=== PATIENT | male | born 1960 | race Caucasian/White ===

== ENCOUNTER → 2022-04-24 | Outpatient (CLI) | payer BC ==
--- NOTE | 2022-04-24 15:20 | US ---
LOWER EXTREMITY VENOUS INSUFFICIENCY CLINICAL HISTORY: I87.2 VENOUS INSUFFICIENCY. Nonhealing wound right perera SIDE PERFORMED: Bilateral 1) Color flow is present and patency is documented in the following vessels. No DVT or SVT is noted . Common Femoral Vein Deep Femoral Vein Femoral Vein Popliteal Vein Proximal Calf Veins Greater Saph Vein Upper Small Saph Vein 2) There is venous reflux noted at the following venous levels: NONE 3) Incompetent perforators are noted at these levels: NONE Bilateral femoral veins appear small in size IMPRESSION: No ultrasound evidence for acute deep or superficial venous thrombosis in either lower ex tremity. No significant venous reflux bilaterally.
== END | disposition home or self-care (01) ==
LOC: RADUSWWP 13:30
PROVIDERS: ATTEND Family Medicine
DX: I87.2 Venous insufficiency (chronic) (peripheral) (principal); S81.801A Unspecified open wound, right lower leg, initial encounter
CPT/HCPCS: 93970

== ENCOUNTER 2022-09-02 13:14 | Inpatient (IN) | payer BC ==
[2022-09-02] MEDS ORDERED: methylPREDNISolone SOD SUCCI 125 MG/2 ML VIAL IV STA (13:36)
[2022-09-02] MEDS ORDERED: SODIUM CHLORIDE 0.9% 1,000 ML IV STA ×2 (13:36→15:54)
[2022-09-02] MEDS ORDERED: IPRATROPIUM-ALBUTEROL 3 ML NEB INHALATION STA (13:36)
--- NOTE | 2022-09-02 13:41 | ED ---
SOB HPI - General Chief Complaint: Shortness of Breath Stated Complaint: sob Time Seen by Provider: 09/02/22 13:29 Source: patient, RN notes reviewed Mode of arrival: ambulatory Limitations: no limitations - History of Present Illness Initial Comments: 61-year-old male with a history of asthma who is a smoker also history of pneumonia who presents with complaints of sudden onset shortness of breath this morning also states he's had chills no overt fever. He states he has some right-sided chest discomfort that sharp in nature when he coughs. No pal pitations no other current complaints or modifying factors MD Complaint: shortness of breath, cough, chest pain - Related Data Home Medications Medication Instructions Recorded Confirmed Albuterol Inhaler [Ventolin Hfa 2 puff INHALATION RT-Q6H PRN 09/02/22 09/02/22 Inhaler] Fluticasone Propion/Salmeterol 1 puff INHALATION RT-BID 09/02/22 09/02/22 [Advair 250-50 Diskus] Allergies Allergy/AdvReac Type Severity Reaction Status Date / Time No Known Allergies Allergy Verified 09/02/22 13:44 Review of Systems ROS Statement: Those systems with pertinent positive or pertinent negative responses have been documented in the HPI. ROS Other: All systems not noted in ROS Statement are negative. Past Medical History Past Medical History: Asthma History of Any Multi-Drug Resistant Organisms: None Reported Past Surgical History: No Surgical Hx Reported Past Psychological History: No Psychological Hx Reported Smoking Status: Current every day smoker Past Alcohol Use History: None Reported Past Drug Use History: None Reported General Exam - General Exam Comments Initial Comments: This is a well-developed well-nourished awake alert oriented 4 male Limitations: no limitations General appearance: alert, anxious, in distress Head exam: Present: atraumatic, normocephalic, normal inspection Eye exam: Present: normal appearance, PERRL, EOMI. Absent: scleral icterus, conjunctival injection, periorbital swelling ENT exam: Present: normal exam, mucous membranes moist Neck exam: Present: normal inspection, full ROM, other (No stridor JVD or bruits). Absent: tenderness, meningismus, lymphadenopathy Respiratory exam: Present: decreased breath sounds, other (Bilateral crepitus). Absent: respiratory distress, wheezes, rales, rhonchi, stridor Cardiovascular Exam: Present: normal rhythm, tachycardia, normal heart sounds. Absent: systolic murmur, diastolic murmur, rubs, gallop, clicks GI/Abdominal exam: Present: soft, normal bowel sounds. Absent: distended, tenderness, guarding, rebound, rigid Extremities exam: Present: normal inspection, full ROM, normal capillary refill. Absent: tenderness, pedal edema, joint swelling, calf tenderness Back exam: Present: normal inspection Neurological exam: Present: alert, oriented X3, CN II-XII intact Psychiatric exam: Present: normal affect, normal mood Skin exam: Present: warm, dry, intact, normal color. Absent: rash Course Vital Signs 09/02/22 09/02/22 09/02/22 13:16 13:48 15:11 Temperature 99.5 F Pulse Rate 134 H 88 Respiratory 32 H 24 22 Rate Blood Pressure 117/73 O2 Sat by Pulse 90 L Oximetry Fraction of Inspired Oxygen (FIO2) 09/02/22 09/02/22 09/02/22 15:25 16:40 16:59 Temperature Pulse Rate 90 133 H 139 H Respiratory 20 30 H 30 H Rate Blood Pressure 102/78 O2 Sat by Pulse 88 L 94 L Oximetry Fraction of 40 Inspired Oxygen (FIO2) 09/02/22 09/02/22 09/02/22 17:31 17:47 19:33 Temperature Pulse Rate 130 H Respiratory 40 H Rate Blood Pressure 129/86 O2 Sat by Pulse 92 L Oximetry Fraction of 40 100 Inspired Oxygen (FIO2) 09/02/22 19:46 Temperature Pulse Rate Respiratory Rate Blood Pressure O2 Sat by Pulse Oximetry Fraction of 100 Inspired Oxygen (FIO2) - Reevaluation(s) Reevaluation #1: 09/02/22 19:37 (Initially was found have evidence of pneumonia right lower lobe and right middle lobe. CT was performed to rule out PE and was seen at this time. Reevaluation #2: 09/02/22 19:37 Patient was seen by Dr. Linda in the emergency department patient was already on BiPAP. he'll be admitted to intensive care unit Reevaluation #3: 09/02/22 20:03 Repeat EKG done at 17:04 sinus tachycardia rate 135. Interval 1:30 QRS caodaism 81 daily since QTC 290/369 indeterminate axis some artifact present otherwise no change from the previous Procedures - Intubation Sedative: Versed Mg Given: 2 Paralytic: Succinylcholine Mg Given: 100 Laryngoscope: fiber optic video scope Size: 4 ET Tube Size: 8 ET Tube Uncuffed: No (Cuffed) Tube Secured Depth (cm): 23 Tube Secured Location: lips Tube Placement Confirmation: visualized tube passing through cords, equal breath sounds bilaterally, confirmation by capnometry Patient Tolerated Procedure: well Intubation Complications: none (There was some blood in the oropharynx secondary to the period time the patient was on BiPAP.) - Sepsis Sepsis Focused Exam #1 Time Sepsis Criteria Met: 19:00 Sepsis Focused Exam Date: 09/02/22 Sepsis Focused Exam Time: 19:30 Sepsis Focused Exam Complete: Yes Vital Signs & RN Notes Reviewed: Yes Capillary Refill: < 2 Seconds: Fingers, Toes Peripheral Pulses: Normal: Radial (R), Radial (L) Skin Color: Normal for Patient Respiratory Exam: respiratory distress, rhonchi Cardiovascular Exam: tachycardia - Smoking Cessation Time Spent Discussing Smoking Cessation w/Patient (Minutes): 3 Patient Acknowledges Need for Cessation: Yes Medical Decision Making - Medical Decision Making Patient did demonstrate evidence of respiratory distress with pneumonia. He is a smoker there is a COPD component to this. Patient did not respond well to the initial treatment or BiPAP and did require oral tracheal intubation as he was fatiguing demonstrating a respiratory rate of 40+. I did discuss this with the patient family prior.. Rapid sequence intubation was performed successfully. Patient's endotracheal tube was repositioned after the initial x-ray postprocedure. He will be admitted to the intensive care unit. Evidence of sepsis patient initially started on IV antibiotics with further orders by Dr. Linda. The patient did initially respond to IV fluids. Was pt. sent in by a medical professional or institution (, PA, STUBBER, urgent care, hospital, or fci...) When possible be specific @ -No Did you speak to anyone other than the patient for history (EMS, parent, family, police, friend...)? What history was obtained from this source @ -Family Did you review nursing and triage notes (agree or disagree)? Why? @ -I reviewed and agree with nursing and triage notes Were old charts reviewed (outside hosp., previous admission, EMS record, old E KG, old radiological studies, urgent care reports/EKG's, fci records)? Report findings @ - old charts were reviewed Differential Diagnosis (chest pain, altered mental status, abdominal pain women, abdominal pain men, vaginal bleeding, weakness, fever, dyspnea, syncope, headache, dizziness, GI bleed, back pain, seizure, CVA, palpatations, mental health, musculoskeletal)? @ -Pneumonia, COPD exacerbation EKG interpreted by me (3pts min.). @ -As above X-rays interpreted by me (1pt min.). @ -As above CT interpreted by me (1pt min.). @ -As above U/S interpreted by me (1pt. min.). @ -None done What testing was considered but not performed or refused? (CT, X-rays, U/S, labs)? Why? @ -None What meds were considered but not given or refused? Why? @ -None Did you discuss the management of the patient with other professionals (professionals i.e. , PA, STUBBER, lab, RT, psych nurse, social sciences lecturer, machinery engineer, teacher, humane officer, family independence case manager)? Give summary @ -Dr. Benitez, Dr. Linda Was smoking cessation discussed for >3mins.? @ -Just patient does agree that he needs to stop Was critical care preformed (if so, how long)? @ -49 minutes Were there social determinants of health that impacted care today? How? (Homelessness, low income, unemployed, alcoholism, drug addiction, transportation, low edu. Level, literacy, decrease access to med. care, intermediate, rehab)? @ -No Was there de-escalation of care discussed even if they declined (Discuss DNR or withdrawal of care, Hospice)? DNR status @ -No What co-morbidities impacted this encounter? (DM, HTN, Smoking, COPD, CAD, Cancer, CVA, ARF, Chemo, Hep., AIDS, mental health diagnosis, sleep apnea, morbid obesity)? @ -COPD Was patient admitted / discharged? Hospital course, mention meds given and route, prescriptions, significant lab abnormalities, going to OR and other pertinent info. @ -hospital course H was admitted to the intensive care unit Undiagnosed new problem with uncertain prognosis? @ -Ammonia Drug Therapy requiring intensive monitoring for toxicity (Heparin, Nitro, Insulin, Cardizem)? @ -No Were any procedures done? @ -Oral tracheal intubation Diagnosis/symptom? @ -Acute respiratory failure, pneumonia, hypoxemia, sepsis Acute, or Chronic, or Acute on Chronic? @ -Acute Uncomplicated (without systemic symptoms) or Complicated (systemic symptoms)? @ -Replicated with systemic symptoms episodic hypotension as well as tachycardia into respiratory failure Side effects of treatment? @ -No Exacerbation, Progression, or Severe Exacerbation? @ -No Poses a threat to life or bodily function? How? (Chest pain, [place], [place], pneumonia, PE, COPD, DKA, ARF, appy, cholecystitis, CVA, Diverticulitis, Homicidal, Suicidal, threat to staff... and all critical care pts) @ -Acute respiratory failure, COPD, pneumonia - Lab Data Result diagrams: 09/02/22 13:49 09/02/22 13:49 Lab Results 09/02/22 09/02/22 09/02/22 Range/Units 13:49 13:49 13:49 WBC 36.8 H (3.8-10.6) k/uL RBC 4.77 (4.30-5.90) m/uL Hgb 14.4 (13.0-17.5) gm/dL Hct 43.5 (39.0-53.0) % MCV 91.2 (80.0-100.0) fL MCH 30.3 (25.0-35.0) pg MCHC 33.2 (31.0-37.0) g/dL RDW 12.6 (11.5-15.5) % Plt Count 324 (150-450) k/uL MPV 8.5 Neutrophils % (Manual) 89 % Band Neuts % (Manual) 5 % Lymphocytes % (Manual) 2 % Monocytes % (Manual) 4 % Neutrophils # (Manual) 34.50 H (1.3-7.7) k/uL Lymphocytes # (Manual) 0.74 L (1.0-4.8) k/uL Monocytes # (Manual) 1.47 H (0-1.0) k/uL Nucleated RBCs 0 (0-0) /100 WBC Manual Slide Review Performed PT 10.4 (9.0-12.0) sec INR 1.0 (<1.2) APTT 22.3 (22.0-30.0) sec D-Dimer 8.19 H (<0.60) mg/L FEU Sample Site ABG pH (7.35-7.45) ABG pCO2 (35-45) mmHg ABG pO2 (83-108) mmHg ABG HCO3 (21-25) mmol/L ABG Total CO2 (19-24) mmol/L ABG O2 Saturation (94-97) % ABG Base Excess mmol/L Chad Test FiO2 % Sodium 133 L (137-145) mmol/L Potassium 4.4 (3.5-5.1) mmol/L Chloride 99 (98-107) mmol/L Carbon Dioxide 25 (22-30) mmol/L Anion Gap 9 mmol/L BUN 18 (9-20) mg/dL Creatinine 1.54 H (0.66-1.25) mg/dL Est GFR (CKD-EPI)AfAm 56 (>60 ml/min/1.73 sqM) Est GFR (CKD-EPI)NonAf 49 (>60 ml/min/1.73 sqM) Glucose 160 H (74-99) mg/dL Plasma Lactic Acid Hal (0.7-2.0) mmol/L Calcium 9.2 (8.4-10.2) mg/dL Magnesium 1.6 (1.6-2.3) mg/dL Total Bilirubin 0.8 (0.2-1.3) mg/dL AST 22 (17-59) U/L ALT 27 (4-49) U/L Alkaline Phosphatase 66 (38-126) U/L Troponin I (0.000-0.034) ng/mL Total Protein 6.7 (6.3-8.2) g/dL Albumin 3.5 (3.5-5.0) g/dL Influenza Type A (PCR) (Not Detectd) Influenza Type B (PCR) (Not Detectd) RSV (PCR) (Not Detectd) SARS-CoV-2 (PCR) (Not Detectd) 09/02/22 09/02/22 09/02/22 Range/Units 13:49 13:49 13:49 WBC (3.8-10.6) k/uL RBC (4.30-5.90) m/uL Hgb (13.0-17.5) gm/dL Hct (39.0-53.0) % MCV (80.0-100.0) fL MCH (25.0-35.0) pg MCHC (31.0-37.0) g/dL RDW (11.5-15.5) % Plt Count (150-450) k/uL MPV Neutrophils % (Manual) % Band Neuts % (Manual) % Lymphocytes % (Manual) % Monocytes % (Manual) % Neutrophils # (Manual) (1.3-7.7) k/uL Lymphocytes # (Manual) (1.0-4.8) k/uL Monocytes # (Manual) (0-1.0) k/uL Nucleated RBCs (0-0) /100 WBC Manual Slide Review PT (9.0-12.0) sec INR (<1.2) APTT (22.0-30.0) sec D-Dimer (<0.60) mg/L FEU Sample Site ABG pH (7.35-7.45) ABG pCO2 (35-45) mmHg ABG pO2 (83-108) mmHg ABG HCO3 (21-25) mmol/L ABG Total CO2 (19-24) mmol/L ABG O2 Saturation (94-97) % ABG Base Excess mmol/L Chad Test FiO2 % Sodium (137-145) mmol/L Potassium (3.5-5.1) mmol/L Chloride (98-107) mmol/L Carbon Dioxide (22-30) mmol/L Anion Gap mmol/L BUN (9-20) mg/dL Creatinine (0.66-1.25) mg/dL Est GFR (CKD-EPI)AfAm (>60 ml/min/1.73 sqM) Est GFR (CKD-EPI)NonAf (>60 ml/min/1.73 sqM) Glucose (74-99) mg/dL Plasma Lactic Acid Hal 1.8 (0.7-2.0) mmol/L Calcium (8.4-10.2) mg/dL Magnesium (1.6-2.3) mg/dL Total Bilirubin (0.2-1.3) mg/dL AST (17-59) U/L ALT (4-49) U/L Alkaline Phosphatase (38-126) U/L Troponin I <0.012 (0.000-0.034) ng/mL Total Protein (6.3-8.2) g/dL Albumin (3.5-5.0) g/dL Influenza Type A (PCR) Not Detected (Not Detectd) Influenza Type B (PCR) Not Detected (Not Detectd) RSV (PCR) Not Detected (Not Detectd) SARS-CoV-2 (PCR) Not Detected (Not Detectd) 09/02/22 Range/Units 17:58 WBC (3.8-10.6) k/uL RBC (4.30-5.90) m/uL Hgb (13.0-17.5) gm/dL Hct (39.0-53.0) % MCV (80.0-100.0) fL MCH (25.0-35.0) pg MCHC (31.0-37.0) g/dL RDW (11.5-15.5) % Plt Count (150-450) k/uL MPV Neutrophils % (Manual) % Band Neuts % (Manual) % Lymphocytes % (Manual) % Monocytes % (Manual) % Neutrophils # (Manual) (1.3-7.7) k/uL Lymphocytes # (Manual) (1.0-4.8) k/uL Monocytes # (Manual) (0-1.0) k/uL Nucleated RBCs (0-0) /100 WBC Manual Slide Review PT (9.0-12.0) sec INR (<1.2) APTT (22.0-30.0) sec D-Dimer (<0.60) mg/L FEU Sample Site R. Radial ABG pH 7.22 L (7.35-7.45) ABG pCO2 64 H (35-45) mmHg ABG pO2 76 L (83-108) mmHg ABG HCO3 26 H (21-25) mmol/L ABG Total CO2 28 H (19-24) mmol/L ABG O2 Saturation 93.2 L (94-97) % ABG Base Excess -1.6 mmol/L Chad Test Yes FiO2 40 % Sodium (137-145) mmol/L Potassium (3.5-5.1) mmol/L Chloride (98-107) mmol/L Carbon Dioxide (22-30) mmol/L Anion Gap mmol/L BUN (9-20) mg/dL Creatinine (0.66-1.25) mg/dL Est GFR (CKD-EPI)AfAm (>60 ml/min/1.73 sqM) Est GFR (CKD-EPI)NonAf (>60 ml/min/1.73 sqM) Glucose (74-99) mg/dL Plasma Lactic Acid Hal (0.7-2.0) mmol/L Calcium (8.4-10.2) mg/dL Magnesium (1.6-2.3) mg/dL Total Bilirubin (0.2-1.3) mg/dL AST (17-59) U/L ALT (4-49) U/L Alkaline Phosphatase (38-126) U/L Troponin I (0.000-0.034) ng/mL Total Protein (6.3-8.2) g/dL Albumin (3.5-5.0) g/dL Influenza Type A (PCR) (Not Detectd) Influenza Type B (PCR) (Not Detectd) RSV (PCR) (Not Detectd) SARS-CoV-2 (PCR) (Not Detectd) - EKG Data -: EKG Interpreted by Me EKG Comments: EKG interpreted by me sinus tachycardia rate 127 [place] interval 124 QRS duration 90 QT since QTC 298/373 indeterminate axis evidence of RVH this was 40 EKG timed at 13:38 - Radiology Data Interpreted by me: Initial x-ray interpreted by me showed evidence of right lower lobe and right middle lobe infiltrate. CT angios showed no definitive evidence of pulmonary embolus or infiltrates were read demonstrated. Post intubation x-ray showed the endotracheal tube to be well above the deo with repositioning 3 cm down. OG tube also need to be repositioned approximately 8 cm downward Critical Care Time Critical Care Time: Yes Total Critical Care Time: 49 Critical Care Time: This is not included the patient time. Disposition Clinical Impression: Acute respiratory failure, Pneumonia, COPD (chronic obstructive pulmonary di sease), Smoking, Febrile illness, acute, Sepsis Disposition: ADMITTED IP TO THIS HOSP Condition: Critical Referrals: Abiel Kennedy DO [Primary Care Provider] - 1-2 days Decision Date: 09/02/22 Decision Time: 19:10
--- NOTE | 2022-09-02 14:48 | XR ---
EXAMINATION TYPE: XR chest 2V DATE OF EXAM: 09/02/2022 2:40 PM COMPARISON: None TECHNIQUE: XR chest 2V Frontal and lateral views of the chest. CLINICAL INDICATION:Male, 61 years old with history of difficulty breathing; FINDINGS: Lungs/Pleura: Patchy airspace opacities demonstrated through the left lower lung and right mid and lo wer lung. No pleural effusion or pneumothorax. Pulmonary vascularity: Unremarkable. Heart/mediastinum: Cardiomediastinal silhouette is unremarkable. Musculoskeletal: Multiple level degenerative disc disease changes seen throughout the spine. No acute osseous abnormality. IMPRESSION: Patchy airspace opacities demonstrated throughout the right mid and lower lung and left lower lung co ncerning for pneumonia.
[2022-09-02 14:50] LABS: HCT 43.5 % (39.0-53.0); HGB 14.4 gm/dL (13.0-17.5); MCH 30.3 pg (25.0-35.0); MCHC 33.2 g/dL (31.0-37.0); MCV 91.2 fL (80.0-100.0); Mean Platelet Volume 8.5; Platelet Count 324 k/uL (150-450); RBC 4.77 m/uL (4.30-5.90); RDW 12.6 % (11.5-15.5); WBC 36.8 k/uL (3.8-10.6)
[2022-09-02 15:07] LABS: Albumin 3.5 g/dL (3.5-5.0); Calcium 9.2 mg/dL (8.4-10.2); Magnesium 1.6 mg/dL (1.6-2.3); Potassium 4.4 mmol/L (3.5-5.1); Total Bilirubin 0.8 mg/dL (0.2-1.3); Total Protein 6.7 g/dL (6.3-8.2)
[2022-09-02] MEDS ORDERED: cefTRIAXone IN SWFI 1,000 MG/10 ML SYRINGE IVP STA (15:29)
[2022-09-02 15:32] LABS: Partial Thromboplastin Time 22.3 sec (22.0-30.0); Prothrombin Time 10.4 sec (9.0-12.0)
[2022-09-02 16:03] LABS: Band Neutrophils % 5 %; Lymphocytes # (M) 0.74 k/uL (1.0-4.8); Monocytes # (M) 1.47 k/uL (0-1.0); Neutrophils % (M) 89 %; Nucleated Red Blood Cells 0 /100 WBC (0-0); Total Cells Counted 100
[2022-09-02] MEDS ORDERED: HYDROmorphone 1 MG/ML 1 ML SYRINGE IVP STA (16:52)
--- NOTE | 2022-09-02 16:57 | CT ---
EXAMINATION TYPE: CT angio chest CT DLP: 410.4 mGycm, Automated exposure control for dose reduction was used. DATE OF EXAM: 09/02/2022 4:43 PM COMPARISON: 09/02/2022 CLINICAL INDICATION:Male, 61 years old with history of PE suspected; elevated d-dimer TECHNIQUE/CONTRAST: CTA scan of the thorax is performed with IV Contrast, patient injected with 65cc mL of Isovue 370, pu lmonary embolism protocol. MIP images are created and reviewed these are created on a separate works tation.. FINDINGS: Pulmonary Artery: There is no evidence for a filling defect within the pulmonary vasculature to sugge st acute pulmonary embolism. The pulmonary artery is of normal size. Lungs/Pleura: Airspace opacities within the right middle lobe and right upper lobe and left lingula. Some of these airspace opacities have peripheral morphology. Including the right upper lobe on series 401 image 47 the right lower lobe on image 75 the left upper lobe and image 86 and the right lower l obe on image 98r. Other opacities are not peripheral including right upper lobe 16 x 12 mm pulmonary nodule on image 34. Mild centrilobular emphysema changes. No pneumothorax or pleural effusion. Airway: Large airways are patent. Heart: Heart is within normal limits for size. Vasculature: No evidence of aortic aneurysm. Mediastinum: No gross evidence of adenopathy. Musculoskeletal: No acute osseous abnormalities Soft Tissues: Unremarkable. Lower neck: No significant findings. Upper Abdomen: No significant findings. IMPRESSION: 1. No central pulmonary embolism visualized. There are wedge-shaped peripheral opacities present and could represent small subsegmental pulmonary emboli with pulmonary infarct. There is another masslike opacity in the right upper lung which is not peripheral. Continued attention CT chest follow-up to t o ensure resolution. 2. Airspace opacities most pronounced in the right middle and right upper lung favored represent infe ctious/inflammatory process.
[2022-09-02] MEDS ORDERED: LORazepam 2 MG/ML INJ IV STA (17:17)
[2022-09-02] MEDS: MAGNESIUM SULFATE-D5W PMX 1 GM in DEXTROSE/WATER 1 100ML.BAG IVPB SCH ×2 (17:40→22:57)
[2022-09-02] MEDS ORDERED: SODIUM CHLORIDE 0.9% 2,000 ML IV ONE (17:59)
[2022-09-02 18:03] LABS: ABG Base Excess -1.6 mmol/L; ABG HCO3 26 mmol/L (21-25); ABG Oxygen Saturation 93.2 % (94-97); ABG PCO2 64 mmHg (35-45); ABG PH 7.22 (7.35-7.45); ABG PO2 76 mmHg (83-108); ABG TCO2 28 mmol/L (19-24); Allen Test Performed? Yes
[2022-09-02] MEDS ORDERED: VANCOMYCIN IV PER PHARMACY 1 EACH MISC MISCELLANE PRN (18:06)
[2022-09-02] MEDS ORDERED: VANCOMYCIN 1,500 MG in SODIUM CHLORIDE 0.9% 500 ML 500 ML IVPB STA (18:13)
[2022-09-02] MEDS ORDERED: methylPREDNISolone SOD SUCCI 125 MG/2 ML VIAL IV SCH ×2 (18:30→21:00)
[2022-09-02] MEDS ORDERED: SUCCINYLCHOLINE CHLORIDE 200 MG/10 ML VIAL IV ONE (19:29)
--- NOTE | 2022-09-02 19:53 | XR ---
EXAMINATION TYPE: XR chest 1V confirm line plcmt DATE OF EXAM: 09/02/2022 7:47 PM COMPARISON: Chest radiographs from 09/02/2022 earlier. TECHNIQUE: XR chest 1V confirm line plcmt Frontal view of the chest. CLINICAL INDICATION:Male, 61 years old with history of ET tube placement; FINDINGS: Lungs/Pleura: Right airspace opacities. No evidence of pneumothorax or pleural effusion. Pulmonary vascularity: Unremarkable. Heart/mediastinum: Cardiomediastinal silhouette is unremarkable. Musculoskeletal: No acute osseous pathology. Lines/Tubes: Endotracheal tube with distal tip 7.1 cm above the deo. Nasogastric tube with side-port projecting over the distal esophagus. IMPRESSION: 1. Right midlung airspace opacities compatible with pneumonia. 2. ET tube in satisfactory position. Consider advancement of 3 cm for optimal placement. 3. Nasogastric tube side-port at the gastroesophageal junction consider advancement of 8 cm for opti mal placement.
[2022-09-02] MEDS ORDERED: MIDAZOLAM 1 MG/ML 5 ML VIAL IV STA (20:15)
[2022-09-02] MEDS ORDERED: NALOXONE 0.4 MG/ML 1 ML VIAL IV PRN (20:15)
[2022-09-02 20:21] LABS: ABG Base Excess -4.4 mmol/L; ABG HCO3 25 mmol/L (21-25); ABG Oxygen Saturation 98.2 % (94-97); ABG PO2 144 mmHg (83-108); ABG TCO2 27 mmol/L (19-24); Allen Test Performed? Yes
--- NOTE | 2022-09-02 20:50 | XR ---
EXAMINATION TYPE: XR chest 1V portable DATE OF EXAM: 09/02/2022 8:42 PM COMPARISON: Chest radiographs from same day TECHNIQUE: XR chest 1V portable Frontal view of the chest. CLINICAL INDICATION:Male, 61 years old with history of Intubation; FINDINGS: Improved location of the endotracheal tube now 4.4 cm above the deo. Nasogastric tube in appropria te position with distal tip and side-port in the gastric lumen. Right airspace opacities unchanged. IMPRESSION: Interval advancement with appropriate placement of endotracheal and nasogastric tubes.
[2022-09-02 21:11] LABS: Glucose,Whole Blood 197 mg/dL (70-110)
--- NOTE | 2022-09-02 21:19 | P.CNPUL ---
History of Present Illness Consult date: 09/02/22 Reason for consult: dyspnea, COPD History of present illness: A 61-year-old mentation, known history of COPD, chronic smoker who continues to smoke approximately a pack of cigarettes a day, presenting with progressively worsening shortness of breath over the past 1 week. The patient was seen in the emergency department. The patient was already on a BiPAP at a pressure of 12/6 with an FiO2 of 60%. He was still having significant labored breathing, and he was tachypneic and his rate was ranging between 30-40 and he had marked diminished breath sounds bilaterally. His mentation was quite diminished and the patient seemed to be altered yet arousable. The was at the bedside. This patient does not seem to have had an evaluation with pulmonary in the past. Based on the reported history by the , he has been maintained on Advair and albuterol rescue inhaler on an outpatient basis. No home O2. He was experiencing pleuritic right-sided chest pain along with cough and congestion. He ended up in the emergency department this afternoon. Based on his labored breathing, immediately was placed on a BiPAP. I discussed the case with the emergency room physician. The patient is a higher risk of going into respiratory failure requiring intubation mechanical ventilation and I made the aware of. Meanwhile, if it was worth was given patient a trial of noninvasive positive pressure ventilation. White cell count was 36.8 with a hemoglobin of 14.4. Acute kidney injury with a BUN of 18 and a creatinine of 1.5 and sodium level of 133. His LFTs were essentially normal. The vital screening including influenza a and influenza B and RSV and Covid 19 testing was negative. Lactic acid level was at 1.8. Troponins were negative. Blood gas was ordered. Reviewed the CAT scan of the chest and there is no evidence of p ulmonary embolism. The patient had extensive airspace disease more pronounced in the right middle lobe and the right upper lobe and the patient had other peripheral wedge-shaped pulmonary infiltrates. Predominant consolidation within the right upper lobe. There was also background mild centrilobular emphysema. No history of diabetes mellitus. Nosocomial artery disease. No history of any stroke. Review of Systems Constitutional: Reports fatigue, Reports lethargy, Reports poor appetite, Reports weakness Eyes: denies as per HPI, denies blurred vision, denies bulging eye, denies decreased vision, denies diplopia, denies discharge, denies dry eye, denies irritation, denies itching, denies pain, denies photophobia, denies loss of peripheral vision, denies loss of vision, denies tunnel vision/blind spots Ears: deny: decreased hearing, ear discharge, earache, tinnitus Ears, nose, mouth and throat: Reports as per HPI Breasts: absent: as per HPI, gynecomastia Cardiovascular: Reports decreased exercise tolerance, Reports dyspnea on exertion Respiratory: Reports cough, Reports dyspnea, Reports pleurisy Gastrointestinal: Reports as per HPI Genitourinary: Reports as per HPI Musculoskeletal: absent: ankle pain, ankle stiffness, ankle swelling, as per HPI, elbow pain, elbow stiffness, elbow swelling, foot pain, foot stiffness, foot swelling, hand pain, hand stiffness, hand swelling, hip pain, hip stiffness, hip swelling, knee pain, knee stiffness, knee swelling, shoulder pain, shoulder stiffness, shoulder swelling, wrist pain, wrist stiffness, wrist swelling Integumentary: Reports as per HPI Neurological: Reports change in mentation Psychiatric: Reports as per HPI Endocrine: Reports fatigue Hematologic/Lymphatic: Reports as per HPI Allergic/Immunologic: Reports as per HPI Past Medical History Past Medical History: COPD History of Any Multi-Drug Resistant Organisms: None Reported Past Surgical History: No Surgical Hx Reported Past Psychological History: No Psychological Hx Reported Smoking Status: Current every day smoker Past Alcohol Use History: None Reported Past Drug Use History: None Reported Medications and Allergies Home Medications Medication Instructions Recorded Confirmed Type Albuterol Inhaler [Ventolin Hfa 2 puff INHALATION RT-Q6H PRN 09/02/22 09/02/22 History Inhaler] Fluticasone Propion/Salmeterol 1 puff INHALATION RT-BID 09/02/22 09/02/22 History [Advair 250-50 Diskus] Allergies Allergy/AdvReac Type Severity Reaction Status Date / Time No Known Allergies Allergy Verified 09/02/22 13:44 Physical Exam Vitals: Vital Signs Temp Pulse Resp BP Pulse Ox FiO2 09/02/22 20:30 112 H 27 H 111/62 98 09/02/22 20:00 111 H 21 118/67 96 09/02/22 19:46 100 09/02/22 19:33 100 09/02/22 19:30 122 H 22 154/96 93 L 09/02/22 19:00 120 H 37 H 132/71 90 L 09/02/22 17:47 40 09/02/22 17:31 130 H 40 H 129/86 92 L 09/02/22 17:30 133 H 37 H 119/67 93 L 09/02/22 17:00 102/78 94 L 09/02/22 16:59 139 H 30 H 94 L 40 09/02/22 16:40 133 H 30 H 102/78 88 L 09/02/22 16:30 129 H 32 H 94/75 89 L 09/02/22 16:00 134 H 41 H 94/75 90 L 09/02/22 15:30 137 H 48 H 94/75 89 L 09/02/22 15:25 90 20 09/02/22 15:11 88 22 09/02/22 15:00 131 H 29 H 94/75 90 L 09/02/22 14:30 94/75 09/02/22 14:00 130 H 31 H 94/75 94 L 09/02/22 13:48 24 09/02/22 13:44 126 H 31 H 95 09/02/22 13:16 99.5 F 134 H 32 H 117/73 90 L Intake and Output 09/02/22 09/02/22 09/02/22 06:59 14:59 22:59 Other: Weight 81.647 kg 61-year-old male patient, labored breathing on a BiPAP at a pressure of 12/6 with an FiO2 of 60%, tachypneic with a higher minute ventilation. He is obese. Head exam was generally normal. There was no scleral icterus or corneal arcus. Mucous membranes were moist. Neck was supple and without jugular venous distension, thyromegaly, or carotid bruits. Carotids were easily palpable bilaterally. There was no adenopathy. Lungs sounds are diminished bilaterally and the patient has expiratory rhonchi and wheezes and diminished breath sounds bilaterally. Heart sounds are tachycardic, positive S1-S2, sinus rhythm and no significant murmurs appreciated Abdominal exam revealed normal bowel sounds. The abdomen was soft, non-tender, and without masses, organomegaly, or appreciable enlargement of the abdominal aorta. Extremities revealed trace edema and there is no cyanosis or clubbing Examination of the skin revealed no evidence of significant rashes, suspicious appearing nevi or other concerning lesions. Neurologically the patient is arousable, and the patient has diminished level of consciousness. Neurologic exam is nonfocal. Is communicating and moving all 4 extremities. Results - Laboratory Findings CBC and BMP: 09/02/22 13:49 09/02/22 13:49 ABG ABG pH 7.22 (7.35-7.45) L 09/02/22 17:58 ABG pCO2 64 mmHg (35-45) H 09/02/22 17:58 ABG pO2 76 mmHg (83-108) L 09/02/22 17:58 ABG O2 Saturation 93.2 % (94-97) L 09/02/22 17:58 PT/INR, D-dimer PT 10.4 sec (9.0-12.0) 09/02/22 13:49 INR 1.0 (<1.2) 09/02/22 13:49 D-Dimer 8.19 mg/L FEU (<0.60) H 09/02/22 13:49 Abnormal lab findings: Abnormal Labs 09/02/22 09/02/22 09/02/22 13:49 13:49 13:49 WBC 36.8 H Neutrophils # (Manual) 34.50 H Lymphocytes # (Manual) 0.74 L Monocytes # (Manual) 1.47 H D-Dimer 8.19 H ABG pH ABG pCO2 ABG pO2 ABG HCO3 ABG Total CO2 ABG O2 Saturation Sodium 133 L Creatinine 1.54 H Glucose 160 H 09/02/22 17:58 WBC Neutrophils # (Manual) Lymphocytes # (Manual) Monocytes # (Manual) D-Dimer ABG pH 7.22 L ABG pCO2 64 H ABG pO2 76 L ABG HCO3 26 H ABG Total CO2 28 H ABG O2 Saturation 93.2 L Sodium Creatinine Glucose - Diagnostic Findings Chest x-ray: image reviewed CT scan - chest: image reviewed Assessment and Plan Plan: acute multilobar pneumonia right more than left with extensive right upper lobe/right middle lobe consolidation lung with patchy pneumonic infiltrates bilaterally. Acute hypoxic/hypercapnic respiratory failure secondary to above, currently on BiPAP acute sepsis secondary to above Acute sinus tachycardia secondary to above Acute leukocytosis secondary to above Acute COPD exacerbation secondary to above Altered mentation secondary to above acute kidney injury secondary to above Chronic smoker Plan Continue BiPAP for now at the same setting Obtain a blood gas to evaluate the patient's acid base status Close monitoring with possible need for intubation and mechanical ventilation Blood culture Pro calcitonin levels I'm going to cover the patient with a combination of IV cefepime, Levaquin and vancomycin DuoNeb nebulized treatments [id number] IV Solu-Medrol IV fluids with normal saline at the rate of 125 cc/hour Lovenox 40 mg subcu portably prophylaxis IV Protonix condition is critical and the patient will need close ICU monitoring, As mentioned, possible need for intubation mechanical ventilation. is aware Time with Patient: Greater than 30
[2022-09-02 21:31] LABS: Appearance,Urine Clear (Clear); Bilirubin,Urine Negative (Negative); Blood,Urine Trace (Negative); Color,Urine Yellow; Glucose,Urine (UA) Negative (Negative); Ketones,Urine Negative (Negative); Leukocyte Esterase,Urine Negative (Negative); Mucus,Urine Rare /hpf; Nitrite,Urine Negative (Negative); PH, Urine 5.5 (5.0-8.0); Protein,Urine Trace (Negative); RBC,Urine 1 /hpf (0-5); Specific Gravity,Urine 1.041 (1.001-1.035); Urobilinogen,Urine <2.0 mg/dL (<2.0); WBC,Urine <1 /hpf (0-5)
[2022-09-02] MEDS: IPRATROPIUM-ALBUTEROL 3 ML NEB INHALATION SCH (21:34)
[2022-09-02] MEDS ORDERED: SODIUM CHLORIDE 0.9% 1,000 ML IV ONE (21:46)
[2022-09-02] MEDS: LEVOFLOXACIN 750MG-D5W PMX 750 MG in DEXTROSE/WATER 1 150ML.BAG IVPB SCH (21:49)
[2022-09-02] MEDS: NOREPINEPHRINE 4 MG in SODIUM CHLORIDE 0.9% 250 ML IV SCH (22:35)
[2022-09-02] MEDS: PANTOPRAZOLE 40 MG TABLET PO SCH (22:44)
[2022-09-02] MEDS: ENOXAPARIN 40 MG/0.4 ML SYRINGE SQ SCH (22:44)
[2022-09-02] MEDS: CHLORHEXIDINE GLUCONATE 15 ML CUP MUCOUS MEM SCH (22:44)
[2022-09-02] MEDS: methylPREDNISolone SOD SUCCI 125 MG/2 ML VIAL IV SCH (22:44)
[2022-09-02] MEDS: CEFEPIME 2 GM in SODIUM CHLORIDE 0.9% 100 ML IVPB SCH (22:45)
[2022-09-03 00:02] LABS: ABG PCO2 75 mmHg (35-45); ABG PH 7.13 (7.35-7.45)
[2022-09-03] MEDS: NOREPINEPHRINE 4 MG in SODIUM CHLORIDE 0.9% 250 ML IV SCH ×2 (00:32→11:38)
--- NOTE | 2022-09-03 02:16 | HP ---
HISTORY AND PHYSICAL HISTORY OF PRESENT ILLNESS: This is a 61-year-old white male with history of COPD, chronic smoker, pack of cigarettes a day. He has some worsening shortness of breath for the past week. He is already on the BiPAP and FiO2 60%, significant labored breathing. He has been placed on a vent in the ER per pulmonology due to worsening respiratory distress. He is altered, but arousable. is at the bedside. He has been maintained on Advair and albuterol rescue inhaler. No home O2. He was experiencing some pleuritic right-sided chest pain. cough, congestion, positive D-dimer. CT of the chest shows bilateral pneumonia, is placed on the ventilator, placed on broad-spectrum antibiotics, vancomycin, Zosyn, and Levaquin. Extensive airspace disease right middle lobe, right upper lobe, and wedge shaped pulmonary infiltrates on the outer edges of the lungs in the right upper lobe. There is also prominent consolidation and emphysema. REVIEW OF SYSTEMS: A 14-point review of systems unobtainable. He is on the vent. CURRENT MEDICATIONS: See HPI. PAST MEDICAL HISTORY: COPD. SOCIAL HISTORY: Current everyday smoker. No alcohol, no drugs. HOME MEDS: Reviewed include, 1. Advair 250/50 one puff b.i.d. 2. Albuterol inhaler 2 puffs b.i.d. ALLERGIES: Negative. PHYSICAL EXAMINATION: GENERAL: He is currently on the ventilator. VITAL SIGNS: Pulse is low 100s, respiratory rate is 27 before he goes on the vent , blood pressure 111 over 60s, O2 98, FiO2 100%. LUNGS: Show scattered rhonchi and wheeze x4, diminished breath sounds x4. HEART: S1, S2. ABDOMEN: Soft, nontender. EXTREMITIES: No cyanosis, clubbing, or edema. SKIN: No rashes. NEUROLOGIC: Diminished level of consciousness. LABORATORY DATA: White count is 36.8, hemoglobin is 14.4, sodium 133, potassium 4.4, BUN is 18, creatinine 1.54. ABG, pH is 7.22, pCO2 64, PO2 is 76, O2 saturation is 93. D-dimer is 8.19 as mentioned above. Sodium is 132, creatinine is 1.54. Sugars 160. ASSESSMENT: Bilateral pneumonia, likely aspiration, nicotine addiction, COPD, acute hypoxemic respiratory failure secondary to multilobular pneumonia, extensive right upper lobe, right middle lobe, and left lobe pulmonary infiltrates bilaterally in the outer [place], could be blood clot, elevated D-dimer hypoxemic hypercapnic respiratory failure, continue on ventilator. Broad-spectrum antibiotics are given. Infectious Disease consult. Sepsis secondary to above tachycardia secondary to hypoxemia, leukocytosis, significant nature over 30,000 secondary to pneumonia, profound sepsis, COPD exacerbation, altered mental status, acute kidney injury, nicotine addiction, blood cultures, anticoagulants, BiPAP. Pulmonary and Cardiology consult. Continue cefepime, Levaquin, Vancomycin to get IV Solu-Medrol, fluids, Lovenox, Protonix. Prognosis guarded. Pulmonary consult, prognosis guarded. MMSUEL / AMIRAN: [id number] /
[2022-09-03] MEDS: methylPREDNISolone SOD SUCCI 125 MG/2 ML VIAL IV SCH ×4 (04:00→23:55)
[2022-09-03 04:56] LABS: ABG Base Excess -6.8 mmol/L; ABG HCO3 21 mmol/L (21-25); ABG Oxygen Saturation 95.2 % (94-97); ABG PCO2 48 mmHg (35-45); ABG PH 7.24 (7.35-7.45); ABG PO2 79 mmHg (83-108); ABG TCO2 22 mmol/L (19-24); Allen Test Performed? Yes
[2022-09-03] MEDS: VANCOMYCIN 1,500 MG in SODIUM CHLORIDE 0.9% 500 ML 500 ML IVPB SCH ×2 (05:47→18:31)
[2022-09-03 06:06] LABS: Glucose,Whole Blood 202 mg/dL (70-110)
--- NOTE | 2022-09-03 06:27 | P.PN ---
Subjective Progress Note Date: 09/03/22 A 61-year-old mentation, known history of COPD, chronic smoker who continues to smoke approximately a pack of cigarettes a day, presenting with progressively worsening shortness of breath over the past 1 week. The patient was seen in the emergency department. The patient was already on a BiPAP at a pressure of 12/6 with an FiO2 of 60%. He was still having significant labored breathing, and he was tachypneic and his rate was ranging between 30-40 and he had marked diminished breath sounds bilaterally. His mentation was quite diminished and the patient seemed to be altered yet arousable. The was at the bedside. This patient does not seem to have had an evaluation with pulmonary in the past. Based on the reported history by the , he has been maintained on Advair and albuterol rescue inhaler on an outpatient basis. No home O2. He was experiencing pleuritic right-sided chest pain along with cough and congestion. He ended up in the emergency department this afternoon. Based on his labored breathing, immediately was placed on a BiPAP. I discussed the case with the emergency room physician. The patient is a higher risk of going into respiratory failure requiring intubation mechanical ventilation and I made the aware of. Meanwhile, if it was worth was given patient a trial of noninvasive positive pressure ventilation. White cell count was 36.8 with a hemoglobin of 14.4. Acute kidney injury with a BUN of 18 and a creatinine of 1.5 and sodium level of 133. His LFTs were essentially normal. The vital screening including influenza a and influenza B and RSV and Covid 19 testing was negative. Lactic acid level was at 1.8. Troponins were negative. Blood gas was ordered. Reviewed the CAT scan of the chest and there is no evidence of pulmonary embolism. The patient had extensive airspace disease more pronounced in the right middle lobe and the right upper lobe and the patient had other peripheral wedge-shaped pulmonary infiltrates. Predominant consolidation within the right upper lobe. There was also background mild centrilobular emphysema. No history of diabetes mellitus. Nosocomial artery disease. No history of any stroke. On today's evaluation of 09/03/2022, the patient is in the intensive care unit, intubated on a mechanical ventilator. The patient has further decompensation yesterday and he was intubated in the emergency department and following that he was transferred to the ICU. As mentioned, he has an extensive right lung pneu monia and the patient has dense consolidation involving the right middle lobe, right upper lobe and right lower lobe in addition so some patchy pulmonary infiltrates and the right upper lobe and the left lower lobe area. He is currently intubated on a mechanical ventilator. Is sedated on propofol running at 50 mcg/kg/m. He is on assist-control mode of mechanical ventilation at the rate of 20, tidal volume of 500, FiO2 of 70% with a PEEP of 5. Peak airway pressure is 26. No significant orotracheal secretions. Cultures were sent yesterday. The patient is currently on IV fluids with normal saline at rate of 1 25 mL an hour. He became hypotensive overnight and the patient was started on low-dose norepinephrine running at 0.05 mcg/kg/m. His morning blood gases showed a pH of 7.24 with a pCO2 of 48 and pO2 of 79. Cultures are still pending. Pro-calcitonin level is elevated at 32.4 consistent with an acute bacterial infection with secondary sepsis., The patient with broad-spectrum antibiotics. He is on a combination of cefepime, Levaquin and vancomycin. Is also on bronchodilators. He is on systemic steroids. Urine output is in order of 30-60 mL an hour. He is afebrile for now. His calm and comfortable. His current pulse ox is 95%. Cardiac rhythm is sinus. Objective - Vital Signs Vital signs: Vital Signs Temp 99.1 F 09/03/22 04:00 Pulse 89 09/03/22 06:00 Resp 20 09/03/22 06:00 BP 97/66 09/03/22 06:00 Pulse Ox 94 L 09/03/22 06:00 FiO2 70 09/03/22 06:00 Intake & Output 09/02/22 09/02/22 09/03/22 06:59 18:59 06:59 Intake Total 2599.977 Output Total 465 Balance 2134.977 Weight 81.647 kg 93.8 kg Intake: IV 2417 Sodium Chloride 0.9% 1, 1250 000 ml @ 125 mls/hr IV . Q8H STA Rx#:[id number] Sodium Chloride 0.9% 1, 1000 000 ml @ 999 mls/hr IV . Q1H1M STA Rx#:[id number] Vancomycin 1,500 mg In 167 Sodium Chloride 0.9% 500 ml 500 ml @ 167 mls/hr IVPB Q12H JET Rx#: [id number] Intake, IV Titration 182.977 Amount Norepinephrine 4 mg In 39.972 Sodium Chloride 0.9% 250 ml @ 0.03 MCG/KG/MIN 9. 332 mls/hr IV .Q24H JET Rx#:[id number] propofoL 1,000 mg In 143.005 Empty Bag 1 bag @ 15 MCG/ KG/MIN 7.348 mls/hr IV . [id number] JET Rx#:[id number] Output: Urine 465 Other: Voiding Method Indwelling Catheter - Exam 61-year-old male patient, the patient is currently intubated on a mechanical ventilator, and the patient is sedated and symptoms the mechanical ventilation. Orotracheal and orogastric tube are both in place. Head exam was generally normal. There was no scleral icterus or corneal arcus. Mucous membranes were moist. Neck was supple and without jugular venous distension, thyromegaly, or carotid bruits. Carotids were easily palpable bilaterally. There was no adenopathy. Lungs sounds are diminished bilaterally and the patient has expiratory rhonchi and wheezes and diminished breath sounds bilaterally. Heart sounds are tachycardic, positive S1-S2, sinus rhythm and no significant murmurs appreciated Abdominal exam revealed normal bowel sounds. The abdomen was soft, non-tender, and without masses, organomegaly, or appreciable enlargement of the abdominal aorta. Extremities revealed trace edema and there is no cyanosis or clubbing Examination of the skin revealed no evidence of significant rashes, suspicious appearing nevi or other concerning lesions. Neurologically the patient is adequately sedated for now, he is on propofol. Neurologic exam is nonfocal. Is communicating and moving all 4 extremities. - Labs CBC & Chem 7: 09/02/22 13:49 09/02/22 13:49 Labs: Abnormal Lab Results - Last 24 Hours (Table) 09/02/22 09/02/22 09/02/22 Range/Units 13:49 13:49 13:49 WBC 36.8 H (3.8-10.6) k/uL Neutrophils # (Manual) 34.50 H (1.3-7.7) k/uL Lymphocytes # (Manual) 0.74 L (1.0-4.8) k/uL Monocytes # (Manual) 1.47 H (0-1.0) k/uL D-Dimer 8.19 H (<0.60) mg/L FEU ABG pH (7.35-7.45) ABG pCO2 (35-45) mmHg ABG pO2 (83-108) mmHg ABG HCO3 (21-25) mmol/L ABG Total CO2 (19-24) mmol/L ABG O2 Saturation (94-97) % Sodium 133 L (137-145) mmol/L Creatinine 1.54 H (0.66-1.25) mg/dL Glucose 160 H (74-99) mg/dL POC Glucose (mg/dL) (70-110) mg/dL Procalcitonin (0.02-0.09) ng/mL Ur Specific [place] (1.001-1.035) Urine Protein (Negative) Urine Blood (Negative) Urine Mucus (None) /hpf 09/02/22 09/02/22 09/02/22 Range/Units 17:58 20:20 20:31 WBC (3.8-10.6) k/uL Neutrophils # (Manual) (1.3-7.7) k/uL Lymphocytes # (Manual) (1.0-4.8) k/uL Monocytes # (Manual) (0-1.0) k/uL D-Dimer (<0.60) mg/L FEU ABG pH 7.22 L 7.13 L* (7.35-7.45) ABG pCO2 64 H 75 H* (35-45) mmHg ABG pO2 76 L 144 H (83-108) mmHg ABG HCO3 26 H (21-25) mmol/L ABG Total CO2 28 H 27 H (19-24) mmol/L ABG O2 Saturation 93.2 L 98.2 H (94-97) % Sodium (137-145) mmol/L Creatinine (0.66-1.25) mg/dL Glucose (74-99) mg/dL POC Glucose (mg/dL) (70-110) mg/dL Procalcitonin (0.02-0.09) ng/mL Ur Specific [place] 1.041 H (1.001-1.035) Urine Protein Trace H (Negative) Urine Blood Trace H (Negative) Urine Mucus Rare H (None) /hpf 09/02/22 09/02/22 09/03/22 Range/Units 21:10 21:32 04:54 WBC (3.8-10.6) k/uL Neutrophils # (Manual) (1.3-7.7) k/uL Lymphocytes # (Manual) (1.0-4.8) k/uL Monocytes # (Manual) (0-1.0) k/uL D-Dimer (<0.60) mg/L FEU ABG pH 7.24 L (7.35-7.45) ABG pCO2 48 H (35-45) mmHg ABG pO2 79 L (83-108) mmHg ABG HCO3 (21-25) mmol/L ABG Total CO2 (19-24) mmol/L ABG O2 Saturation (94-97) % Sodium (137-145) mmol/L Creatinine (0.66-1.25) mg/dL Glucose (74-99) mg/dL POC Glucose (mg/dL) 197 H (70-110) mg/dL Procalcitonin 32.40 H (0.02-0.09) ng/mL Ur Specific [place] (1.001-1.035) Urine Protein (Negative) Urine Blood (Negative) Urine Mucus (None) /hpf 09/03/22 Range/Units 06:05 WBC (3.8-10.6) k/uL Neutrophils # (Manual) (1.3-7.7) k/uL Lymphocytes # (Manual) (1.0-4.8) k/uL Monocytes # (Manual) (0-1.0) k/uL D-Dimer (<0.60) mg/L FEU ABG pH (7.35-7.45) ABG pCO2 (35-45) mmHg ABG pO2 (83-108) mmHg ABG HCO3 (21-25) mmol/L ABG Total CO2 (19-24) mmol/L ABG O2 Saturation (94-97) % Sodium (137-145) mmol/L Creatinine (0.66-1.25) mg/dL Glucose (74-99) mg/dL POC Glucose (mg/dL) 202 H (70-110) mg/dL Procalcitonin (0.02-0.09) ng/mL Ur Specific [place] (1.001-1.035) Urine Protein (Negative) Urine Blood (Negative) Urine Mucus (None) /hpf Microbiology - Last 24 Hours (Table) 09/02/22 21:25 Sputum Culture - Preliminary Sputum Assessment and Plan Plan: acute multilobar pneumonia right more than left with extensive right upper lobe/ right middle lobe consolidation lung with patchy pneumonic infiltrates bilaterally. Likely a bacterial pneumonia and the pro calcitonin level is elevated Acute hypoxic/hypercapnic respiratory failure secondary to above, failed BiPAP therapy and the patient is currently intubated on a mechanical ventilator. Blood gases show a component of respiratory acidosis. Chest x-ray still showing dense consolidation of the right lung in addition to patchy pulmonary infiltrates bilaterally. This is most likely a bacterial pneumonia. acute sepsis secondary to above Hypotension secondary to sepsis and the patient is on low-dose pressors and the patient is also on IV fluids Acute sinus tachycardia secondary to above, improved Acute leukocytosis secondary to above Acute COPD exacerbation secondary to above Altered mentation secondary to above acute kidney injury secondary to above Chronic smoker Plan Continue ventilator support, no ventilator changes of the done today The patient will need a triple-lumen catheter and arterial line Continue same antibiotic coverage Initiate enteral feeding for nutritional support Blood culture results are pending for now Pro calcitonin levels are elevated Continue combination of IV cefepime, Levaquin and vancomycin DuoNeb nebulized treatments [id number] IV Solu-Medrol IV fluids with normal saline at the rate of 125 cc/hour Lovenox 40 mg subcu portably prophylaxis IV Protonix condition is critical and this evaluation was on a more than 30 minutes. Time with Patient: Greater than 30
[2022-09-03 06:30] LABS: Albumin 2.5 g/dL (3.5-5.0); Magnesium 2.2 mg/dL (1.6-2.3); Potassium 5.4 mmol/L (3.5-5.1); Total Bilirubin 0.5 mg/dL (0.2-1.3); Total Protein 5.1 g/dL (6.3-8.2)
[2022-09-03 06:52] LABS: HCT 45.3 % (39.0-53.0); HGB 14.5 gm/dL (13.0-17.5); MCH 30.4 pg (25.0-35.0); MCHC 32.1 g/dL (31.0-37.0); MCV 94.7 fL (80.0-100.0); Platelet Count 224 k/uL (150-450); RBC 4.78 m/uL (4.30-5.90)
[2022-09-03] MEDS ORDERED: DEXTROSE 50% SYRINGE 50 ML IVP PRN ×2 (07:44)
--- NOTE | 2022-09-03 07:48 | P.PCN ---
Date of Procedure: 09/03/22 Preoperative Diagnosis: Hypotension and shock Postoperative Diagnosis: Hypotension and shock Procedure(s) Performed: Insertion of a right radial arterial line Condition: critical Disposition: ICU Indications for Procedure: Hypotension and shock requiring frequent blood pressure monitoring and blood draws Description of Procedure: The patient was placed in supine position. The right radial region was prepared in a sterile fashion, and a sterile drape was applied. The right radial artery was palpated, easily cannulated, and a guidewire was placed. A Cook catheter was inserted over the guidewire, and the guidewire was removed. There was good arterial blood flow, good arterial waveform, and no complications. The line was secured with using a 3-0 silk suture. Procedure was supervised by Dr. Linda
[2022-09-03] MEDS: IPRATROPIUM-ALBUTEROL 3 ML NEB INHALATION SCH ×4 (07:57→19:36)
[2022-09-03] MEDS ORDERED: INSULIN ASPART (NovoLOG) 100 UNIT/ML VIAL SQ SCH (08:00)
[2022-09-03 08:30] LABS: Band Neutrophils % 12 %; Metamyelocytes % 6 %; Myelocytes % 1 %; Neutrophils % (M) 76 %; Nucleated Red Blood Cells 0 /100 WBC (0-0); Total Cells Counted 200
[2022-09-03 08:32] LABS: Toxic Vacuolation Present
[2022-09-03 09:43] LABS: Glucose,Whole Blood 201 mg/dL (70-110)
[2022-09-03] MEDS: CEFEPIME 2 GM in SODIUM CHLORIDE 0.9% 100 ML IVPB SCH ×3 (09:48→23:55)
[2022-09-03] MEDS: CHLORHEXIDINE GLUCONATE 15 ML CUP MUCOUS MEM SCH ×2 (09:48→23:55)
[2022-09-03] MEDS: ENOXAPARIN 40 MG/0.4 ML SYRINGE SQ SCH (09:49)
[2022-09-03] MEDS: PANTOPRAZOLE 40 MG TABLET PO SCH (09:58)
--- NOTE | 2022-09-03 10:30 | XR ---
EXAMINATION TYPE: XR chest 1V portable DATE OF EXAM: 09/03/2022 4:53 AM COMPARISON: Chest radiographs from 09/02/2022 TECHNIQUE: XR chest 1V portable Portable AP radiograph of the chest. CLINICAL INDICATION:Male, 61 years old with history of Tube placement; FINDINGS: Lungs/Pleura: Small bilateral pleural effusions with bibasilar patchy airspace opacities greater in t he right. No pneumothorax. Pulmonary vascularity: Unremarkable. Heart/mediastinum: Cardiomediastinal silhouette is partially obscured due to overlying and adjacent o pacities. Atherosclerotic calcifications are seen in the aorta. Musculoskeletal: No acute osseous pathology. Dorsal osteophytosis of the thoracic spine. Other findings: None Lines/Tubes: Endotracheal tube is in stable position above the deo Nasogastric tube with its distal tip and side-port projecting under the diaphragm. IMPRESSION: 1. Stable support tubes. 2. Small bilateral pleural effusions with similar bibasilar patchy airspace opacities concerning for pneumonia.
[2022-09-03] MEDS: SODIUM CHLORIDE 0.9% 80 ML with fentaNYL (PF) 1,000 MCG IV SCH ×2 (17:26)
[2022-09-03 18:29] LABS: Glucose,Whole Blood 184 mg/dL (70-110)
[2022-09-03] MEDS: INSULIN ASPART (NovoLOG) 100 UNIT/ML VIAL SQ SCH (18:31)
[2022-09-03] MEDS: LEVOFLOXACIN 750MG-D5W PMX 750 MG in DEXTROSE/WATER 1 150ML.BAG IVPB SCH (18:31)
--- NOTE | 2022-09-03 22:35 | P.CONS ---
History of Present Illness - Reason for Consult Consult date: 09/03/22 Sepsis Requesting physician: Anurag Benitez - Chief Complaint Shortness of breath x one week - History of Present Illness Patient is a 61-year-old male with a past medical history of asthma patient is a smoker has been brought into the ER for evaluation of increasing shortness of breath and chills apparently patient has been sick for about a week and symptom has been mostly cough without any sputum production patient refused to get any medical attention per the family member at the bedside no clear history of any high-grade fever or any chills patient did have a low-grade fever of 99.8 degree for night here in the hospital patient was tachycardic and hypox ic requiring intubation and currently on the ventilator on 50% FiO2 patient did have a white count of 36.8 with a left shift kidney function has been normal liver enzymes are normal procalcitonin is elevated urine has been negative influenza RSV COVID and Legionella test was negative blood cultures coming were positive with E. coli patient did have a chest x-ray patchy airspace opacity demonstrated throughout the right mid and lower lung and left lower lung concerning for pneumonia patient also have a CT angiogram of the chest no PE airspace opacities right middle and right upper lung concerning for pneumonia patient is currently on cefepime vancomycin and Levaquin infectious he was consulted for further management of antibiotic therapy most information has been obtained from review the chart talking to family member as the patient is currently intubated on the vent and unable to provide any history Review of Systems Positive points has been mentioned in HPI complete review could not be obtained because patient is intubated on the vent Past Medical History Past Medical History: COPD History of Any Multi-Drug Resistant Organisms: None Reported Past Surgical History: No Surgical Hx Reported Past Anesthesia/Blood Transfusion Reactions: No Reported Reaction Past Psychological History: No Psychological Hx Reported Smoking Status: Current every day smoker Past Alcohol Use History: None Reported Past Drug Use History: None Reported - Past Family History Brother(s) Family Medical History: CVA/TIA Medications and Allergies Home Medications Medication Instructions Recorded Confirmed Type Albuterol Inhaler [Ventolin Hfa 2 puff INHALATION RT-Q6H PRN 09/02/22 09/02/22 History Inhaler] Fluticasone Propion/Salmeterol 1 puff INHALATION RT-BID 09/02/22 09/02/22 History [Advair 250-50 Diskus] ALPRAZolam [Xanax] 0.5 mg PO HS tab 09/16/22 Rx Amoxic-Pot Clav 875-125Mg 1 each PO Q12HR tab 09/16/22 Rx [Augmentin 875-125] Docusate Oral Soln [Colace Oral 100 mg PO DAILY ml 09/16/22 Rx Soln] Furosemide [Lasix] 40 mg PO DAILY tab 09/16/22 Rx INSULIN ASPART (NovoLOG) [NovoLOG 0 unit SQ ACHS each 09/16/22 Rx (formulary)] Insulin Detemir (Levemir) [Levemir] 20 unit SQ DAILY@0700 each 09/16/22 Rx Ipratropium-Albuterol Nebulize 3 ml INHALATION RT-QID each 09/16/22 Rx [Duoneb 0.5 mg-3 mg/3 ml Soln] Melatonin 5 mg PO HS tab 09/16/22 Rx Nystatin 100,000 Unit/ml Susp 500,000 unit PO QID ml 09/16/22 Rx [Mycostatin Oral Susp] Pantoprazole [Protonix] 40 mg PO AC-BRKFST tab 09/16/22 Rx Pregabalin [Lyrica] 75 mg PO BID cap 09/16/22 Rx Psyllium Husk 100% [Metamucil 6 gm PO DAILY packet 09/16/22 Rx Packet] Sennosides-Docusate Sodium 1 each PO DAILY tab 09/16/22 Rx [Senokot-S] Tamsulosin [Flomax] 0.4 mg PO PC-BRKFST cap 09/16/22 Rx amLODIPine [Norvasc] 5 mg PO BID tab 09/16/22 Rx predniSONE 30 mg PO DAILY tab 09/16/22 Rx Allergies Allergy/AdvReac Type Severity Reaction Status Date / Time No Known Allergies Allergy Verified 09/02/22 13:44 Physical Exam Vitals: Vital Signs Temp Pulse Resp BP Pulse Ox FiO2 09/03/22 10:59 88 09/03/22 10:49 89 09/03/22 10:43 70 09/03/22 10:30 92 20 92/60 94 L 09/03/22 10:15 92 20 94/70 94 L 09/03/22 10:00 90 20 95/66 95 09/03/22 09:45 91 20 96/66 94 L 09/03/22 09:30 90 20 98/65 94 L 09/03/22 09:15 90 20 96/66 94 L 09/03/22 09:00 98.4 F 89 20 96/63 95 09/03/22 08:45 89 20 97/65 94 L 09/03/22 08:30 89 20 95 09/03/22 08:15 89 20 97/70 94 L 09/03/22 08:00 89 20 93/69 95 70 09/03/22 07:58 90 09/03/22 07:45 90 20 95 09/03/22 07:30 20 94/66 94 L 09/03/22 07:28 70 09/03/22 07:15 26 L 20 97/66 94 L 09/03/22 07:00 20 101/63 94 L 09/03/22 06:45 91 20 98/68 93 L 09/03/22 06:30 97 20 100/65 96 09/03/22 06:15 89 20 96/66 95 09/03/22 06:00 89 20 97/66 94 L 70 09/03/22 05:45 90 20 101/67 94 L 09/03/22 05:30 90 20 94 L 09/03/22 05:15 89 20 94 L 09/03/22 05:00 90 20 100/62 93 L 70 09/03/22 04:45 20 92/66 93 L 09/03/22 04:30 92 20 94/63 92 L 09/03/22 04:15 20 95/65 94 L 09/03/22 04:00 99.1 F 89 20 92/62 94 L 70 09/03/22 03:45 90 20 93/65 93 L 09/03/22 03:30 89 20 100/65 93 L 09/03/22 03:15 90 20 103/70 94 L 70 09/03/22 03:00 87 22 93/67 95 70 09/03/22 02:45 90 20 96/64 95 75 09/03/22 02:30 93 20 94 L 09/03/22 02:15 93 20 94 L 09/03/22 02:00 93 20 92/65 94 L 75 09/03/22 01:50 93 21 92/65 94 L 09/03/22 01:30 95 20 92/60 94 L 09/03/22 01:15 94 20 90/59 93 L 09/03/22 01:00 95 20 87/55 93 L 75 09/03/22 00:45 93 20 76/58 92 L 75 09/03/22 00:30 94 20 81/57 90 L 09/03/22 00:15 94 20 85/57 89 L 09/03/22 00:00 92 20 84/59 88 L 75 09/02/22 23:45 93 20 87/62 88 L 09/02/22 23:30 93 20 92/64 87 L 09/02/22 23:15 93 20 92/64 87 L 09/02/22 23:00 93 20 93/66 87 L 75 09/02/22 22:45 92 20 88/63 88 L 09/02/22 22:30 94 20 93/74 90 L 09/02/22 22:15 93 20 83/57 87 L 09/02/22 22:00 99 20 84/55 89 L 75 09/02/22 21:48 101 H 09/02/22 21:45 98 20 82/62 92 L 09/02/22 21:37 102 H 09/02/22 21:30 99.8 F H 106 H 20 110/65 93 L 75 09/02/22 21:10 102/65 09/02/22 21:00 106 H 22 107/66 93 L 75 09/02/22 20:50 110 H 15 101/63 95 09/02/22 20:40 112 H 22 110/65 97 09/02/22 20:30 112 H 27 H 111/62 98 09/02/22 20:00 111 H 21 118/67 96 09/02/22 19:46 100 09/02/22 19:33 100 09/02/22 19:30 122 H 22 154/96 93 L 09/02/22 19:00 120 H 37 H 132/71 90 L 09/02/22 17:47 40 09/02/22 17:31 130 H 40 H 129/86 92 L 09/02/22 17:30 133 H 37 H 119/67 93 L 09/02/22 17:00 102/78 94 L 09/02/22 16:59 139 H 30 H 94 L 40 09/02/22 16:40 133 H 30 H 102/78 88 L 09/02/22 16:30 129 H 32 H 94/75 89 L 09/02/22 16:00 134 H 41 H 94/75 90 L 09/02/22 15:30 137 H 48 H 94/75 89 L 09/02/22 15:25 90 20 09/02/22 15:11 88 22 09/02/22 15:00 131 H 29 H 94/75 90 L 09/02/22 14:30 94/75 09/02/22 14:00 130 H 31 H 94/75 94 L 09/02/22 13:48 24 09/02/22 13:44 126 H 31 H 95 09/02/22 13:16 99.5 F 134 H 32 H 117/73 90 L Intake and Output 09/02/22 09/03/22 09/03/22 22:59 06:59 14:59 Intake Total 8066.417 7646.842 221.117 Output Total 115 350 270 Balance 8669.554 6506.842 -48.883 Intake: IV 1250 1167 Sodium Chloride 0.9% 1, 250 1000 000 ml @ 125 mls/hr IV . Q8H STA Rx#:[id number] Sodium Chloride 0.9% 1, 1000 000 ml @ 999 mls/hr IV . Q1H1M STA Rx#:[id number] Vancomycin 1,500 mg In 167 Sodium Chloride 0.9% 500 ml 500 ml @ 167 mls/hr IVPB Q12H JET Rx#: [id number] Intake, IV Titration 45.437 231.842 221.117 Amount Norepinephrine 4 mg In 39.972 130.081 Sodium Chloride 0.9% 250 ml @ 0.03 MCG/KG/MIN 9. 332 mls/hr IV .Q24H JET Rx#:[id number] propofoL 1,000 mg In 45.437 191.870 91.036 Empty Bag 1 bag @ 15 MCG/ KG/MIN 7.348 mls/hr IV . [id number] JET Rx#:[id number] Output: Urine 115 350 270 Other: Voiding Method Indwelling Catheter Indwelling Catheter Indwelling Catheter Weight 81.647 kg 93.8 kg 93.8 kg ABP, PAP, CO, CI - Last 8 Hours Arterial Blood Pressure 90/46 Arterial Blood Pressure 99/51 Arterial Blood Pressure 98/51 Arterial Blood Pressure 101/53 Arterial Blood Pressure 95/48 Arterial Blood Pressure 97/50 Arterial Blood Pressure 93/49 Arterial Blood Pressure 90/48 Arterial Blood Pressure 99/52 Arterial Blood Pressure 92/54 Arterial Blood Pressure 100/59 GENERAL DESCRIPTION: Middle-aged male intubated on the vent. HEENT: Shows Pallor , no scleral icterus. Oral mucous membrane is dry. NECK: Trachea central, no thyromegaly. LUNGS: Unlabored breathing. Decreased breath sounds at the base HEART: S1, S2, regular rate and rhythm. No loud murmur ABDOMEN: Soft, mild tenderness but no tenderness EXTREMITIES: No edema of feet. SKIN: No rash, no masses palpable. NEUROLOGICAL: The patient is sedated on the vent Results CBC & Chem 7: 09/17/22 07:12 09/17/22 07:12 Labs: Abnormal Lab Results - Last 24 Hours (Table) 09/02/22 09/02/22 09/02/22 Range/Units 13:49 13:49 13:49 WBC 36.8 H (3.8-10.6) k/uL Neutrophils # (Manual) 34.50 H (1.3-7.7) k/uL Lymphocytes # (Manual) 0.74 L (1.0-4.8) k/uL Monocytes # (Manual) 1.47 H (0-1.0) k/uL Metamyelocytes # (Man) (0) k/uL Myelocytes # (Manual) (0) k/uL D-Dimer 8.19 H (<0.60) mg/L FEU ABG pH (7.35-7.45) ABG pCO2 (35-45) mmHg ABG pO2 (83-108) mmHg ABG HCO3 (21-25) mmol/L ABG Total CO2 (19-24) mmol/L ABG O2 Saturation (94-97) % Sodium 133 L (137-145) mmol/L Potassium (3.5-5.1) mmol/L Carbon Dioxide (22-30) mmol/L Creatinine 1.54 H (0.66-1.25) mg/dL Glucose 160 H (74-99) mg/dL POC Glucose (mg/dL) (70-110) mg/dL Calcium (8.4-10.2) mg/dL Total Protein (6.3-8.2) g/dL Albumin (3.5-5.0) g/dL Procalcitonin (0.02-0.09) ng/mL Ur Specific [place] (1.001-1.035) Urine Protein (Negative) Urine Blood (Negative) Urine Mucus (None) /hpf 09/02/22 09/02/22 09/02/22 Range/Units 17:58 20:20 20:31 WBC (3.8-10.6) k/uL Neutrophils # (Manual) (1.3-7.7) k/uL Lymphocytes # (Manual) (1.0-4.8) k/uL Monocytes # (Manual) (0-1.0) k/uL Metamyelocytes # (Man) (0) k/uL Myelocytes # (Manual) (0) k/uL D-Dimer (<0.60) mg/L FEU ABG pH 7.22 L 7.13 L* (7.35-7.45) ABG pCO2 64 H 75 H* (35-45) mmHg ABG pO2 76 L 144 H (83-108) mmHg ABG HCO3 26 H (21-25) mmol/L ABG Total CO2 28 H 27 H (19-24) mmol/L ABG O2 Saturation 93.2 L 98.2 H (94-97) % Sodium (137-145) mmol/L Potassium (3.5-5.1) mmol/L Carbon Dioxide (22-30) mmol/L Creatinine (0.66-1.25) mg/dL Glucose (74-99) mg/dL POC Glucose (mg/dL) (70-110) mg/dL Calcium (8.4-10.2) mg/dL Total Protein (6.3-8.2) g/dL Albumin (3.5-5.0) g/dL Procalcitonin (0.02-0.09) ng/mL Ur Specific [place] 1.041 H (1.001-1.035) Urine Protein Trace H (Negative) Urine Blood Trace H (Negative) Urine Mucus Rare H (None) /hpf 09/02/22 09/02/22 09/03/22 Range/Units 21:10 21:32 04:54 WBC (3.8-10.6) k/uL Neutrophils # (Manual) (1.3-7.7) k/uL Lymphocytes # (Manual) (1.0-4.8) k/uL Monocytes # (Manual) (0-1.0) k/uL Metamyelocytes # (Man) (0) k/uL Myelocytes # (Manual) (0) k/uL D-Dimer (<0.60) mg/L FEU ABG pH 7.24 L (7.35-7.45) ABG pCO2 48 H (35-45) mmHg ABG pO2 79 L (83-108) mmHg ABG HCO3 (21-25) mmol/L ABG Total CO2 (19-24) mmol/L ABG O2 Saturation (94-97) % Sodium (137-145) mmol/L Potassium (3.5-5.1) mmol/L Carbon Dioxide (22-30) mmol/L Creatinine (0.66-1.25) mg/dL Glucose (74-99) mg/dL POC Glucose (mg/dL) 197 H (70-110) mg/dL Calcium (8.4-10.2) mg/dL Total Protein (6.3-8.2) g/dL Albumin (3.5-5.0) g/dL Procalcitonin 32.40 H (0.02-0.09) ng/mL Ur Specific [place] (1.001-1.035) Urine Protein (Negative) Urine Blood (Negative) Urine Mucus (None) /hpf 09/03/22 09/03/22 09/03/22 Range/Units 06:03 06:03 06:05 WBC 20.0 H (3.8-10.6) k/uL Neutrophils # (Manual) 17.60 H (1.3-7.7) k/uL Lymphocytes # (Manual) 0.80 L (1.0-4.8) k/uL Monocytes # (Manual) (0-1.0) k/uL Metamyelocytes # (Man) 1.20 H (0) k/uL Myelocytes # (Manual) 0.20 H (0) k/uL D-Dimer (<0.60) mg/L FEU ABG pH (7.35-7.45) ABG pCO2 (35-45) mmHg ABG pO2 (83-108) mmHg ABG HCO3 (21-25) mmol/L ABG Total CO2 (19-24) mmol/L ABG O2 Saturation (94-97) % Sodium 132 L (137-145) mmol/L Potassium 5.4 H (3.5-5.1) mmol/L Carbon Dioxide 18 L (22-30) mmol/L Creatinine (0.66-1.25) mg/dL Glucose 218 H (74-99) mg/dL POC Glucose (mg/dL) 202 H (70-110) mg/dL Calcium 7.0 L (8.4-10.2) mg/dL Total Protein 5.1 L (6.3-8.2) g/dL Albumin 2.5 L (3.5-5.0) g/dL Procalcitonin (0.02-0.09) ng/mL Ur Specific [place] (1.001-1.035) Urine Protein (Negative) Urine Blood (Negative) Urine Mucus (None) /hpf 09/03/22 Range/Units 09:41 WBC (3.8-10.6) k/uL Neutrophils # (Manual) (1.3-7.7) k/uL Lymphocytes # (Manual) (1.0-4.8) k/uL Monocytes # (Manual) (0-1.0) k/uL Metamyelocytes # (Man) (0) k/uL Myelocytes # (Manual) (0) k/uL D-Dimer (<0.60) mg/L FEU ABG pH (7.35-7.45) ABG pCO2 (35-45) mmHg ABG pO2 (83-108) mmHg ABG HCO3 (21-25) mmol/L ABG Total CO2 (19-24) mmol/L ABG O2 Saturation (94-97) % Sodium (137-145) mmol/L Potassium (3.5-5.1) mmol/L Carbon Dioxide (22-30) mmol/L Creatinine (0.66-1.25) mg/dL Glucose (74-99) mg/dL POC Glucose (mg/dL) 201 H (70-110) mg/dL Calcium (8.4-10.2) mg/dL Total Protein (6.3-8.2) g/dL Albumin (3.5-5.0) g/dL Procalcitonin (0.02-0.09) ng/mL Ur Specific [place] (1.001-1.035) Urine Protein (Negative) Urine Blood (Negative) Urine Mucus (None) /hpf Microbiology - Last 24 Hours (Table) 09/02/22 14:25 Blood Culture Gram Stain - Preliminary Blood 09/02/22 14:10 Blood Culture Gram Stain - Preliminary Blood Blood Culture - Preliminary Escherichia coli 09/02/22 21:25 Sputum Culture - Preliminary Sputum Assessment and Plan (1) Bacteremia Status: Acute Code(s): R78.81 - BACTEREMIA SNOMED Code(s): 4440686 (2) Pneumonia Status: Acute Code(s): J18.9 - PNEUMONIA, UNSPECIFIED ORGANISM SNOMED Code(s): 855518151 (3) Sepsis Status: Acute Code(s): A41.9 - SEPSIS, UNSPECIFIED ORGANISM SNOMED Code(s): 16406707 Plan: 1patient was in the hospital with sepsis in this patient with a fever tachycardia hypoxemia source is likely right-sided pneumonia with blood cultures coming positive for E. coli not a very common pathogen to cause pneumonia we will wait for the final ID and sensitivities patient urine is negative abdominal soft on clinical exam and no clear history of any vomiting abdominal pain or diarrhea by the family member at the bedside 2-patient to continue cefepime while waiting for sensitivity however as no gram- positive has been grown discontinue vancomycin We will follow on clinical condition and cultures to further adjust medication if needed Thank you for this consultation we will follow the patient along with you Time with Patient: Greater than 30
[2022-09-03] MEDS: PANTOPRAZOLE 40 MG/10 ML VIAL IVP SCH (23:55)
[2022-09-04] MEDS: SODIUM CHLORIDE 0.9% 80 ML with fentaNYL (PF) 1,000 MCG IV SCH ×6 (02:01→21:58)
[2022-09-04 02:11] LABS: Glucose,Whole Blood 238 mg/dL (70-110)
[2022-09-04] MEDS: INSULIN ASPART (NovoLOG) 100 UNIT/ML VIAL SQ SCH ×5 (02:16→23:55)
[2022-09-04] MEDS: NOREPINEPHRINE 4 MG in SODIUM CHLORIDE 0.9% 250 ML IV SCH ×2 (03:32→13:30)
[2022-09-04 04:51] LABS: Basophils % (A) 0 %; Eosinophils # (A) 0.2 k/uL (0-0.7); Eosinophils % (A) 1 %; HCT 37.7 % (39.0-53.0); HGB 12.2 gm/dL (13.0-17.5); Lymphocytes # (A) 0.3 k/uL (1.0-4.8); Lymphocytes % (A) 1 %; MCH 30.8 pg (25.0-35.0); MCHC 32.4 g/dL (31.0-37.0); Mean Platelet Volume 7.8; Monocytes # (A) 0.7 k/uL (0-1.0); Monocytes % (A) 3 %; Neutrophils % (A) 94 %; Platelet Count 205 k/uL (150-450); RBC 3.97 m/uL (4.30-5.90); RDW 12.9 % (11.5-15.5); WBC 20.3 k/uL (3.8-10.6)
[2022-09-04] MEDS: methylPREDNISolone SOD SUCCI 125 MG/2 ML VIAL IV SCH ×4 (04:52→21:04)
[2022-09-04 05:32] LABS: African American GFR (CKD) >90 (>60 ml/min/1.73 sqM); Anion Gap 5 mmol/L; Blood Urea Nitrogen 19 mg/dL (9-20); Carbon Dioxide 22 mmol/L (22-30); Chloride 109 mmol/L (98-107); Glucose 236 mg/dL (74-99); Non-African American GFR(CKD) 88 (>60 ml/min/1.73 sqM); Potassium 4.6 mmol/L (3.5-5.1); Sodium 136 mmol/L (137-145)
[2022-09-04 06:13] LABS: Glucose,Whole Blood 227 mg/dL (70-110)
[2022-09-04 06:29] LABS: ABG HCO3 22 mmol/L (21-25); ABG Oxygen Saturation 96.9 % (94-97); ABG PCO2 46 mmHg (35-45); ABG PO2 82 mmHg (83-108); ABG TCO2 24 mmol/L (19-24); Allen Test Performed? Yes
--- NOTE | 2022-09-04 07:52 | XR ---
EXAMINATION TYPE: XR chest 1V portable DATE OF EXAM: 09/04/2022 6:33 AM COMPARISON: Chest radiograph from one day prior. TECHNIQUE: XR chest 1V portable Frontal view of the chest. CLINICAL INDICATION:Male, 61 years old with history of Tube placement; FINDINGS: Lungs/Pleura: Similar multifocal airspace opacities. No evidence of pneumothorax or pleural effusion. Pulmonary vascularity: Unremarkable. Heart/mediastinum: Cardiomediastinal silhouette is unremarkable. Musculoskeletal: No acute osseous pathology. Other findings: None Lines/Tubes: Endotracheal tube with distal tip 4.7 cm above the deo. Nasogastric tube with its distal tip and side-port projecting under the diaphragm. IMPRESSION: Right lower lung airspace opacities.
--- NOTE | 2022-09-04 08:37 | PN ---
PROGRESS NOTE HISTORY OF PRESENT ILLNESS: ICU [id number] hypoxemic respiratory failure, COPD, pleuritic right-sided chest pain, came with bilateral pneumonia and was intubated in the ER. He makes a day in the ICU for the decompensation. He has bilateral pneumonia control, PEEP of 5, FiO2 70. He was hypotensive overnight, low-dose norepinephrine. ABGs reviewed. His sepsis is secondary to pneumonia. He is on cefepime, Levaquin, and vancomycin. Infectious Disease consult is pending. PHYSICAL EXAMINATION: VITAL SIGNS: Blood pressure 197/66, temp 99.1, pulse 89, respiratory rate 16 to 18, FiO2 70. GENERAL: He is sedated, on the vent. Vital signs are reviewed. NECK: Supple. ABDOMEN: Soft. NEUROLOGIC: Nonfocal. LABORATORY DATA: White count 36.8, hemoglobin is 14.4. Sodium 133, potassium 4.4. Labs are reviewed. ABGs reviewed. Continue broad-spectrum antibiotics for sepsis secondary to bilateral pneumonia, sinus tachycardia, leukocytosis, chronic obstructive pulmonary disease, altered mentation, [id number] hypoxemic respiratory failure, acute kidney injury, tube feedings, IV antibiotics, IV Solu-Medrol, Lovenox subcu, IV Protonix. He is severely ill. Prognosis is guarded. He is on hypercapnic respiratory failure secondary to failing BiPAP. Extensive right upper and right middle lobe consolidation, acute pneumonia. Prognosis guarded. MMODL / IJN: [id number] /
[2022-09-04] MEDS: IPRATROPIUM-ALBUTEROL 3 ML NEB INHALATION SCH ×4 (08:46→19:23)
[2022-09-04] MEDS: ENOXAPARIN 40 MG/0.4 ML SYRINGE SQ SCH (08:54)
[2022-09-04] MEDS: CHLORHEXIDINE GLUCONATE 15 ML CUP MUCOUS MEM SCH ×2 (08:54→21:04)
[2022-09-04] MEDS: CEFEPIME 2 GM in SODIUM CHLORIDE 0.9% 100 ML IVPB SCH ×3 (08:54→23:54)
[2022-09-04] MEDS: PANTOPRAZOLE 40 MG/10 ML VIAL IVP SCH ×2 (08:54→21:04)
--- NOTE | 2022-09-04 09:25 | P.PN ---
Subjective Progress Note Date: 09/04/22 A 61-year-old mentation, known history of COPD, chronic smoker who continues to smoke approximately a pack of cigarettes a day, presenting with progressively worsening shortness of breath over the past 1 week. The patient was seen in the emergency department. The patient was already on a BiPAP at a pressure of 12/6 with an FiO2 of 60%. He was still having significant labored breathing, and he was tachypneic and his rate was ranging between 30-40 and he had marked diminished breath sounds bilaterally. His mentation was quite diminished and the patient seemed to be altered yet arousable. The was at the bedside. This patient does not seem to have had an evaluation with pulmonary in the past. Based on the reported history by the , he has been maintained on Advair and albuterol rescue inhaler on an outpatient basis. No home O2. He was experiencing pleuritic right-sided chest pain along with cough and congestion. He ended up in the emergency department this afternoon. Based on his labored breathing, immediately was placed on a BiPAP. I discussed the case with the emergency room physician. The patient is a higher risk of going into respiratory failure requiring intubation mechanical ventilation and I made the aware of. Meanwhile, if it was worth was given patient a trial of noninvasive positive pressure ventilation. White cell count was 36.8 with a hemoglobin of 14.4. Acute kidney injury with a BUN of 18 and a creatinine of 1.5 and sodium level of 133. His LFTs were essentially normal. The vital screening including influenza a and influenza B and RSV and Covid 19 testing was negative. Lactic acid level was at 1.8. Troponins were negative. Blood gas was ordered. Reviewed the CAT scan of the chest and there is no evidence of pulmonary embolism. The patient had extensive airspace disease more pronounced in the right middle lobe and the right upper lobe and the patient had other peripheral wedge-shaped pulmonary infiltrates. Predominant consolidation within the right upper lobe. There was also background mild centrilobular emphysema. No history of diabetes mellitus. Nosocomial artery disease. No history of any stroke. On today's evaluation of 09/03/2022, the patient is in the intensive care unit, intubated on a mechanical ventilator. The patient has further decompensation yesterday and he was intubated in the emergency department and following that he was transferred to the ICU. As mentioned, he has an extensive right lung pneu monia and the patient has dense consolidation involving the right middle lobe, right upper lobe and right lower lobe in addition so some patchy pulmonary infiltrates and the right upper lobe and the left lower lobe area. He is currently intubated on a mechanical ventilator. Is sedated on propofol running at 50 mcg/kg/m. He is on assist-control mode of mechanical ventilation at the rate of 20, tidal volume of 500, FiO2 of 70% with a PEEP of 5. Peak airway pressure is 26. No significant orotracheal secretions. Cultures were sent yesterday. The patient is currently on IV fluids with normal saline at rate of 1 25 mL an hour. He became hypotensive overnight and the patient was started on low-dose norepinephrine running at 0.05 mcg/kg/m. His morning blood gases showed a pH of 7.24 with a pCO2 of 48 and pO2 of 79. Cultures are still pending. Pro-calcitonin level is elevated at 32.4 consistent with an acute bacterial infection with secondary sepsis., The patient with broad-spectrum antibiotics. He is on a combination of cefepime, Levaquin and vancomycin. Is also on bronchodilators. He is on systemic steroids. Urine output is in order of 30-60 mL an hour. He is afebrile for now. His calm and comfortable. His current pulse ox is 95%. Cardiac rhythm is sinus. On today's evaluation of 09/04/2022, patient remains intubated on a mechanical ventilator and extensive right lung pneumonia. He was septic, pneumonia and the blood cultures turned out to be positive for E. coli. He has 2 possible cultures and sputum cultures still pending for now. Meanwhile, his follow-up chest x-ray from today is showing a right lower lobe airspace disease which is quite extensive and is also involving the right middle lobe. The patient remains on a mechanical ventilator. Currently is on assist-control mode rate of 20, tidal volume of 500, FiO2 of 50% with a PEEP of 5. Morning blood gases showed a pH of 7.3 with episodes of 46 and pO2 of 82. The patient remains on a combination of cefepime and Levaquin. In terms of his blood work, his leukocytosis is improving and the white cell count is down to 20 with a hemoglobin of 12.2 and a platelet count of 205. His electrolytes are all within normal limits. His pro calcitonin level was 32. Hemodynamically, the patient is on IV fluids. He is currently receiving normal saline. His overall fluid balance has been in the order of +2.2 L over the past 24 hours. In terms of pressors, he was requiring Nucofed yesterday and this morning he is on norepinephrine at 0.08 mcg/kg/m. His urine output is in order of 50 mL an hour. The patient is a started on enteral feeding for nutritional support. Is currently on Jevity at the rate of 10 mL an hour with a goal of 40 mL. He remains on bronchodilators. He remains on IV Solu-Medrol 60 mg every 6 hours. He is on Lovenox for DVT prophylaxis. Is afebrile for now. Cardiac rhythm is sinus. Objective - Vital Signs Vital signs: Vital Signs Temp 98.9 F 09/04/22 04:00 Pulse 84 09/04/22 09:11 Resp 46 H 09/04/22 07:00 BP 88/63 09/04/22 07:00 Pulse Ox 94 L 09/04/22 07:00 FiO2 50 09/04/22 08:44 Intake & Output 09/03/22 09/04/22 09/04/22 18:59 06:59 18:59 Intake Total 401.492 849.023 110.888 Output Total 820 685 40 Balance -418.508 164.023 70.888 Weight 93.8 kg Intake: IV 250 Sodium Chloride 0.9% 1, 250 000 ml @ 125 mls/hr IV . Q8H [facility] Rx#:[id number] Intake, IV Titration 401.492 599.023 110.888 Amount Cefepime 2 gm In Sodium 100 Chloride 0.9% 100 ml @ 25 mls/hr IVPB Q8HR [facility] Rx# :[id number] Norepinephrine 4 mg In 207.642 224.139 10.888 Sodium Chloride 0.9% 250 ml @ 0.03 MCG/KG/MIN 9. 332 mls/hr IV .Q24H [facility] Rx#:[id number] Sodium Chloride 0.9% 80 2.814 74.884 ml @ 1 MCG/KG/HR 9.38 mls /hr IV .[id number] [facility] with fentaNYL (PF) 1,000 mcg Rx#:[id number] propofoL 1,000 mg In 191.036 200 100 Empty Bag 1 bag @ 15 MCG/ KG/MIN 7.348 mls/hr IV . [id number] [facility] Rx#:[id number] Output: Urine 820 685 40 Other: Voiding Method Indwelling Catheter Indwelling Catheter ABP, PAP, CO, CI - Last Documented Arterial Blood Pressure 88/47 Pulmonary Artery Pressure 114/55 - Exam 61-year-old male patient, the patient is currently intubated on a mechanical ventilator, and the patient is sedated and symptoms the mechanical ventilation. Orotracheal and orogastric tube are both in place. Head exam was generally normal. There was no scleral icterus or corneal arcus. Mucous membranes were moist. Neck was supple and without jugular venous distension, thyromegaly, or carotid bruits. Carotids were easily palpable bilaterally. There was no adenopathy. Lungs sounds are diminished bilaterally and the patient has expiratory rhonchi and wheezes and diminished breath sounds bilaterally. Heart sounds are tachycardic, positive S1-S2, sinus rhythm and no significant murmurs appreciated Abdominal exam revealed normal bowel sounds. The abdomen was soft, non-tender, and without masses, organomegaly, or appreciable enlargement of the abdominal aorta. Extremities revealed trace edema and there is no cyanosis or clubbing Examination of the skin revealed no evidence of significant rashes, suspicious appearing nevi or other concerning lesions. Neurologically the patient is adequately sedated for now, he is on propofol. Neurologic exam is nonfocal. Is communicating and moving all 4 extremities. - Labs CBC & Chem 7: 09/04/22 04:35 09/04/22 04:35 Labs: Abnormal Lab Results - Last 24 Hours (Table) 09/03/22 09/03/22 09/04/22 Range/Units 09:41 18:28 02:08 WBC (3.8-10.6) k/uL RBC (4.30-5.90) m/uL Hgb (13.0-17.5) gm/dL Hct (39.0-53.0) % Neutrophils # (1.3-7.7) k/uL Lymphocytes # (1.0-4.8) k/uL ABG pH (7.35-7.45) ABG pCO2 (35-45) mmHg ABG pO2 (83-108) mmHg Sodium (137-145) mmol/L Chloride (98-107) mmol/L Glucose (74-99) mg/dL POC Glucose (mg/dL) 201 H 184 H 238 H (70-110) mg/dL Calcium (8.4-10.2) mg/dL 09/04/22 09/04/22 09/04/22 Range/Units 04:35 04:35 06:12 WBC 20.3 H (3.8-10.6) k/uL RBC 3.97 L (4.30-5.90) m/uL Hgb 12.2 L (13.0-17.5) gm/dL Hct 37.7 L (39.0-53.0) % Neutrophils # 19.0 H (1.3-7.7) k/uL Lymphocytes # 0.3 L (1.0-4.8) k/uL ABG pH (7.35-7.45) ABG pCO2 (35-45) mmHg ABG pO2 (83-108) mmHg Sodium 136 L (137-145) mmol/L Chloride 109 H (98-107) mmol/L Glucose 236 H (74-99) mg/dL POC Glucose (mg/dL) 227 H (70-110) mg/dL Calcium 7.0 L (8.4-10.2) mg/dL 09/04/22 Range/Units 06:23 WBC (3.8-10.6) k/uL RBC (4.30-5.90) m/uL Hgb (13.0-17.5) gm/dL Hct (39.0-53.0) % Neutrophils # (1.3-7.7) k/uL Lymphocytes # (1.0-4.8) k/uL ABG pH 7.30 L (7.35-7.45) ABG pCO2 46 H (35-45) mmHg ABG pO2 82 L (83-108) mmHg Sodium (137-145) mmol/L Chloride (98-107) mmol/L Glucose (74-99) mg/dL POC Glucose (mg/dL) (70-110) mg/dL Calcium (8.4-10.2) mg/dL Microbiology - Last 24 Hours (Table) 09/02/22 21:25 Gram Stain - Preliminary Sputum Sputum Culture - Preliminary 09/02/22 14:25 Blood Culture Gram Stain - Preliminary Blood Blood Culture - Preliminary Gram Neg Bacilli 09/02/22 14:10 Blood Culture Gram Stain - Preliminary Blood Blood Culture - Preliminary Escherichia coli Assessment and Plan Plan: acute multilobar pneumonia right more than left with extensive right upper lobe/right middle lobe consolidation lung with patchy pneumonic infiltrates bilaterally. Likely a bacterial pneumonia and the pro calcitonin level is elevated. Blood cultures positive for E. coli Septic shock secondary to E. coli, consider gram-negative, E. coli pneumonia. Awaiting sputum sample. I'm going to do a bronchoscopy and a bronchial lavage of the right middle lobe today. Hypotension secondary to above and the patient is currently on low-dose pressors. Acute hypoxic/hypercapnic respiratory failure secondary to above, failed BiPAP therapy and the patient is currently intubated on a mechanical ventilator. Blood gases show a component of respiratory acidosis. Chest x-ray still showing dense consolidation of the right lung in addition to patchy pulmonary infiltrat es bilaterally. This is most likely a bacterial pneumonia. acute sepsis secondary to above Hypotension secondary to sepsis and the patient is on low-dose pressors Acute sinus tachycardia secondary to above, improved Acute leukocytosis secondary to above Acute COPD exacerbation secondary to above Altered mentation secondary to above acute kidney injury secondary to above Chronic smoker Plan Continue ventilator support Continue combination of cefepime and Levaquin Continue same antibiotic coverage Initiate enteral feeding for nutritional support, currently on Jevity at that eighth of 10 Blood culture are positive for gram-negative E. coli Pro calcitonin levels are elevated, follow-up pro-calcitonin level Vancomycin is discontinued DuoNeb nebulized treatments [id number] IV Solu-Medrol IV fluids will be changed to 40 mL an hour Lovenox 40 mg subcu portably prophylaxis IV Protonix Not ready for weaning extubation yet. condition is critical and this evaluation was on a more than 30 minutes.
[2022-09-04] MEDS ORDERED: CISATRACURIUM 2 MG/ML 5 ML VIAL IV ONE (09:31)
--- NOTE | 2022-09-04 11:18 | P.PCN ---
Date of Procedure: 09/04/22 Preoperative Diagnosis: Right lung pneumonia, septic shock Postoperative Diagnosis: Right lung pneumonia, septic shock Procedure(s) Performed: Bronchoscopy, bronchoalveolar lavage of the right lower lobe Insertion of a central line Anesthesia: MAC Surgeon: Jaqui Linda Pathology: other Condition: critical Disposition: ICU Operative Findings: Bronchoscopy and the bronchial alveolar lavage Bronchoscopy was done at the bedside. The patient was already sedated with propofol. The patient was given a dose of Robaxin milligrams IV push for complete paralysis. Following that, the fourth of the bronchoscope was inserted through the orotracheal tube. The bronchoscope was gradually advanced into the lower trachea. This is trachea was within normal limits. There was copious amount of thick purulent respiratory secretions within the distal trachea and bilateral mainstem bronchi. This occasional more abundant on the right side. Therapeutic airway suctioning was done. A total of 10 mL of breast or secretions was aspirated without any major difficulties. Following that, airway inspection was done. Examination included the bilateral mainstem bronchi, examination of the right-sided included the right upper lobe bronchus, bronchus intermedius, right middle lobe bronchus and right lower lobe bronchus along with the various 10 segments on the right. Examination of the left included left upper lobe bronchus, left lower lobe bronchus and the various 8 segments on the left. Airways are patent. No endobronchial tumors or lesions. The bronchoscope was then removed to the right middle lobe and a bronchial lavage was done. A total of 40 mL of fluid was infused and 20 mL was aspirated without any major difficulties. The procedure was completed without any major complications. Bronchoscope was removed and the samples were sent for microbial cultures and analysis. Central line insertion Indication: Hemodynamic monitoring/Intravenous access. A time-out was completed verifying correct patient, procedure, site, positioning, and implant(s) or special equipment if applicable. The patient was placed in a dependent position appropriate for central line placement based on the vein to be cannulated. The patients left neck was prepped and draped in sterile fashion. 1% Lidocaine was used to anesthetize the surrounding skin area. A triple lumen 9F Cordis catheter was introduced into the left internal jugular vein using Seldinger technique. The catheter was threaded smoothly over the guide wire and appropriate blood return was obtained. Each lumen of the catheter was evacuated of air and flushed with sterile saline. The catheter was then sutured in place to the skin and a sterile dressing applied. Perfusion to the extremity distal to the point of catheter insertion was checked and found to be adequate. The patient tolerated the procedure well and there were no complications. Indication: Hemodynamic monitoring.
[2022-09-04 11:22] LABS: Glucose,Whole Blood 235 mg/dL (70-110)
--- NOTE | 2022-09-04 11:49 | XR ---
EXAMINATION TYPE: XR chest 1V portable DATE OF EXAM: 09/04/2022 COMPARISON: 09/04/2022 earlier exam INDICATION: Post line insertion TECHNIQUE: Single frontal view of the chest is obtained. FINDINGS: The heart size is normal. The pulmonary vasculature is normal. Right lower lobe infiltrate appears to be worsening. Left lower lobe infiltrate is present. Endotracheal tube tip is above the deo. Nasogastric tube transverses the thorax with the tip in le ft upper quadrant of the abdomen There is insertion of a right central venous catheter with the tip in the region of the proximal righ t atrium. No pneumothorax is evident. IMPRESSION: 1. No pneumothorax post line placement. Tip is in the right atrium region. 2. Additional lines and catheters discussed above. 3. Worsening bibasilar infiltrates
--- NOTE | 2022-09-04 12:56 | P.PN ---
Subjective Progress Note Date: 09/04/22 Principal diagnosis: Pneumonia and bacteremia Patient is a 61-year-old male with a past medical history of asthma patient is a smoker has been brought into the ER for evaluation of increasing shortness of breath and chills, the patient did have evidence of right-sided p neumonia and worsening respiratory distress requiring intubation blood cultures subsequently came back positive with E. coli. The patient is status post bronchoscopy and was completed on 09/04/2022 On today's evaluation that is 09/04/2022, the patient is afebrile, the patient is hemodynamically stable and off the pressor support per the nursing staff, patient affect is down to 50%, no significant purulent secretion through the ET, diarrhea or any other changes reported by the nursing staff Objective - Vital Signs Vital signs: Vital Signs Temp 98.9 F 09/04/22 04:00 Pulse 84 09/04/22 09:11 Resp 46 H 09/04/22 07:00 BP 88/63 09/04/22 07:00 Pulse Ox 94 L 09/04/22 07:00 FiO2 50 09/04/22 08:44 Intake & Output 09/03/22 09/04/22 09/04/22 18:59 06:59 18:59 Intake Total 401.492 849.023 110.888 Output Total 820 685 40 Balance -418.508 164.023 70.888 Weight 93.8 kg Intake: IV 250 Sodium Chloride 0.9% 1, 250 000 ml @ 125 mls/hr IV . Q8H [facility] Rx#:[id number] Intake, IV Titration 401.492 599.023 110.888 Amount Cefepime 2 gm In Sodium 100 Chloride 0.9% 100 ml @ 25 mls/hr IVPB Q8HR [facility] Rx# :[id number] Norepinephrine 4 mg In 207.642 224.139 10.888 Sodium Chloride 0.9% 250 ml @ 0.03 MCG/KG/MIN 9. 332 mls/hr IV .Q24H [facility] Rx#:[id number] Sodium Chloride 0.9% 80 2.814 74.884 ml @ 1 MCG/KG/HR 9.38 mls /hr IV .[id number] [facility] with fentaNYL (PF) 1,000 mcg Rx#:[id number] propofoL 1,000 mg In 191.036 200 100 Empty Bag 1 bag @ 15 MCG/ KG/MIN 7.348 mls/hr IV . [id number] [facility] Rx#:[id number] Output: Urine 820 685 40 Other: Voiding Method Indwelling Catheter Indwelling Catheter ABP, PAP, CO, CI - Last Documented Arterial Blood Pressure 88/47 Pulmonary Artery Pressure 114/55 - Exam GENERAL DESCRIPTION: Middle-age male intubated on the vent RESPIRATORY SYSTEM: Unlabored breathing , decreased breath sounds at bases HEART: S1 S2 regular rate and rhythm , ABDOMEN: Soft , mild distention but no tenderness EXTREMITIES: No edema feet - Labs CBC & Chem 7: 09/04/22 04:35 09/04/22 04:35 Labs: Abnormal Lab Results - Last 24 Hours (Table) 09/03/22 09/04/22 09/04/22 Range/Units 18:28 02:08 04:35 WBC (3.8-10.6) k/uL RBC (4.30-5.90) m/uL Hgb (13.0-17.5) gm/dL Hct (39.0-53.0) % Neutrophils # (1.3-7.7) k/uL Lymphocytes # (1.0-4.8) k/uL ABG pH (7.35-7.45) ABG pCO2 (35-45) mmHg ABG pO2 (83-108) mmHg Sodium (137-145) mmol/L Chloride (98-107) mmol/L Glucose (74-99) mg/dL POC Glucose (mg/dL) 184 H 238 H (70-110) mg/dL Hemoglobin A1c 6.9 H (0.0-6.0) % Calcium (8.4-10.2) mg/dL 09/04/22 09/04/22 09/04/22 Range/Units 04:35 04:35 06:12 WBC 20.3 H (3.8-10.6) k/uL RBC 3.97 L (4.30-5.90) m/uL Hgb 12.2 L (13.0-17.5) gm/dL Hct 37.7 L (39.0-53.0) % Neutrophils # 19.0 H (1.3-7.7) k/uL Lymphocytes # 0.3 L (1.0-4.8) k/uL ABG pH (7.35-7.45) ABG pCO2 (35-45) mmHg ABG pO2 (83-108) mmHg Sodium 136 L (137-145) mmol/L Chloride 109 H (98-107) mmol/L Glucose 236 H (74-99) mg/dL POC Glucose (mg/dL) 227 H (70-110) mg/dL Hemoglobin A1c (0.0-6.0) % Calcium 7.0 L (8.4-10.2) mg/dL 09/04/22 Range/Units 06:23 WBC (3.8-10.6) k/uL RBC (4.30-5.90) m/uL Hgb (13.0-17.5) gm/dL Hct (39.0-53.0) % Neutrophils # (1.3-7.7) k/uL Lymphocytes # (1.0-4.8) k/uL ABG pH 7.30 L (7.35-7.45) ABG pCO2 46 H (35-45) mmHg ABG pO2 82 L (83-108) mmHg Sodium (137-145) mmol/L Chloride (98-107) mmol/L Glucose (74-99) mg/dL POC Glucose (mg/dL) (70-110) mg/dL Hemoglobin A1c (0.0-6.0) % Calcium (8.4-10.2) mg/dL Microbiology - Last 24 Hours (Table) 09/02/22 21:25 Gram Stain - Preliminary Sputum Sputum Culture - Preliminary 09/02/22 14:25 Blood Culture Gram Stain - Preliminary Blood Blood Culture - Preliminary Gram Neg Bacilli 09/02/22 14:10 Blood Culture Gram Stain - Preliminary Blood Blood Culture - Preliminary Escherichia coli Assessment and Plan (1) Bacteremia Current Visit: Yes Status: Acute Code(s): R78.81 - BACTEREMIA SNOMED Code(s): 8206869 (2) Pneumonia Current Visit: Yes Status: Acute Code(s): J18.9 - PNEUMONIA, UNSPECIFIED ORGANISM SNOMED Code(s): 941247930 Plan: 1patient was in the hospital with sepsis in this patient with a fever tachy cardia hypoxemia source is likely right-sided pneumonia with blood cultures coming positive for E. coli not a very common pathogen to cause pneumonia we will wait for the final ID and sensitivities patient urine is negative abdominal soft on clinical exam and no clear history of any vomiting abdominal pain however there is a history of constipation did provided by the family member at the bedside 2-we will order a CT of abdominal pelvis to rule out intra-abdominal source for this bacteremia 2-patient to continue cefepime we will add Flagyl for anaerobic gram-negative coverage while awaiting further workup to be completed Family the bedside questions and concerns were answered Time with Patient: Less than 30
[2022-09-04] MEDS: IOPAMIDOL CONTRAST (ORAL USE) VIAL PO PRN ×2 (15:27→16:37)
[2022-09-04] MEDS: metroNIDAZOLE-NS PMX 500 MG in SALINE 1 100ML.BAG IVPB SCH ×2 (16:37→23:54)
[2022-09-04] MEDS ORDERED: VANCOMYCIN TROUGH DUE 1 EACH MISC MISCELLANE ONE (17:00)
--- NOTE | 2022-09-04 17:39 | CT ---
EXAMINATION TYPE: CT abdomen pelvis w con DATE OF EXAM: 09/04/2022 COMPARISON: CTA chest 09/02/2022 HISTORY: sepsis CT DLP: 1765.2 mGycm CONTRAST: CT scan of the abdomen and pelvis is performed with Oral Contrast and with IV Contrast, patient injec lynne with 100ml mL of Isovue 300. FINDINGS: LUNG BASES-: Partially imaged Dense airspace consolidation right middle lobe with air bronchograms s een felt to reflect infectious pneumonia. Correlate clinically. Basilar atelectasis as well as a new right-sided pleural effusion with maximal AP measurement of 3.9 cm. There is a smaller left-sided ple ural effusion noted with maximal AP measurement of 1.8 cm. LIVER/GB: No calcified gallstones. No space occupying hepatic lesion. Biliary tree is of normal ca liber. There is mild hepatomegaly seen. PANCREAS: No inflammation. No distinct mass. SPLEEN: No splenic enlargement. No lesion seen. ADRENALS: No nodule. No thickening. KIDNEYS/BLADDER: No hydronephrosis. No nephrolithiasis. No distinct solid renal mass. 1 cm cortic al renal cysts seen bilaterally. Urinary bladder demonstrates Stapleton balloon catheter and therefore ev aluation is limited. BOWEL: There is a small amount of fluid and mild inflammatory changes within the right lower quadrant axial image 60 sequence 201 and coronal image 65 sequence 202. The appendix is not clearly visualize d. Mild acute appendicitis is not entirely excluded given lack of visualization of the appendix and m ild inflammatory change and fluid. Correlate with surgical history. Otherwise an additional possibili ty is that of ileitis. There is no free air or abscess. GENITAL ORGANS: No gross abnormality. LYMPH NODES: No greater than 1cm abdominal or pelvic lymph nodes are appreciated. AORTA: No significant abnormality. OSSEOUS STRUCTURES: No significant abnormality is seen. OTHER: No significant additional abnormality is seen. IMPRESSION: 1. Findings felt to reflect pneumonia with bilateral pleural effusions and compressive atelectasis. E kristi cavitary changes difficult to exclude. 2.Mild acute appendicitis is not entirely excluded given lack of visualization of the appendix and mi ld inflammatory change and fluid. Correlate with surgical history. Otherwise an additional possibilit y is that of ileitis.
[2022-09-04 18:13] LABS: Glucose,Whole Blood 240 mg/dL (70-110)
--- NOTE | 2022-09-04 19:53 | P.GSCN ---
History of Present Illness Consult date: 09/04/22 Reason for Consult: Blood cultures positive for E. coli, question of appendicitis on CT, ventilator dependent respiratory failure and sepsis History of present illness: Patient is a 61-year-old gentleman presented to [facility] emergency department initially on 09/02/2022 with complaints of somewhere around a week of progressive shortness of breath and right-sided chest pain. His is available at bedside, she tells me at some point over the past couple weeks he may have had some complaints of diffuse abdominal pains that were relatively minor. Over the years he may have had a few bouts of of bleeding with bowel m ovements and he has some episodic issues with diarrhea but no known personal history of inflammatory bowel disease. He's never undergone colonoscopy. He has a concerning first-degree family history of colon cancer diagnosed in his father. Shortly after arrival in the emergency department he required intubation for ventilatory dependent respiratory failure. Blood cultures at time of admission have been positive for E. coli, sputum culture showed gram- negative bacilli. He is required persistent ventilator support as well as pressor support. He is presently maintained on cefepime and Flagyl as well as a norepinephrine drip. Laboratory studies today showed a persistently elevated white blood cell count of 20.3 thousand, hemoglobin 12.2, platelet count 205. MCV and MCH indices as well as RDW were within acceptable limits. His presenting acidosis on ABG showing some slow improvement, remains relatively hypoxic with high CO2 showing a degree of poor ventilation and oxygenation. Metabolic panel shows sodium 136, potassium 4.6, CO2 22, creatinine of 0.95. A computed tomography scan of the abdomen and pelvis was obtained, images and official report were reviewed. There is a moderate right-sided pleural effusion with dependent atelectasis and significant opacification of the right lung consistent with an aspiration pneumonia. Images were interpreted as inconclusive for mild appendicitis due to nonvisualization of the appendix. There was question of the right lower quadrant inflammatory process which seems to be localized more over this so as an course of the ureter than the typical location of the appendix. They raised the question of possible ileitis. I do not see any evidence of free air or organized abscess, there is scant free fluid in the setting of critical illness. I don't see conclusive findings for bowel obstruction. No pneumatosis or portal venous gas visualized. In my view the images are unimpressive for an acute appendicitis and most impressive for significant right-sided pneumonia. Review of Systems ROS unobtainable: due to endotracheal tube Past Medical History Past Medical History: COPD History of Any Multi-Drug Resistant Organisms: None Reported Past Surgical History: No Surgical Hx Reported Past Anesthesia/Blood Transfusion Reactions: No Reported Reaction Past Psychological History: No Psychological Hx Reported Smoking Status: Current every day smoker Past Alcohol Use History: None Reported Past Drug Use History: None Reported - Past Family History Brother(s) Family Medical History: CVA/TIA Medications and Allergies Home Medications Medication Instructions Recorded Confirmed Type Albuterol Inhaler [Ventolin Hfa 2 puff INHALATION RT-Q6H PRN 09/02/22 09/02/22 History Inhaler] Fluticasone Propion/Salmeterol 1 puff INHALATION RT-BID 09/02/22 09/02/22 History [Advair 250-50 Diskus] Allergies Allergy/AdvReac Type Severity Reaction Status Date / Time No Known Allergies Allergy Verified 09/02/22 13:44 Surgical - Exam Osteopathic Statement: *. No significant issues noted on an osteopathic structural exam other than those noted in the History and Physical/Consult. Vital Signs Temp Pulse Resp BP Pulse Ox 99.5 F 134 H 32 H 117/73 90 L 09/02/22 13:16 09/02/22 13:16 09/02/22 13:16 09/02/22 13:16 09/02/22 13:16 - General Intubated and sedated no distress - ENT normal pinna - Neck trachea midline - Respiratory Coarse a mechanical bilaterally, decreased on the right - Cardiovascular Heart sounds distant Rhythm: regular - Abdomen Abdomen soft, nontender to palpation, no guarding or rebound, there is moderate distention without tympany. No conclusive findings for peritonitis, abdominal exam is benign. - Neurologic GCS 3T - Musculoskeletal There is moderate and symmetrical edema of the upper and lower extremities bilaterally. - Psychiatric Patient sedated on the ventilator, GCS 3T Results - Labs 09/04/22 04:35 09/04/22 04:35 Abnormal Lab Results - Last 24 Hours (Table) 09/04/22 09/04/22 09/04/22 Range/Units 02:08 04:35 04:35 WBC 20.3 H (3.8-10.6) k/uL RBC 3.97 L (4.30-5.90) m/uL Hgb 12.2 L (13.0-17.5) gm/dL Hct 37.7 L (39.0-53.0) % Neutrophils # 19.0 H (1.3-7.7) k/uL Lymphocytes # 0.3 L (1.0-4.8) k/uL ABG pH (7.35-7.45) ABG pCO2 (35-45) mmHg ABG pO2 (83-108) mmHg Sodium (137-145) mmol/L Chloride (98-107) mmol/L Glucose (74-99) mg/dL POC Glucose (mg/dL) 238 H (70-110) mg/dL Hemoglobin A1c 6.9 H (0.0-6.0) % Calcium (8.4-10.2) mg/dL 09/04/22 09/04/22 09/04/22 Range/Units 04:35 06:12 06:23 WBC (3.8-10.6) k/uL RBC (4.30-5.90) m/uL Hgb (13.0-17.5) gm/dL Hct (39.0-53.0) % Neutrophils # (1.3-7.7) k/uL Lymphocytes # (1.0-4.8) k/uL ABG pH 7.30 L (7.35-7.45) ABG pCO2 46 H (35-45) mmHg ABG pO2 82 L (83-108) mmHg Sodium 136 L (137-145) mmol/L Chloride 109 H (98-107) mmol/L Glucose 236 H (74-99) mg/dL POC Glucose (mg/dL) 227 H (70-110) mg/dL Hemoglobin A1c (0.0-6.0) % Calcium 7.0 L (8.4-10.2) mg/dL 09/04/22 09/04/22 Range/Units 11:19 18:03 WBC (3.8-10.6) k/uL RBC (4.30-5.90) m/uL Hgb (13.0-17.5) gm/dL Hct (39.0-53.0) % Neutrophils # (1.3-7.7) k/uL Lymphocytes # (1.0-4.8) k/uL ABG pH (7.35-7.45) ABG pCO2 (35-45) mmHg ABG pO2 (83-108) mmHg Sodium (137-145) mmol/L Chloride (98-107) mmol/L Glucose (74-99) mg/dL POC Glucose (mg/dL) 235 H 240 H (70-110) mg/dL Hemoglobin A1c (0.0-6.0) % Calcium (8.4-10.2) mg/dL Microbiology - Last 24 Hours (Table) 09/02/22 21:25 Gram Stain - Preliminary Sputum Sputum Culture - Preliminary Gram Neg Bacilli 09/02/22 14:25 Blood Culture Gram Stain - Preliminary Blood Blood Culture - Preliminary Gram Neg Bacilli Diabetes panel 09/04/22 09/04/22 Range/Units 04:35 04:35 Sodium 136 L (137-145) mmol/L Potassium 4.6 (3.5-5.1) mmol/L Chloride 109 H (98-107) mmol/L Carbon Dioxide 22 (22-30) mmol/L BUN 19 (9-20) mg/dL Creatinine 0.95 (0.66-1.25) mg/dL Glucose 236 H (74-99) mg/dL Hemoglobin A1c 6.9 H (0.0-6.0) % Calcium 7.0 L (8.4-10.2) mg/dL Calcium panel 09/04/22 Range/Units 04:35 Calcium 7.0 L (8.4-10.2) mg/dL Pituitary panel 09/04/22 Range/Units 04:35 Sodium 136 L (137-145) mmol/L Potassium 4.6 (3.5-5.1) mmol/L Chloride 109 H (98-107) mmol/L Carbon Dioxide 22 (22-30) mmol/L BUN 19 (9-20) mg/dL Creatinine 0.95 (0.66-1.25) mg/dL Glucose 236 H (74-99) mg/dL Calcium 7.0 L (8.4-10.2) mg/dL Adrenal panel 09/04/22 Range/Units 04:35 Sodium 136 L (137-145) mmol/L Potassium 4.6 (3.5-5.1) mmol/L Chloride 109 H (98-107) mmol/L Carbon Dioxide 22 (22-30) mmol/L BUN 19 (9-20) mg/dL Creatinine 0.95 (0.66-1.25) mg/dL Glucose 236 H (74-99) mg/dL Calcium 7.0 L (8.4-10.2) mg/dL - Imaging Chest x-ray: report reviewed, image reviewed CT scan - abdomen: report reviewed, image reviewed CT scan - pelvis: report reviewed, image reviewed Assessment and Plan Assessment: 53-year-old gentleman with clinical presentation, exam findings, imaging and labs all consistent with a aspiration pneumonia and sepsis. Sputum shows gram- negative bacilli on Gram stain which is consistent with a E. coli found on blood culture. CT imaging of the chest [place] as visualized shows dependent atelectasis and considerable consolidation of the right lung. His abdominal CT findings are not overly impressive for appendicitis. If he were to have positive blood cultures in the setting of an abdominal catastrophe I would expect more flagrant findings. We will continue to follow, continue with antibiotics and supportive care per primary and medical consultants. No plans for surgical interventions at present. Plan was discussed with the patient's fa uriel at bedside and they are in agreement. Will need outpatient colonoscopy for both diagnostic and screening indications. Assuming we can get him through this pneumonia he may follow-up with my office 4-6 weeks post discharge if he wishes. Time with Patient: Greater than 30
[2022-09-04 23:35] LABS: Glucose,Whole Blood 218 mg/dL (70-110)
[2022-09-05] MEDS: SODIUM CHLORIDE 0.9% 80 ML with fentaNYL (PF) 1,000 MCG IV SCH ×6 (01:18→21:09)
[2022-09-05] MEDS: NOREPINEPHRINE 4 MG in SODIUM CHLORIDE 0.9% 250 ML IV SCH (02:46)
[2022-09-05] MEDS: methylPREDNISolone SOD SUCCI 125 MG/2 ML VIAL IV SCH ×4 (03:51→21:08)
[2022-09-05 05:42] LABS: ABG Base Excess -1.5 mmol/L; ABG HCO3 24 mmol/L (21-25); ABG Oxygen Saturation 97.4 % (94-97); ABG PCO2 45 mmHg (35-45); ABG PH 7.34 (7.35-7.45); ABG PO2 86 mmHg (83-108); ABG TCO2 26 mmol/L (19-24); Allen Test Performed? Yes
[2022-09-05 06:07] LABS: Glucose,Whole Blood 240 mg/dL (70-110)
[2022-09-05] MEDS: INSULIN ASPART (NovoLOG) 100 UNIT/ML VIAL SQ SCH ×4 (06:09→23:22)
--- NOTE | 2022-09-05 06:22 | XR ---
EXAMINATION TYPE: XR chest 1V portable DATE OF EXAM: 09/05/2022 COMPARISON: NONE HISTORY: SOB, Follow Up FINDINGS: Indwelling tubes and catheters are unchanged. Stable basilar infiltrates with increasing pulmonary venous congestion and interstitial edema. Correl ate clinically. Stable appearance of the cardio-mediastinal structures at this time. Small Pleural effusion unchanged. IMPRESSION: 1. Stable basilar infiltrates with increasing pulmonary venous congestion and interstitial edema. Co rrelate clinically.
[2022-09-05 06:32] LABS: HGB 11.5 gm/dL (13.0-17.5); MCH 30.7 pg (25.0-35.0); MCHC 31.9 g/dL (31.0-37.0); MCV 96.3 fL (80.0-100.0); Mean Platelet Volume 8.5; Platelet Count 216 k/uL (150-450); RBC 3.74 m/uL (4.30-5.90); RDW 13.1 % (11.5-15.5); WBC 23.1 k/uL (3.8-10.6)
[2022-09-05 06:45] LABS: African American GFR (CKD) >90 (>60 ml/min/1.73 sqM); Anion Gap 4 mmol/L; Blood Urea Nitrogen 21 mg/dL (9-20); Calcium 7.5 mg/dL (8.4-10.2); Carbon Dioxide 24 mmol/L (22-30); Chloride 110 mmol/L (98-107); Glucose 231 mg/dL (74-99); Non-African American GFR(CKD) >90 (>60 ml/min/1.73 sqM); Potassium 4.7 mmol/L (3.5-5.1); Sodium 138 mmol/L (137-145)
[2022-09-05] MEDS: IPRATROPIUM-ALBUTEROL 3 ML NEB INHALATION SCH ×4 (07:39→19:29)
[2022-09-05] MEDS: CHLORHEXIDINE GLUCONATE 15 ML CUP MUCOUS MEM SCH ×2 (08:05→21:08)
[2022-09-05] MEDS: PANTOPRAZOLE 40 MG/10 ML VIAL IVP SCH ×2 (08:05→21:09)
[2022-09-05] MEDS: ENOXAPARIN 40 MG/0.4 ML SYRINGE SQ SCH (08:05)
[2022-09-05] MEDS: metroNIDAZOLE-NS PMX 500 MG in SALINE 1 100ML.BAG IVPB SCH ×2 (08:06→16:08)
[2022-09-05] MEDS: CEFEPIME 2 GM in SODIUM CHLORIDE 0.9% 100 ML IVPB SCH ×2 (08:06→16:08)
--- NOTE | 2022-09-05 08:16 | PN ---
PROGRESS NOTE A 61-year-old white male, still remains in the hospital. He is on cefepime - broad- spectrum antibiotics, IV Solu-Medrol and IV Flagyl for antibiotics, norepinephrine for blood pressure support. Remains on the vent for sepsis secondary to bilateral pneumonia. Dr. Haynes did a surgical consultations today. His blood cultures are positive for E. coli. Question of appendicitis on CT. Ventilator dependent respiratory failure and sepsis. CAT scan showed no conclusive findings for bowel obstruction. Acute appendicitis is unimpressive and most impressive for pneumonia according to the surgeon. Medications reviewed. Labs reviewed. He is resting comfortably on the vent. Abdomen is soft. White count is 20.3, hemoglobin is 12.2. Cardiovascular: S1, S2. Lungs: Decreased breath sounds. Psych: Fair mood and affect. Neurologic: Alert and oriented x3. Blood culture so far negative. ASSESSMENT: Consistent with aspiration pneumonia; sepsis; gram-negative bacilli on Gram stain; chronic obstructive pulmonary disease; Escherichia coli on blood cultures. There is considerable consolidation of the right lung. CAT scans are not impressive for appendicitis. Prognosis is guarded. Continue broad-spectrum antibiotics. Wean vent as tolerated. MMODL / IJN: [id number] /
--- NOTE | 2022-09-05 09:16 | P.PN ---
Subjective Progress Note Date: 09/05/22 A 61-year-old mentation, known history of COPD, chronic smoker who continues to smoke approximately a pack of cigarettes a day, presenting with progressively worsening shortness of breath over the past 1 week. The patient was seen in the emergency department. The patient was already on a BiPAP at a pressure of 12/6 with an FiO2 of 60%. He was still having significant labored breathing, and he was tachypneic and his rate was ranging between 30-40 and he had marked diminished breath sounds bilaterally. His mentation was quite diminished and the patient seemed to be altered yet arousable. The was at the bedside. This patient does not seem to have had an evaluation with pulmonary in the past. Based on the reported history by the , he has been maintained on Advair and albuterol rescue inhaler on an outpatient basis. No home O2. He was experiencing pleuritic right-sided chest pain along with cough and congestion. He ended up in the emergency department this afternoon. Based on his labored breathing, immediately was placed on a BiPAP. I discussed the case with the emergency room physician. The patient is a higher risk of going into respiratory failure requiring intubation mechanical ventilation and I made the aware of. Meanwhile, if it was worth was given patient a trial of noninvasive positive pressure ventilation. White cell count was 36.8 with a hemoglobin of 14.4. Acute kidney injury with a BUN of 18 and a creatinine of 1.5 and sodium level of 133. His LFTs were essentially normal. The vital screening including influenza a and influenza B and RSV and Covid 19 testing was negative. Lactic acid level was at 1.8. Troponins were negative. Blood gas was ordered. Reviewed the CAT scan of the chest and there is no evidence of pulmonary embolism. The patient had extensive airspace disease more pronounced in the right middle lobe and the right upper lobe and the patient had other peripheral wedge-shaped pulmonary infiltrates. Predominant consolidation within the right upper lobe. There was also background mild centrilobular emphysema. No history of diabetes mellitus. Nosocomial artery disease. No history of any stroke. On today's evaluation of 09/03/2022, the patient is in the intensive care unit, intubated on a mechanical ventilator. The patient has further decompensation yesterday and he was intubated in the emergency department and following that he was transferred to the ICU. As mentioned, he has an extensive right lung pneu monia and the patient has dense consolidation involving the right middle lobe, right upper lobe and right lower lobe in addition so some patchy pulmonary infiltrates and the right upper lobe and the left lower lobe area. He is currently intubated on a mechanical ventilator. Is sedated on propofol running at 50 mcg/kg/m. He is on assist-control mode of mechanical ventilation at the rate of 20, tidal volume of 500, FiO2 of 70% with a PEEP of 5. Peak airway pressure is 26. No significant orotracheal secretions. Cultures were sent yesterday. The patient is currently on IV fluids with normal saline at rate of 1 25 mL an hour. He became hypotensive overnight and the patient was started on low-dose norepinephrine running at 0.05 mcg/kg/m. His morning blood gases showed a pH of 7.24 with a pCO2 of 48 and pO2 of 79. Cultures are still pending. Pro-calcitonin level is elevated at 32.4 consistent with an acute bacterial infection with secondary sepsis., The patient with broad-spectrum antibiotics. He is on a combination of cefepime, Levaquin and vancomycin. Is also on bronchodilators. He is on systemic steroids. Urine output is in order of 30-60 mL an hour. He is afebrile for now. His calm and comfortable. His current pulse ox is 95%. Cardiac rhythm is sinus. On today's evaluation of 09/04/2022, patient remains intubated on a mechanical ventilator and extensive right lung pneumonia. He was septic, pneumonia and the blood cultures turned out to be positive for E. coli. He has 2 possible cultures and sputum cultures still pending for now. Meanwhile, his follow-up chest x-ray from today is showing a right lower lobe airspace disease which is quite extensive and is also involving the right middle lobe. The patient remains on a mechanical ventilator. Currently is on assist-control mode rate of 20, tidal volume of 500, FiO2 of 50% with a PEEP of 5. Morning blood gases showed a pH of 7.3 with episodes of 46 and pO2 of 82. The patient remains on a combination of cefepime and Levaquin. In terms of his blood work, his leukocytosis is improving and the white cell count is down to 20 with a hemoglobin of 12.2 and a platelet count of 205. His electrolytes are all within normal limits. His pro calcitonin level was 32. Hemodynamically, the patient is on IV fluids. He is currently receiving normal saline. His overall fluid balance has been in the order of +2.2 L over the past 24 hours. In terms of pressors, he was requiring Nucofed yesterday and this morning he is on norepinephrine at 0.08 mcg/kg/m. His urine output is in order of 50 mL an hour. The patient is a started on enteral feeding for nutritional support. Is currently on Jevity at the rate of 10 mL an hour with a goal of 40 mL. He remains on bronchodilators. He remains on IV Solu-Medrol 60 mg every 6 hours. He is on Lovenox for DVT prophylaxis. Is afebrile for now. Cardiac rhythm is sinus. 09/05/2022, remains intubated on the mechanical ventilator. This is a case of gram-negative pneumonia with sepsis secondary to E. coli. The patient was given a CAT scan of the abdomen and pelvis and the findings were essentially nonspecific. He was also seen by general surgery. I think the source of sepsis is obviously pneumonia and the patient was hospitalized with respiratory failure and septic shock. He continues to have dense consolidation of the right lung. Bronchoscopy was done yesterday without a break airway suctioning. The sputum samples are also showing gram-negative bacteria final culture still pending for now. Meanwhile he remains on antibiotics and is currently on cefepime. The white cell count is down to 23 with a hemoglobin 11.5. Blood gas from today shows a pH of 7.34 with episodes of 45 and a pO2 of 86. Electrodes are normal. Function is normal. The patient is currently sedated on propofol running at 40 mcg/kg/m. He is currently off fentanyl. Norepinephrine was also discontinued as the patient has adequate blood pressure response and is currently off pressors. He is on IV fluids at normal saline at the rate of 40 mL an hour. His an assist-control mode rate of 20, tidal volume of 500, FiO2 of 50% with a PEEP of 5. He is receiving enteral feeding for nutritional support. Is currently on vital high-protein at the rate of 20 mL an hour. The goal is at 40. All movements are none at this point in time. His abdomen is soft and there is no evidence of any direct tenderness or rebound tenderness or guarding. He remains on bronchodilators. He remains on IV Solu-Medrol. Cardiac rhythm is sinus and the patient is afebrile. Objective - Vital Signs Vital signs: Vital Signs Temp 98.7 F 09/05/22 04:00 Pulse 73 09/05/22 07:51 Resp 20 09/05/22 06:30 BP 97/64 09/04/22 16:15 Pulse Ox 94 L 09/05/22 06:30 FiO2 50 09/05/22 07:43 Intake & Output 09/04/22 09/05/22 09/05/22 18:59 06:59 18:59 Intake Total 0323.735 8248.878 156.781 Output Total 735 950 85 Balance 578.397 581.878 71.781 Weight 93.8 kg 97.6 kg Intake: IV 473 759 43 Cefepime 2 gm In Sodium 100 Chloride 0.9% 100 ml @ 25 mls/hr IVPB Q8HR [facility] Rx# :[id number] arterial line 33 39 3 metroNIDAZOLE-NS PMX 500 100 mg In Saline 1 100ml.bag @ 100 mls/hr IVPB Q8HR [facility] Rx#:[id number] normal saline 440 520 40 Intake, IV Titration 840.397 602.878 103.781 Amount Cefepime 2 gm In Sodium 200 Chloride 0.9% 100 ml @ 25 mls/hr IVPB Q8HR [facility] Rx# :[id number] Norepinephrine 4 mg In 181.720 244.248 5.760 Sodium Chloride 0.9% 250 ml @ 0.03 MCG/KG/MIN 9. 332 mls/hr IV .Q24H [facility] Rx#:[id number] Sodium Chloride 0.9% 80 87.547 99.584 98.021 ml @ 1 MCG/KG/HR 9.38 mls /hr IV .[id number] [facility] with fentaNYL (PF) 1,000 mcg Rx#:[id number] metroNIDAZOLE-NS PMX 500 100 mg In Saline 1 100ml.bag @ 100 mls/hr IVPB Q8HR [facility] Rx#:[id number] propofoL 1,000 mg In 271.13 259.046 Empty Bag 1 bag @ 15 MCG/ KG/MIN 7.348 mls/hr IV . [id number] [facility] Rx#:[id number] Tube Feeding 110 10 Other 60 Output: Urine 735 950 85 Other: Voiding Method Indwelling Catheter Indwelling Catheter ABP, PAP, CO, CI - Last Documented Arterial Blood Pressure 105/57 Pulmonary Artery Pressure 114/55 - Exam 61-year-old male patient, the patient is currently intubated on a mechanical ventilator, and the patient is sedated and symptoms the mechanical ventilation. Orotracheal and orogastric tube are both in place. Head exam was generally normal. There was no scleral icterus or corneal arcus. Mucous membranes were moist. Neck was supple and without jugular venous distension, thyromegaly, or carotid bruits. Carotids were easily palpable bilaterally. There was no adenopathy. Lungs sounds are diminished bilaterally and the patient has expiratory rhonchi and wheezes and diminished breath sounds bilaterally. Heart sounds are tachycardic, positive S1-S2, sinus rhythm and no significant murmurs appreciated Abdominal exam revealed normal bowel sounds. The abdomen was soft, non-tender, and without masses, organomegaly, or appreciable enlargement of the abdominal aorta. Extremities revealed trace edema and there is no cyanosis or clubbing Examination of the skin revealed no evidence of significant rashes, suspicious appearing nevi or other concerning lesions. Neurologically the patient is adequately sedated for now, he is on propofol. Neurologic exam is nonfocal. Is communicating and moving all 4 extremities. - Labs CBC & Chem 7: 09/05/22 06:00 09/05/22 06:00 Labs: Abnormal Lab Results - Last 24 Hours (Table) 09/04/22 09/04/22 09/04/22 Range/Units 04:35 11:19 18:03 WBC (3.8-10.6) k/uL RBC (4.30-5.90) m/uL Hgb (13.0-17.5) gm/dL Hct (39.0-53.0) % ABG pH (7.35-7.45) ABG Total CO2 (19-24) mmol/L ABG O2 Saturation (94-97) % Chloride (98-107) mmol/L BUN (9-20) mg/dL Glucose (74-99) mg/dL POC Glucose (mg/dL) 235 H 240 H (70-110) mg/dL Hemoglobin A1c 6.9 H (0.0-6.0) % Calcium (8.4-10.2) mg/dL 09/04/22 09/05/22 09/05/22 Range/Units 23:34 06:00 06:00 WBC 23.1 H (3.8-10.6) k/uL RBC 3.74 L (4.30-5.90) m/uL Hgb 11.5 L (13.0-17.5) gm/dL Hct 36.0 L (39.0-53.0) % ABG pH 7.34 L (7.35-7.45) ABG Total CO2 26 H (19-24) mmol/L ABG O2 Saturation 97.4 H (94-97) % Chloride (98-107) mmol/L BUN (9-20) mg/dL Glucose (74-99) mg/dL POC Glucose (mg/dL) 218 H (70-110) mg/dL Hemoglobin A1c (0.0-6.0) % Calcium (8.4-10.2) mg/dL 09/05/22 09/05/22 Range/Units 06:00 06:05 WBC (3.8-10.6) k/uL RBC (4.30-5.90) m/uL Hgb (13.0-17.5) gm/dL Hct (39.0-53.0) % ABG pH (7.35-7.45) ABG Total CO2 (19-24) mmol/L ABG O2 Saturation (94-97) % Chloride 110 H (98-107) mmol/L BUN 21 H (9-20) mg/dL Glucose 231 H (74-99) mg/dL POC Glucose (mg/dL) 240 H (70-110) mg/dL Hemoglobin A1c (0.0-6.0) % Calcium 7.5 L (8.4-10.2) mg/dL Microbiology - Last 24 Hours (Table) 09/04/22 11:25 Bronchial Washings Culture - Preliminary Bronchial Washings - Right 09/02/22 21:25 Gram Stain - Preliminary Sputum Sputum Culture - Preliminary Gram Neg Bacilli 09/02/22 14:25 Blood Culture Gram Stain - Preliminary Blood Blood Culture - Preliminary Gram Neg Bacilli Assessment and Plan Plan: acute multilobar pneumonia right more than left with extensive right upper lobe/right middle lobe consolidation lung with patchy pneumonic infiltrates bilaterally. Likely a bacterial pneumonia and the pro calcitonin level is elevated. Blood cultures positive for E. coli. The sputum is also showing gram-negative bacillus. He is post bronchoscopy and bronchoalveolar lavage of the right lower lobe. Chest x-ray showing dense right lower lobe consolidation. Septic shock secondary to E. coli, consider gram-negative, E. coli pneumonia. Awaiting sputum sample. I'm going to do a bronchoscopy and a bronchial lavage of the right middle lobe today. I doubt any intra-abdominal source of sepsis. CAT scan of the abdomen and pelvis was done. Gen. surgical consultation was also obtained. Hypotension secondary to above and the patient is currently off pressors for now Acute hypoxic/hypercapnic respiratory failure secondary to above, failed BiPAP therapy and the patient is currently intubated on a mechanical ventilator. Blood gases show a component of respiratory acidosis. Chest x-ray still showing dense consolidation of the right lung in addition to patchy pulmonary infiltrates bilaterally. This is most likely a bacterial pneumonia. acute sepsis secondary to above Acute sinus tachycardia secondary to above, improved Acute leukocytosis secondary to above Acute COPD exacerbation secondary to above Altered mentation secondary to above acute kidney injury secondary to above, improved and the creatinine is normalized. Chronic smoker Plan Continue ventilator support and wean down FiO2 to 40% Continue IV cefepime Continue same antibiotic coverage Initiate enteral feeding for nutritional support, currently on vital high- protein at the rate of 20 Blood culture are positive for gram-negative E. coli bronchoscopy was done and repeat cultures are obtained from the right lung. The liberty airway suctioning was also done. Pro calcitonin levels are elevated, follow-up pro-calcitonin level Vancomycin is discontinued DuoNeb nebulized treatments [id number] IV Solu-Medrol IV fluids will be changed to 40 mL an hour Lovenox 40 mg subcu portably prophylaxis IV Protonix Not ready for weaning extubation yet. condition is critical and this evaluation was on a more than 30 minutes. Time with Patient: Greater than 30
[2022-09-05] MEDS: SODIUM CHLORIDE 0.9% 1,000 ML IV SCH (10:55)
--- NOTE | 2022-09-05 11:12 | P.PN ---
Subjective Progress Note Date: 09/05/22 Principal diagnosis: Gram-negative sepsis, question of appendicitis on CT, aspiration pneumonia Patient seen and examined at bedside, remains sedated on the ventilator, pressor requirement is coming down. Mean arterial pressures above 65 without need for pressor support. Laboratory studies show persistent leukocytosis at 23.1 thousand, hemoglobin 11.5, platelet count 216. Conference of metabolic panel shows no new abnormalities, creatinine 0.84. ABG shows a very slight im provement in the patient's acidosis, ventilation and perfusion. Chest x-ray from today shows stable findings compared to yesterday reflecting a right-sided pneumonia and pleural effusion. Has been started on tube feeds. Continues on assist control with rate of 20, FiO2 40%, PEEP of 5, not breathing above the ventilator. Objective - Vital Signs Vital signs: Vital Signs Temp 98.7 F 09/05/22 08:00 Pulse 96 09/05/22 11:00 Resp 20 09/05/22 11:00 BP 122/57 09/05/22 09:45 Pulse Ox 90 L 09/05/22 11:00 FiO2 40 09/05/22 11:00 Intake & Output 09/04/22 09/05/22 09/05/22 18:59 06:59 18:59 Intake Total 2946.450 5591.878 738.364 Output Total 735 950 400 Balance 578.397 581.878 338.364 Weight 93.8 kg 97.6 kg Intake: IV 473 759 415 0.9 Normal Saline 440 520 200 Cefepime 2 gm In Sodium 100 100 Chloride 0.9% 100 ml @ 25 mls/hr IVPB Q8HR [facility] Rx# :[id number] arterial line 33 39 15 metroNIDAZOLE-NS PMX 500 100 100 mg In Saline 1 100ml.bag @ 100 mls/hr IVPB Q8HR [facility] Rx#:[id number] Intake, IV Titration 840.397 602.878 203.364 Amount Cefepime 2 gm In Sodium 200 Chloride 0.9% 100 ml @ 25 mls/hr IVPB Q8HR [facility] Rx# :[id number] Norepinephrine 4 mg In 181.720 244.248 10.634 Sodium Chloride 0.9% 250 ml @ 0.03 MCG/KG/MIN 9. 332 mls/hr IV .Q24H [facility] Rx#:[id number] Sodium Chloride 0.9% 80 87.547 99.584 98.021 ml @ 1 MCG/KG/HR 9.38 mls /hr IV .[id number] [facility] with fentaNYL (PF) 1,000 mcg Rx#:[id number] metroNIDAZOLE-NS PMX 500 100 mg In Saline 1 100ml.bag @ 100 mls/hr IVPB Q8HR [facility] Rx#:[id number] propofoL 1,000 mg In 271.13 259.046 94.709 Empty Bag 1 bag @ 15 MCG/ KG/MIN 7.348 mls/hr IV . [id number] [facility] Rx#:[id number] Tube Feeding 110 90 Other 60 30 Output: Urine 735 950 400 Other: Voiding Method Indwelling Catheter Indwelling Catheter ABP, PAP, CO, CI - Last Documented Arterial Blood Pressure 110/56 Pulmonary Artery Pressure 114/55 - Constitutional Constitutional Comment(s): Sedated on the ventilator - EENT EENT Comment(s): Endotracheal tube in place - Respiratory Details: Coarse and mechanical bilaterally, decreased on the right - Cardiovascular Details: Heart sounds distant - Gastrointestinal Gastrointestinal Comment(s): Abdomen is moderately distended without tympany, no guarding or rebound. Abdominal exam is benign. No evidence of peritonitis. - Neurologic Neurologic Comment(s): GCS 3T - Musculoskeletal Musculoskeletal Comment(s): There is diffuse soft tissue edema seen throughout. - Labs CBC & Chem 7: 09/05/22 06:00 09/05/22 06:00 Labs: Abnormal Lab Results - Last 24 Hours (Table) 09/04/22 09/04/22 09/04/22 Range/Units 11:19 18:03 23:34 WBC (3.8-10.6) k/uL RBC (4.30-5.90) m/uL Hgb (13.0-17.5) gm/dL Hct (39.0-53.0) % ABG pH (7.35-7.45) ABG Total CO2 (19-24) mmol/L ABG O2 Saturation (94-97) % Chloride (98-107) mmol/L BUN (9-20) mg/dL Glucose (74-99) mg/dL POC Glucose (mg/dL) 235 H 240 H 218 H (70-110) mg/dL Calcium (8.4-10.2) mg/dL 09/05/22 09/05/22 09/05/22 Range/Units 06:00 06:00 06:00 WBC 23.1 H (3.8-10.6) k/uL RBC 3.74 L (4.30-5.90) m/uL Hgb 11.5 L (13.0-17.5) gm/dL Hct 36.0 L (39.0-53.0) % ABG pH 7.34 L (7.35-7.45) ABG Total CO2 26 H (19-24) mmol/L ABG O2 Saturation 97.4 H (94-97) % Chloride 110 H (98-107) mmol/L BUN 21 H (9-20) mg/dL Glucose 231 H (74-99) mg/dL POC Glucose (mg/dL) (70-110) mg/dL Calcium 7.5 L (8.4-10.2) mg/dL 09/05/22 Range/Units 06:05 WBC (3.8-10.6) k/uL RBC (4.30-5.90) m/uL Hgb (13.0-17.5) gm/dL Hct (39.0-53.0) % ABG pH (7.35-7.45) ABG Total CO2 (19-24) mmol/L ABG O2 Saturation (94-97) % Chloride (98-107) mmol/L BUN (9-20) mg/dL Glucose (74-99) mg/dL POC Glucose (mg/dL) 240 H (70-110) mg/dL Calcium (8.4-10.2) mg/dL Microbiology - Last 24 Hours (Table) 09/04/22 11:25 Gram Stain - Preliminary Bronchial Washings - Right Bronchial Washings Culture - Preliminary 09/02/22 21:25 Gram Stain - Preliminary Sputum Sputum Culture - Preliminary Gram Neg Bacilli 09/02/22 14:25 Blood Culture Gram Stain - Preliminary Blood Blood Culture - Preliminary Gram Neg Bacilli - Imaging and Cardiology Chest x-ray: report reviewed, image reviewed Assessment and Plan Assessment: 53-year-old gentleman with clinical presentation, exam findings, imaging and labs all consistent with a aspiration pneumonia and sepsis. Sputum shows gram- negative bacilli on Gram stain which is consistent with a E. coli found on blood culture. CT imaging of the chest [place] as visualized shows dependent atelectasis and considerable consolidation of the right lung. His abdominal CT findings are not overly impressive for appendicitis. If he were to have positive blood cultures in the setting of an abdominal catastrophe I would expect more flagrant findings. Plan: We will continue to follow, continue with antibiotics and supportive care per primary and medical consultants. No plans for surgical interventions at present. Will need outpatient colonoscopy for both diagnostic and screening indications. Assuming we can get him through this pneumonia, he may follow-up with me in the office 4-6 weeks post discharge to discuss scheduling if he wishes. Time with Patient: Greater than 30
[2022-09-05 11:41] LABS: Glucose,Whole Blood 217 mg/dL (70-110)
[2022-09-05 17:59] LABS: Glucose,Whole Blood 250 mg/dL (70-110)
--- NOTE | 2022-09-05 21:26 | P.PN ---
Subjective This is a pleasant 61 years old male with past medical history of COPD, was on inhaler at home. Presents with extensive dyspnea on and in less than 24 hours he got intubated. He had extensive leukocytosis on admission of 36.8 and he was in septic shock. CTA on admission has no PE. Imaging showing extensive right lower lobe pneumonia and bilateral pleural effusion. Patient was placed for spectrum antibiotic and he has positive sputum culture and blood culture for E. coli, currently covered with cefepime and Flagyl. Also I placed on supplemental 60 mg and normal saline at 40 mL per hour. Condition is critical. Procedurecalcitonin is elevated to 34 and leukocytosis still elevated 23,000. Hemoglobin 11.5. Objective - Vital Signs Vital signs: Vital Signs Temp 98.7 F 09/05/22 08:00 Pulse 87 09/05/22 15:00 Resp 20 09/05/22 15:00 BP 122/57 09/05/22 09:45 Pulse Ox 92 L 09/05/22 15:00 FiO2 40 09/05/22 15:00 Intake & Output 09/04/22 09/05/22 09/05/22 18:59 06:59 18:59 Intake Total 1724.964 0563.878 1020.364 Output Total 735 950 670 Balance 578.397 581.878 350.364 Weight 93.8 kg 97.6 kg Intake: IV 473 759 587 0.9 Normal Saline 440 520 200 Cefepime 2 gm In Sodium 100 100 Chloride 0.9% 100 ml @ 25 mls/hr IVPB Q8HR [facility] Rx# :[id number] Sodium Chloride 0.9% 1, 160 000 ml @ 40 mls/hr IV . Q24H [facility] Rx#:[id number] arterial line 33 39 27 metroNIDAZOLE-NS PMX 500 100 100 mg In Saline 1 100ml.bag @ 100 mls/hr IVPB Q8HR [facility] Rx#:[id number] Intake, IV Titration 840.397 602.878 203.364 Amount Cefepime 2 gm In Sodium 200 Chloride 0.9% 100 ml @ 25 mls/hr IVPB Q8HR [facility] Rx# :[id number] Norepinephrine 4 mg In 181.720 244.248 10.634 Sodium Chloride 0.9% 250 ml @ 0.03 MCG/KG/MIN 9. 332 mls/hr IV .Q24H [facility] Rx#:[id number] Sodium Chloride 0.9% 80 87.547 99.584 98.021 ml @ 1 MCG/KG/HR 9.38 mls /hr IV .[id number] [facility] with fentaNYL (PF) 1,000 mcg Rx#:[id number] metroNIDAZOLE-NS PMX 500 100 mg In Saline 1 100ml.bag @ 100 mls/hr IVPB Q8HR [facility] Rx#:[id number] propofoL 1,000 mg In 271.13 259.046 94.709 Empty Bag 1 bag @ 15 MCG/ KG/MIN 7.348 mls/hr IV . [id number] [facility] Rx#:[id number] Tube Feeding 110 170 Other 60 60 Output: Urine 735 950 670 Other: Voiding Method Indwelling Catheter Indwelling Catheter Indwelling Catheter ABP, PAP, CO, CI - Last Documented Arterial Blood Pressure 112/55 Pulmonary Artery Pressure 114/55 - Exam -GENERAL: The patient is intubated and sedated HEENT: Pupils are round and equally reacting to light. EOMI. No scleral icterus. No conjunctival pallor. Normocephalic, atraumatic. No pharyngeal erythema. No thyromegaly. CARDIOVASCULAR: S1 and S2 present. No murmurs, rubs, or gallops. PULMONARY: Chest is clear to auscultation, no wheezing or crackles. ABDOMEN: Soft, nontender, nondistended, normoactive bowel sounds. No palpable organomegaly. MUSCULOSKELETAL: No joint swelling or deformity. EXTREMITIES: No cyanosis, clubbing, or pedal edema. NEUROLOGICAL: Gross neurological examination did not reveal any focal deficits. SKIN: No rashes. no petechiae. - Labs CBC & Chem 7: 09/05/22 06:00 09/05/22 06:00 Labs: Abnormal Lab Results - Last 24 Hours (Table) 09/04/22 09/04/22 09/05/22 Range/Units 18:03 23:34 06:00 WBC (3.8-10.6) k/uL RBC (4.30-5.90) m/uL Hgb (13.0-17.5) gm/dL Hct (39.0-53.0) % ABG pH 7.34 L (7.35-7.45) ABG Total CO2 26 H (19-24) mmol/L ABG O2 Saturation 97.4 H (94-97) % Chloride (98-107) mmol/L BUN (9-20) mg/dL Glucose (74-99) mg/dL POC Glucose (mg/dL) 240 H 218 H (70-110) mg/dL Calcium (8.4-10.2) mg/dL Procalcitonin (0.02-0.09) ng/mL 09/05/22 09/05/22 09/05/22 Range/Units 06:00 06:00 06:00 WBC 23.1 H (3.8-10.6) k/uL RBC 3.74 L (4.30-5.90) m/uL Hgb 11.5 L (13.0-17.5) gm/dL Hct 36.0 L (39.0-53.0) % ABG pH (7.35-7.45) ABG Total CO2 (19-24) mmol/L ABG O2 Saturation (94-97) % Chloride 110 H (98-107) mmol/L BUN 21 H (9-20) mg/dL Glucose 231 H (74-99) mg/dL POC Glucose (mg/dL) (70-110) mg/dL Calcium 7.5 L (8.4-10.2) mg/dL Procalcitonin 34.70 H (0.02-0.09) ng/mL 09/05/22 09/05/22 Range/Units 06:05 11:39 WBC (3.8-10.6) k/uL RBC (4.30-5.90) m/uL Hgb (13.0-17.5) gm/dL Hct (39.0-53.0) % ABG pH (7.35-7.45) ABG Total CO2 (19-24) mmol/L ABG O2 Saturation (94-97) % Chloride (98-107) mmol/L BUN (9-20) mg/dL Glucose (74-99) mg/dL POC Glucose (mg/dL) 240 H 217 H (70-110) mg/dL Calcium (8.4-10.2) mg/dL Procalcitonin (0.02-0.09) ng/mL Microbiology - Last 24 Hours (Table) 09/04/22 11:25 Gram Stain - Preliminary Bronchial Washings - Right Bronchial Washings Culture - Preliminary 09/02/22 21:25 Gram Stain - Final Sputum Sputum Culture - Final Escherichia coli 09/02/22 14:25 Blood Culture Gram Stain - Final Blood Blood Culture - Final Escherichia coli 09/02/22 14:10 Blood Culture Gram Stain - Final Blood Blood Culture - Final Escherichia coli Assessment and Plan Assessment: Right middle lobe pneumonia secondary to electrolyte E. coli bacteremia Severe sepsis and transient septic shock, currently improving Metabolic/toxic encephalopathy secondary to above Acute hypoxic respiratory failure requiring intubation and mechanical ventilation History of COPD with exacerbation Plan: Continue with cefepime and Flagyl Continue with IV Solu-Medrol Continue gentle hydration Pulmonary/critical team consult ID team consult Labs and medication were reviewed.. Continue same treatment. Continue with symptomatic treatment. Resume home medication. Monitor labs and vitals. DVT and GI prophylaxis. Further recommendations as per clinical course of the patient DVT prophylaxis: Subcutaneous Lovenox GI Prophylaxis: Ppi Prognosis is guarded
--- NOTE | 2022-09-05 22:11 | P.PN ---
Subjective Progress Note Date: 09/05/22 Principal diagnosis: Pneumonia and bacteremia Patient is a 61-year-old male with a past medical history of asthma patient is a smoker has been brought into the ER for evaluation of increasing shortness of breath and chills, the patient did have evidence of right-sided p neumonia and worsening respiratory distress requiring intubation blood cultures subsequently came back positive with E. coli. The patient is status post bronchoscopy and was completed on 09/04/2022 On today's evaluation that is 09/05/2022, the patient remains to be afebrile, the patient is hemodynamically stable and not requiring any pressor support per the nursing staff, patient affect is down to 40%, no significant purulent secretion through the ET, diarrhea or any other changes reported by the nursing staff Objective - Vital Signs Vital signs: Vital Signs Temp 98.7 F 09/05/22 04:00 Pulse 73 09/05/22 07:51 Resp 20 09/05/22 06:30 BP 97/64 09/04/22 16:15 Pulse Ox 94 L 09/05/22 06:30 FiO2 50 09/05/22 07:43 Intake & Output 09/04/22 09/05/22 09/05/22 18:59 06:59 18:59 Intake Total 0845.985 4732.878 156.781 Output Total 735 950 85 Balance 578.397 581.878 71.781 Weight 93.8 kg 97.6 kg Intake: IV 473 759 43 Cefepime 2 gm In Sodium 100 Chloride 0.9% 100 ml @ 25 mls/hr IVPB Q8HR [facility] Rx# :[id number] arterial line 33 39 3 metroNIDAZOLE-NS PMX 500 100 mg In Saline 1 100ml.bag @ 100 mls/hr IVPB Q8HR [facility] Rx#:[id number] normal saline 440 520 40 Intake, IV Titration 840.397 602.878 103.781 Amount Cefepime 2 gm In Sodium 200 Chloride 0.9% 100 ml @ 25 mls/hr IVPB Q8HR [facility] Rx# :[id number] Norepinephrine 4 mg In 181.720 244.248 5.760 Sodium Chloride 0.9% 250 ml @ 0.03 MCG/KG/MIN 9. 332 mls/hr IV .Q24H [facility] Rx#:[id number] Sodium Chloride 0.9% 80 87.547 99.584 98.021 ml @ 1 MCG/KG/HR 9.38 mls /hr IV .[id number] [facility] with fentaNYL (PF) 1,000 mcg Rx#:[id number] metroNIDAZOLE-NS PMX 500 100 mg In Saline 1 100ml.bag @ 100 mls/hr IVPB Q8HR [facility] Rx#:[id number] propofoL 1,000 mg In 271.13 259.046 Empty Bag 1 bag @ 15 MCG/ KG/MIN 7.348 mls/hr IV . [id number] [facility] Rx#:[id number] Tube Feeding 110 10 Other 60 Output: Urine 735 950 85 Other: Voiding Method Indwelling Catheter Indwelling Catheter ABP, PAP, CO, CI - Last Documented Arterial Blood Pressure 105/57 Pulmonary Artery Pressure 114/55 - Exam GENERAL DESCRIPTION: Middle-age male intubated on the vent RESPIRATORY SYSTEM: Unlabored breathing , diminished breath sounds HEART: S1 S2 regular rate and rhythm , ABDOMEN: Soft , mild distention but no tenderness EXTREMITIES: No edema feet Exam completed by NOHEMI Valencia - Labs CBC & Chem 7: 09/05/22 06:00 09/05/22 06:00 Labs: Abnormal Lab Results - Last 24 Hours (Table) 09/04/22 09/04/22 09/04/22 Range/Units 04:35 11:19 18:03 WBC (3.8-10.6) k/uL RBC (4.30-5.90) m/uL Hgb (13.0-17.5) gm/dL Hct (39.0-53.0) % ABG pH (7.35-7.45) ABG Total CO2 (19-24) mmol/L ABG O2 Saturation (94-97) % Chloride (98-107) mmol/L BUN (9-20) mg/dL Glucose (74-99) mg/dL POC Glucose (mg/dL) 235 H 240 H (70-110) mg/dL Hemoglobin A1c 6.9 H (0.0-6.0) % Calcium (8.4-10.2) mg/dL 09/04/22 09/05/22 09/05/22 Range/Units 23:34 06:00 06:00 WBC 23.1 H (3.8-10.6) k/uL RBC 3.74 L (4.30-5.90) m/uL Hgb 11.5 L (13.0-17.5) gm/dL Hct 36.0 L (39.0-53.0) % ABG pH 7.34 L (7.35-7.45) ABG Total CO2 26 H (19-24) mmol/L ABG O2 Saturation 97.4 H (94-97) % Chloride (98-107) mmol/L BUN (9-20) mg/dL Glucose (74-99) mg/dL POC Glucose (mg/dL) 218 H (70-110) mg/dL Hemoglobin A1c (0.0-6.0) % Calcium (8.4-10.2) mg/dL 09/05/22 09/05/22 Range/Units 06:00 06:05 WBC (3.8-10.6) k/uL RBC (4.30-5.90) m/uL Hgb (13.0-17.5) gm/dL Hct (39.0-53.0) % ABG pH (7.35-7.45) ABG Total CO2 (19-24) mmol/L ABG O2 Saturation (94-97) % Chloride 110 H (98-107) mmol/L BUN 21 H (9-20) mg/dL Glucose 231 H (74-99) mg/dL POC Glucose (mg/dL) 240 H (70-110) mg/dL Hemoglobin A1c (0.0-6.0) % Calcium 7.5 L (8.4-10.2) mg/dL Microbiology - Last 24 Hours (Table) 09/04/22 11:25 Bronchial Washings Culture - Preliminary Bronchial Washings - Right 09/02/22 21:25 Gram Stain - Preliminary Sputum Sputum Culture - Preliminary Gram Neg Bacilli 09/02/22 14:25 Blood Culture Gram Stain - Preliminary Blood Blood Culture - Preliminary Gram Neg Bacilli Assessment and Plan (1) Bacteremia Current Visit: Yes Status: Acute Code(s): R78.81 - BACTEREMIA SNOMED Code(s): 2199090 (2) Pneumonia Current Visit: Yes Status: Acute Code(s): J18.9 - PNEUMONIA, UNSPECIFIED ORGANISM SNOMED Code(s): 482366982 Plan: 1patient was in the hospital with sepsis in this patient with a fever tachycardia hypoxemia source is likely right-sided pneumonia with blood cultures coming positive for E. coli not a very common pathogen to cause pneumonia we will wait for the final ID and sensitivities patient urine is negative abdominal soft on clinical exam and no clear history of any vomiting abdominal pain however there is a history of constipation did provided by the family member at the bedside 2- CT of abdominal pelvis question of appendicitis for the patient has been evaluated by general surgery and has been ruled out clinically with no need for any intervention 3-patient E. coli sensitive pathogen with concern for possible aspiration pneumonia cefepime and Flagyl will be discontinued and the patient will be started on Unasyn This is a telehealth visit which was completed with the help of NOHEMI Valencia Time with Patient: Less than 30
[2022-09-05 23:17] LABS: Glucose,Whole Blood 244 mg/dL (70-110)
[2022-09-05] MEDS: AMPICILLIN-SULBACTAM 3 GM in SODIUM CHLORIDE 0.9% 100 ML IVPB SCH (23:21)
[2022-09-06] MEDS: methylPREDNISolone SOD SUCCI 125 MG/2 ML VIAL IV SCH ×4 (03:58→21:09)
[2022-09-06] MEDS: AMPICILLIN-SULBACTAM 3 GM in SODIUM CHLORIDE 0.9% 100 ML IVPB SCH ×4 (04:47→22:52)
[2022-09-06 04:52] LABS: Glucose,Whole Blood 284 mg/dL (70-110)
[2022-09-06] MEDS: INSULIN ASPART (NovoLOG) 100 UNIT/ML VIAL SQ SCH ×4 (05:25→22:52)
[2022-09-06 05:35] LABS: ABG Base Excess 1.3 mmol/L; ABG HCO3 26 mmol/L (21-25); ABG Oxygen Saturation 94.4 % (94-97); ABG PCO2 44 mmHg (35-45); ABG PH 7.38 (7.35-7.45); ABG PO2 66 mmHg (83-108); ABG TCO2 28 mmol/L (19-24); Allen Test Performed? Yes
[2022-09-06 05:36] LABS: HCT 35.3 % (39.0-53.0); HGB 11.2 gm/dL (13.0-17.5); MCH 30.3 pg (25.0-35.0); MCHC 31.7 g/dL (31.0-37.0); MCV 95.5 fL (80.0-100.0); Mean Platelet Volume 8.5; Platelet Count 192 k/uL (150-450); RDW 13.3 % (11.5-15.5); WBC 20.5 k/uL (3.8-10.6)
[2022-09-06 05:46] LABS: African American GFR (CKD) >90 (>60 ml/min/1.73 sqM); Anion Gap 3 mmol/L; Blood Urea Nitrogen 31 mg/dL (9-20); Calcium 7.7 mg/dL (8.4-10.2); Carbon Dioxide 25 mmol/L (22-30); Chloride 111 mmol/L (98-107); Glucose 266 mg/dL (74-99); Non-African American GFR(CKD) >90 (>60 ml/min/1.73 sqM); Potassium 4.7 mmol/L (3.5-5.1); Sodium 139 mmol/L (137-145)
--- NOTE | 2022-09-06 06:56 | XR ---
EXAMINATION TYPE: XR chest 1V portable DATE OF EXAM: 09/06/2022 COMPARISON: 09/05/2022 HISTORY: SOB, Follow Up FINDINGS: Indwelling tubes and catheters are unchanged. Persistent basilar infiltrates with effusions. Pulmonary venous congestion with interstitial edema. Stable appearance of the cardio-mediastinal structures at this time. IMPRESSION: 1. Stable portable chest. Clinical correlation and follow up until resolution is recommended.
[2022-09-06] MEDS: IPRATROPIUM-ALBUTEROL 3 ML NEB INHALATION SCH ×4 (07:41→19:38)
[2022-09-06] MEDS: ENOXAPARIN 40 MG/0.4 ML SYRINGE SQ SCH (07:59)
[2022-09-06] MEDS: CHLORHEXIDINE GLUCONATE 15 ML CUP MUCOUS MEM SCH ×2 (07:59→20:54)
[2022-09-06] MEDS: SODIUM CHLORIDE 0.9% 80 ML with fentaNYL (PF) 1,000 MCG IV SCH ×2 (07:59)
[2022-09-06] MEDS: PANTOPRAZOLE 40 MG/10 ML VIAL IVP SCH ×2 (07:59→20:55)
--- NOTE | 2022-09-06 09:02 | P.PN ---
Subjective Progress Note Date: 09/06/22 Principal diagnosis: Gram-negative sepsis, question of appendicitis on CT, aspiration pneumonia Patient seen and examined at bedside. Remains sedated on the ventilator. Not requiring any manner of pressor support. Antibiotics wrist transitioned to IV Unasyn for aspiration pneumonia with E. coli on sputum and blood culture. ABG from this morning shows a less than stellar oxygenation. White blood cell count remains elevated at 20.5, hemoglobin stable 11.2. Basic metabolic panel shows no new abnormalities of significance. Objective - Vital Signs Vital signs: Vital Signs Temp 99.1 F 09/06/22 08:00 Pulse 83 09/06/22 08:00 Resp 22 09/06/22 08:00 BP 122/57 09/05/22 09:45 Pulse Ox 91 L 09/06/22 08:00 FiO2 40 09/06/22 08:00 Intake & Output 09/05/22 09/06/22 09/06/22 18:59 06:59 18:59 Intake Total 1302.406 2690 196 Output Total 845 1015 215 Balance 514.364 211 -19 Weight 98.8 kg Intake: IV 716 516 86 0.9 Normal Saline 200 Cefepime 2 gm In Sodium 100 Chloride 0.9% 100 ml @ 25 mls/hr IVPB Q8HR [facility] Rx# :[id number] Sodium Chloride 0.9% 1, 280 480 80 000 ml @ 40 mls/hr IV . Q24H [facility] Rx#:[id number] arterial line 36 36 6 metroNIDAZOLE-NS PMX 500 100 mg In Saline 1 100ml.bag @ 100 mls/hr IVPB Q8HR [facility] Rx#:[id number] Intake, IV Titration 303.364 200 Amount Norepinephrine 4 mg In 10.634 Sodium Chloride 0.9% 250 ml @ 0.03 MCG/KG/MIN 9. 332 mls/hr IV .Q24H [facility] Rx#:[id number] Sodium Chloride 0.9% 80 98.021 ml @ 1 MCG/KG/HR 9.38 mls /hr IV .[id number] [facility] with fentaNYL (PF) 1,000 mcg Rx#:[id number] propofoL 1,000 mg In 194.709 200 Empty Bag 1 bag @ 15 MCG/ KG/MIN 7.348 mls/hr IV . [id number] [facility] Rx#:[id number] Tube Feeding 250 420 80 Other 90 90 30 Output: Urine 845 1015 215 Other: Voiding Method Indwelling Catheter Indwelling Catheter ABP, PAP, CO, CI - Last Documented Arterial Blood Pressure 118/53 Pulmonary Artery Pressure 114/55 - Constitutional Constitutional Comment(s): Patient remains sedated on the ventilator. - EENT ENT: Present: NA/AT - Respiratory Details: Coarse and mechanical bilaterally, decreased on the right - Cardiovascular Rhythm: regular - Gastrointestinal Gastrointestinal Comment(s): Abdomen is soft, nontender to palpation, no guarding or rebound. Moderate distention is present without tympany. Abdominal exam is benign. - Neurologic Neurologic Comment(s): GCS 3T - Musculoskeletal Musculoskeletal Comment(s): Moderate global soft tissue edema is present - Labs CBC & Chem 7: 09/06/22 04:55 09/06/22 04:55 Labs: Abnormal Lab Results - Last 24 Hours (Table) 09/05/22 09/05/22 09/05/22 Range/Units 06:00 11:39 17:58 WBC (3.8-10.6) k/uL RBC (4.30-5.90) m/uL Hgb (13.0-17.5) gm/dL Hct (39.0-53.0) % ABG pO2 (83-108) mmHg ABG HCO3 (21-25) mmol/L ABG Total CO2 (19-24) mmol/L Chloride (98-107) mmol/L BUN (9-20) mg/dL Glucose (74-99) mg/dL POC Glucose (mg/dL) 217 H 250 H (70-110) mg/dL Calcium (8.4-10.2) mg/dL Procalcitonin 34.70 H (0.02-0.09) ng/mL 09/05/22 09/06/22 09/06/22 Range/Units 23:15 04:51 04:55 WBC 20.5 H (3.8-10.6) k/uL RBC 3.70 L (4.30-5.90) m/uL Hgb 11.2 L (13.0-17.5) gm/dL Hct 35.3 L (39.0-53.0) % ABG pO2 (83-108) mmHg ABG HCO3 (21-25) mmol/L ABG Total CO2 (19-24) mmol/L Chloride (98-107) mmol/L BUN (9-20) mg/dL Glucose (74-99) mg/dL POC Glucose (mg/dL) 244 H 284 H (70-110) mg/dL Calcium (8.4-10.2) mg/dL Procalcitonin (0.02-0.09) ng/mL 09/06/22 09/06/22 Range/Units 04:55 05:44 WBC (3.8-10.6) k/uL RBC (4.30-5.90) m/uL Hgb (13.0-17.5) gm/dL Hct (39.0-53.0) % ABG pO2 66 L (83-108) mmHg ABG HCO3 26 H (21-25) mmol/L ABG Total CO2 28 H (19-24) mmol/L Chloride 111 H (98-107) mmol/L BUN 31 H (9-20) mg/dL Glucose 266 H (74-99) mg/dL POC Glucose (mg/dL) (70-110) mg/dL Calcium 7.7 L (8.4-10.2) mg/dL Procalcitonin (0.02-0.09) ng/mL Microbiology - Last 24 Hours (Table) 09/04/22 11:25 Gram Stain - Preliminary Bronchial Washings - Right Bronchial Washings Culture - Preliminary 09/02/22 21:25 Gram Stain - Final Sputum Sputum Culture - Final Escherichia coli 09/02/22 14:25 Blood Culture Gram Stain - Final Blood Blood Culture - Final Escherichia coli 09/02/22 14:10 Blood Culture Gram Stain - Final Blood Blood Culture - Final Escherichia coli - Imaging and Cardiology Chest x-ray: report reviewed, image reviewed Assessment and Plan Assessment: 53-year-old gentleman with clinical presentation, exam findings, imaging and labs all consistent with a aspiration pneumonia and sepsis. Sputum shows gram- negative bacilli on Gram stain which is consistent with a E. coli found on blood culture. CT imaging of the chest [place] as visualized shows dependent atelectasis and considerable consolidation of the right lung. His abdominal CT findings are not overly impressive for appendicitis. If he were to have positive blood cultures in the setting of an abdominal catastrophe I would expect more flagrant findings. Plan: We'll reassess at your request, continue with antibiotics and supportive care per primary and medical consultants. No plans for surgical interventions at present. Will need outpatient colonoscopy for both diagnostic and screening indications. Assuming we can get him through this pneumonia, he may follow-up with me in the office 4-6 weeks post discharge to discuss scheduling if he wishes. Time with Patient: Greater than 30
--- NOTE | 2022-09-06 09:29 | P.PN ---
Subjective Progress Note Date: 09/06/22 A 61-year-old mentation, known history of COPD, chronic smoker who continues to smoke approximately a pack of cigarettes a day, presenting with progressively worsening shortness of breath over the past 1 week. The patient was seen in the emergency department. The patient was already on a BiPAP at a pressure of 12/6 with an FiO2 of 60%. He was still having significant labored breathing, and he was tachypneic and his rate was ranging between 30-40 and he had marked diminished breath sounds bilaterally. His mentation was quite diminished and the patient seemed to be altered yet arousable. The was at the bedside. This patient does not seem to have had an evaluation with pulmonary in the past. Based on the reported history by the , he has been maintained on Advair and albuterol rescue inhaler on an outpatient basis. No home O2. He was experiencing pleuritic right-sided chest pain along with cough and congestion. He ended up in the emergency department this afternoon. Based on his labored breathing, immediately was placed on a BiPAP. I discussed the case with the emergency room physician. The patient is a higher risk of going into respiratory failure requiring intubation mechanical ventilation and I made the aware of. Meanwhile, if it was worth was given patient a trial of noninvasive positive pressure ventilation. White cell count was 36.8 with a hemoglobin of 14.4. Acute kidney injury with a BUN of 18 and a creatinine of 1.5 and sodium level of 133. His LFTs were essentially normal. The vital screening including influenza a and influenza B and RSV and Covid 19 testing was negative. Lactic acid level was at 1.8. Troponins were negative. Blood gas was ordered. Reviewed the CAT scan of the chest and there is no evidence of pulmonary embolism. The patient had extensive airspace disease more pronounced in the right middle lobe and the right upper lobe and the patient had other peripheral wedge-shaped pulmonary infiltrates. Predominant consolidation within the right upper lobe. There was also background mild centrilobular emphysema. No history of diabetes mellitus. Nosocomial artery disease. No history of any stroke. On today's evaluation of 09/03/2022, the patient is in the intensive care unit, intubated on a mechanical ventilator. The patient has further decompensation yesterday and he was intubated in the emergency department and following that he was transferred to the ICU. As mentioned, he has an extensive right lung pneu monia and the patient has dense consolidation involving the right middle lobe, right upper lobe and right lower lobe in addition so some patchy pulmonary infiltrates and the right upper lobe and the left lower lobe area. He is currently intubated on a mechanical ventilator. Is sedated on propofol running at 50 mcg/kg/m. He is on assist-control mode of mechanical ventilation at the rate of 20, tidal volume of 500, FiO2 of 70% with a PEEP of 5. Peak airway pressure is 26. No significant orotracheal secretions. Cultures were sent yesterday. The patient is currently on IV fluids with normal saline at rate of 1 25 mL an hour. He became hypotensive overnight and the patient was started on low-dose norepinephrine running at 0.05 mcg/kg/m. His morning blood gases showed a pH of 7.24 with a pCO2 of 48 and pO2 of 79. Cultures are still pending. Pro-calcitonin level is elevated at 32.4 consistent with an acute bacterial infection with secondary sepsis., The patient with broad-spectrum antibiotics. He is on a combination of cefepime, Levaquin and vancomycin. Is also on bronchodilators. He is on systemic steroids. Urine output is in order of 30-60 mL an hour. He is afebrile for now. His calm and comfortable. His current pulse ox is 95%. Cardiac rhythm is sinus. On today's evaluation of 09/04/2022, patient remains intubated on a mechanical ventilator and extensive right lung pneumonia. He was septic, pneumonia and the blood cultures turned out to be positive for E. coli. He has 2 possible cultures and sputum cultures still pending for now. Meanwhile, his follow-up chest x-ray from today is showing a right lower lobe airspace disease which is quite extensive and is also involving the right middle lobe. The patient remains on a mechanical ventilator. Currently is on assist-control mode rate of 20, tidal volume of 500, FiO2 of 50% with a PEEP of 5. Morning blood gases showed a pH of 7.3 with episodes of 46 and pO2 of 82. The patient remains on a combination of cefepime and Levaquin. In terms of his blood work, his leukocytosis is improving and the white cell count is down to 20 with a hemoglobin of 12.2 and a platelet count of 205. His electrolytes are all within normal limits. His pro calcitonin level was 32. Hemodynamically, the patient is on IV fluids. He is currently receiving normal saline. His overall fluid balance has been in the order of +2.2 L over the past 24 hours. In terms of pressors, he was requiring Nucofed yesterday and this morning he is on norepinephrine at 0.08 mcg/kg/m. His urine output is in order of 50 mL an hour. The patient is a started on enteral feeding for nutritional support. Is currently on Jevity at the rate of 10 mL an hour with a goal of 40 mL. He remains on bronchodilators. He remains on IV Solu-Medrol 60 mg every 6 hours. He is on Lovenox for DVT prophylaxis. Is afebrile for now. Cardiac rhythm is sinus. 09/05/2022, remains intubated on the mechanical ventilator. This is a case of gram-negative pneumonia with sepsis secondary to E. coli. The patient was given a CAT scan of the abdomen and pelvis and the findings were essentially nonspecific. He was also seen by general surgery. I think the source of sepsis is obviously pneumonia and the patient was hospitalized with respiratory failure and septic shock. He continues to have dense consolidation of the right lung. Bronchoscopy was done yesterday without a break airway suctioning. The sputum samples are also showing gram-negative bacteria final culture still pending for now. Meanwhile he remains on antibiotics and is currently on cefepime. The white cell count is down to 23 with a hemoglobin 11.5. Blood gas from today shows a pH of 7.34 with episodes of 45 and a pO2 of 86. Electrodes are normal. Function is normal. The patient is currently sedated on propofol running at 40 mcg/kg/m. He is currently off fentanyl. Norepinephrine was also discontinued as the patient has adequate blood pressure response and is currently off pressors. He is on IV fluids at normal saline at the rate of 40 mL an hour. His an assist-control mode rate of 20, tidal volume of 500, FiO2 of 50% with a PEEP of 5. He is receiving enteral feeding for nutritional support. Is currently on vital high-protein at the rate of 20 mL an hour. The goal is at 40. All movements are none at this point in time. His abdomen is soft and there is no evidence of any direct tenderness or rebound tenderness or guarding. He remains on bronchodilators. He remains on IV Solu-Medrol. Cardiac rhythm is sinus and the patient is afebrile. 09/06/2022, the patient remains intubated on a mechanical ventilator. The patient extensive pneumonia involving the right lung with some limited infiltration of the left secondary to E. coli. Sputum is positive for E. coli, blood cultures also positive for E. coli. The patient is currently on IV Unasyn. Chest x-ray from today still showing persistent infiltration/consolidation of the right lung especially the right middle lobe and right base and there is also infiltration of the left lung base. Bronchoscopy in the lavage was done and the results are still pending for now. Meanwhile, he is hemodynamically stable and is on no pressors. He was given a sedation holiday yesterday and he was able to arouse without any major difficulties. He was not ready for weaning and a weaning trial was not done and a sedation holiday was aborted. Currently, he's on propofol running at 50 mcg/kg/m. He is on assist-control mode of mechanical ventilation at the rate of 20, tidal volume of 500, FiO2 40% with a PEEP of 5. The peak airway pressure is currently at 26. The white cell count of 20.5. Hemoglobin is 11.2.. The patient also has an elevated pro-calcitonin level which remains elevated at 34.7. Meanwhile, his electrolytes are stable. Sodium is at 139 with a potassium level of 4.7, BUN is 31 with a creatinine of 0.8. He is receiving enteral feeding for nutritional support and is currently on vital high-protein at the rate of 40 mL an hour. The fluid balance over the past 24 hours has been in the order of +725 mL. No significant peripheral edema at this point in time. Objective - Vital Signs Vital signs: Vital Signs Temp 99.1 F 09/06/22 08:00 Pulse 75 09/06/22 09:00 Resp 21 09/06/22 09:00 BP 122/57 09/05/22 09:45 Pulse Ox 91 L 09/06/22 09:00 FiO2 40 09/06/22 09:00 Intake & Output 09/05/22 09/06/22 09/06/22 18:59 06:59 18:59 Intake Total 1913.449 2015 196 Output Total 845 1015 215 Balance 514.364 211 -19 Weight 98.8 kg Intake: IV 716 516 86 0.9 Normal Saline 200 Cefepime 2 gm In Sodium 100 Chloride 0.9% 100 ml @ 25 mls/hr IVPB Q8HR [facility] Rx# :[id number] Sodium Chloride 0.9% 1, 280 480 80 000 ml @ 40 mls/hr IV . Q24H [facility] Rx#:[id number] arterial line 36 36 6 metroNIDAZOLE-NS PMX 500 100 mg In Saline 1 100ml.bag @ 100 mls/hr IVPB Q8HR [facility] Rx#:[id number] Intake, IV Titration 303.364 200 Amount Norepinephrine 4 mg In 10.634 Sodium Chloride 0.9% 250 ml @ 0.03 MCG/KG/MIN 9. 332 mls/hr IV .Q24H [facility] Rx#:[id number] Sodium Chloride 0.9% 80 98.021 ml @ 1 MCG/KG/HR 9.38 mls /hr IV .[id number] [facility] with fentaNYL (PF) 1,000 mcg Rx#:[id number] propofoL 1,000 mg In 194.709 200 Empty Bag 1 bag @ 15 MCG/ KG/MIN 7.348 mls/hr IV . [id number] [facility] Rx#:[id number] Tube Feeding 250 420 80 Other 90 90 30 Output: Urine 845 1015 215 Other: Voiding Method Indwelling Catheter Indwelling Catheter ABP, PAP, CO, CI - Last Documented Arterial Blood Pressure 121/51 Pulmonary Artery Pressure 114/55 - Exam 61-year-old male patient, the patient is currently intubated on a mechanical ventilator, and the patient is sedated and symptoms the mechanical ventilation. Orotracheal and orogastric tube are both in place. Head exam was generally normal. There was no scleral icterus or corneal arcus. Mucous membranes were moist. Neck was supple and without jugular venous distension, thyromegaly, or carotid bruits. Carotids were easily palpable bilaterally. There was no adenopathy. Lungs sounds are diminished bilaterally and the patient has expiratory rhonchi and wheezes and diminished breath sounds bilaterally. Heart sounds are tachycardic, positive S1-S2, sinus rhythm and no significant murmurs appreciated Abdominal exam revealed normal bowel sounds. The abdomen was soft, non-tender, and without masses, organomegaly, or appreciable enlargement of the abdominal aorta. Extremities revealed trace edema and there is no cyanosis or clubbing Examination of the skin revealed no evidence of significant rashes, suspicious appearing nevi or other concerning lesions. Neurologically the patient is adequately sedated for now, he is on propofol. Neurologic exam is nonfocal. Is communicating and moving all 4 extremities. - Labs CBC & Chem 7: 09/06/22 04:55 09/06/22 04:55 Labs: Abnormal Lab Results - Last 24 Hours (Table) 09/05/22 09/05/22 09/05/22 Range/Units 06:00 11:39 17:58 WBC (3.8-10.6) k/uL RBC (4.30-5.90) m/uL Hgb (13.0-17.5) gm/dL Hct (39.0-53.0) % ABG pO2 (83-108) mmHg ABG HCO3 (21-25) mmol/L ABG Total CO2 (19-24) mmol/L Chloride (98-107) mmol/L BUN (9-20) mg/dL Glucose (74-99) mg/dL POC Glucose (mg/dL) 217 H 250 H (70-110) mg/dL Calcium (8.4-10.2) mg/dL Procalcitonin 34.70 H (0.02-0.09) ng/mL 09/05/22 09/06/22 09/06/22 Range/Units 23:15 04:51 04:55 WBC 20.5 H (3.8-10.6) k/uL RBC 3.70 L (4.30-5.90) m/uL Hgb 11.2 L (13.0-17.5) gm/dL Hct 35.3 L (39.0-53.0) % ABG pO2 (83-108) mmHg ABG HCO3 (21-25) mmol/L ABG Total CO2 (19-24) mmol/L Chloride (98-107) mmol/L BUN (9-20) mg/dL Glucose (74-99) mg/dL POC Glucose (mg/dL) 244 H 284 H (70-110) mg/dL Calcium (8.4-10.2) mg/dL Procalcitonin (0.02-0.09) ng/mL 04/23/23 04/23/23 Range/Units 04:55 05:44 WBC (3.8-10.6) k/uL RBC (4.30-5.90) m/uL Hgb (13.0-17.5) gm/dL Hct (39.0-53.0) % ABG pO2 66 L (83-108) mmHg ABG HCO3 26 H (21-25) mmol/L ABG Total CO2 28 H (19-24) mmol/L Chloride 111 H (98-107) mmol/L BUN 31 H (9-20) mg/dL Glucose 266 H (74-99) mg/dL POC Glucose (mg/dL) (70-110) mg/dL Calcium 7.7 L (8.4-10.2) mg/dL Procalcitonin (0.02-0.09) ng/mL Microbiology - Last 24 Hours (Table) 09/04/22 11:25 Gram Stain - Preliminary Bronchial Washings - Right Bronchial Washings Culture - Preliminary 09/02/22 21:25 Gram Stain - Final Sputum Sputum Culture - Final Escherichia coli 09/02/22 14:25 Blood Culture Gram Stain - Final Blood Blood Culture - Final Escherichia coli 09/02/22 14:10 Blood Culture Gram Stain - Final Blood Blood Culture - Final Escherichia coli Assessment and Plan Plan: acute multilobar pneumonia right more than left with extensive right upper lobe/right middle lobe consolidation lung with patchy pneumonic infiltrates b ilaterally. Likely a bacterial pneumonia and the pro calcitonin level is elevated. Blood cultures positive for E. coli. He is post bronchoscopy and bronchoalveolar lavage of the right lower lobe. Chest x-ray showing dense right lower lobe consolidation. Chest x-ray is unchanged and the findings of essentially stable for now. Pro-calcitonin level is elevated. Nevertheless, hemodynamically stable. The patient has E. coli in his blood and sputum Septic shock secondary to E. coli, /E. coli pneumonia. Bronchoscopy was also done and that is also stable pending for now. The patient remains on IV Unasyn Hypotension secondary to above and the patient is currently off pressors for now Acute hypoxic/hypercapnic respiratory failure secondary to above, failed BiPAP therapy and the patient is currently intubated on a mechanical ventilator. Blood gases show a component of respiratory acidosis. Chest x-ray still showing dense consolidation of the right lung in addition to patchy pulmonary infiltrates bilaterally. This is most likely a bacterial pneumonia. acute sepsis secondary to above Acute sinus tachycardia secondary to above, improved Acute leukocytosis secondary to above, white cell count improved slightly at still elevated Acute COPD exacerbation secondary to above Altered mentation secondary to above acute kidney injury secondary to above, improved and the creatinine is normalized. Chronic smoker Plan Give the patient has sedation holiday and assess his underlying mental status and evidence to wean. Check weaning parameters Continue vent support, no vent changes for today Continue IV Unasyn enteral feeding for nutritional support, currently on vital high-protein at the rate of 20 Blood culture are positive for gram-negative E. coli bronchoscopy was done and repeat cultures are obtained from the right lung. Pro calcitonin levels are elevated, follow-up pro-calcitonin level DuoNeb nebulized treatments [id number] IV Solu-Medrol IV fluids will be changed to 40 mL an hour Lovenox 40 mg subcu portably prophylaxis IV Protonix condition is critical and this evaluation was on a more than 30 minutes. Time with Patient: Greater than 30
[2022-09-06] MEDS: SODIUM CHLORIDE 0.9% 1,000 ML IV SCH (11:13)
[2022-09-06 11:20] LABS: Glucose,Whole Blood 267 mg/dL (70-110)
[2022-09-06] MEDS ORDERED: DOCUSATE ORAL SOLN 100 MG/10 ML CUP PO PRN (15:57)
[2022-09-06] MEDS: DOCUSATE ORAL SOLN 100 MG/10 ML CUP PO SCH (16:15)
[2022-09-06 18:06] LABS: Glucose,Whole Blood 296 mg/dL (70-110)
--- NOTE | 2022-09-06 19:52 | P.PN ---
Subjective Progress Note Date: 09/06/22 Principal diagnosis: Pneumonia and bacteremia Patient is a 61-year-old male with a past medical history of asthma patient is a smoker has been brought into the ER for evaluation of increasing shortness of breath and chills, the patient did have evidence of right-sided p neumonia and worsening respiratory distress requiring intubation blood cultures subsequently came back positive with E. coli. The patient is status post bronchoscopy and was completed on 09/04/2022 On today's evaluation that is 09/06/2022, the patient continues to be afebrile, the patient is hemodynamically stable , the patient FiO2 Is currently stable at 40%, no significant purulent secretion through the ET, diarrhea or any other changes reported Objective - Vital Signs Vital signs: Vital Signs Temp 98.7 F 09/06/22 04:00 Pulse 81 09/06/22 07:00 Resp 21 09/06/22 07:00 BP 122/57 09/05/22 09:45 Pulse Ox 93 L 09/06/22 07:00 FiO2 40 09/06/22 04:00 Intake & Output 09/05/22 09/06/22 09/06/22 18:59 06:59 18:59 Intake Total 9622.198 3307 83 Output Total 845 1015 150 Balance 514.364 211 -67 Weight 98.8 kg Intake: IV 716 516 43 0.9 Normal Saline 200 Cefepime 2 gm In Sodium 100 Chloride 0.9% 100 ml @ 25 mls/hr IVPB Q8HR [facility] Rx# :[id number] Sodium Chloride 0.9% 1, 280 480 40 000 ml @ 40 mls/hr IV . Q24H [facility] Rx#:[id number] arterial line 36 36 3 metroNIDAZOLE-NS PMX 500 100 mg In Saline 1 100ml.bag @ 100 mls/hr IVPB Q8HR [facility] Rx#:[id number] Intake, IV Titration 303.364 200 Amount Norepinephrine 4 mg In 10.634 Sodium Chloride 0.9% 250 ml @ 0.03 MCG/KG/MIN 9. 332 mls/hr IV .Q24H [facility] Rx#:[id number] Sodium Chloride 0.9% 80 98.021 ml @ 1 MCG/KG/HR 9.38 mls /hr IV .[id number] [facility] with fentaNYL (PF) 1,000 mcg Rx#:[id number] propofoL 1,000 mg In 194.709 200 Empty Bag 1 bag @ 15 MCG/ KG/MIN 7.348 mls/hr IV . [id number] [facility] Rx#:[id number] Tube Feeding 250 420 40 Other 90 90 Output: Urine 845 1015 150 Other: Voiding Method Indwelling Catheter Indwelling Catheter ABP, PAP, CO, CI - Last Documented Arterial Blood Pressure 119/52 Pulmonary Artery Pressure 114/55 - Exam GENERAL DESCRIPTION: Middle-age male intubated on the vent RESPIRATORY SYSTEM: Unlabored breathing , diminished breath sounds HEART: S1 S2 regular rate and rhythm , ABDOMEN: Soft , mild distention but no tenderness EXTREMITIES: No edema feet Exam completed by NOHEMI Valencia - Labs CBC & Chem 7: 09/06/22 04:55 09/06/22 04:55 Labs: Abnormal Lab Results - Last 24 Hours (Table) 09/05/22 09/05/22 09/05/22 Range/Units 06:00 11:39 17:58 WBC (3.8-10.6) k/uL RBC (4.30-5.90) m/uL Hgb (13.0-17.5) gm/dL Hct (39.0-53.0) % ABG pO2 (83-108) mmHg ABG HCO3 (21-25) mmol/L ABG Total CO2 (19-24) mmol/L Chloride (98-107) mmol/L BUN (9-20) mg/dL Glucose (74-99) mg/dL POC Glucose (mg/dL) 217 H 250 H (70-110) mg/dL Calcium (8.4-10.2) mg/dL Procalcitonin 34.70 H (0.02-0.09) ng/mL 09/05/22 09/06/22 09/06/22 Range/Units 23:15 04:51 04:55 WBC 20.5 H (3.8-10.6) k/uL RBC 3.70 L (4.30-5.90) m/uL Hgb 11.2 L (13.0-17.5) gm/dL Hct 35.3 L (39.0-53.0) % ABG pO2 (83-108) mmHg ABG HCO3 (21-25) mmol/L ABG Total CO2 (19-24) mmol/L Chloride (98-107) mmol/L BUN (9-20) mg/dL Glucose (74-99) mg/dL POC Glucose (mg/dL) 244 H 284 H (70-110) mg/dL Calcium (8.4-10.2) mg/dL Procalcitonin (0.02-0.09) ng/mL 09/06/22 09/06/22 Range/Units 04:55 05:44 WBC (3.8-10.6) k/uL RBC (4.30-5.90) m/uL Hgb (13.0-17.5) gm/dL Hct (39.0-53.0) % ABG pO2 66 L (83-108) mmHg ABG HCO3 26 H (21-25) mmol/L ABG Total CO2 28 H (19-24) mmol/L Chloride 111 H (98-107) mmol/L BUN 31 H (9-20) mg/dL Glucose 266 H (74-99) mg/dL POC Glucose (mg/dL) (70-110) mg/dL Calcium 7.7 L (8.4-10.2) mg/dL Procalcitonin (0.02-0.09) ng/mL Microbiology - Last 24 Hours (Table) 09/04/22 11:25 Gram Stain - Preliminary Bronchial Washings - Right Bronchial Washings Culture - Preliminary 09/02/22 21:25 Gram Stain - Final Sputum Sputum Culture - Final Escherichia coli 09/02/22 14:25 Blood Culture Gram Stain - Final Blood Blood Culture - Final Escherichia coli 09/02/22 14:10 Blood Culture Gram Stain - Final Blood Blood Culture - Final Escherichia coli Assessment and Plan (1) Bacteremia Current Visit: Yes Status: Acute Code(s): R78.81 - BACTEREMIA SNOMED Code(s): 9901048 (2) Pneumonia Current Visit: Yes Status: Acute Code(s): J18.9 - PNEUMONIA, UNSPECIFIED ORGANISM SNOMED Code(s): 285754150 Plan: 1patient was in the hospital with sepsis in this patient with a fever tachycardia hypoxemia source is likely right-sided pneumonia with blood cultures coming positive for E. coli not a very common pathogen to cause pneumonia we will wait for the final ID and sensitivities patient urine is negative abdominal soft on clinical exam and no clear history of any vomiting abdominal pain however there is a history of constipation did provided by the family member at the bedside 2- CT of abdominal pelvis question of appendicitis for the patient has been evaluated by general surgery and has been ruled out clinically with no need for any intervention 3-patient E. coli sensitive pathogen with concern for possible aspiration pneumonia, patient to continue with the Unasyn and will monitor his clinical course closely, white count elevated more likely related to steroids This is a telehealth visit which was completed with the help of [employer] Time with Patient: Less than 30
[2022-09-06 22:51] LABS: Glucose,Whole Blood 346 mg/dL (70-110)
[2022-09-06] MEDS: INSULIN DETEMIR (LEVEMIR) 100 UNIT/ML SYR SQ SCH (23:36)
[2022-09-07] MEDS: methylPREDNISolone SOD SUCCI 125 MG/2 ML VIAL IV SCH ×4 (05:08→20:52)
[2022-09-07] MEDS: AMPICILLIN-SULBACTAM 3 GM in SODIUM CHLORIDE 0.9% 100 ML IVPB SCH ×4 (05:09→22:23)
[2022-09-07 05:49] LABS: HCT 36.9 % (39.0-53.0); HGB 11.7 gm/dL (13.0-17.5); Hypochromasia Slight; MCH 30.9 pg (25.0-35.0); MCHC 31.7 g/dL (31.0-37.0); MCV 97.3 fL (80.0-100.0); Mean Platelet Volume 9.1; Platelet Count 163 k/uL (150-450); RBC 3.79 m/uL (4.30-5.90); RDW 13.2 % (11.5-15.5)
[2022-09-07 05:50] LABS: ABG Base Excess 6.2 mmol/L; ABG HCO3 31 mmol/L (21-25); ABG Oxygen Saturation 94.8 % (94-97); ABG PCO2 46 mmHg (35-45); ABG PH 7.43 (7.35-7.45); ABG PO2 72 mmHg (83-108); ABG TCO2 32 mmol/L (19-24); Allen Test Performed? Yes
[2022-09-07 05:59] LABS: African American GFR (CKD) >90 (>60 ml/min/1.73 sqM); Anion Gap 3 mmol/L; Blood Urea Nitrogen 34 mg/dL (9-20); Calcium 7.5 mg/dL (8.4-10.2); Carbon Dioxide 28 mmol/L (22-30); Chloride 113 mmol/L (98-107); Glucose 256 mg/dL (74-99); Non-African American GFR(CKD) >90 (>60 ml/min/1.73 sqM); Potassium 4.6 mmol/L (3.5-5.1); Sodium 144 mmol/L (137-145)
[2022-09-07 06:48] LABS: Glucose,Whole Blood 273 mg/dL (70-110)
[2022-09-07] MEDS: INSULIN ASPART (NovoLOG) 100 UNIT/ML VIAL SQ SCH ×3 (06:50→18:01)
--- NOTE | 2022-09-07 07:29 | XR ---
EXAMINATION TYPE: XR chest 1V portable DATE OF EXAM: 09/07/2022 COMPARISON: 09/06/2022 HISTORY: Postoperative change TECHNIQUE: Single frontal view of the chest is obtained. FINDINGS: ET, NG tubes stable. Right-sided central line stable. Diffuse interstitial pattern with bi lateral infiltrate and pleural effusion. No sizable pneumothorax. Hypertrophic change of the spine. IMPRESSION: IMPRESSION: 1. Bilateral infiltrate and pleural effusion correlate for CHF. Otherwise consider pneumonia.
[2022-09-07] MEDS: IPRATROPIUM-ALBUTEROL 3 ML NEB INHALATION SCH ×4 (07:35→19:43)
[2022-09-07] MEDS: PANTOPRAZOLE 40 MG/10 ML VIAL IVP SCH ×2 (08:01→20:52)
[2022-09-07] MEDS: ENOXAPARIN 40 MG/0.4 ML SYRINGE SQ SCH (08:01)
[2022-09-07] MEDS: DOCUSATE ORAL SOLN 100 MG/10 ML CUP PO SCH (08:01)
[2022-09-07] MEDS: CHLORHEXIDINE GLUCONATE 15 ML CUP MUCOUS MEM SCH ×2 (08:01→20:52)
--- NOTE | 2022-09-07 08:52 | P.PN ---
Subjective This is a pleasant 61 years old male with past medical history of COPD, was on inhaler at home. Presents with extensive dyspnea on and in less than 24 hours he got intubated. He had extensive leukocytosis on admission of 36.8 and he was in septic shock. CTA on admission has no PE. Imaging showing extensive right lower lobe pneumonia and bilateral pleural effusion. Patient was placed for spectrum antibiotic and he has positive sputum culture and blood culture for E. coli, currently covered with cefepime and Flagyl. Also I placed on supplemental 60 mg and normal saline at 40 mL per hour. Condition is critical. Procedurecalcitonin is elevated to 34 and leukocytosis still elevated 23,000. Hemoglobin 11.5. 09/06/2022 Patient remains tachypneic and hypoxic, her metastases intubated and on mechanical ventilation with pulmonary/critical care team on the case Leukocytosis improving down to 19,000, chest x-ray showing persistent extensive left lung Infiltrates suspicious for pneumonia and effusion, when I removed the chest x-ray shows slight improvement. Antibiotic is been adjusted to penicillin, ID team on the case Patient remains on IV Solu-Medrol 60 mg Levemir 10 units at its Objective - Vital Signs Vital signs: Vital Signs Temp 99.0 F 09/06/22 11:00 Pulse 81 09/06/22 12:52 Resp 25 H 09/06/22 11:00 BP 130/76 09/06/22 11:00 Pulse Ox 89 L 09/06/22 11:00 FiO2 40 09/06/22 12:39 Intake & Output 09/05/22 09/06/22 09/06/22 18:59 06:59 18:59 Intake Total 3091.676 3974 650.633 Output Total 845 1015 680 Balance 514.364 211 -29.367 Weight 98.8 kg Intake: IV 716 516 315 0.9 Normal Saline 200 Ampicillin-Sulbactam 3 gm 100 In Sodium Chloride 0.9% 100 ml @ 200 mls/hr IVPB Q6H [facility] Rx#:[id number] Cefepime 2 gm In Sodium 100 Chloride 0.9% 100 ml @ 25 mls/hr IVPB Q8HR [facility] Rx# :[id number] Sodium Chloride 0.9% 1, 280 480 200 000 ml @ 40 mls/hr IV . Q24H [facility] Rx#:[id number] arterial line 36 36 15 metroNIDAZOLE-NS PMX 500 100 mg In Saline 1 100ml.bag @ 100 mls/hr IVPB Q8HR [facility] Rx#:[id number] Intake, IV Titration 303.364 200 105.633 Amount Norepinephrine 4 mg In 10.634 Sodium Chloride 0.9% 250 ml @ 0.03 MCG/KG/MIN 9. 332 mls/hr IV .Q24H [facility] Rx#:[id number] Sodium Chloride 0.9% 80 98.021 ml @ 1 MCG/KG/HR 9.38 mls /hr IV .[id number] [facility] with fentaNYL (PF) 1,000 mcg Rx#:[id number] propofoL 1,000 mg In 194.709 200 105.633 Empty Bag 1 bag @ 15 MCG/ KG/MIN 7.348 mls/hr IV . [id number] [facility] Rx#:[id number] Tube Feeding 250 420 200 Other 90 90 30 Output: Urine 845 1015 680 Other: Voiding Method Indwelling Catheter Indwelling Catheter Indwelling Catheter ABP, PAP, CO, CI - Last Documented Arterial Blood Pressure 132/64 Pulmonary Artery Pressure 114/55 - Exam -GENERAL: The patient is intubated and sedated HEENT: Pupils are round and equally reacting to light. EOMI. No scleral icterus. No conjunctival pallor. Normocephalic, atraumatic. No pharyngeal erythema. No thyromegaly. CARDIOVASCULAR: S1 and S2 present. No murmurs, rubs, or gallops. PULMONARY: Chest is clear to auscultation, no wheezing or crackles. ABDOMEN: Soft, nontender, nondistended, normoactive bowel sounds. No palpable organomegaly. MUSCULOSKELETAL: No joint swelling or deformity. EXTREMITIES: No cyanosis, clubbing, or pedal edema. NEUROLOGICAL: Gross neurological examination did not reveal any focal deficits. SKIN: No rashes. no petechiae. - Labs CBC & Chem 7: 09/07/22 05:33 09/07/22 05:33 Labs: Abnormal Lab Results - Last 24 Hours (Table) 09/05/22 09/05/22 09/05/22 Range/Units 06:00 17:58 23:15 WBC (3.8-10.6) k/uL RBC (4.30-5.90) m/uL Hgb (13.0-17.5) gm/dL Hct (39.0-53.0) % ABG pO2 (83-108) mmHg ABG HCO3 (21-25) mmol/L ABG Total CO2 (19-24) mmol/L Chloride (98-107) mmol/L BUN (9-20) mg/dL Glucose (74-99) mg/dL POC Glucose (mg/dL) 250 H 244 H (70-110) mg/dL Calcium (8.4-10.2) mg/dL Procalcitonin 34.70 H (0.02-0.09) ng/mL 09/06/22 09/06/22 09/06/22 Range/Units 04:51 04:55 04:55 WBC 20.5 H (3.8-10.6) k/uL RBC 3.70 L (4.30-5.90) m/uL Hgb 11.2 L (13.0-17.5) gm/dL Hct 35.3 L (39.0-53.0) % ABG pO2 (83-108) mmHg ABG HCO3 (21-25) mmol/L ABG Total CO2 (19-24) mmol/L Chloride 111 H (98-107) mmol/L BUN 31 H (9-20) mg/dL Glucose 266 H (74-99) mg/dL POC Glucose (mg/dL) 284 H (70-110) mg/dL Calcium 7.7 L (8.4-10.2) mg/dL Procalcitonin (0.02-0.09) ng/mL 09/06/22 09/06/22 09/06/22 Range/Units 04:55 05:44 11:18 WBC (3.8-10.6) k/uL RBC (4.30-5.90) m/uL Hgb (13.0-17.5) gm/dL Hct (39.0-53.0) % ABG pO2 66 L (83-108) mmHg ABG HCO3 26 H (21-25) mmol/L ABG Total CO2 28 H (19-24) mmol/L Chloride (98-107) mmol/L BUN (9-20) mg/dL Glucose (74-99) mg/dL POC Glucose (mg/dL) 267 H (70-110) mg/dL Calcium (8.4-10.2) mg/dL Procalcitonin 19.40 H (0.02-0.09) ng/mL Microbiology - Last 24 Hours (Table) 09/04/22 11:25 Gram Stain - Final Bronchial Washings - Right Bronchial Washings Culture - Final 09/02/22 21:25 Gram Stain - Final Sputum Sputum Culture - Final Escherichia coli 09/02/22 14:25 Blood Culture Gram Stain - Final Blood Blood Culture - Final Escherichia coli 09/02/22 14:10 Blood Culture Gram Stain - Final Blood Blood Culture - Final Escherichia coli Assessment and Plan Assessment: Left middle lobe pneumonia secondary to electrolyte E. coli bacteremia Severe sepsis and transient septic shock, currently improving Metabolic/toxic encephalopathy secondary to above Acute hypoxic respiratory failure requiring intubation and mechanical ventilation History of COPD with exacerbation Plan: Continue with Unasyn Continue with IV Solu-Medrol Continue gentle hydration normal saline at 40 mL/h Continue with insulin Levemir 10 units and insulin sliding scale Pulmonary/critical team consult ID team consult Labs and medication were reviewed.. Continue same treatment. Continue with symptomatic treatment. Resume home medication. Monitor labs and vitals. DVT and GI prophylaxis. Further recommendations as per clinical course of the patient DVT prophylaxis: Subcutaneous Lovenox GI Prophylaxis: Ppi Prognosis is guarded
--- NOTE | 2022-09-07 10:58 | P.PN ---
Subjective Progress Note Date: 09/07/22 Principal diagnosis: Pneumonia and bacteremia Patient is a 61-year-old male with a past medical history of asthma patient is a smoker has been brought into the ER for evaluation of increasing shortness of breath and chills, the patient did have evidence of right-sided p neumonia and worsening respiratory distress requiring intubation blood cultures subsequently came back positive with E. coli. The patient is status post bronchoscopy and was completed on 09/04/2022 On today's evaluation that is 09/07/2022, the patient remains to be afebrile, the patient is hemodynamically stable not requiring any pressor support with the nursing staff , the patient FiO2 Is currently stable at 40%, did have some brown secretion through the ET, diarrhea or any other changes reported Objective - Vital Signs Vital signs: Vital Signs Temp 99.1 F 09/07/22 08:00 Pulse 75 09/07/22 10:00 Resp 22 09/07/22 10:00 BP 150/87 09/07/22 10:00 Pulse Ox 89 L 09/07/22 10:00 FiO2 40 09/07/22 10:00 Intake & Output 09/06/22 09/07/22 09/07/22 18:59 06:59 18:59 Intake Total 3640.712 2965 422 Output Total 1630 1070 680 Balance -161.000 33 -258 Weight 95.5 kg Intake: IV 659 473 172 Ampicillin-Sulbactam 3 gm 100 In Sodium Chloride 0.9% 100 ml @ 200 mls/hr IVPB Q6H [facility] Rx#:[id number] Sodium Chloride 0.9% 1, 520 440 160 000 ml @ 40 mls/hr IV . Q24H [facility] Rx#:[id number] arterial line 39 33 12 Intake, IV Titration 200.000 100 Amount propofoL 1,000 mg In 200.000 100 Empty Bag 1 bag @ 15 MCG/ KG/MIN 7.348 mls/hr IV . [id number] [facility] Rx#:[id number] Tube Feeding 520 440 160 Other 90 90 90 Output: Urine 1630 1070 680 Other: Voiding Method Indwelling Catheter Indwelling Catheter Indwelling Catheter ABP, PAP, CO, CI - Last Documented Arterial Blood Pressure 121/75 Pulmonary Artery Pressure 114/55 - Exam GENERAL DESCRIPTION: Middle-age male intubated on the vent RESPIRATORY SYSTEM: Unlabored breathing , diminished breath sounds, no wheeze HEART: S1 S2 regular rate and rhythm , ABDOMEN: Soft , mild distention but no tenderness EXTREMITIES: Diffuse swelling of lower extremity no redness - Labs CBC & Chem 7: 09/07/22 05:33 09/07/22 05:33 Labs: Abnormal Lab Results - Last 24 Hours (Table) 09/06/22 09/06/22 09/06/22 Range/Units 04:55 11:18 18:04 WBC (3.8-10.6) k/uL RBC (4.30-5.90) m/uL Hgb (13.0-17.5) gm/dL Hct (39.0-53.0) % ABG pCO2 (35-45) mmHg ABG pO2 (83-108) mmHg ABG HCO3 (21-25) mmol/L ABG Total CO2 (19-24) mmol/L Chloride (98-107) mmol/L BUN (9-20) mg/dL Creatinine (0.66-1.25) mg/dL Glucose (74-99) mg/dL POC Glucose (mg/dL) 267 H 296 H (70-110) mg/dL Calcium (8.4-10.2) mg/dL Procalcitonin 19.40 H (0.02-0.09) ng/mL 09/06/22 09/07/22 09/07/22 Range/Units 22:49 05:33 05:33 WBC 19.0 H (3.8-10.6) k/uL RBC 3.79 L (4.30-5.90) m/uL Hgb 11.7 L (13.0-17.5) gm/dL Hct 36.9 L (39.0-53.0) % ABG pCO2 (35-45) mmHg ABG pO2 (83-108) mmHg ABG HCO3 (21-25) mmol/L ABG Total CO2 (19-24) mmol/L Chloride 113 H (98-107) mmol/L BUN 34 H (9-20) mg/dL Creatinine 0.63 L (0.66-1.25) mg/dL Glucose 256 H (74-99) mg/dL POC Glucose (mg/dL) 346 H (70-110) mg/dL Calcium 7.5 L (8.4-10.2) mg/dL Procalcitonin (0.02-0.09) ng/mL 09/07/22 09/07/22 09/07/22 Range/Units 05:33 05:46 06:47 WBC (3.8-10.6) k/uL RBC (4.30-5.90) m/uL Hgb (13.0-17.5) gm/dL Hct (39.0-53.0) % ABG pCO2 46 H (35-45) mmHg ABG pO2 72 L (83-108) mmHg ABG HCO3 31 H (21-25) mmol/L ABG Total CO2 32 H (19-24) mmol/L Chloride (98-107) mmol/L BUN (9-20) mg/dL Creatinine (0.66-1.25) mg/dL Glucose (74-99) mg/dL POC Glucose (mg/dL) 273 H (70-110) mg/dL Calcium (8.4-10.2) mg/dL Procalcitonin 10.10 H (0.02-0.09) ng/mL Microbiology - Last 24 Hours (Table) 09/04/22 11:25 Gram Stain - Final Bronchial Washings - Right Bronchial Washings Culture - Final Assessment and Plan (1) Bacteremia Current Visit: Yes Status: Acute Code(s): R78.81 - BACTEREMIA SNOMED Code(s): 3268603 (2) Pneumonia Current Visit: Yes Status: Acute Code(s): J18.9 - PNEUMONIA, UNSPECIFIED ORGANISM SNOMED Code(s): 585793570 Plan: 1patient was in the hospital with sepsis in this patient with a fever tachycardia hypoxemia source is likely right-sided pneumonia with blood cultures coming positive for E. coli not a very common pathogen to cause pneumonia we will wait for the final ID and sensitivities patient urine is negative abdominal soft on clinical exam and no clear history of any vomiting abdominal pain however there is a history of constipation did provided by the family member at the bedside 2- CT of abdominal pelvis question of appendicitis for the patient has been evaluated by general surgery and has been ruled out clinically with no need for any intervention 3-patient E. coli sensitive pathogen with concern for possible aspiration pneumonia, patient currently being treated with the Unasyn , blood culture r epeat Were ordered for yesterday somehow got canceled with the order today discussed with the RN
[2022-09-07] MEDS: SODIUM CHLORIDE 0.9% 1,000 ML IV SCH (11:30)
--- NOTE | 2022-09-07 11:48 | P.PN ---
Subjective Progress Note Date: 09/07/22 Principal diagnosis: Acute hypoxic respiratory failure secondary to acute multilobar pneumonia/E. coli pneumonia, and sepsis and septic shock A 61-year-old mentation, known history of COPD, chronic smoker who continues to smoke approximately a pack of cigarettes a day, presenting with progressively worsening shortness of breath over the past 1 week. The patient was seen in the emergency department. The patient was already on a BiPAP at a pressure of 12/6 with an FiO2 of 60%. He was still having significant labored breathing, and he was tachypneic and his rate was ranging between 30-40 and he had marked diminished breath sounds bilaterally. His mentation was quite diminished and the patient seemed to be altered yet arousable. The was at the bedside. This patient does not seem to have had an evaluation with pulmonary in the past. Based on the reported history by the , he has been maintained on Advair and albuterol rescue inhaler on an outpatient basis. No home O2. He was experiencing pleuritic right-sided chest pain along with cough and congestion. He ended up in the emergency department this afternoon. Based on his labored breathing, immediately was placed on a BiPAP. I discussed the case with the emergency room physician. The patient is a higher risk of going into respiratory failure requiring intubation mechanical ventilation and I made the aware of. Meanwhile, if it was worth was given patient a trial of noninvasive positive pressure ventilation. White cell count was 36.8 with a hemoglobin of 14.4. Acute kidney injury with a BUN of 18 and a creatinine of 1.5 and sodium level of 133. His LFTs were essentially normal. The vital screening including influenza a and influenza B and RSV and Covid 19 testing was negative. Lactic acid level was at 1.8. Troponins were negative. Blood gas was ordered. Reviewed the CAT scan of the chest and there is no evidence of pulmonary embolism. The patient had extensive airspace disease more pronounced in the right middle lobe and the right upper lobe and the patient had other peripheral wedge-shaped pulmonary infiltrates. Predominant consolidation within the right upper lobe. There was also background mild centrilobular emphysema. No history of diabetes mellitus. Nosocomial artery disease. No history of any stroke. 09/06/2022, the patient remains intubated on a mechanical ventilator. The patient extensive pneumonia involving the right lung with some limited inf iltration of the left secondary to E. coli. Sputum is positive for E. coli, blood cultures also positive for E. coli. The patient is currently on IV Unasyn. Chest x-ray from today still showing persistent infiltration/consolidation of the right lung especially the right middle lobe and right base and there is also infiltration of the left lung base. Bronchoscopy in the lavage was done and the results are still pending for now. Meanwhile, he is hemodynamically stable and is on no pressors. He was given a sedation holiday yesterday and he was able to arouse without any major difficulties. He was not ready for weaning and a weaning trial was not done and a sedation holiday was aborted. Currently, he's on propofol running at 50 mcg/kg/m. He is on assist-control mode of mechanical ventilation at the rate of 20, tidal volume of 500, FiO2 40% with a PEEP of 5. The peak airway pressure is currently at 26. The white cell count of 20.5. Hemoglobin is 11.2.. The patient also has an elevated pro-calcitonin level which remains elevated at 34.7. Meanwhile, his electrolytes are stable. Sodium is at 139 with a potassium level of 4.7, BUN is 31 with a creatinine of 0.8. He is receiving enteral feeding for nutritional support and is currently on vital high-protein at the rate of 40 mL an hour. The fluid balance over the past 24 hours has been in the order of +725 mL. No significant peripheral edema at this point in time. Patient was reevaluated today on 09/07/2022, patient remains in the ICU, intubated and mechanically ventilated. Patient is now on assist control rate of 2012 volume 500 FiO2 40% and PEEP of 5. ABG showed a pO2 of 72 pCO2 46 pH of 7.43, no changes were made in the ventilator settings. Patient was initially intubated on 09/02/2022, and he remains intubated. Chest x-ray showed bilateral infiltrates and pleural effusions consistent with pneumonia. WBC count is elevated at 19.0, however seems to be steadily improving considering it was 36.8 on 09/02 initially. Basic metabolic profile is normal renal profile is normal pro-calcitonin level is trending down and it is 10.1. Sputum has been positive for E. coli. Patient continues to have chronic changes in his bilateral lower extremities. Patient remains on Unasyn. He is also on GI and DVT prophylaxis including Lovenox, and he is on pantoprazole 40 mg IV push twice a day. I saw him this morning he was off propofol, he was earlier on 15 mcg/kg/m, however the patient is a bit restless, agitated, tachypneic, and I recommended. He goes back on propofol, he is not quite ready for weaning. Patient remains on bronchodilators in the form of DuoNeb updrafts 4 times a day and when necessary, he is also on methylprednisolone 60 mg IV push every 6 hours. IV fluid is 0.9 normal saline at 40 mL per hour. Patient is having good urine output. Patient remains on enteral feeding Objective - Vital Signs Vital signs: Vital Signs Temp 99.1 F 09/07/22 08:00 Pulse 74 09/07/22 11:29 Resp 22 09/07/22 11:00 BP 142/85 09/07/22 11:00 Pulse Ox 91 L 09/07/22 11:00 FiO2 40 09/07/22 11:09 Intake & Output 09/06/22 09/07/22 09/07/22 18:59 06:59 18:59 Intake Total 4484.634 4450 422 Output Total 1630 1070 680 Balance -161.000 33 -258 Weight 95.5 kg 95.5 kg Intake: IV 659 473 172 Ampicillin-Sulbactam 3 gm 100 In Sodium Chloride 0.9% 100 ml @ 200 mls/hr IVPB Q6H [facility] Rx#:[id number] Sodium Chloride 0.9% 1, 520 440 160 000 ml @ 40 mls/hr IV . Q24H [facility] Rx#:[id number] arterial line 39 33 12 Intake, IV Titration 200.000 100 Amount propofoL 1,000 mg In 200.000 100 Empty Bag 1 bag @ 15 MCG/ KG/MIN 7.348 mls/hr IV . [id number] [facility] Rx#:[id number] Tube Feeding 520 440 160 Other 90 90 90 Output: Urine 1630 1070 680 Other: Voiding Method Indwelling Catheter Indwelling Catheter Indwelling Catheter ABP, PAP, CO, CI - Last Documented Arterial Blood Pressure 121/75 Pulmonary Artery Pressure 114/55 - Exam Physical Exam: Revealed 61-year-old white male intubated, mechanically ventilated, noted to be short of breath, awake, follows simple instructions, he is on mechanical ventilation. Off sedation, seems to be tachypneic, and a bit restless. Intermittently coughing. Head: Atraumatic, normocephalic. HEENT:[Neck is supple.] [No neck masses.] [No thyromegaly.] [No JVD.] Chest: [Symmetrical chest expansion, crackles or rhonchi and wheezes noted bilaterally. Cardiac Exam: [Normal S1 and S2, no S3 gallop, no murmur.] Abdomen: [Soft, nontender, no megaly, no rebound, no guarding, normal bowel sounds.] Extremities: [No clubbing, 1+ bipedal edema, and chronic venous stasis changes noted bilaterally in lower extremities. Neurological Exam: Off sedation, patient is arousable, follows simple instructions, nonfocal examination. Psychiatric: Could not fully assess. Skin: Chronic venous stasis changes noted in lower extremities otherwise unremarkable. Musculoskeletal: No deformities and no limitation in range of motion. - Labs CBC & Chem 7: 09/07/22 05:33 09/07/22 05:33 Labs: Abnormal Lab Results - Last 24 Hours (Table) 09/06/22 09/06/22 09/07/22 Range/Units 18:04 22:49 05:33 WBC 19.0 H (3.8-10.6) k/uL RBC 3.79 L (4.30-5.90) m/uL Hgb 11.7 L (13.0-17.5) gm/dL Hct 36.9 L (39.0-53.0) % ABG pCO2 (35-45) mmHg ABG pO2 (83-108) mmHg ABG HCO3 (21-25) mmol/L ABG Total CO2 (19-24) mmol/L Chloride (98-107) mmol/L BUN (9-20) mg/dL Creatinine (0.66-1.25) mg/dL Glucose (74-99) mg/dL POC Glucose (mg/dL) 296 H 346 H (70-110) mg/dL Calcium (8.4-10.2) mg/dL Procalcitonin (0.02-0.09) ng/mL 09/07/22 09/07/22 09/07/22 Range/Units 05:33 05:33 05:46 WBC (3.8-10.6) k/uL RBC (4.30-5.90) m/uL Hgb (13.0-17.5) gm/dL Hct (39.0-53.0) % ABG pCO2 46 H (35-45) mmHg ABG pO2 72 L (83-108) mmHg ABG HCO3 31 H (21-25) mmol/L ABG Total CO2 32 H (19-24) mmol/L Chloride 113 H (98-107) mmol/L BUN 34 H (9-20) mg/dL Creatinine 0.63 L (0.66-1.25) mg/dL Glucose 256 H (74-99) mg/dL POC Glucose (mg/dL) (70-110) mg/dL Calcium 7.5 L (8.4-10.2) mg/dL Procalcitonin 10.10 H (0.02-0.09) ng/mL 09/07/22 Range/Units 06:47 WBC (3.8-10.6) k/uL RBC (4.30-5.90) m/uL Hgb (13.0-17.5) gm/dL Hct (39.0-53.0) % ABG pCO2 (35-45) mmHg ABG pO2 (83-108) mmHg ABG HCO3 (21-25) mmol/L ABG Total CO2 (19-24) mmol/L Chloride (98-107) mmol/L BUN (9-20) mg/dL Creatinine (0.66-1.25) mg/dL Glucose (74-99) mg/dL POC Glucose (mg/dL) 273 H (70-110) mg/dL Calcium (8.4-10.2) mg/dL Procalcitonin (0.02-0.09) ng/mL Microbiology - Last 24 Hours (Table) 09/04/22 11:25 Gram Stain - Final Bronchial Washings - Right Bronchial Washings Culture - Final Assessment and Plan Assessment: Impression: Acute hypoxic respiratory failure secondary to multilobar pneumonia secondary to E. coli. Sepsis and septic shock secondary to E. coli pneumonia and bacteremia. Hypotension secondary to above. Required pressors but presently off pressors. Acute hypercapnic respiratory failure Acute leukocytosis secondary to pneumonia and sepsis. Acute exacerbation of COPD Acute toxic metabolic encephalopathy/altered mental status secondary to above Acute kidney injury secondary to sepsis and septic shock. Improving and resolved. Chronic tobacco dependence syndrome. Recommendation: Continue ventilatory support, patient is obviously not ready for weaning. Daily weaning parameters to be addressed and daily interruption of sedation. Continue nutritional support/enteral feeding. Continue GI and DVT prophylaxis including Lovenox and Protonix. Continue hemodynamic support if necessary, presently off pressors. Continue antibiotics/Unasyn for E. coli pneumonia ?sepsis. Continue updrafts for underlying COPD including DuoNeb, and the patient is also on IV Solu-Medrol. No need to continue to monitor her pro calcitonin. We will discontinue daily orders upper calcitonin. Condition remains critical, patient is not ready for weaning, we will continue to closely follow in the ICU. Critical care time is over 30 minutes Time with Patient: Greater than 30
--- NOTE | 2022-09-07 12:29 | OP ---
OPERATIVE REPORT DATE OF SERVICE : PROCEDURE PERFORMED: Placement of a left radial arterial line. PREOPERATIVE DIAGNOSES: Acute respiratory failure and pneumonia. POSTOPERATIVE DIAGNOSES: Acute respiratory failure and pneumonia. ANESTHESIA USED: None deployed. DESCRIPTION OF PROCEDURE: The patient was placed in a supine position, the left wrist was prepared in a sterile fashion. Drapes were applied. The left radial artery was palpated, easily cannulated using an Arrow needle with catheter, and as the needle and catheter advanced into the left radial artery, the blood flow was noted into the catheter, and the wire was advanced through the catheter into the vessel. Then, the catheter was advanced over the wire, and the wire with the whole kit came out completely with the catheter kept in place. Good blood flow, good waveform, no complications. Line was secured using 3.0 silk sutures. MMODL / IJN: [id number] /
[2022-09-07 13:17] LABS: Glucose,Whole Blood 281 mg/dL (70-110)
[2022-09-07 17:55] LABS: Glucose,Whole Blood 276 mg/dL (70-110)
[2022-09-07] MEDS: INSULIN DETEMIR (LEVEMIR) 100 UNIT/ML SYR SQ SCH (20:52)
[2022-09-07 23:45] LABS: Glucose,Whole Blood 245 mg/dL (70-110)
[2022-09-08] MEDS: INSULIN ASPART (NovoLOG) 100 UNIT/ML VIAL SQ SCH ×5 (04:21→23:48)
[2022-09-08 04:31] LABS: Glucose,Whole Blood 276 mg/dL (70-110)
[2022-09-08] MEDS: methylPREDNISolone SOD SUCCI 125 MG/2 ML VIAL IV SCH ×4 (04:31→21:58)
[2022-09-08] MEDS: AMPICILLIN-SULBACTAM 3 GM in SODIUM CHLORIDE 0.9% 100 ML IVPB SCH ×4 (04:31→22:47)
[2022-09-08 04:56] LABS: HCT 38.6 % (39.0-53.0); HGB 12.1 gm/dL (13.0-17.5); MCH 30.2 pg (25.0-35.0); MCHC 31.4 g/dL (31.0-37.0); MCV 96.4 fL (80.0-100.0); Mean Platelet Volume 8.2; Platelet Count 180 k/uL (150-450); RBC 4.01 m/uL (4.30-5.90); RDW 13.2 % (11.5-15.5); WBC 14.1 k/uL (3.8-10.6)
[2022-09-08 05:15] LABS: ALT 49 U/L (4-49); AST 37 U/L (17-59); African American GFR (CKD) >90 (>60 ml/min/1.73 sqM); Albumin 2.4 g/dL (3.5-5.0); Alkaline Phosphatase 54 U/L (38-126); Anion Gap 3 mmol/L; Blood Urea Nitrogen 31 mg/dL (9-20); Calcium 7.9 mg/dL (8.4-10.2); Carbon Dioxide 33 mmol/L (22-30); Chloride 108 mmol/L (98-107); Glucose 277 mg/dL (74-99); Non-African American GFR(CKD) >90 (>60 ml/min/1.73 sqM); Potassium 4.1 mmol/L (3.5-5.1); Sodium 144 mmol/L (137-145); Total Bilirubin 0.5 mg/dL (0.2-1.3); Total Protein 4.9 g/dL (6.3-8.2)
[2022-09-08 05:48] LABS: Band Neutrophils % 1 %; Lymphocytes # (M) 2.68 k/uL (1.0-4.8); Monocytes # (M) 1.13 k/uL (0-1.0); Neutrophils % (M) 72 %; Nucleated Red Blood Cells 0 /100 WBC (0-0); Total Cells Counted 100
[2022-09-08 05:54] LABS: ABG Base Excess 8.9 mmol/L; ABG HCO3 33 mmol/L (21-25); ABG Oxygen Saturation 96.8 % (94-97); ABG PCO2 46 mmHg (35-45); ABG PH 7.46 (7.35-7.45); ABG PO2 80 mmHg (83-108); ABG TCO2 34 mmol/L (19-24)
--- NOTE | 2022-09-08 07:01 | PN ---
PROGRESS NOTE SUBJECTIVE: A 61-year-old white male, remains on the respirator ventilator. He is on Protonix for GERD. He is on propofol. He is on Solu-Medrol 60 IV q.6h, Lovenox 40 daily, NovoLog before meals and at bedtime, Levemir 10 units a day, Peridex, Zosyn 3 g IV q.6 hours, DuoNeb updrafts. Remains comfortably on the vent. OBJECTIVE: VITAL SIGNS: Temp 98.3, pulse 84, respiratory rate 24 to 28, blood pressure 140s over 80s to 150s over 70s. He is on mechanical breathing. CARDIOVASCULAR: S1, S2. LUNGS: Scattered rhonchi and wheeze. HEMATOLOGY: Negative Homans. LABORATORY DATA: White count 19, hemoglobin 17. ABG; pH 7.43, pCO2 of 46, PO2 of 72, pCO2 of 32. Last sodium is 144, potassium 4.6, BUN is 34, creatinine 0.63. Sugars mid 200s. Calcium 7.5. Procalcitonin high at 10.7. Resting comfortably on the vent. Chest x-ray showed bilateral infiltrates, pleural effusion, white count as mentioned 19, down from 36.8, procalcitonin trending down from 0.1. Sputum positive for E. coli. He has chronic changes. Lower extremities have swelling. Remains on Unasyn. Lovenox for DVT prophylaxis. Pantoprazole for GERD prophylaxis. He is on DuoNeb q.i.d., IV normal saline at 40 mL an hour. Good urine. He is on enteral feedings. ASSESSMENT: Acute hypoxic respiratory failure secondary to Escherichia coli, multilobular pneumonia, septic shock, bacteremia Escherichia coli, hypertension, hypercapnic respiratory failure, chronic obstructive pulmonary disease, leukocytosis, toxic metabolic encephalopathy, kidney injury, nicotine addiction. Continue current treatments as mentioned above. Prognosis guarded. Reviewed all the ICU notes. MMODL / IJN: [id number] /
[2022-09-08] MEDS: IPRATROPIUM-ALBUTEROL 3 ML NEB INHALATION SCH ×4 (07:31→20:02)
--- NOTE | 2022-09-08 08:22 | XR ---
EXAMINATION TYPE: XR chest 1V portable DATE OF EXAM: 09/08/2022 COMPARISON: 09/07/2022 HISTORY: Tube placement TECHNIQUE: Single frontal view of the chest is obtained. FINDINGS: ET, NG tubes stable. Right-sided central line stable. Diffuse interstitial pattern with bi lateral infiltrate and pleural effusion. No sizable pneumothorax. Hypertrophic change of the spine. IMPRESSION: Bilateral infiltrate and pleural effusion correlate for CHF. Otherwise consider pneumoni a.
[2022-09-08] MEDS: CHLORHEXIDINE GLUCONATE 15 ML CUP MUCOUS MEM SCH ×2 (09:40→20:23)
[2022-09-08] MEDS: amLODIPine 5 MG TAB PO SCH ×2 (09:40→20:23)
[2022-09-08] MEDS: DOCUSATE ORAL SOLN 100 MG/10 ML CUP PO SCH (09:41)
[2022-09-08] MEDS: ENOXAPARIN 40 MG/0.4 ML SYRINGE SQ SCH (09:41)
[2022-09-08] MEDS: PANTOPRAZOLE 40 MG/10 ML VIAL IVP SCH ×2 (09:53→20:23)
[2022-09-08] MEDS: SODIUM CHLORIDE 0.9% 1,000 ML IV SCH (10:04)
[2022-09-08] MEDS: CLEVIDIPINE BUTYRATE 25 MG in EMPTY BAG 1 BAG IV SCH ×2 (10:28→19:55)
--- NOTE | 2022-09-08 11:10 | P.PN ---
Subjective Progress Note Date: 09/08/22 Principal diagnosis: Acute hypoxic respiratory failure secondary to acute multilobar pneumonia/E. coli pneumonia, and sepsis and septic shock A 61-year-old mentation, known history of COPD, chronic smoker who continues to smoke approximately a pack of cigarettes a day, presenting with progressively worsening shortness of breath over the past 1 week. The patient was seen in the emergency department. The patient was already on a BiPAP at a pressure of 12/6 with an FiO2 of 60%. He was still having significant labored breathing, and he was tachypneic and his rate was ranging between 30-40 and he had marked diminished breath sounds bilaterally. His mentation was quite diminished and the patient seemed to be altered yet arousable. The was at the bedside. This patient does not seem to have had an evaluation with pulmonary in the past. Based on the reported history by the , he has been maintained on Advair and albuterol rescue inhaler on an outpatient basis. No home O2. He was experiencing pleuritic right-sided chest pain along with cough and congestion. He ended up in the emergency department this afternoon. Based on his labored breathing, immediately was placed on a BiPAP. I discussed the case with the emergency room physician. The patient is a higher risk of going into respiratory failure requiring intubation mechanical ventilation and I made the aware of. Meanwhile, if it was worth was given patient a trial of noninvasive positive pressure ventilation. White cell count was 36.8 with a hemoglobin of 14.4. Acute kidney injury with a BUN of 18 and a creatinine of 1.5 and sodium level of 133. His LFTs were essentially normal. The vital screening including influenza a and influenza B and RSV and Covid 19 testing was negative. Lactic acid level was at 1.8. Troponins were negative. Blood gas was ordered. Reviewed the CAT scan of the chest and there is no evidence of pulmonary embolism. The patient had extensive airspace disease more pronounced in the right middle lobe and the right upper lobe and the patient had other peripheral wedge-shaped pulmonary infiltrates. Predominant consolidation within the right upper lobe. There was also background mild centrilobular emphysema. No history of diabetes mellitus. Nosocomial artery disease. No history of any stroke. 09/06/2022, the patient remains intubated on a mechanical ventilator. The patient extensive pneumonia involving the right lung with some limited inf iltration of the left secondary to E. coli. Sputum is positive for E. coli, blood cultures also positive for E. coli. The patient is currently on IV Unasyn. Chest x-ray from today still showing persistent infiltration/consolidation of the right lung especially the right middle lobe and right base and there is also infiltration of the left lung base. Bronchoscopy in the lavage was done and the results are still pending for now. Meanwhile, he is hemodynamically stable and is on no pressors. He was given a sedation holiday yesterday and he was able to arouse without any major difficulties. He was not ready for weaning and a weaning trial was not done and a sedation holiday was aborted. Currently, he's on propofol running at 50 mcg/kg/m. He is on assist-control mode of mechanical ventilation at the rate of 20, tidal volume of 500, FiO2 40% with a PEEP of 5. The peak airway pressure is currently at 26. The white cell count of 20.5. Hemoglobin is 11.2.. The patient also has an elevated pro-calcitonin level which remains elevated at 34.7. Meanwhile, his electrolytes are stable. Sodium is at 139 with a potassium level of 4.7, BUN is 31 with a creatinine of 0.8. He is receiving enteral feeding for nutritional support and is currently on vital high-protein at the rate of 40 mL an hour. The fluid balance over the past 24 hours has been in the order of +725 mL. No significant peripheral edema at this point in time. Patient was reevaluated today on 09/07/2022, patient remains in the ICU, intubated and mechanically ventilated. Patient is now on assist control rate of 2012 volume 500 FiO2 40% and PEEP of 5. ABG showed a pO2 of 72 pCO2 46 pH of 7.43, no changes were made in the ventilator settings. Patient was initially intubated on 09/02/2022, and he remains intubated. Chest x-ray showed bilateral infiltrates and pleural effusions consistent with pneumonia. WBC count is elevated at 19.0, however seems to be steadily improving considering it was 36.8 on 09/02 initially. Basic metabolic profile is normal renal profile is normal pro-calcitonin level is trending down and it is 10.1. Sputum has been positive for E. coli. Patient continues to have chronic changes in his bilateral lower extremities. Patient remains on Unasyn. He is also on GI and DVT prophylaxis including Lovenox, and he is on pantoprazole 40 mg IV push twice a day. I saw him this morning he was off propofol, he was earlier on 15 mcg/kg/m, however the patient is a bit restless, agitated, tachypneic, and I recommended. He goes back on propofol, he is not quite ready for weaning. Patient remains on bronchodilators in the form of DuoNeb updrafts 4 times a day and when necessary, he is also on methylprednisolone 60 mg IV push every 6 hours. IV fluid is 0.9 normal saline at 40 mL per hour. Patient is having good urine output. Patient remains on enteral feeding Patient was reevaluated today on 09/08/2022, remains in the ICU, intubated, sedated, mechanically ventilated, he is on assist control rate of 20 tidal volume 500 FiO2 50% and PEEP of 5. ABG showed a pO2 of 80 pCO2 46 pH of 7.46. Hence no changes were made in his ventilator settings. Patient is requiring propofol at 60 mcg/kg/m, he is also on 0.9 normal saline at 40 mL per hour. Not requiring presently any pressors, patient is going to be placed on amlodipine 5 mg twice a day for elevated blood pressure. Chest x-ray continues to show bilateral infiltrates., Small bilateral pleural effusions noted. Patient is receiving nutritional support vital HP 64/64. Antibiotics have been changed by infectious disease to Unasyn patient had E. coli pneumonia and E. coli bacteremia. WBC count today is 14.1 hemoglobin is 12.1 electrolytes are normal renal profile is normal, liver profile is normal Objective - Vital Signs Vital signs: Vital Signs Temp 100.2 F H 09/08/22 08:00 Pulse 77 09/08/22 10:00 Resp 24 09/08/22 10:00 BP 158/89 09/08/22 10:00 Pulse Ox 94 L 09/08/22 10:00 FiO2 50 09/08/22 10:00 Intake & Output 09/07/22 09/08/22 09/08/22 18:59 06:59 18:59 Intake Total 6598.202 8724.527 542.675 Output Total 1730 1510 560 Balance -241.945 -147.473 -17.325 Weight 95.5 kg 98 kg Intake: IV 550 473 132 Sodium Chloride 0.9% 1, 520 440 120 000 ml @ 40 mls/hr IV . Q24H [facility] Rx#:[id number] arterial line 30 33 12 Intake, IV Titration 182.055 95.527 124.675 Amount Clevidipine Butyrate 25 1.733 mg In Empty Bag 1 bag @ 1 MG/HR 2 mls/hr IV .Q24H [facility] Rx#:[id number] propofoL 1,000 mg In 182.055 95.527 122.942 Empty Bag 1 bag @ 15 MCG/ KG/MIN 7.348 mls/hr IV . [id number] [facility] Rx#:[id number] Tube Feeding 666 704 256 Other 90 90 30 Output: Urine 1730 1510 560 Other: Voiding Method Indwelling Catheter Indwelling Catheter ABP, PAP, CO, CI - Last Documented Arterial Blood Pressure 178/76 Pulmonary Artery Pressure 114/55 - Exam Physical Exam: Revealed 61-year-old white male intubated, mechanically ventilated, sedated, on propofol. Head: Atraumatic, normocephalic. HEENT:[Neck is supple.] [No neck masses.] [No thyromegaly.] [No JVD.] Chest: [Symmetrical chest expansion, crackles and rhonchi noted bilaterally. Cardiac Exam: [Normal S1 and S2, no S3 gallop, no murmur.] Abdomen: [Soft, nontender, no megaly, no rebound, no guarding, normal bowel sounds.] Extremities: [No clubbing, 1+ bipedal edema, and chronic venous stasis changes noted bilaterally in lower extremities. Neurological Exam: Could not assess, patient is sedated Psychiatric: Could not fully assess. Skin: Chronic venous stasis changes noted in lower extremities otherwise unremarkable. Keratosis is noted in both lower extremities/anterior aspect. Musculoskeletal: No deformities and no limitation in range of motion. - Labs CBC & Chem 7: 09/08/22 04:40 09/08/22 04:40 Labs: Abnormal Lab Results - Last 24 Hours (Table) 09/07/22 09/07/22 09/07/22 Range/Units 13:15 17:54 23:42 WBC (3.8-10.6) k/uL RBC (4.30-5.90) m/uL Hgb (13.0-17.5) gm/dL Hct (39.0-53.0) % Neutrophils # (Manual) (1.3-7.7) k/uL Monocytes # (Manual) (0-1.0) k/uL ABG pH (7.35-7.45) ABG pCO2 (35-45) mmHg ABG pO2 (83-108) mmHg ABG HCO3 (21-25) mmol/L ABG Total CO2 (19-24) mmol/L Chloride (98-107) mmol/L Carbon Dioxide (22-30) mmol/L BUN (9-20) mg/dL Glucose (74-99) mg/dL POC Glucose (mg/dL) 281 H 276 H 245 H (70-110) mg/dL Calcium (8.4-10.2) mg/dL Total Protein (6.3-8.2) g/dL Albumin (3.5-5.0) g/dL 09/08/22 09/08/22 09/08/22 Range/Units 04:29 04:40 04:40 WBC 14.1 H (3.8-10.6) k/uL RBC 4.01 L (4.30-5.90) m/uL Hgb 12.1 L (13.0-17.5) gm/dL Hct 38.6 L (39.0-53.0) % Neutrophils # (Manual) 10.20 H (1.3-7.7) k/uL Monocytes # (Manual) 1.13 H (0-1.0) k/uL ABG pH (7.35-7.45) ABG pCO2 (35-45) mmHg ABG pO2 (83-108) mmHg ABG HCO3 (21-25) mmol/L ABG Total CO2 (19-24) mmol/L Chloride 108 H (98-107) mmol/L Carbon Dioxide 33 H (22-30) mmol/L BUN 31 H (9-20) mg/dL Glucose 277 H (74-99) mg/dL POC Glucose (mg/dL) 276 H (70-110) mg/dL Calcium 7.9 L (8.4-10.2) mg/dL Total Protein 4.9 L (6.3-8.2) g/dL Albumin 2.4 L (3.5-5.0) g/dL 04/25/23 Range/Units 05:50 WBC (3.8-10.6) k/uL RBC (4.30-5.90) m/uL Hgb (13.0-17.5) gm/dL Hct (39.0-53.0) % Neutrophils # (Manual) (1.3-7.7) k/uL Monocytes # (Manual) (0-1.0) k/uL ABG pH 7.46 H (7.35-7.45) ABG pCO2 46 H (35-45) mmHg ABG pO2 80 L (83-108) mmHg ABG HCO3 33 H (21-25) mmol/L ABG Total CO2 34 H (19-24) mmol/L Chloride (98-107) mmol/L Carbon Dioxide (22-30) mmol/L BUN (9-20) mg/dL Glucose (74-99) mg/dL POC Glucose (mg/dL) (70-110) mg/dL Calcium (8.4-10.2) mg/dL Total Protein (6.3-8.2) g/dL Albumin (3.5-5.0) g/dL Assessment and Plan Assessment: Impression: Acute hypoxic respiratory failure secondary to multilobar pneumonia secondary to E. coli. Sepsis and septic shock secondary to E. coli pneumonia and bacteremia. Patient is now on Unasyn. Hypotension, resolved. Patient is now hypertensive, and I'm recommending [place] for high blood pressure. Acute hypercapnic respiratory failure Acute leukocytosis secondary to pneumonia and sepsis. Acute exacerbation of COPD Acute toxic metabolic encephalopathy/altered mental status Acute kidney injury secondary to sepsis and septic shock. Resolved. Chronic tobacco dependence syndrome. Recommendation: Discussed and updated his overall condition with the at bedside. Continue ventilatory support, we will assess mental status but not quite ready for weaning considering his chest x-ray and considering his marginal blood gases Daily interruption of sedation will be done Continue nutritional support/enteral feeding. Patient is receiving vital Hb at goal Continue GI and DVT prophylaxis including Lovenox and Protonix. Amlodipine was added for elevated blood pressure. Continue Unasyn. This is being addressed by infectious disease on the case. Continue bronchodilators/DuoNeb, continue Solu-Medrol. Patient is critically ill, not quite ready for weaning. Again was updated on his overall status, and on prognosis Critical care time is over 30 minutes Time with Patient: Greater than 30
[2022-09-08] MEDS ORDERED: CISATRACURIUM 2 MG/ML 5 ML VIAL IV ONE (11:15)
[2022-09-08 11:45] LABS: Glucose,Whole Blood 260 mg/dL (70-110)
[2022-09-08] MEDS: SODIUM CHLORIDE 0.9% 80 ML with fentaNYL (PF) 1,000 MCG IV SCH ×2 (15:45)
[2022-09-08 18:33] LABS: Glucose,Whole Blood 290 mg/dL (70-110)
[2022-09-08 20:47] LABS: Glucose,Whole Blood 308 mg/dL (70-110)
[2022-09-08] MEDS ORDERED: INSULIN DETEMIR (LEVEMIR) 100 UNIT/ML SYR SQ SCH (21:00)
[2022-09-08 23:38] LABS: Glucose,Whole Blood 349 mg/dL (70-110)
[2022-09-09] MEDS: IPRATROPIUM-ALBUTEROL 3 ML NEB INHALATION SCH ×6 (00:16→19:53)
[2022-09-09] MEDS: SODIUM CHLORIDE 0.9% 1,000 ML IV SCH (03:19)
[2022-09-09] MEDS: methylPREDNISolone SOD SUCCI 125 MG/2 ML VIAL IV SCH ×4 (03:33→22:18)
[2022-09-09] MEDS: AMPICILLIN-SULBACTAM 3 GM in SODIUM CHLORIDE 0.9% 100 ML IVPB SCH ×4 (04:28→22:19)
[2022-09-09 05:08] LABS: HCT 38.3 % (39.0-53.0); HGB 12.1 gm/dL (13.0-17.5); MCH 29.8 pg (25.0-35.0); MCHC 31.6 g/dL (31.0-37.0); MCV 94.1 fL (80.0-100.0); Mean Platelet Volume 8.2; Platelet Count 160 k/uL (150-450); RBC 4.07 m/uL (4.30-5.90)
[2022-09-09 05:27] LABS: African American GFR (CKD) >90 (>60 ml/min/1.73 sqM); Anion Gap 2 mmol/L; Blood Urea Nitrogen 30 mg/dL (9-20); Calcium 8.1 mg/dL (8.4-10.2); Carbon Dioxide 32 mmol/L (22-30); Chloride 106 mmol/L (98-107); Glucose 331 mg/dL (74-99); Non-African American GFR(CKD) >90 (>60 ml/min/1.73 sqM); Potassium 4.4 mmol/L (3.5-5.1); Sodium 140 mmol/L (137-145)
[2022-09-09 05:46] LABS: Glucose,Whole Blood 360 mg/dL (70-110)
[2022-09-09] MEDS: INSULIN ASPART (NovoLOG) 100 UNIT/ML VIAL SQ SCH ×3 (05:47→19:53)
[2022-09-09 06:27] LABS: ABG Base Excess 8.2 mmol/L; ABG HCO3 33 mmol/L (21-25); ABG Oxygen Saturation 95.6 % (94-97); ABG PCO2 51 mmHg (35-45); ABG PH 7.42 (7.35-7.45); ABG PO2 75 mmHg (83-108); ABG TCO2 34 mmol/L (19-24); Allen Test Performed? Yes
--- NOTE | 2022-09-09 07:30 | XR ---
EXAMINATION TYPE: XR chest 1V portable DATE OF EXAM: 09/09/2022 6:24 AM COMPARISON: Chest radiographs from 09/08/2022r TECHNIQUE: XR chest 1V portable Frontal view of the chest. CLINICAL INDICATION:Male, 61 years old with history of assess lungs; FINDINGS: Lungs/Pleura: Prominent interstitial lung markings are seen scattered throughout the lungs with faith ening of the diaphragm and increased lucency of the lung apices. Right basilar airspace opacities and left basilar airspace opacity are unchanged. Blunting of the costophrenic angles. Pulmonary vascularity: Unremarkable. Heart/mediastinum: Cardiomediastinal silhouette is unremarkable. Musculoskeletal: No acute osseous pathology. Other findings: None Lines/Tubes: Endotracheal tube with distal tip 3.2 cm above the deo. Nasogastric tube with its distal tip and side-port projecting under the diaphragm and projecting over the gastric lumen. Right internal jugular central venous catheter with distal tip at the cavoatrial junction. IMPRESSION: 1. Overall stable exam with unchanged bibasilar airspace opacities. 2. Stable support line and tubes.
[2022-09-09 07:35] LABS: Band Neutrophils % 5 %; Lymphocytes # (M) 0.48 k/uL (1.0-4.8); Metamyelocytes # (M) 0.12 k/uL (0); Metamyelocytes % 1 %; Monocytes # (M) 0.12 k/uL (0-1.0); Myelocytes % 5 %; Neutrophils % (M) 84 %; Nucleated Red Blood Cells 0 /100 WBC (0-0); Total Cells Counted 100
[2022-09-09] MEDS: ENOXAPARIN 40 MG/0.4 ML SYRINGE SQ SCH (09:15)
[2022-09-09] MEDS: amLODIPine 5 MG TAB PO SCH ×2 (09:15→20:58)
[2022-09-09] MEDS: CHLORHEXIDINE GLUCONATE 15 ML CUP MUCOUS MEM SCH ×2 (09:15→20:57)
[2022-09-09] MEDS: PANTOPRAZOLE 40 MG/10 ML VIAL IVP SCH ×2 (09:16→20:57)
[2022-09-09] MEDS: DOCUSATE ORAL SOLN 100 MG/10 ML CUP PO SCH (10:16)
[2022-09-09 11:53] LABS: Glucose,Whole Blood 310 mg/dL (70-110)
[2022-09-09] MEDS ORDERED: INSULIN ASPART (NovoLOG) 100 UNIT/ML VIAL SQ SCH (12:00)
[2022-09-09] MEDS: SODIUM CHLORIDE 0.9% 80 ML with fentaNYL (PF) 1,000 MCG IV SCH ×4 (12:02→21:21)
[2022-09-09] MEDS ORDERED: bisacodyL 10 MG SUPP RECTAL STA (12:06)
--- NOTE | 2022-09-09 13:00 | P.PN ---
Subjective Progress Note Date: 09/08/22 Principal diagnosis: Pneumonia and bacteremia Patient is a 61-year-old male with a past medical history of asthma patient is a smoker has been brought into the ER for evaluation of increasing shortness of breath and chills, the patient did have evidence of right-sided p neumonia and worsening respiratory distress requiring intubation blood cultures subsequently came back positive with E. coli. The patient is status post bronchoscopy and was completed on 09/04/2022 On today's evaluation that is 09/08/2022, the patient did have low-grade fever of 100.2F this morning, the patient is hemodynamically stable not requiring any pressor support with the nursing staff , the patient FiO2 Is currently stable at 40%, no worsening secretion through the ET, diarrhea or any other changes reported Objective - Vital Signs Vital signs: Vital Signs Temp 100.2 F H 09/08/22 08:00 Pulse 101 H 09/08/22 11:42 Resp 28 H 09/08/22 11:00 BP 158/89 09/08/22 10:00 Pulse Ox 93 L 09/08/22 11:00 FiO2 50 09/08/22 11:29 Intake & Output 09/07/22 09/08/22 09/08/22 18:59 06:59 18:59 Intake Total 0851.808 7209.527 900.070 Output Total 1730 1510 1185 Balance -241.945 -147.473 -284.930 Weight 95.5 kg 98 kg Intake: IV 550 473 318 Ampicillin-Sulbactam 3 gm 100 In Sodium Chloride 0.9% 100 ml @ 200 mls/hr IVPB Q6H [facility] Rx#:[id number] Sodium Chloride 0.9% 1, 520 440 200 000 ml @ 40 mls/hr IV . Q24H [facility] Rx#:[id number] arterial line 30 33 18 Intake, IV Titration 182.055 95.527 168.070 Amount Clevidipine Butyrate 25 1.733 mg In Empty Bag 1 bag @ 1 MG/HR 2 mls/hr IV .Q24H [facility] Rx#:[id number] propofoL 1,000 mg In 182.055 95.527 166.337 Empty Bag 1 bag @ 15 MCG/ KG/MIN 7.348 mls/hr IV . [id number] [facility] Rx#:[id number] Tube Feeding 666 702 384 Other 90 90 30 Output: Urine 1730 1510 1185 Other: Voiding Method Indwelling Catheter Indwelling Catheter ABP, PAP, CO, CI - Last Documented Arterial Blood Pressure 131/59 Pulmonary Artery Pressure 114/55 - Exam GENERAL DESCRIPTION: Middle-age male intubated on the vent RESPIRATORY SYSTEM: Unlabored breathing , diminished breath sounds, no wheeze HEART: S1 S2 regular rate and rhythm , ABDOMEN: Soft , mild distention but no tenderness EXTREMITIES: Diffuse swelling of lower extremity no redness - Labs CBC & Chem 7: 09/09/22 04:55 09/09/22 04:55 Labs: Abnormal Lab Results - Last 24 Hours (Table) 09/07/22 09/07/22 09/07/22 Range/Units 13:15 17:54 23:42 WBC (3.8-10.6) k/uL RBC (4.30-5.90) m/uL Hgb (13.0-17.5) gm/dL Hct (39.0-53.0) % Neutrophils # (Manual) (1.3-7.7) k/uL Monocytes # (Manual) (0-1.0) k/uL ABG pH (7.35-7.45) ABG pCO2 (35-45) mmHg ABG pO2 (83-108) mmHg ABG HCO3 (21-25) mmol/L ABG Total CO2 (19-24) mmol/L Chloride (98-107) mmol/L Carbon Dioxide (22-30) mmol/L BUN (9-20) mg/dL Glucose (74-99) mg/dL POC Glucose (mg/dL) 281 H 276 H 245 H (70-110) mg/dL Calcium (8.4-10.2) mg/dL Total Protein (6.3-8.2) g/dL Albumin (3.5-5.0) g/dL 09/08/22 09/08/22 09/08/22 Range/Units 04:29 04:40 04:40 WBC 14.1 H (3.8-10.6) k/uL RBC 4.01 L (4.30-5.90) m/uL Hgb 12.1 L (13.0-17.5) gm/dL Hct 38.6 L (39.0-53.0) % Neutrophils # (Manual) 10.20 H (1.3-7.7) k/uL Monocytes # (Manual) 1.13 H (0-1.0) k/uL ABG pH (7.35-7.45) ABG pCO2 (35-45) mmHg ABG pO2 (83-108) mmHg ABG HCO3 (21-25) mmol/L ABG Total CO2 (19-24) mmol/L Chloride 108 H (98-107) mmol/L Carbon Dioxide 33 H (22-30) mmol/L BUN 31 H (9-20) mg/dL Glucose 277 H (74-99) mg/dL POC Glucose (mg/dL) 276 H (70-110) mg/dL Calcium 7.9 L (8.4-10.2) mg/dL Total Protein 4.9 L (6.3-8.2) g/dL Albumin 2.4 L (3.5-5.0) g/dL 09/08/22 09/08/22 Range/Units 05:50 11:42 WBC (3.8-10.6) k/uL RBC (4.30-5.90) m/uL Hgb (13.0-17.5) gm/dL Hct (39.0-53.0) % Neutrophils # (Manual) (1.3-7.7) k/uL Monocytes # (Manual) (0-1.0) k/uL ABG pH 7.46 H (7.35-7.45) ABG pCO2 46 H (35-45) mmHg ABG pO2 80 L (83-108) mmHg ABG HCO3 33 H (21-25) mmol/L ABG Total CO2 34 H (19-24) mmol/L Chloride (98-107) mmol/L Carbon Dioxide (22-30) mmol/L BUN (9-20) mg/dL Glucose (74-99) mg/dL POC Glucose (mg/dL) 260 H (70-110) mg/dL Calcium (8.4-10.2) mg/dL Total Protein (6.3-8.2) g/dL Albumin (3.5-5.0) g/dL Assessment and Plan (1) Bacteremia Current Visit: Yes Status: Acute Code(s): R78.81 - BACTEREMIA SNOMED Code(s): 0922241 (2) Pneumonia Current Visit: Yes Status: Acute Code(s): J18.9 - PNEUMONIA, UNSPECIFIED ORGANISM SNOMED Code(s): 067512736 Plan: 1patient was in the hospital with sepsis in this patient with a fever tach ycardia hypoxemia source is likely right-sided pneumonia with blood cultures coming positive for E. coli not a very common pathogen to cause pneumonia we will wait for the final ID and sensitivities patient urine is negative abdominal soft on clinical exam and no clear history of any vomiting abdominal pain however there is a history of constipation did provided by the family member at the bedside 2- CT of abdominal pelvis question of appendicitis for the patient has been evaluated by general surgery and has been ruled out clinically with no need for any intervention 3-patient E. coli sensitive pathogen with concern for possible aspiration pneumonia, patient currently being treated with the Unasyn , blood culture repeat has been negative so far patient white count is trending down to 14,000 today he did have a low-grade fever and a monitor closely Time with Patient: Less than 30
--- NOTE | 2022-09-09 13:02 | P.PN ---
Subjective Progress Note Date: 09/09/22 Principal diagnosis: Pneumonia and bacteremia Patient is a 61-year-old male with a past medical history of asthma patient is a smoker has been brought into the ER for evaluation of increasing shortness of breath and chills, the patient did have evidence of right-sided p neumonia and worsening respiratory distress requiring intubation blood cultures subsequently came back positive with E. coli. The patient is status post bronchoscopy and was completed on 09/04/2022 On today's evaluation that is 09/09/2022, the patient did have low-grade fever of 99F today, the patient is hemodynamically stable not requiring any pressor support with the nursing staff , the patient FiO2 Is up to 50 % today, no worsening secretion through the ET, the patient didn't have any bowel movement since admission to the hospital per the nursing staff Objective - Vital Signs Vital signs: Vital Signs Temp 99.1 F 09/09/22 10:00 Pulse 75 09/09/22 12:40 Resp 22 09/09/22 10:00 BP 114/63 09/09/22 08:00 Pulse Ox 94 L 09/09/22 10:00 FiO2 50 09/09/22 11:13 Intake & Output 09/08/22 09/09/22 09/09/22 18:59 06:59 18:59 Intake Total 7768.657 4138.712 802 Output Total 2510 2015 820 Balance -724.930 -80.288 -18 Weight 97.8 kg Intake: IV 676 616 258 Ampicillin-Sulbactam 3 gm 200 100 In Sodium Chloride 0.9% 100 ml @ 200 mls/hr IVPB Q6H [facility] Rx#:[id number] Sodium Chloride 0.9% 1, 440 480 240 000 ml @ 40 mls/hr IV . Q24H [facility] Rx#:[id number] arterial line 36 36 18 Intake, IV Titration 281.070 460.712 100 Amount Ampicillin-Sulbactam 3 gm 100 In Sodium Chloride 0.9% 100 ml @ 200 mls/hr IVPB Q6H [facility] Rx#:[id number] Clevidipine Butyrate 25 14.733 14.000 mg In Empty Bag 1 bag @ 1 MG/HR 2 mls/hr IV .Q24H [facility] Rx#:[id number] propofoL 1,000 mg In 266.337 346.712 100 Empty Bag 1 bag @ 15 MCG/ KG/MIN 7.348 mls/hr IV . [id number] [facility] Rx#:[id number] Tube Feeding 768 768 384 Other 60 90 60 Output: Urine 2510 2015 820 Other: Voiding Method Indwelling Catheter Indwelling Catheter ABP, PAP, CO, CI - Last Documented Arterial Blood Pressure 129/56 Pulmonary Artery Pressure 114/55 - Exam GENERAL DESCRIPTION: Middle-age male intubated on the vent RESPIRATORY SYSTEM: Unlabored breathing , diminished breath sounds, no wheeze HEART: S1 S2 regular rate and rhythm , ABDOMEN: Soft , mild distention but no tenderness EXTREMITIES: Diffuse swelling of lower extremity no redness - Labs CBC & Chem 7: 09/09/22 04:55 09/09/22 04:55 Labs: Abnormal Lab Results - Last 24 Hours (Table) 09/08/22 09/08/22 09/08/22 Range/Units 18:31 20:45 23:36 WBC (3.8-10.6) k/uL RBC (4.30-5.90) m/uL Hgb (13.0-17.5) gm/dL Hct (39.0-53.0) % Neutrophils # (Manual) (1.3-7.7) k/uL Lymphocytes # (Manual) (1.0-4.8) k/uL Metamyelocytes # (Man) (0) k/uL Myelocytes # (Manual) (0) k/uL ABG pCO2 (35-45) mmHg ABG pO2 (83-108) mmHg ABG HCO3 (21-25) mmol/L ABG Total CO2 (19-24) mmol/L Carbon Dioxide (22-30) mmol/L BUN (9-20) mg/dL Creatinine (0.66-1.25) mg/dL Glucose (74-99) mg/dL POC Glucose (mg/dL) 290 H 308 H 349 H (70-110) mg/dL Calcium (8.4-10.2) mg/dL 09/09/22 09/09/22 09/09/22 Range/Units 04:55 04:55 05:44 WBC 12.0 H (3.8-10.6) k/uL RBC 4.07 L (4.30-5.90) m/uL Hgb 12.1 L (13.0-17.5) gm/dL Hct 38.3 L (39.0-53.0) % Neutrophils # (Manual) 10.60 H (1.3-7.7) k/uL Lymphocytes # (Manual) 0.48 L (1.0-4.8) k/uL Metamyelocytes # (Man) 0.12 H (0) k/uL Myelocytes # (Manual) 0.60 H (0) k/uL ABG pCO2 (35-45) mmHg ABG pO2 (83-108) mmHg ABG HCO3 (21-25) mmol/L ABG Total CO2 (19-24) mmol/L Carbon Dioxide 32 H (22-30) mmol/L BUN 30 H (9-20) mg/dL Creatinine 0.63 L (0.66-1.25) mg/dL Glucose 331 H (74-99) mg/dL POC Glucose (mg/dL) 360 H (70-110) mg/dL Calcium 8.1 L (8.4-10.2) mg/dL 09/09/22 09/09/22 Range/Units 06:25 11:51 WBC (3.8-10.6) k/uL RBC (4.30-5.90) m/uL Hgb (13.0-17.5) gm/dL Hct (39.0-53.0) % Neutrophils # (Manual) (1.3-7.7) k/uL Lymphocytes # (Manual) (1.0-4.8) k/uL Metamyelocytes # (Man) (0) k/uL Myelocytes # (Manual) (0) k/uL ABG pCO2 51 H (35-45) mmHg ABG pO2 75 L (83-108) mmHg ABG HCO3 33 H (21-25) mmol/L ABG Total CO2 34 H (19-24) mmol/L Carbon Dioxide (22-30) mmol/L BUN (9-20) mg/dL Creatinine (0.66-1.25) mg/dL Glucose (74-99) mg/dL POC Glucose (mg/dL) 310 H (70-110) mg/dL Calcium (8.4-10.2) mg/dL Microbiology - Last 24 Hours (Table) 04/24/23 11:00 Blood Culture - Preliminary Blood Assessment and Plan (1) Bacteremia Current Visit: Yes Status: Acute Code(s): R78.81 - BACTEREMIA SNOMED Code(s): 0875515 (2) Pneumonia Current Visit: Yes Status: Acute Code(s): J18.9 - PNEUMONIA, UNSPECIFIED ORGANISM SNOMED Code(s): 592927248 Plan: 1patient was in the hospital with sepsis in this patient with a fever tachycardia hypoxemia source is likely right-sided pneumonia with blood cultures coming positive for E. coli not a very common pathogen to cause pneumonia we will wait for the final ID and sensitivities patient urine is negative abdominal soft on clinical exam and no clear history of any vomiting abdominal pain however there is a history of constipation did provided by the family member at the bedside 2- CT of abdominal pelvis question of appendicitis for the patient has been evaluated by general surgery and has been ruled out clinically with no need for any intervention 3-patient E. coli sensitive pathogen with concern for possible aspiration pne [facility], patient repeat blood culture has been negative so far patient white count is trending down to 12,000 today 4-we will continue the patient on Unasyn and monitor his clinical course closely Time with Patient: Less than 30
--- NOTE | 2022-09-09 13:42 | P.PN ---
Subjective Progress Note Date: 09/09/22 Principal diagnosis: Acute hypoxic respiratory failure secondary to acute multilobar pneumonia/E. coli pneumonia, and sepsis and septic shock A 61-year-old mentation, known history of COPD, chronic smoker who continues to smoke approximately a pack of cigarettes a day, presenting with progressively worsening shortness of breath over the past 1 week. The patient was seen in the emergency department. The patient was already on a BiPAP at a pressure of 12/6 with an FiO2 of 60%. He was still having significant labored breathing, and he was tachypneic and his rate was ranging between 30-40 and he had marked diminished breath sounds bilaterally. His mentation was quite diminished and the patient seemed to be altered yet arousable. The was at the bedside. This patient does not seem to have had an evaluation with pulmonary in the past. Based on the reported history by the , he has been maintained on Advair and albuterol rescue inhaler on an outpatient basis. No home O2. He was experiencing pleuritic right-sided chest pain along with cough and congestion. He ended up in the emergency department this afternoon. Based on his labored breathing, immediately was placed on a BiPAP. I discussed the case with the emergency room physician. The patient is a higher risk of going into respiratory failure requiring intubation mechanical ventilation and I made the aware of. Meanwhile, if it was worth was given patient a trial of noninvasive positive pressure ventilation. White cell count was 36.8 with a hemoglobin of 14.4. Acute kidney injury with a BUN of 18 and a creatinine of 1.5 and sodium level of 133. His LFTs were essentially normal. The vital screening including influenza a and influenza B and RSV and Covid 19 testing was negative. Lactic acid level was at 1.8. Troponins were negative. Blood gas was ordered. Reviewed the CAT scan of the chest and there is no evidence of pulmonary embolism. The patient had extensive airspace disease more pronounced in the right middle lobe and the right upper lobe and the patient had other peripheral wedge-shaped pulmonary infiltrates. Predominant consolidation within the right upper lobe. There was also background mild centrilobular emphysema. No history of diabetes mellitus. Nosocomial artery disease. No history of any stroke. 09/06/2022, the patient remains intubated on a mechanical ventilator. The patient extensive pneumonia involving the right lung with some limited inf iltration of the left secondary to E. coli. Sputum is positive for E. coli, blood cultures also positive for E. coli. The patient is currently on IV Unasyn. Chest x-ray from today still showing persistent infiltration/consolidation of the right lung especially the right middle lobe and right base and there is also infiltration of the left lung base. Bronchoscopy in the lavage was done and the results are still pending for now. Meanwhile, he is hemodynamically stable and is on no pressors. He was given a sedation holiday yesterday and he was able to arouse without any major difficulties. He was not ready for weaning and a weaning trial was not done and a sedation holiday was aborted. Currently, he's on propofol running at 50 mcg/kg/m. He is on assist-control mode of mechanical ventilation at the rate of 20, tidal volume of 500, FiO2 40% with a PEEP of 5. The peak airway pressure is currently at 26. The white cell count of 20.5. Hemoglobin is 11.2.. The patient also has an elevated pro-calcitonin level which remains elevated at 34.7. Meanwhile, his electrolytes are stable. Sodium is at 139 with a potassium level of 4.7, BUN is 31 with a creatinine of 0.8. He is receiving enteral feeding for nutritional support and is currently on vital high-protein at the rate of 40 mL an hour. The fluid balance over the past 24 hours has been in the order of +725 mL. No significant peripheral edema at this point in time. Patient was reevaluated today on 09/07/2022, patient remains in the ICU, intubated and mechanically ventilated. Patient is now on assist control rate of 2012 volume 500 FiO2 40% and PEEP of 5. ABG showed a pO2 of 72 pCO2 46 pH of 7.43, no changes were made in the ventilator settings. Patient was initially intubated on 09/02/2022, and he remains intubated. Chest x-ray showed bilateral infiltrates and pleural effusions consistent with pneumonia. WBC count is elevated at 19.0, however seems to be steadily improving considering it was 36.8 on 09/02 initially. Basic metabolic profile is normal renal profile is normal pro-calcitonin level is trending down and it is 10.1. Sputum has been positive for E. coli. Patient continues to have chronic changes in his bilateral lower extremities. Patient remains on Unasyn. He is also on GI and DVT prophylaxis including Lovenox, and he is on pantoprazole 40 mg IV push twice a day. I saw him this morning he was off propofol, he was earlier on 15 mcg/kg/m, however the patient is a bit restless, agitated, tachypneic, and I recommended. He goes back on propofol, he is not quite ready for weaning. Patient remains on bronchodilators in the form of DuoNeb updrafts 4 times a day and when necessary, he is also on methylprednisolone 60 mg IV push every 6 hours. IV fluid is 0.9 normal saline at 40 mL per hour. Patient is having good urine output. Patient remains on enteral feeding Patient was reevaluated today on 09/08/2022, remains in the ICU, intubated, sedated, mechanically ventilated, he is on assist control rate of 20 tidal volume 500 FiO2 50% and PEEP of 5. ABG showed a pO2 of 80 pCO2 46 pH of 7.46. Hence no changes were made in his ventilator settings. Patient is requiring propofol at 60 mcg/kg/m, he is also on 0.9 normal saline at 40 mL per hour. Not requiring presently any pressors, patient is going to be placed on amlodipine 5 mg twice a day for elevated blood pressure. Chest x-ray continues to show bilateral infiltrates., Small bilateral pleural effusions noted. Patient is receiving nutritional support vital HP 64/64. Antibiotics have been changed by infectious disease to Unasyn patient had E. coli pneumonia and E. coli bacteremia. WBC count today is 14.1 hemoglobin is 12.1 electrolytes are normal renal profile is normal, liver profile is normal Patient was reevaluated today on 09/09/2022, remains in the ICU, intubated and mechanically ventilated. Patient remains on assist control rate of 20 tidal volume 500 FiO2 50% and PEEP of 5. ABG showed a pO2 of 75 pCO2 51 pH of 7.42. Chest x-ray today is showing worsening pneumonic process involving the right lower lobe. And his gases are marginal, hence I have no plans to address weaning today on this patient. Patient is hemodynamically stable, not requiring any pressors, sugars are running to be a bit high, hence his Levemir insulin was increased. Patient remains on propofol at 30 mcg/kg/m, IV fluids at 40 mL/h the form of 0.9 normal saline. He is off clevidipine. Remains on Unasyn for his E. coli pneumonia and sepsis/bacteremia.. WBC count is 12 hemoglobin 12.1. Basic metabolic profile is normal, renal profile is normal blood sugars are running in the 300+ range, may consider insulin infusion if sugars remain high after increasing the dose of Levemir insulin. In the meantime continue insulin as per scale/subcu Objective - Vital Signs Vital signs: Vital Signs Temp 100.7 F H 09/09/22 12:00 Pulse 72 09/09/22 13:00 Resp 20 09/09/22 13:00 BP 118/70 09/09/22 12:00 Pulse Ox 94 L 09/09/22 13:00 FiO2 50 09/09/22 12:00 Intake & Output 09/08/22 09/09/22 09/09/22 18:59 06:59 18:59 Intake Total 6633.696 1201.712 977.298 Output Total 0 2014 1010 Balance -724.930 -80.288 -32.702 Weight 97.8 kg 97.8 kg Intake: IV 676 616 301 Ampicillin-Sulbactam 3 gm 200 100 In Sodium Chloride 0.9% 100 ml @ 200 mls/hr IVPB Q6H JET Rx#:[id number] Sodium Chloride 0.9% 1, 440 480 280 000 ml @ 40 mls/hr IV . Q24H JET Rx#:[id number] arterial line 36 36 21 Intake, IV Titration 281.070 460.712 168.298 Amount Ampicillin-Sulbactam 3 gm 100 In Sodium Chloride 0.9% 100 ml @ 200 mls/hr IVPB Q6H JET Rx#:[id number] Clevidipine Butyrate 25 14.733 14.000 mg In Empty Bag 1 bag @ 1 MG/HR 2 mls/hr IV .Q24H JET Rx#:[id number] propofoL 1,000 mg In 266.337 346.712 168.298 Empty Bag 1 bag @ 15 MCG/ KG/MIN 7.348 mls/hr IV . [id number] JET Rx#:[id number] Tube Feeding 768 768 448 Other 60 90 60 Output: Urine 2509 2014 1010 Other: Voiding Method Indwelling Catheter Indwelling Catheter ABP, PAP, CO, CI - Last Documented Arterial Blood Pressure 127/56 Pulmonary Artery Pressure 114/55 - Exam Physical Exam: Revealed 61-year-old white male intubated, mechanically ventilated, sedated, on propofol. Head: Atraumatic, normocephalic. HEENT:[Neck is supple.] [No neck masses.] [No thyromegaly.] [No JVD.] Chest: [Symmetrical chest expansion, rhonchi and crackles persist especially at the right base. Cardiac Exam: [Normal S1 and S2, no S3 gallop, no murmur.] Abdomen: [Soft, nontender, no megaly, no rebound, no guarding, normal bowel sounds.] Extremities: [No clubbing, 1+ bipedal edema, and chronic venous stasis changes noted bilaterally in lower extremities. Neurological Exam: Could not assess, patient is sedated Psychiatric: Could not fully assess. Skin: Chronic venous stasis changes noted in lower extremities otherwise unremarkable. Keratosis is noted in both lower extremities/anterior aspect. Musculoskeletal: No deformities and no limitation in range of motion. - Labs CBC & Chem 7: 09/09/22 04:55 09/09/22 04:55 Labs: Abnormal Lab Results - Last 24 Hours (Table) 09/08/22 09/08/22 09/08/22 Range/Units 18:31 20:45 23:36 WBC (3.8-10.6) k/uL RBC (4.30-5.90) m/uL Hgb (13.0-17.5) gm/dL Hct (39.0-53.0) % Neutrophils # (Manual) (1.3-7.7) k/uL Lymphocytes # (Manual) (1.0-4.8) k/uL Metamyelocytes # (Man) (0) k/uL Myelocytes # (Manual) (0) k/uL ABG pCO2 (35-45) mmHg ABG pO2 (83-108) mmHg ABG HCO3 (21-25) mmol/L ABG Total CO2 (19-24) mmol/L Carbon Dioxide (22-30) mmol/L BUN (9-20) mg/dL Creatinine (0.66-1.25) mg/dL Glucose (74-99) mg/dL POC Glucose (mg/dL) 290 H 308 H 349 H (70-110) mg/dL Calcium (8.4-10.2) mg/dL 09/09/22 09/09/22 09/09/22 Range/Units 04:55 04:55 05:44 WBC 12.0 H (3.8-10.6) k/uL RBC 4.07 L (4.30-5.90) m/uL Hgb 12.1 L (13.0-17.5) gm/dL Hct 38.3 L (39.0-53.0) % Neutrophils # (Manual) 10.60 H (1.3-7.7) k/uL Lymphocytes # (Manual) 0.48 L (1.0-4.8) k/uL Metamyelocytes # (Man) 0.12 H (0) k/uL Myelocytes # (Manual) 0.60 H (0) k/uL ABG pCO2 (35-45) mmHg ABG pO2 (83-108) mmHg ABG HCO3 (21-25) mmol/L ABG Total CO2 (19-24) mmol/L Carbon Dioxide 32 H (22-30) mmol/L BUN 30 H (9-20) mg/dL Creatinine 0.63 L (0.66-1.25) mg/dL Glucose 331 H (74-99) mg/dL POC Glucose (mg/dL) 360 H (70-110) mg/dL Calcium 8.1 L (8.4-10.2) mg/dL 09/09/22 09/09/22 Range/Units 06:25 11:51 WBC (3.8-10.6) k/uL RBC (4.30-5.90) m/uL Hgb (13.0-17.5) gm/dL Hct (39.0-53.0) % Neutrophils # (Manual) (1.3-7.7) k/uL Lymphocytes # (Manual) (1.0-4.8) k/uL Metamyelocytes # (Man) (0) k/uL Myelocytes # (Manual) (0) k/uL ABG pCO2 51 H (35-45) mmHg ABG pO2 75 L (83-108) mmHg ABG HCO3 33 H (21-25) mmol/L ABG Total CO2 34 H (19-24) mmol/L Carbon Dioxide (22-30) mmol/L BUN (9-20) mg/dL Creatinine (0.66-1.25) mg/dL Glucose (74-99) mg/dL POC Glucose (mg/dL) 310 H (70-110) mg/dL Calcium (8.4-10.2) mg/dL Microbiology - Last 24 Hours (Table) 09/07/22 11:00 Blood Culture - Preliminary Blood Assessment and Plan Assessment: Impression: Acute hypoxic respiratory failure secondary to multilobar pneumonia secondary to E. coli. Chest x-ray today is showing worsening right lower lobe pneumonia. Sepsis and septic shock secondary to E. coli pneumonia and bacteremia. Patient is now on Unasyn. Hypotension, resolved. Remains on amlodipine, off clevidipine. Acute hypercapnic respiratory failure Acute leukocytosis secondary to pneumonia and sepsis. Acute exacerbation of COPD Acute toxic metabolic encephalopathy/altered mental status Acute kidney injury secondary to sepsis and septic shock. Resolved. Chronic tobacco dependence syndrome. Recommendation: Continue ventilatory support, not ready for weaning, patient is very marginal at best. Continue nutritional support/enteral feeding. Vital HP Continue GI and DVT prophylaxis including Lovenox and Protonix. Continue blood pressure medication/amlodipine Continue Unasyn. Should be appropriate for his E. coli sepsis, and pneumonia Continue bronchodilators/DuoNeb, continue Solu-Medrol. May have to consider insulin drip as his sugars seem to be relatively poorly controlled. Patient is critically ill, not quite ready for weaning. Prognosis remains guarded. Patient remains critically ill Critical care time is over 30 minutes Time with Patient: Greater than 30
[2022-09-09 16:28] LABS: Glucose,Whole Blood 284 mg/dL (70-110)
[2022-09-09 19:47] LABS: Glucose,Whole Blood 302 mg/dL (70-110)
[2022-09-09] MEDS ORDERED: NA PHOS,M-B/NA PHOS,DI-BA 133 ML ENEMA RECTAL PRN (19:49)
[2022-09-09] MEDS ORDERED: INSULIN DETEMIR (LEVEMIR) 100 UNIT/ML SYR SQ SCH (21:00)
[2022-09-10 00:05] LABS: Glucose,Whole Blood 302 mg/dL (70-110)
[2022-09-10] MEDS: IPRATROPIUM-ALBUTEROL 3 ML NEB INHALATION SCH ×6 (00:15→19:53)
[2022-09-10] MEDS: INSULIN ASPART (NovoLOG) 100 UNIT/ML VIAL SQ SCH ×3 (00:25→08:41)
[2022-09-10] MEDS: SODIUM CHLORIDE 0.9% 1,000 ML IV SCH (03:39)
--- NOTE | 2022-09-10 03:48 | PN ---
PROGRESS NOTE SUBJECTIVE: The patient is in the ICU, being treated with bilateral pneumonia. Remains in ICU. He is intubated, ventilated, FiO2 50%, PEEP of 5, tidal volume 500, PO2 75, pCO2 51, pH 7.42. Chest x-ray showing worsening pneumonia right lower lobe. Gases are marginal. He is not requiring any pressors. Sugars are running to be a little high. We increased his Levemir insulin and fluids at 40 mL an hour, 0.9 normal saline. He is off Clevidipine. Remains on Unasyn for E. coli pneumonia, sepsis, bacteremia. White blood count 12, hemoglobin is 12.1. Blood sugars in the 300+ range. Insulin infusion, sugars remain high. I have increased in the dose of Levemir insulin. In the meantime, continue his insulin as per sliding scale. OBJECTIVE: VITAL SIGNS: Temp is 100.7, pulse 82, respiratory rate 18 to 20, blood pressure 118/70, O2 saturation is 94, is 50. CARDIOVASCULAR: S1, S2. LUNGS: Decreased breath sounds. PSYCH: He remains comfortable. LABORATORY DATA: Hemoglobin 12.1, white count 12.0, BUN 30, creatinine 0.63, glucose is 300s. ASSESSMENT: Acute hypercapnic respiratory failure, acute leukocytosis secondary to pneumonia, sepsis, COPD, metabolic encephalopathy, acute kidney injury, septic shock, nicotine addiction. Continue ventilator, wean off vent as tolerated. Continue on broad- spectrum antibiotics, Solu-Medrol. Prognosis is guarded. MMODL / IJN: [id number] /
[2022-09-10 04:04] LABS: Glucose,Whole Blood 274 mg/dL (70-110)
[2022-09-10] MEDS: methylPREDNISolone SOD SUCCI 125 MG/2 ML VIAL IV SCH ×4 (04:20→20:40)
[2022-09-10] MEDS: AMPICILLIN-SULBACTAM 3 GM in SODIUM CHLORIDE 0.9% 100 ML IVPB SCH ×3 (04:20→19:02)
[2022-09-10 05:02] LABS: African American GFR (CKD) >90 (>60 ml/min/1.73 sqM); Anion Gap 3 mmol/L; Blood Urea Nitrogen 30 mg/dL (9-20); Carbon Dioxide 33 mmol/L (22-30); Chloride 105 mmol/L (98-107); Glucose 299 mg/dL (74-99); Non-African American GFR(CKD) >90 (>60 ml/min/1.73 sqM); Potassium 4.4 mmol/L (3.5-5.1); Sodium 141 mmol/L (137-145)
[2022-09-10 05:13] LABS: Basophils % (A) 0 %; Eosinophils % (A) 0 %; HGB 11.5 gm/dL (13.0-17.5); Lymphocytes % (A) 8 %; MCH 29.6 pg (25.0-35.0); MCHC 31.9 g/dL (31.0-37.0); Mean Platelet Volume 8.5; Monocytes # (A) 0.7 k/uL (0-1.0); Monocytes % (A) 6 %; Neutrophils # (A) 9.9 k/uL (1.3-7.7); Neutrophils % (A) 83 %; Platelet Count 147 k/uL (150-450); RBC 3.87 m/uL (4.30-5.90); RDW 13.4 % (11.5-15.5)
[2022-09-10 05:54] LABS: ABG Base Excess 8.8 mmol/L; ABG HCO3 33 mmol/L (21-25); ABG Oxygen Saturation 96.8 % (94-97); ABG PCO2 51 mmHg (35-45); ABG PH 7.42 (7.35-7.45); ABG PO2 81 mmHg (83-108); ABG TCO2 35 mmol/L (19-24); Allen Test Performed? Yes
[2022-09-10 06:36] LABS: Glucose,Whole Blood 266 mg/dL (70-110)
--- NOTE | 2022-09-10 08:10 | XR ---
EXAMINATION TYPE: XR chest 1V portable DATE OF EXAM: 09/10/2022 Comparison: 09/09/2022 Clinical History: 61-year-old male ICU follow-up assess lungs Findings: ET tube satisfactory. NG tube courses below the diaphragm. Right IJ CVC tip at the upper right atrium . Right heart margin obscured by adjacent pleural parenchymal opacity. Moderate bibasilar opacities p ersist, increasing now on the left. Interstitial prominence remains. Impression: Ongoing prominent bilateral lower lung effusions and airspace disease, increasing now on the left.
[2022-09-10 08:17] LABS: Glucose,Whole Blood 307 mg/dL (70-110)
[2022-09-10] MEDS: DOCUSATE ORAL SOLN 100 MG/10 ML CUP PO SCH (08:40)
[2022-09-10] MEDS: PANTOPRAZOLE 40 MG/10 ML VIAL IVP SCH ×2 (08:40→20:40)
[2022-09-10] MEDS: ENOXAPARIN 40 MG/0.4 ML SYRINGE SQ SCH (08:40)
[2022-09-10] MEDS: CHLORHEXIDINE GLUCONATE 15 ML CUP MUCOUS MEM SCH ×2 (08:40→20:40)
[2022-09-10] MEDS: amLODIPine 5 MG TAB PO SCH (08:41)
[2022-09-10] MEDS: FUROSEMIDE 10 MG/ML 4 ML VIAL IV SCH ×2 (10:06→20:39)
[2022-09-10] MEDS ORDERED: DEXTROSE 50% SYRINGE 50 ML IVP PRN ×2 (10:54)
--- NOTE | 2022-09-10 11:37 | P.PN ---
Subjective Progress Note Date: 09/10/22 Principal diagnosis: Acute hypoxic respiratory failure secondary to acute multilobar pneumonia/E. coli pneumonia, and sepsis and septic shock A 61-year-old mentation, known history of COPD, chronic smoker who continues to smoke approximately a pack of cigarettes a day, presenting with progressively worsening shortness of breath over the past 1 week. The patient was seen in the emergency department. The patient was already on a BiPAP at a pressure of 12/6 with an FiO2 of 60%. He was still having significant labored breathing, and he was tachypneic and his rate was ranging between 30-40 and he had marked diminished breath sounds bilaterally. His mentation was quite diminished and the patient seemed to be altered yet arousable. The was at the bedside. This patient does not seem to have had an evaluation with pulmonary in the past. Based on the reported history by the , he has been maintained on Advair and albuterol rescue inhaler on an outpatient basis. No home O2. He was experiencing pleuritic right-sided chest pain along with cough and congestion. He ended up in the emergency department this afternoon. Based on his labored breathing, immediately was placed on a BiPAP. I discussed the case with the emergency room physician. The patient is a higher risk of going into respiratory failure requiring intubation mechanical ventilation and I made the aware of. Meanwhile, if it was worth was given patient a trial of noninvasive positive pressure ventilation. White cell count was 36.8 with a hemoglobin of 14.4. Acute kidney injury with a BUN of 18 and a creatinine of 1.5 and sodium level of 133. His LFTs were essentially normal. The vital screening including influenza a and influenza B and RSV and Covid 19 testing was negative. Lactic acid level was at 1.8. Troponins were negative. Blood gas was ordered. Reviewed the CAT scan of the chest and there is no evidence of pulmonary embolism. The patient had extensive airspace disease more pronounced in the right middle lobe and the right upper lobe and the patient had other peripheral wedge-shaped pulmonary infiltrates. Predominant consolidation within the right upper lobe. There was also background mild centrilobular emphysema. No history of diabetes mellitus. Nosocomial artery disease. No history of any stroke. 09/06/2022, the patient remains intubated on a mechanical ventilator. The patient extensive pneumonia involving the right lung with some limited inf iltration of the left secondary to E. coli. Sputum is positive for E. coli, blood cultures also positive for E. coli. The patient is currently on IV Unasyn. Chest x-ray from today still showing persistent infiltration/consolidation of the right lung especially the right middle lobe and right base and there is also infiltration of the left lung base. Bronchoscopy in the lavage was done and the results are still pending for now. Meanwhile, he is hemodynamically stable and is on no pressors. He was given a sedation holiday yesterday and he was able to arouse without any major difficulties. He was not ready for weaning and a weaning trial was not done and a sedation holiday was aborted. Currently, he's on propofol running at 50 mcg/kg/m. He is on assist-control mode of mechanical ventilation at the rate of 20, tidal volume of 500, FiO2 40% with a PEEP of 5. The peak airway pressure is currently at 26. The white cell count of 20.5. Hemoglobin is 11.2.. The patient also has an elevated pro-calcitonin level which remains elevated at 34.7. Meanwhile, his electrolytes are stable. Sodium is at 139 with a potassium level of 4.7, BUN is 31 with a creatinine of 0.8. He is receiving enteral feeding for nutritional support and is currently on vital high-protein at the rate of 40 mL an hour. The fluid balance over the past 24 hours has been in the order of +725 mL. No significant peripheral edema at this point in time. Patient was reevaluated today on 09/07/2022, patient remains in the ICU, intubated and mechanically ventilated. Patient is now on assist control rate of 2012 volume 500 FiO2 40% and PEEP of 5. ABG showed a pO2 of 72 pCO2 46 pH of 7.43, no changes were made in the ventilator settings. Patient was initially intubated on 09/02/2022, and he remains intubated. Chest x-ray showed bilateral infiltrates and pleural effusions consistent with pneumonia. WBC count is elevated at 19.0, however seems to be steadily improving considering it was 36.8 on 09/02 initially. Basic metabolic profile is normal renal profile is normal pro-calcitonin level is trending down and it is 10.1. Sputum has been positive for E. coli. Patient continues to have chronic changes in his bilateral lower extremities. Patient remains on Unasyn. He is also on GI and DVT prophylaxis including Lovenox, and he is on pantoprazole 40 mg IV push twice a day. I saw him this morning he was off propofol, he was earlier on 15 mcg/kg/m, however the patient is a bit restless, agitated, tachypneic, and I recommended. He goes back on propofol, he is not quite ready for weaning. Patient remains on bronchodilators in the form of DuoNeb updrafts 4 times a day and when necessary, he is also on methylprednisolone 60 mg IV push every 6 hours. IV fluid is 0.9 normal saline at 40 mL per hour. Patient is having good urine output. Patient remains on enteral feeding Patient was reevaluated today on 09/08/2022, remains in the ICU, intubated, sedated, mechanically ventilated, he is on assist control rate of 20 tidal volume 500 FiO2 50% and PEEP of 5. ABG showed a pO2 of 80 pCO2 46 pH of 7.46. Hence no changes were made in his ventilator settings. Patient is requiring propofol at 60 mcg/kg/m, he is also on 0.9 normal saline at 40 mL per hour. Not requiring presently any pressors, patient is going to be placed on amlodipine 5 mg twice a day for elevated blood pressure. Chest x-ray continues to show bilateral infiltrates., Small bilateral pleural effusions noted. Patient is receiving nutritional support vital HP 64/64. Antibiotics have been changed by infectious disease to Unasyn patient had E. coli pneumonia and E. coli bacteremia. WBC count today is 14.1 hemoglobin is 12.1 electrolytes are normal renal profile is normal, liver profile is normal Patient was reevaluated today on 09/09/2022, remains in the ICU, intubated and mechanically ventilated. Patient remains on assist control rate of 20 tidal volume 500 FiO2 50% and PEEP of 5. ABG showed a pO2 of 75 pCO2 51 pH of 7.42. Chest x-ray today is showing worsening pneumonic process involving the right lower lobe. And his gases are marginal, hence I have no plans to address weaning today on this patient. Patient is hemodynamically stable, not requiring any pressors, sugars are running to be a bit high, hence his Levemir insulin was increased. Patient remains on propofol at 30 mcg/kg/m, IV fluids at 40 mL/h the form of 0.9 normal saline. He is off clevidipine. Remains on Unasyn for his E. coli pneumonia and sepsis/bacteremia.. WBC count is 12 hemoglobin 12.1. Basic metabolic profile is normal, renal profile is normal blood sugars are running in the 300+ range, may consider insulin infusion if sugars remain high after increasing the dose of Levemir insulin. In the meantime continue insulin as per scale/subcu Reevaluated today on 09/10/2022, patient remains in the ICU, intubated and mechanically ventilated. Patient remains on propofol at 65 mcg/kg/m, he was placed last night on fentanyl at 0.5 mcg/kg/h because of intermittent agitation on high dose of propofol, today he seems to be quite sedated and calm with both fentanyl and propofol. His assist-control rate is 20 tidal volume 500 FiO2 50% PEEP of 5. Peak airway pressure is 28 plateau pressures 18. Chest x-ray continues to show bilateral lower opacities and suspect some ongoing pleural effusion for which I recommended diuretics Lasix 40 mg IV push every 12 hours. Cut down his IV fluid to KVO. Patient remains on a vital HP at 64 mL per hour. Patient remains on Unasyn for his E. coli pneumonia and bacteremia. And today I added insulin because his sugars are poorly controlled, will discontinue Levemir insulin and start the patient on IV insulin. We will titrate insulin today blood sugar of 150 up to 200 Objective - Vital Signs Vital signs: Vital Signs Temp 97.6 F 09/10/22 08:00 Pulse 66 09/10/22 11:13 Resp 20 09/10/22 10:00 BP 110/60 09/10/22 10:00 Pulse Ox 87 L 09/10/22 10:00 FiO2 50 09/10/22 10:53 Intake & Output 09/09/22 09/10/22 09/10/22 18:59 06:59 18:59 Intake Total 8657.030 5581.780 478.675 Output Total 1570 1515 395 Balance 118.188 424.780 83.675 Weight 97.8 kg 98.5 kg Intake: IV 516 516 132 Pressure Bag (0.9 sodium 36 36 12 chloride) Sodium Chloride 0.9% 1, 480 480 120 000 ml @ 10 mls/hr IV . Q24H [facility] Rx#:[id number] Intake, IV Titration 344.188 554.780 124.675 Amount Ampicillin-Sulbactam 3 gm 200 In Sodium Chloride 0.9% 100 ml @ 200 mls/hr IVPB Q6H [facility] Rx#:[id number] propofoL 1,000 mg In 344.188 354.780 124.675 Empty Bag 1 bag @ 15 MCG/ KG/MIN 7.348 mls/hr IV . [id number] [facility] Rx#:[id number] Tube Feeding 768 779 192 Other 60 90 30 Output: Urine 1570 1515 395 Other: Voiding Method Indwelling Catheter Indwelling Catheter Indwelling Catheter ABP, PAP, CO, CI - Last Documented Arterial Blood Pressure 124/68 Pulmonary Artery Pressure 114/55 - Exam Physical Exam: Revealed 61-year-old white male intubated, mechanically ventilated, sedated, on propofol. Fentanyl was added yesterday. Head: Atraumatic, normocephalic. HEENT:[Neck is supple.] [No neck masses.] [No thyromegaly.] [No JVD.] Chest: [Symmetrical chest expansion, diminished breath sounds and crackles at the bases noted. Cardiac Exam: [Normal S1 and S2, no S3 gallop, no murmur.] Abdomen: [Obese, Soft, nontender, no megaly, no rebound, no guarding, normal bowel sounds.] Extremities: [No clubbing, 1+ bipedal edema, edema noted in upper extremities. and chronic venous stasis changes noted bilaterally in lower extremities. Neurological Exam: Could not assess, patient is sedated Psychiatric: Could not fully assess. Skin: Chronic venous stasis changes noted in lower extremities. Keratosis is noted in both lower extremities/anterior aspect. Musculoskeletal: No deformities noted. - Labs CBC & Chem 7: 09/10/22 04:40 09/10/22 04:40 Labs: Abnormal Lab Results - Last 24 Hours (Table) 09/09/22 09/09/22 09/09/22 Range/Units 04:55 11:51 16:26 WBC (3.8-10.6) k/uL RBC (4.30-5.90) m/uL Hgb (13.0-17.5) gm/dL Hct (39.0-53.0) % Plt Count (150-450) k/uL Neutrophils # (1.3-7.7) k/uL ABG pCO2 (35-45) mmHg ABG pO2 (83-108) mmHg ABG HCO3 (21-25) mmol/L ABG Total CO2 (19-24) mmol/L Carbon Dioxide (22-30) mmol/L BUN (9-20) mg/dL Creatinine (0.66-1.25) mg/dL Glucose (74-99) mg/dL POC Glucose (mg/dL) 310 H 284 H (70-110) mg/dL Hemoglobin A1c 7.9 H (0.0-6.0) % Calcium (8.4-10.2) mg/dL 09/09/22 09/10/22 09/10/22 Range/Units 19:45 00:02 04:02 WBC (3.8-10.6) k/uL RBC (4.30-5.90) m/uL Hgb (13.0-17.5) gm/dL Hct (39.0-53.0) % Plt Count (150-450) k/uL Neutrophils # (1.3-7.7) k/uL ABG pCO2 (35-45) mmHg ABG pO2 (83-108) mmHg ABG HCO3 (21-25) mmol/L ABG Total CO2 (19-24) mmol/L Carbon Dioxide (22-30) mmol/L BUN (9-20) mg/dL Creatinine (0.66-1.25) mg/dL Glucose (74-99) mg/dL POC Glucose (mg/dL) 302 H 302 H 274 H (70-110) mg/dL Hemoglobin A1c (0.0-6.0) % Calcium (8.4-10.2) mg/dL 09/10/22 09/10/22 09/10/22 Range/Units 04:40 04:40 05:50 WBC 11.0 H (3.8-10.6) k/uL RBC 3.87 L (4.30-5.90) m/uL Hgb 11.5 L (13.0-17.5) gm/dL Hct 36.0 L (39.0-53.0) % Plt Count 147 L (150-450) k/uL Neutrophils # 9.9 H (1.3-7.7) k/uL ABG pCO2 51 H (35-45) mmHg ABG pO2 81 L (83-108) mmHg ABG HCO3 33 H (21-25) mmol/L ABG Total CO2 35 H (19-24) mmol/L Carbon Dioxide 33 H (22-30) mmol/L BUN 30 H (9-20) mg/dL Creatinine 0.62 L (0.66-1.25) mg/dL Glucose 299 H (74-99) mg/dL POC Glucose (mg/dL) (70-110) mg/dL Hemoglobin A1c (0.0-6.0) % Calcium 8.0 L (8.4-10.2) mg/dL 09/10/22 09/10/22 Range/Units 06:34 08:15 WBC (3.8-10.6) k/uL RBC (4.30-5.90) m/uL Hgb (13.0-17.5) gm/dL Hct (39.0-53.0) % Plt Count (150-450) k/uL Neutrophils # (1.3-7.7) k/uL ABG pCO2 (35-45) mmHg ABG pO2 (83-108) mmHg ABG HCO3 (21-25) mmol/L ABG Total CO2 (19-24) mmol/L Carbon Dioxide (22-30) mmol/L BUN (9-20) mg/dL Creatinine (0.66-1.25) mg/dL Glucose (74-99) mg/dL POC Glucose (mg/dL) 266 H 307 H (70-110) mg/dL Hemoglobin A1c (0.0-6.0) % Calcium (8.4-10.2) mg/dL Microbiology - Last 24 Hours (Table) 09/07/22 11:00 Blood Culture - Preliminary Blood Assessment and Plan Assessment: Impression: Acute hypoxic respiratory failure secondary to multilobar pneumonia secondary to E. coli. Chest x-ray today is showing worsening right lower lobe pneumonia. Patient has been intubated since09/02/2022 Sepsis and septic shock secondary to E. coli pneumonia and bacteremia. Patient is now on Unasyn. Hypotension, resolved. This was felt to be secondary to septic shock. Acute hypercapnic respiratory failure Acute leukocytosis secondary to pneumonia and sepsis. Acute exacerbation of COPD Acute toxic metabolic encephalopathy/altered mental status Acute kidney injury secondary to sepsis and septic shock. Resolved. Chronic tobacco dependence syndrome. Suspect small bilateral pleural effusions hence Lasix was added today. Recommendation: Chest x-ray and ABG, vent settings were all reviewed. Continue ventilatory support, patient is not ready for weaning however I plan to give the patient's sedation interruption or sedation holiday, and assess mental status. Continue propofol and fentanyl. Continue nutritional support/enteral feeding. Vital HP, it is up to goal. Continue GI and DVT prophylaxis including Lovenox and Protonix. Continue Unasyn. patient had E. coli bacteremia and E. coli sepsis as well as E. coli pneumonia. Continue bronchodilators/DuoNeb, continue Solu-Medrol. Start insulin drip today and maintain blood sugar between 150 up to 200, discontinue subcu insulin, discontinue Levemir insulin Start patient on Lasix 40 mg IV push twice a day and monitor bilateral pleural effusions. Patient is critically ill, not quite ready for weaning. Prognosis remains guarded. Patient remains critically ill Critical care time is over 30 minutes Time with Patient: Greater than 30
[2022-09-10] MEDS: SODIUM CHLORIDE 0.9% 80 ML with fentaNYL (PF) 1,000 MCG IV SCH ×2 (12:13)
[2022-09-10 12:57] LABS: Glucose,Whole Blood 342 mg/dL (70-110)
[2022-09-10] MEDS: INSULIN REGULAR 100 UNIT in SODIUM CHLORIDE 0.9% 100 ML IV SCH (13:00)
[2022-09-10] MEDS: CLEVIDIPINE BUTYRATE 25 MG in EMPTY BAG 1 BAG IV SCH (13:36)
--- NOTE | 2022-09-10 13:56 | P.PN ---
Subjective Progress Note Date: 09/10/22 Principal diagnosis: Pneumonia and bacteremia Patient is a 61-year-old male with a past medical history of asthma patient is a smoker has been brought into the ER for evaluation of increasing shortness of breath and chills, the patient did have evidence of right-sided p neumonia and worsening respiratory distress requiring intubation blood cultures subsequently came back positive with E. coli. The patient is status post bronchoscopy and was completed on 09/04/2022 On today's evaluation that is 09/10/2022, the patient did have low-grade fever of 100.7 F yesterday however the patient is afebrile today, the patient is hemodynamically stable not requiring any pressor support with the nursing staff , the patient FiO2 Is stable at 50 % today, no worsening secretion through the ET, the patient has been started on Lasix Objective - Vital Signs Vital signs: Vital Signs Temp 98.8 F 09/10/22 12:00 Pulse 64 09/10/22 13:00 Resp 20 09/10/22 13:00 BP 107/59 09/10/22 13:00 Pulse Ox 99 09/10/22 13:00 FiO2 50 09/10/22 13:00 Intake & Output 09/09/22 09/10/22 09/10/22 18:59 06:59 18:59 Intake Total 9594.012 9210.780 916.720 Output Total 1570 1515 1855 Balance 118.188 424.780 -938.280 Weight 97.8 kg 98.5 kg Intake: IV 516 516 301 Ampicillin-Sulbactam 3 gm 100 In Sodium Chloride 0.9% 100 ml @ 200 mls/hr IVPB Q6H [facility] Rx#:[id number] Pressure Bag (0.9 sodium 36 36 21 chloride) Sodium Chloride 0.9% 1, 480 480 180 000 ml @ 10 mls/hr IV . Q24H [facility] Rx#:[id number] Intake, IV Titration 344.188 554.780 265.720 Amount Ampicillin-Sulbactam 3 gm 200 In Sodium Chloride 0.9% 100 ml @ 200 mls/hr IVPB Q6H [facility] Rx#:[id number] Sodium Chloride 0.9% 80 72.847 ml @ 0.5 MCG/KG/HR 4.9 mls/hr IV .[id number] [facility] with fentaNYL (PF) 1,000 mcg Rx#:[id number] propofoL 1,000 mg In 344.188 354.780 192.873 Empty Bag 1 bag @ 15 MCG/ KG/MIN 7.348 mls/hr IV . [id number] [facility] Rx#:[id number] Tube Feeding 768 779 320 Other 60 90 30 Output: Urine 1570 1515 1855 Other: Voiding Method Indwelling Catheter Indwelling Catheter Indwelling Catheter ABP, PAP, CO, CI - Last Documented Arterial Blood Pressure 110/52 Pulmonary Artery Pressure 114/55 - Exam GENERAL DESCRIPTION: Middle-age male intubated on the vent RESPIRATORY SYSTEM: Unlabored breathing , diminished breath sounds, no wheeze HEART: S1 S2 regular rate and rhythm , ABDOMEN: Soft , mild distention but no tenderness EXTREMITIES: Diffuse swelling of lower extremity no redness - Labs CBC & Chem 7: 09/10/22 04:40 09/10/22 04:40 Labs: Abnormal Lab Results - Last 24 Hours (Table) 09/09/22 09/09/22 09/09/22 Range/Units 04:55 16:26 19:45 WBC (3.8-10.6) k/uL RBC (4.30-5.90) m/uL Hgb (13.0-17.5) gm/dL Hct (39.0-53.0) % Plt Count (150-450) k/uL Neutrophils # (1.3-7.7) k/uL ABG pCO2 (35-45) mmHg ABG pO2 (83-108) mmHg ABG HCO3 (21-25) mmol/L ABG Total CO2 (19-24) mmol/L Carbon Dioxide (22-30) mmol/L BUN (9-20) mg/dL Creatinine (0.66-1.25) mg/dL Glucose (74-99) mg/dL POC Glucose (mg/dL) 284 H 302 H (70-110) mg/dL Hemoglobin A1c 7.9 H (0.0-6.0) % Calcium (8.4-10.2) mg/dL 09/10/22 09/10/22 09/10/22 Range/Units 00:02 04:02 04:40 WBC 11.0 H (3.8-10.6) k/uL RBC 3.87 L (4.30-5.90) m/uL Hgb 11.5 L (13.0-17.5) gm/dL Hct 36.0 L (39.0-53.0) % Plt Count 147 L (150-450) k/uL Neutrophils # 9.9 H (1.3-7.7) k/uL ABG pCO2 (35-45) mmHg ABG pO2 (83-108) mmHg ABG HCO3 (21-25) mmol/L ABG Total CO2 (19-24) mmol/L Carbon Dioxide (22-30) mmol/L BUN (9-20) mg/dL Creatinine (0.66-1.25) mg/dL Glucose (74-99) mg/dL POC Glucose (mg/dL) 302 H 274 H (70-110) mg/dL Hemoglobin A1c (0.0-6.0) % Calcium (8.4-10.2) mg/dL 09/10/22 09/10/22 09/10/22 Range/Units 04:40 05:50 06:34 WBC (3.8-10.6) k/uL RBC (4.30-5.90) m/uL Hgb (13.0-17.5) gm/dL Hct (39.0-53.0) % Plt Count (150-450) k/uL Neutrophils # (1.3-7.7) k/uL ABG pCO2 51 H (35-45) mmHg ABG pO2 81 L (83-108) mmHg ABG HCO3 33 H (21-25) mmol/L ABG Total CO2 35 H (19-24) mmol/L Carbon Dioxide 33 H (22-30) mmol/L BUN 30 H (9-20) mg/dL Creatinine 0.62 L (0.66-1.25) mg/dL Glucose 299 H (74-99) mg/dL POC Glucose (mg/dL) 266 H (70-110) mg/dL Hemoglobin A1c (0.0-6.0) % Calcium 8.0 L (8.4-10.2) mg/dL 09/10/22 09/10/22 Range/Units 08:15 12:55 WBC (3.8-10.6) k/uL RBC (4.30-5.90) m/uL Hgb (13.0-17.5) gm/dL Hct (39.0-53.0) % Plt Count (150-450) k/uL Neutrophils # (1.3-7.7) k/uL ABG pCO2 (35-45) mmHg ABG pO2 (83-108) mmHg ABG HCO3 (21-25) mmol/L ABG Total CO2 (19-24) mmol/L Carbon Dioxide (22-30) mmol/L BUN (9-20) mg/dL Creatinine (0.66-1.25) mg/dL Glucose (74-99) mg/dL POC Glucose (mg/dL) 307 H 342 H (70-110) mg/dL Hemoglobin A1c (0.0-6.0) % Calcium (8.4-10.2) mg/dL Microbiology - Last 24 Hours (Table) 09/07/22 11:00 Blood Culture - Preliminary Blood Assessment and Plan (1) Bacteremia Current Visit: Yes Status: Acute Code(s): R78.81 - BACTEREMIA SNOMED Code(s): 2184625 (2) Pneumonia Current Visit: Yes Status: Acute Code(s): J18.9 - PNEUMONIA, UNSPECIFIED ORGANISM SNOMED Code(s): 733009406 Plan: 1patient was in the hospital with sepsis in this patient with a fever tachycardia hypoxemia source is likely right-sided pneumonia with blood cultures coming positive for E. coli not a very common pathogen to cause pneumonia we will wait for the final ID and sensitivities patient urine is negative abdominal soft on clinical exam and no clear history of any vomiting abdominal pain however there is a history of constipation did provided by the family member at the bedside 2- CT of abdominal pelvis question of appendicitis for the patient has been evaluated by general surgery and has been ruled out clinically with no need for any intervention 3-patient E. coli sensitive pathogen with concern for possible aspiration pneumonia, patient repeat blood culture has been negative so far patient white count is trending down to 11,000 today 4-the patient will continue with Unasyn and monitor his clinical course closely Time with Patient: Less than 30
[2022-09-10 14:12] LABS: Glucose,Whole Blood 333 mg/dL (70-110)
[2022-09-10 16:20] LABS: Glucose,Whole Blood 309 mg/dL (70-110)
[2022-09-10 17:14] LABS: Glucose,Whole Blood 300 mg/dL (70-110)
[2022-09-10 19:08] LABS: Glucose,Whole Blood 261 mg/dL (70-110)
[2022-09-10 20:35] LABS: Glucose,Whole Blood 198 mg/dL (70-110)
[2022-09-10 21:07] LABS: Glucose,Whole Blood 217 mg/dL (70-110)
[2022-09-10 22:07] LABS: Glucose,Whole Blood 208 mg/dL (70-110)
[2022-09-10 23:04] LABS: Glucose,Whole Blood 210 mg/dL (70-110)
[2022-09-11] MEDS: INSULIN REGULAR 100 UNIT in SODIUM CHLORIDE 0.9% 100 ML IV SCH ×2
[2022-09-11 00:06] LABS: Glucose,Whole Blood 167 mg/dL (70-110)
[2022-09-11] MEDS: IPRATROPIUM-ALBUTEROL 3 ML NEB INHALATION SCH ×6 (00:18→19:50)
[2022-09-11] MEDS: amLODIPine 5 MG TAB PO SCH ×3 (00:37→21:31)
[2022-09-11 01:17] LABS: Glucose,Whole Blood 166 mg/dL (70-110)
[2022-09-11] MEDS: AMPICILLIN-SULBACTAM 3 GM in SODIUM CHLORIDE 0.9% 100 ML IVPB SCH ×5 (01:43→23:26)
[2022-09-11 02:21] LABS: Glucose,Whole Blood 160 mg/dL (70-110)
[2022-09-11] MEDS: methylPREDNISolone SOD SUCCI 125 MG/2 ML VIAL IV SCH ×4 (03:03→21:32)
[2022-09-11 03:09] LABS: Glucose,Whole Blood 151 mg/dL (70-110)
[2022-09-11 04:21] LABS: Glucose,Whole Blood 157 mg/dL (70-110)
[2022-09-11 05:41] LABS: African American GFR (CKD) >90 (>60 ml/min/1.73 sqM); Anion Gap 3 mmol/L; Blood Urea Nitrogen 38 mg/dL (9-20); Calcium 8.1 mg/dL (8.4-10.2); Carbon Dioxide 35 mmol/L (22-30); Chloride 100 mmol/L (98-107); Glucose 173 mg/dL (74-99); Non-African American GFR(CKD) >90 (>60 ml/min/1.73 sqM); Sodium 138 mmol/L (137-145)
[2022-09-11 05:48] LABS: ABG Base Excess 12.1 mmol/L; ABG HCO3 36 mmol/L (21-25); ABG Oxygen Saturation 95.4 % (94-97); ABG PCO2 52 mmHg (35-45); ABG PH 7.45 (7.35-7.45); ABG PO2 72 mmHg (83-108); ABG TCO2 38 mmol/L (19-24); Allen Test Performed? Yes
[2022-09-11 05:56] LABS: Potassium 4.1 mmol/L (3.5-5.1)
[2022-09-11 06:08] LABS: Glucose,Whole Blood 181 mg/dL (70-110)
[2022-09-11 06:54] LABS: Basophils % (A) 0 %; Eosinophils % (A) 0 %; HCT 38.7 % (39.0-53.0); HGB 12.3 gm/dL (13.0-17.5); Lymphocytes # (A) 0.7 k/uL (1.0-4.8); Lymphocytes % (A) 6 %; MCH 30.1 pg (25.0-35.0); MCHC 31.9 g/dL (31.0-37.0); MCV 94.5 fL (80.0-100.0); Mean Platelet Volume 8.6; Monocytes # (A) 0.5 k/uL (0-1.0); Monocytes % (A) 4 %; Neutrophils # (A) 10.7 k/uL (1.3-7.7); Neutrophils % (A) 89 %; Platelet Count 142 k/uL (150-450); RBC 4.09 m/uL (4.30-5.90)
[2022-09-11 07:08] LABS: Glucose,Whole Blood 197 mg/dL (70-110)
[2022-09-11 08:07] LABS: Glucose,Whole Blood 201 mg/dL (70-110)
[2022-09-11] MEDS: CHLORHEXIDINE GLUCONATE 15 ML CUP MUCOUS MEM SCH ×2 (08:07→21:22)
[2022-09-11] MEDS: ENOXAPARIN 40 MG/0.4 ML SYRINGE SQ SCH (08:08)
[2022-09-11] MEDS: FUROSEMIDE 10 MG/ML 4 ML VIAL IV SCH ×2 (08:08→21:32)
[2022-09-11] MEDS: DOCUSATE ORAL SOLN 100 MG/10 ML CUP PO SCH (08:08)
[2022-09-11] MEDS: PANTOPRAZOLE 40 MG/10 ML VIAL IVP SCH ×2 (08:08→21:32)
[2022-09-11 08:59] LABS: Glucose,Whole Blood 203 mg/dL (70-110)
[2022-09-11 10:05] LABS: Glucose,Whole Blood 174 mg/dL (70-110)
--- NOTE | 2022-09-11 10:10 | XR ---
EXAMINATION TYPE: XR chest 1V portable DATE OF EXAM: 09/11/2022 COMPARISON: 09/10/2022 HISTORY: Abnormal x-ray TECHNIQUE: Single frontal view of the chest is obtained. FINDINGS: ET tube, NG tube and central line stable. Bilateral infiltrate and small effusion. Heart s ize normal. No pneumothorax. Interstitium is stable. Atherosclerotic change aorta. IMPRESSION: Bilateral infiltrate and small pleural effusion. Findings are stable.
[2022-09-11] MEDS: CLEVIDIPINE BUTYRATE 25 MG in EMPTY BAG 1 BAG IV SCH (10:19)
[2022-09-11] MEDS: DEXMEDETOMIDINE/0.9% NACL(PMX) 400 MCG in EMPTY BAG 1 BAG IV SCH (10:39)
[2022-09-11] MEDS: SODIUM CHLORIDE 0.9% 80 ML with fentaNYL (PF) 1,000 MCG IV SCH ×4 (10:46→23:07)
[2022-09-11 10:59] LABS: Glucose,Whole Blood 192 mg/dL (70-110)
[2022-09-11] MEDS: SODIUM CHLORIDE 0.9% 1,000 ML IV SCH (11:08)
--- NOTE | 2022-09-11 11:15 | P.PN ---
Subjective Progress Note Date: 09/11/22 Principal diagnosis: Acute hypoxic respiratory failure secondary to acute multilobar pneumonia/E. coli pneumonia, and sepsis and septic shock A 61-year-old mentation, known history of COPD, chronic smoker who continues to smoke approximately a pack of cigarettes a day, presenting with progressively worsening shortness of breath over the past 1 week. The patient was seen in the emergency department. The patient was already on a BiPAP at a pressure of 12/6 with an FiO2 of 60%. He was still having significant labored breathing, and he was tachypneic and his rate was ranging between 30-40 and he had marked diminished breath sounds bilaterally. His mentation was quite diminished and the patient seemed to be altered yet arousable. The was at the bedside. This patient does not seem to have had an evaluation with pulmonary in the past. Based on the reported history by the , he has been maintained on Advair and albuterol rescue inhaler on an outpatient basis. No home O2. He was experiencing pleuritic right-sided chest pain along with cough and congestion. He ended up in the emergency department this afternoon. Based on his labored breathing, immediately was placed on a BiPAP. I discussed the case with the emergency room physician. The patient is a higher risk of going into respiratory failure requiring intubation mechanical ventilation and I made the aware of. Meanwhile, if it was worth was given patient a trial of noninvasive positive pressure ventilation. White cell count was 36.8 with a hemoglobin of 14.4. Acute kidney injury with a BUN of 18 and a creatinine of 1.5 and sodium level of 133. His LFTs were essentially normal. The vital screening including influenza a and influenza B and RSV and Covid 19 testing was negative. Lactic acid level was at 1.8. Troponins were negative. Blood gas was ordered. Reviewed the CAT scan of the chest and there is no evidence of pulmonary embolism. The patient had extensive airspace disease more pronounced in the right middle lobe and the right upper lobe and the patient had other peripheral wedge-shaped pulmonary infiltrates. Predominant consolidation within the right upper lobe. There was also background mild centrilobular emphysema. No history of diabetes mellitus. Nosocomial artery disease. No history of any stroke. 09/06/2022, the patient remains intubated on a mechanical ventilator. The patient extensive pneumonia involving the right lung with some limited inf iltration of the left secondary to E. coli. Sputum is positive for E. coli, blood cultures also positive for E. coli. The patient is currently on IV Unasyn. Chest x-ray from today still showing persistent infiltration/consolidation of the right lung especially the right middle lobe and right base and there is also infiltration of the left lung base. Bronchoscopy in the lavage was done and the results are still pending for now. Meanwhile, he is hemodynamically stable and is on no pressors. He was given a sedation holiday yesterday and he was able to arouse without any major difficulties. He was not ready for weaning and a weaning trial was not done and a sedation holiday was aborted. Currently, he's on propofol running at 50 mcg/kg/m. He is on assist-control mode of mechanical ventilation at the rate of 20, tidal volume of 500, FiO2 40% with a PEEP of 5. The peak airway pressure is currently at 26. The white cell count of 20.5. Hemoglobin is 11.2.. The patient also has an elevated pro-calcitonin level which remains elevated at 34.7. Meanwhile, his electrolytes are stable. Sodium is at 139 with a potassium level of 4.7, BUN is 31 with a creatinine of 0.8. He is receiving enteral feeding for nutritional support and is currently on vital high-protein at the rate of 40 mL an hour. The fluid balance over the past 24 hours has been in the order of +725 mL. No significant peripheral edema at this point in time. Patient was reevaluated today on 09/07/2022, patient remains in the ICU, intubated and mechanically ventilated. Patient is now on assist control rate of 2012 volume 500 FiO2 40% and PEEP of 5. ABG showed a pO2 of 72 pCO2 46 pH of 7.43, no changes were made in the ventilator settings. Patient was initially intubated on 09/02/2022, and he remains intubated. Chest x-ray showed bilateral infiltrates and pleural effusions consistent with pneumonia. WBC count is elevated at 19.0, however seems to be steadily improving considering it was 36.8 on 09/02 initially. Basic metabolic profile is normal renal profile is normal pro-calcitonin level is trending down and it is 10.1. Sputum has been positive for E. coli. Patient continues to have chronic changes in his bilateral lower extremities. Patient remains on Unasyn. He is also on GI and DVT prophylaxis including Lovenox, and he is on pantoprazole 40 mg IV push twice a day. I saw him this morning he was off propofol, he was earlier on 15 mcg/kg/m, however the patient is a bit restless, agitated, tachypneic, and I recommended. He goes back on propofol, he is not quite ready for weaning. Patient remains on bronchodilators in the form of DuoNeb updrafts 4 times a day and when necessary, he is also on methylprednisolone 60 mg IV push every 6 hours. IV fluid is 0.9 normal saline at 40 mL per hour. Patient is having good urine output. Patient remains on enteral feeding Patient was reevaluated today on 09/08/2022, remains in the ICU, intubated, sedated, mechanically ventilated, he is on assist control rate of 20 tidal volume 500 FiO2 50% and PEEP of 5. ABG showed a pO2 of 80 pCO2 46 pH of 7.46. Hence no changes were made in his ventilator settings. Patient is requiring propofol at 60 mcg/kg/m, he is also on 0.9 normal saline at 40 mL per hour. Not requiring presently any pressors, patient is going to be placed on amlodipine 5 mg twice a day for elevated blood pressure. Chest x-ray continues to show bilateral infiltrates., Small bilateral pleural effusions noted. Patient is receiving nutritional support vital HP 64/64. Antibiotics have been changed by infectious disease to Unasyn patient had E. coli pneumonia and E. coli bacteremia. WBC count today is 14.1 hemoglobin is 12.1 electrolytes are normal renal profile is normal, liver profile is normal Patient was reevaluated today on 09/09/2022, remains in the ICU, intubated and mechanically ventilated. Patient remains on assist control rate of 20 tidal volume 500 FiO2 50% and PEEP of 5. ABG showed a pO2 of 75 pCO2 51 pH of 7.42. Chest x-ray today is showing worsening pneumonic process involving the right lower lobe. And his gases are marginal, hence I have no plans to address weaning today on this patient. Patient is hemodynamically stable, not requiring any pressors, sugars are running to be a bit high, hence his Levemir insulin was increased. Patient remains on propofol at 30 mcg/kg/m, IV fluids at 40 mL/h the form of 0.9 normal saline. He is off clevidipine. Remains on Unasyn for his E. coli pneumonia and sepsis/bacteremia.. WBC count is 12 hemoglobin 12.1. Basic metabolic profile is normal, renal profile is normal blood sugars are running in the 300+ range, may consider insulin infusion if sugars remain high after increasing the dose of Levemir insulin. In the meantime continue insulin as per scale/subcu Reevaluated today on 09/10/2022, patient remains in the ICU, intubated and mechanically ventilated. Patient remains on propofol at 65 mcg/kg/m, he was placed last night on fentanyl at 0.5 mcg/kg/h because of intermittent agitation on high dose of propofol, today he seems to be quite sedated and calm with both fentanyl and propofol. His assist-control rate is 20 tidal volume 500 FiO2 50% PEEP of 5. Peak airway pressure is 28 plateau pressures 18. Chest x-ray continues to show bilateral lower opacities and suspect some ongoing pleural effusion for which I recommended diuretics Lasix 40 mg IV push every 12 hours. Cut down his IV fluid to KVO. Patient remains on a vital HP at 64 mL per hour. Patient remains on Unasyn for his E. coli pneumonia and bacteremia. And today I added insulin because his sugars are poorly controlled, will discontinue Levemir insulin and start the patient on IV insulin. We will titrate insulin today blood sugar of 150 up to 200 Reevaluated today on 09/11/2022, patient remains in the ICU, intubated and mechanically ventilated. Patient is on assist control rate of 20 tidal volume 500 FiO2 50% PEEP of 5. Peak airway pressure is 31 plateau pressure is 19. ABG showed a pO2 of 72 he CO2 of 52 pH of 7.45. Hence no changes were made in the vent settings. Chest x-ray is showing some improvement in the right-sided pleural effusion and atelectasis. On physical examination the patient sounded fairly clear. Hence I will give the patient today a trial if weaning if possible. Remains on propofol at 55 mcg/kg/m fentanyl at 0.5 mcg/kg/h patient is receiving insulin at 7.7 units per hour. Receiving vital HP 65 mL per hour. And he continues to diurese and respond well to Lasix twice a day. WBC count today is 12 hemoglobin is 12.3. Basic metabolic profile is normal, renal profile is normal BUN is 38 creatinine 0.54. Pro-calcitonin was last 10.10 and I was on 09/07 Objective - Vital Signs Vital signs: Vital Signs Temp 99.0 F 09/11/22 08:00 Pulse 87 09/11/22 10:00 Resp 24 09/11/22 10:00 BP 101/59 09/11/22 10:00 Pulse Ox 98 09/11/22 10:00 FiO2 50 09/11/22 09:00 Intake & Output 09/10/22 09/11/22 09/11/22 18:59 06:59 18:59 Intake Total 1728.012 8367.235 402.677 Output Total 2490 1800 1010 Balance -939.148 -175.765 -607.323 Weight 95.7 kg 95.7 kg Intake: IV 416 376 83 Ampicillin-Sulbactam 3 gm 100 100 In Sodium Chloride 0.9% 100 ml @ 200 mls/hr IVPB Q6H [facility] Rx#:[id number] Pressure Bag (0.9 sodium 36 36 3 chloride) Sodium Chloride 0.9% 1, 280 240 80 000 ml @ 10 mls/hr IV . Q24H [facility] Rx#:[id number] Intake, IV Titration 434.852 548.235 127.677 Amount Ampicillin-Sulbactam 3 gm 100 In Sodium Chloride 0.9% 100 ml @ 200 mls/hr IVPB Q6H [facility] Rx#:[id number] Dexmedetomidine/0.9% NaCl 2.712 (Pmx) 400 mcg In Empty Bag 1 bag @ 0.2 MCG/KG/HR 4.785 mls/hr IV .[id number] [facility] Rx#:[id number] Insulin Regular 100 unit 27.435 80.761 63.053 In Sodium Chloride 0.9% 100 ml @ Titrate IV .Q0M [facility] Rx#:[id number] Sodium Chloride 0.9% 80 72.847 ml @ 0.5 MCG/KG/HR 4.9 mls/hr IV .[id number] [facility] with fentaNYL (PF) 1,000 mcg Rx#:[id number] propofoL 1,000 mg In 334.570 367.474 61.912 Empty Bag 1 bag @ 15 MCG/ KG/MIN 7.348 mls/hr IV . [id number] [facility] Rx#:[id number] Tube Feeding 640 640 192 Other 60 60 0 Output: Urine 2490 1800 1010 Other: Voiding Method Indwelling Catheter Indwelling Catheter Indwelling Catheter ABP, PAP, CO, CI - Last Documented Arterial Blood Pressure 94/89 Pulmonary Artery Pressure 114/55 - Exam Physical Exam: Revealed 61-year-old white male intubated, mechanically ventil ated, sedated, remains on fentanyl and propofol. Head: Atraumatic, normocephalic. HEENT:[Neck is supple.] [No neck masses.] [No thyromegaly.] [No JVD.] Chest: [Symmetrical chest expansion, diminished breath sounds and crackles at the bases noted. Cardiac Exam: [Normal S1 and S2, no S3 gallop, no murmur.] Abdomen: [Obese, Soft, nontender, no megaly, no rebound, no guarding, normal bowel sounds.] Extremities: [No clubbing, 1+ bipedal edema, edema noted in upper extremities. and chronic venous stasis changes noted bilaterally in lower extremities. Neurological Exam: Could not assess, patient is sedated Psychiatric: Could not fully assess. Skin: Chronic venous stasis changes noted in lower extremities. Keratosis is noted in both lower extremities/anterior aspect. Musculoskeletal: No deformities noted. - Labs CBC & Chem 7: 09/11/22 06:26 09/11/22 05:20 Labs: Abnormal Lab Results - Last 24 Hours (Table) 09/10/22 09/10/22 09/10/22 Range/Units 12:55 14:11 16:18 WBC (3.8-10.6) k/uL RBC (4.30-5.90) m/uL Hgb (13.0-17.5) gm/dL Hct (39.0-53.0) % Plt Count (150-450) k/uL Neutrophils # (1.3-7.7) k/uL Lymphocytes # (1.0-4.8) k/uL ABG pCO2 (35-45) mmHg ABG pO2 (83-108) mmHg ABG HCO3 (21-25) mmol/L ABG Total CO2 (19-24) mmol/L Carbon Dioxide (22-30) mmol/L BUN (9-20) mg/dL Creatinine (0.66-1.25) mg/dL Glucose (74-99) mg/dL POC Glucose (mg/dL) 342 H 333 H 309 H (70-110) mg/dL Calcium (8.4-10.2) mg/dL 09/10/22 09/10/22 09/10/22 Range/Units 17:13 18:59 20:33 WBC (3.8-10.6) k/uL RBC (4.30-5.90) m/uL Hgb (13.0-17.5) gm/dL Hct (39.0-53.0) % Plt Count (150-450) k/uL Neutrophils # (1.3-7.7) k/uL Lymphocytes # (1.0-4.8) k/uL ABG pCO2 (35-45) mmHg ABG pO2 (83-108) mmHg ABG HCO3 (21-25) mmol/L ABG Total CO2 (19-24) mmol/L Carbon Dioxide (22-30) mmol/L BUN (9-20) mg/dL Creatinine (0.66-1.25) mg/dL Glucose (74-99) mg/dL POC Glucose (mg/dL) 300 H 261 H 198 H (70-110) mg/dL Calcium (8.4-10.2) mg/dL 09/10/22 09/10/22 09/10/22 Range/Units 21:05 22:05 23:02 WBC (3.8-10.6) k/uL RBC (4.30-5.90) m/uL Hgb (13.0-17.5) gm/dL Hct (39.0-53.0) % Plt Count (150-450) k/uL Neutrophils # (1.3-7.7) k/uL Lymphocytes # (1.0-4.8) k/uL ABG pCO2 (35-45) mmHg ABG pO2 (83-108) mmHg ABG HCO3 (21-25) mmol/L ABG Total CO2 (19-24) mmol/L Carbon Dioxide (22-30) mmol/L BUN (9-20) mg/dL Creatinine (0.66-1.25) mg/dL Glucose (74-99) mg/dL POC Glucose (mg/dL) 217 H 208 H 210 H (70-110) mg/dL Calcium (8.4-10.2) mg/dL 09/11/22 09/11/22 09/11/22 Range/Units 00:05 01:15 02:20 WBC (3.8-10.6) k/uL RBC (4.30-5.90) m/uL Hgb (13.0-17.5) gm/dL Hct (39.0-53.0) % Plt Count (150-450) k/uL Neutrophils # (1.3-7.7) k/uL Lymphocytes # (1.0-4.8) k/uL ABG pCO2 (35-45) mmHg ABG pO2 (83-108) mmHg ABG HCO3 (21-25) mmol/L ABG Total CO2 (19-24) mmol/L Carbon Dioxide (22-30) mmol/L BUN (9-20) mg/dL Creatinine (0.66-1.25) mg/dL Glucose (74-99) mg/dL POC Glucose (mg/dL) 167 H 166 H 160 H (70-110) mg/dL Calcium (8.4-10.2) mg/dL 09/11/22 09/11/22 09/11/22 Range/Units 03:07 04:18 05:20 WBC (3.8-10.6) k/uL RBC (4.30-5.90) m/uL Hgb (13.0-17.5) gm/dL Hct (39.0-53.0) % Plt Count (150-450) k/uL Neutrophils # (1.3-7.7) k/uL Lymphocytes # (1.0-4.8) k/uL ABG pCO2 (35-45) mmHg ABG pO2 (83-108) mmHg ABG HCO3 (21-25) mmol/L ABG Total CO2 (19-24) mmol/L Carbon Dioxide 35 H (22-30) mmol/L BUN 38 H (9-20) mg/dL Creatinine 0.54 L (0.66-1.25) mg/dL Glucose 173 H (74-99) mg/dL POC Glucose (mg/dL) 151 H 157 H (70-110) mg/dL Calcium 8.1 L (8.4-10.2) mg/dL 09/11/22 09/11/22 09/11/22 Range/Units 05:45 06:06 06:26 WBC 12.0 H (3.8-10.6) k/uL RBC 4.09 L (4.30-5.90) m/uL Hgb 12.3 L (13.0-17.5) gm/dL Hct 38.7 L (39.0-53.0) % Plt Count 142 L (150-450) k/uL Neutrophils # 10.7 H (1.3-7.7) k/uL Lymphocytes # 0.7 L (1.0-4.8) k/uL ABG pCO2 52 H (35-45) mmHg ABG pO2 72 L (83-108) mmHg ABG HCO3 36 H (21-25) mmol/L ABG Total CO2 38 H (19-24) mmol/L Carbon Dioxide (22-30) mmol/L BUN (9-20) mg/dL Creatinine (0.66-1.25) mg/dL Glucose (74-99) mg/dL POC Glucose (mg/dL) 181 H (70-110) mg/dL Calcium (8.4-10.2) mg/dL 09/11/22 09/11/22 09/11/22 Range/Units 07:07 08:06 08:58 WBC (3.8-10.6) k/uL RBC (4.30-5.90) m/uL Hgb (13.0-17.5) gm/dL Hct (39.0-53.0) % Plt Count (150-450) k/uL Neutrophils # (1.3-7.7) k/uL Lymphocytes # (1.0-4.8) k/uL ABG pCO2 (35-45) mmHg ABG pO2 (83-108) mmHg ABG HCO3 (21-25) mmol/L ABG Total CO2 (19-24) mmol/L Carbon Dioxide (22-30) mmol/L BUN (9-20) mg/dL Creatinine (0.66-1.25) mg/dL Glucose (74-99) mg/dL POC Glucose (mg/dL) 197 H 201 H 203 H (70-110) mg/dL Calcium (8.4-10.2) mg/dL 09/11/22 09/11/22 Range/Units 10:03 10:57 WBC (3.8-10.6) k/uL RBC (4.30-5.90) m/uL Hgb (13.0-17.5) gm/dL Hct (39.0-53.0) % Plt Count (150-450) k/uL Neutrophils # (1.3-7.7) k/uL Lymphocytes # (1.0-4.8) k/uL ABG pCO2 (35-45) mmHg ABG pO2 (83-108) mmHg ABG HCO3 (21-25) mmol/L ABG Total CO2 (19-24) mmol/L Carbon Dioxide (22-30) mmol/L BUN (9-20) mg/dL Creatinine (0.66-1.25) mg/dL Glucose (74-99) mg/dL POC Glucose (mg/dL) 174 H 192 H (70-110) mg/dL Calcium (8.4-10.2) mg/dL Microbiology - Last 24 Hours (Table) 09/07/22 11:00 Blood Culture - Preliminary Blood Assessment and Plan Assessment: Impression: Acute hypoxic respiratory failure secondary to multilobar pneumonia secondary to E. coli. Chest x-ray today is showing some improvement. Sepsis and septic shock secondary to E. coli pneumonia and bacteremia. Patient is now on Unasyn. Hypotension, resolved. This was felt to be secondary to septic shock. Acute hypercapnic respiratory failure Acute leukocytosis secondary to pneumonia and sepsis. Acute exacerbation of COPD Acute toxic metabolic encephalopathy/altered mental status Acute kidney injury secondary to sepsis and septic shock. Resolved. Chronic tobacco dependence syndrome. Suspect small bilateral pleural effusions , slight improvement with diuretics noted today Recommendation: Hold sedation today and assess weaning parameters, and if well may consider weaning trial with pressure support of 10 and CPAP. If the patient gets agitated off sedation may consider Precedex. Continue ventilatory support, however the patient will be given a trial of weaning hopefully today. Continue nutritional support/enteral feeding. Patient is still receiving vital Hp Continue GI and DVT prophylaxis including Lovenox and Protonix. Continue Unasyn. Continue Lasix twice a day. Continue bronchodilators/DuoNeb, continue Solu-Medrol. Continue insulin infusion, and titrate accordingly maintaining a blood sugar between 150 and 200 Patient is critically ill, nonetheless a trial of weaning will likely be given today, may have to use Precedex off sedation Prognosis remains guarded. Patient remains critically ill Critical care time is over 30 minutes Time with Patient: Greater than 30
[2022-09-11 11:58] LABS: Allen Test Performed? Yes
[2022-09-11 12:00] LABS: ABG HCO3 38 mmol/L (21-25); ABG Oxygen Saturation 95.2 % (94-97); ABG PCO2 51 mmHg (35-45); ABG PH 7.47 (7.35-7.45); ABG PO2 71 mmHg (83-108); ABG TCO2 39 mmol/L (19-24)
[2022-09-11 12:13] LABS: Glucose,Whole Blood 163 mg/dL (70-110)
[2022-09-11 13:27] LABS: Glucose,Whole Blood 134 mg/dL (70-110)
[2022-09-11 16:00] LABS: Glucose,Whole Blood 220 mg/dL (70-110)
[2022-09-11 16:00] LABS: Glucose,Whole Blood 175 mg/dL (70-110)
[2022-09-11] MEDS ORDERED: DEXTROSE 50% SYRINGE 50 ML IVP PRN ×2 (17:07)
[2022-09-11] MEDS: INSULIN ASPART (NovoLOG) 100 UNIT/ML VIAL SQ SCH ×2 (18:04→21:32)
[2022-09-11] MEDS: NYSTATIN 100,000 UNIT/ML SUSP 500,000 UNIT/5 ML CUP PO SCH ×2 (18:05→22:16)
[2022-09-11 21:23] LABS: Glucose,Whole Blood 200 mg/dL (70-110)
[2022-09-12] MEDS: IPRATROPIUM-ALBUTEROL 3 ML NEB INHALATION SCH ×6 (00:04→19:32)
[2022-09-12] MEDS: AMPICILLIN-SULBACTAM 3 GM in SODIUM CHLORIDE 0.9% 100 ML IVPB SCH ×4 (04:55→22:03)
[2022-09-12] MEDS: methylPREDNISolone SOD SUCCI 125 MG/2 ML VIAL IV SCH (04:55)
[2022-09-12] MEDS: DEXMEDETOMIDINE/0.9% NACL(PMX) 400 MCG in EMPTY BAG 1 BAG IV SCH (07:05)
[2022-09-12 07:08] LABS: Glucose,Whole Blood 188 mg/dL (70-110)
[2022-09-12] MEDS: INSULIN ASPART (NovoLOG) 100 UNIT/ML VIAL SQ SCH ×4 (08:19→20:45)
[2022-09-12] MEDS: INSULIN DETEMIR (LEVEMIR) 100 UNIT/ML SYR SQ SCH (08:20)
[2022-09-12] MEDS: DOCUSATE ORAL SOLN 100 MG/10 ML CUP PO SCH (08:20)
[2022-09-12] MEDS: NYSTATIN 100,000 UNIT/ML SUSP 500,000 UNIT/5 ML CUP PO SCH ×4 (08:20→22:03)
[2022-09-12] MEDS: amLODIPine 5 MG TAB PO SCH ×2 (08:20→20:45)
[2022-09-12] MEDS: ENOXAPARIN 40 MG/0.4 ML SYRINGE SQ SCH (08:20)
[2022-09-12] MEDS: PANTOPRAZOLE 40 MG/10 ML VIAL IVP SCH (08:21)
[2022-09-12] MEDS: FUROSEMIDE 10 MG/ML 4 ML VIAL IV SCH (08:21)
[2022-09-12] MEDS ORDERED: IPRATROPIUM-ALBUTEROL 3 ML NEB INHALATION PRN (08:43)
[2022-09-12 09:07] LABS: Basophils % (A) 0 %; Eosinophils % (A) 0 %; HCT 45.6 % (39.0-53.0); HGB 14.6 gm/dL (13.0-17.5); Lymphocytes # (A) 0.7 k/uL (1.0-4.8); Lymphocytes % (A) 5 %; MCH 29.5 pg (25.0-35.0); MCHC 31.9 g/dL (31.0-37.0); MCV 92.3 fL (80.0-100.0); Mean Platelet Volume 8.9; Monocytes # (A) 0.6 k/uL (0-1.0); Monocytes % (A) 4 %; Neutrophils # (A) 12.8 k/uL (1.3-7.7); Neutrophils % (A) 90 %; Platelet Count 147 k/uL (150-450); RBC 4.94 m/uL (4.30-5.90); RDW 12.8 % (11.5-15.5); WBC 14.3 k/uL (3.8-10.6)
[2022-09-12 09:17] LABS: African American GFR (CKD) >90 (>60 ml/min/1.73 sqM); Anion Gap 7 mmol/L; Blood Urea Nitrogen 36 mg/dL (9-20); Calcium 8.5 mg/dL (8.4-10.2); Carbon Dioxide 33 mmol/L (22-30); Chloride 99 mmol/L (98-107); Glucose 207 mg/dL (74-99); Non-African American GFR(CKD) >90 (>60 ml/min/1.73 sqM); Potassium 3.8 mmol/L (3.5-5.1); Sodium 139 mmol/L (137-145)
[2022-09-12] MEDS: FUROSEMIDE 40 MG TAB PO SCH ×2 (09:22→16:43)
[2022-09-12] MEDS: PANTOPRAZOLE 40 MG TABLET PO SCH (09:22)
--- NOTE | 2022-09-12 09:48 | XR ---
EXAMINATION TYPE: XR chest 1V portable DATE OF EXAM: 09/12/2022 COMPARISON: 09/11/2022 HISTORY: Shortness of breath. TECHNIQUE: Single frontal view of the chest is obtained. FINDINGS: Interval removal of the ET tube and NG tube. Right jugular central venous catheter unchang ed. Improved aeration in the lung bases bilaterally with markedly diminished nearly completely resolved i nfiltrates. There are small bilateral pleural effusions. Heart size normal vasculature is not congested. There is no pneumothorax. The osseous structures are intact. IMPRESSION: 1. Acute cardiopulmonary disease with significant interval improvement in the lung bases described ab ove. 2. Interval removal of the ET tube and NG tube and there is no pneumothorax.
[2022-09-12] MEDS ORDERED: Potassium Replacement Protocol 1 EACH MISC MISCELLANE PRN (09:55)
[2022-09-12] MEDS: predniSONE 10 MG TAB PO SCH (10:12)
[2022-09-12] MEDS ORDERED: POTASSIUM CHLORIDE ER 20 MEQ TAB.ER PO SCH (11:00)
--- NOTE | 2022-09-12 11:44 | P.PN ---
Subjective Progress Note Date: 09/12/22 Principal diagnosis: Acute hypoxic respiratory failure secondary to acute multilobar pneumonia/E. coli pneumonia, and sepsis and septic shock A 61-year-old mentation, known history of COPD, chronic smoker who continues to smoke approximately a pack of cigarettes a day, presenting with progressively worsening shortness of breath over the past 1 week. The patient was seen in the emergency department. The patient was already on a BiPAP at a pressure of 12/6 with an FiO2 of 60%. He was still having significant labored breathing, and he was tachypneic and his rate was ranging between 30-40 and he had marked diminished breath sounds bilaterally. His mentation was quite diminished and the patient seemed to be altered yet arousable. The was at the bedside. This patient does not seem to have had an evaluation with pulmonary in the past. Based on the reported history by the , he has been maintained on Advair and albuterol rescue inhaler on an outpatient basis. No home O2. He was experiencing pleuritic right-sided chest pain along with cough and congestion. He ended up in the emergency department this afternoon. Based on his labored breathing, immediately was placed on a BiPAP. I discussed the case with the emergency room physician. The patient is a higher risk of going into respiratory failure requiring intubation mechanical ventilation and I made the aware of. Meanwhile, if it was worth was given patient a trial of noninvasive positive pressure ventilation. White cell count was 36.8 with a hemoglobin of 14.4. Acute kidney injury with a BUN of 18 and a creatinine of 1.5 and sodium level of 133. His LFTs were essentially normal. The vital screening including influenza a and influenza B and RSV and Covid 19 testing was negative. Lactic acid level was at 1.8. Troponins were negative. Blood gas was ordered. Reviewed the CAT scan of the chest and there is no evidence of pulmonary embolism. The patient had extensive airspace disease more pronounced in the right middle lobe and the right upper lobe and the patient had other peripheral wedge-shaped pulmonary infiltrates. Predominant consolidation within the right upper lobe. There was also background mild centrilobular emphysema. No history of diabetes mellitus. Nosocomial artery disease. No history of any stroke. 09/06/2022, the patient remains intubated on a mechanical ventilator. The patient extensive pneumonia involving the right lung with some limited inf iltration of the left secondary to E. coli. Sputum is positive for E. coli, blood cultures also positive for E. coli. The patient is currently on IV Unasyn. Chest x-ray from today still showing persistent infiltration/consolidation of the right lung especially the right middle lobe and right base and there is also infiltration of the left lung base. Bronchoscopy in the lavage was done and the results are still pending for now. Meanwhile, he is hemodynamically stable and is on no pressors. He was given a sedation holiday yesterday and he was able to arouse without any major difficulties. He was not ready for weaning and a weaning trial was not done and a sedation holiday was aborted. Currently, he's on propofol running at 50 mcg/kg/m. He is on assist-control mode of mechanical ventilation at the rate of 20, tidal volume of 500, FiO2 40% with a PEEP of 5. The peak airway pressure is currently at 26. The white cell count of 20.5. Hemoglobin is 11.2.. The patient also has an elevated pro-calcitonin level which remains elevated at 34.7. Meanwhile, his electrolytes are stable. Sodium is at 139 with a potassium level of 4.7, BUN is 31 with a creatinine of 0.8. He is receiving enteral feeding for nutritional support and is currently on vital high-protein at the rate of 40 mL an hour. The fluid balance over the past 24 hours has been in the order of +725 mL. No significant peripheral edema at this point in time. Patient was reevaluated today on 09/07/2022, patient remains in the ICU, intubated and mechanically ventilated. Patient is now on assist control rate of 2012 volume 500 FiO2 40% and PEEP of 5. ABG showed a pO2 of 72 pCO2 46 pH of 7.43, no changes were made in the ventilator settings. Patient was initially intubated on 09/02/2022, and he remains intubated. Chest x-ray showed bilateral infiltrates and pleural effusions consistent with pneumonia. WBC count is elevated at 19.0, however seems to be steadily improving considering it was 36.8 on 09/02 initially. Basic metabolic profile is normal renal profile is normal pro-calcitonin level is trending down and it is 10.1. Sputum has been positive for E. coli. Patient continues to have chronic changes in his bilateral lower extremities. Patient remains on Unasyn. He is also on GI and DVT prophylaxis including Lovenox, and he is on pantoprazole 40 mg IV push twice a day. I saw him this morning he was off propofol, he was earlier on 15 mcg/kg/m, however the patient is a bit restless, agitated, tachypneic, and I recommended. He goes back on propofol, he is not quite ready for weaning. Patient remains on bronchodilators in the form of DuoNeb updrafts 4 times a day and when necessary, he is also on methylprednisolone 60 mg IV push every 6 hours. IV fluid is 0.9 normal saline at 40 mL per hour. Patient is having good urine output. Patient remains on enteral feeding Patient was reevaluated today on 09/08/2022, remains in the ICU, intubated, sedated, mechanically ventilated, he is on assist control rate of 20 tidal volume 500 FiO2 50% and PEEP of 5. ABG showed a pO2 of 80 pCO2 46 pH of 7.46. Hence no changes were made in his ventilator settings. Patient is requiring propofol at 60 mcg/kg/m, he is also on 0.9 normal saline at 40 mL per hour. Not requiring presently any pressors, patient is going to be placed on amlodipine 5 mg twice a day for elevated blood pressure. Chest x-ray continues to show bilateral infiltrates., Small bilateral pleural effusions noted. Patient is receiving nutritional support vital HP 64/64. Antibiotics have been changed by infectious disease to Unasyn patient had E. coli pneumonia and E. coli bacteremia. WBC count today is 14.1 hemoglobin is 12.1 electrolytes are normal renal profile is normal, liver profile is normal Patient was reevaluated today on 09/09/2022, remains in the ICU, intubated and mechanically ventilated. Patient remains on assist control rate of 20 tidal volume 500 FiO2 50% and PEEP of 5. ABG showed a pO2 of 75 pCO2 51 pH of 7.42. Chest x-ray today is showing worsening pneumonic process involving the right lower lobe. And his gases are marginal, hence I have no plans to address weaning today on this patient. Patient is hemodynamically stable, not requiring any pressors, sugars are running to be a bit high, hence his Levemir insulin was increased. Patient remains on propofol at 30 mcg/kg/m, IV fluids at 40 mL/h the form of 0.9 normal saline. He is off clevidipine. Remains on Unasyn for his E. coli pneumonia and sepsis/bacteremia.. WBC count is 12 hemoglobin 12.1. Basic metabolic profile is normal, renal profile is normal blood sugars are running in the 300+ range, may consider insulin infusion if sugars remain high after increasing the dose of Levemir insulin. In the meantime continue insulin as per scale/subcu Reevaluated today on 09/10/2022, patient remains in the ICU, intubated and mechanically ventilated. Patient remains on propofol at 65 mcg/kg/m, he was placed last night on fentanyl at 0.5 mcg/kg/h because of intermittent agitation on high dose of propofol, today he seems to be quite sedated and calm with both fentanyl and propofol. His assist-control rate is 20 tidal volume 500 FiO2 50% PEEP of 5. Peak airway pressure is 28 plateau pressures 18. Chest x-ray continues to show bilateral lower opacities and suspect some ongoing pleural effusion for which I recommended diuretics Lasix 40 mg IV push every 12 hours. Cut down his IV fluid to KVO. Patient remains on a vital HP at 64 mL per hour. Patient remains on Unasyn for his E. coli pneumonia and bacteremia. And today I added insulin because his sugars are poorly controlled, will discontinue Levemir insulin and start the patient on IV insulin. We will titrate insulin today blood sugar of 150 up to 200 Reevaluated today on 09/11/2022, patient remains in the ICU, intubated and mechanically ventilated. Patient is on assist control rate of 20 tidal volume 500 FiO2 50% PEEP of 5. Peak airway pressure is 31 plateau pressure is 19. ABG showed a pO2 of 72 he CO2 of 52 pH of 7.45. Hence no changes were made in the vent settings. Chest x-ray is showing some improvement in the right-sided pleural effusion and atelectasis. On physical examination the patient sounded fairly clear. Hence I will give the patient today a trial if weaning if possible. Remains on propofol at 55 mcg/kg/m fentanyl at 0.5 mcg/kg/h patient is receiving insulin at 7.7 units per hour. Receiving vital HP 65 mL per hour. And he continues to diurese and respond well to Lasix twice a day. WBC count today is 12 hemoglobin is 12.3. Basic metabolic profile is normal, renal profile is normal BUN is 38 creatinine 0.54. Pro-calcitonin was last 10.10 and I was on 09/07 Reevaluated today on , patient remains in the ICU, he was extubated yesterday, and so far he seems to be tolerating the extubation quite well. Sb orellana is on 6 L nasal cannula, does not seem to be in any distress, he has BiPAP at bedside, but did not use it. Patient remains on Unasyn. He remains on Lasix at 40 mg twice a day, his Stapleton catheter was discontinued today, and I plan to have the patient sit up in the chair today. Plan to switch some of his medications to oral medications including the prednisone would become 40 mg by mouth daily, and I plan to watch him for another day in the ICU, possibly transfer out of the ICU in the next 24 hours. Chest x-ray is showing right basilar atelectasis, significant improvement in his overall chest x-ray findings compared to the chest x-rays done in the last few days. WBC count is 14.3 he moglobin 14.6 electrodes are normal renal profile is normal bicarb is 33 Objective - Vital Signs Vital signs: Vital Signs Temp 98.2 F 09/12/22 08:00 Pulse 79 09/12/22 10:00 Resp 18 09/12/22 10:00 BP 132/85 09/12/22 10:00 Pulse Ox 93 L 09/12/22 10:00 FiO2 50 09/11/22 13:00 Intake & Output 09/11/22 09/12/22 09/12/22 18:59 06:59 18:59 Intake Total 463.083 4600 280 Output Total 2860 3185 880 Balance -1984.384 -195 -600 Weight 95.7 kg 93.8 kg Intake: IV 323 420 80 Ampicillin-Sulbactam 3 gm 200 200 In Sodium Chloride 0.9% 100 ml @ 200 mls/hr IVPB Q6H [facility] Rx#:[id number] Pressure Bag (0.9 sodium 3 chloride) Sodium Chloride 0.9% 1, 120 220 80 000 ml @ 10 mls/hr IV . Q24H [facility] Rx#:[id number] Intake, IV Titration 259.616 Amount Ampicillin-Sulbactam 3 gm 100 In Sodium Chloride 0.9% 100 ml @ 200 mls/hr IVPB Q6H [facility] Rx#:[id number] Dexmedetomidine/0.9% NaCl 22.810 (Pmx) 400 mcg In Empty Bag 1 bag @ 0.2 MCG/KG/HR 4.785 mls/hr IV .[id number] [facility] Rx#:[id number] Insulin Regular 100 unit 73.833 In Sodium Chloride 0.9% 100 ml @ Titrate IV .Q0M [facility] Rx#:[id number] propofoL 1,000 mg In 62.973 Empty Bag 1 bag @ 15 MCG/ KG/MIN 7.348 mls/hr IV . [id number] [facility] Rx#:[id number] Oral 100 810 200 Tube Feeding 192 Other 0 Output: Urine 2860 3185 880 Other: Voiding Method Indwelling Catheter Indwelling Catheter Indwelling Catheter ABP, PAP, CO, CI - Last Documented Arterial Blood Pressure 94/89 Pulmonary Artery Pressure 114/55 - Exam Physical Exam: Revealed 61-year-old white male , on nasal cannula, in no distress Head: Atraumatic, normocephalic. HEENT:[Neck is supple.] [No neck masses.] [No thyromegaly.] [No JVD.] Chest: [Symmetrical chest expansion, diminished breath sounds at the bases, no crackles or rhonchi or wheezes Cardiac Exam: [Normal S1 and S2, no S3 gallop, no murmur.] Abdomen: [Obese, Soft, nontender, no megaly, no rebound, no guarding, normal bowel sounds.] Extremities: Trace of bipedal edema with chronic changes of venous stasis noted bilaterally. Neurological Exam: Alert oriented 3.no Focal neurologic deficit Psychiatric: Could not fully assess. Skin: Chronic venous stasis changes noted in lower extremities. Keratosis is noted in both lower extremities/anterior aspect. Musculoskeletal: Normal range of motion, no deformities - Labs CBC & Chem 7: 09/12/22 08:08 09/12/22 08:08 Labs: Abnormal Lab Results - Last 24 Hours (Table) 09/11/22 09/11/22 09/11/22 Range/Units 11:56 12:11 13:06 WBC (3.8-10.6) k/uL Plt Count (150-450) k/uL Neutrophils # (1.3-7.7) k/uL Lymphocytes # (1.0-4.8) k/uL ABG pH 7.47 H (7.35-7.45) ABG pCO2 51 H (35-45) mmHg ABG pO2 71 L (83-108) mmHg ABG HCO3 38 H (21-25) mmol/L ABG Total CO2 39 H (19-24) mmol/L Carbon Dioxide (22-30) mmol/L BUN (9-20) mg/dL Creatinine (0.66-1.25) mg/dL Glucose (74-99) mg/dL POC Glucose (mg/dL) 163 H 134 H (70-110) mg/dL 09/11/22 09/11/22 09/11/22 Range/Units 13:58 15:57 21:21 WBC (3.8-10.6) k/uL Plt Count (150-450) k/uL Neutrophils # (1.3-7.7) k/uL Lymphocytes # (1.0-4.8) k/uL ABG pH (7.35-7.45) ABG pCO2 (35-45) mmHg ABG pO2 (83-108) mmHg ABG HCO3 (21-25) mmol/L ABG Total CO2 (19-24) mmol/L Carbon Dioxide (22-30) mmol/L BUN (9-20) mg/dL Creatinine (0.66-1.25) mg/dL Glucose (74-99) mg/dL POC Glucose (mg/dL) 175 H 220 H 200 H (70-110) mg/dL 09/12/22 09/12/22 09/12/22 Range/Units 07:08 08:08 08:08 WBC 14.3 H (3.8-10.6) k/uL Plt Count 147 L (150-450) k/uL Neutrophils # 12.8 H (1.3-7.7) k/uL Lymphocytes # 0.7 L (1.0-4.8) k/uL ABG pH (7.35-7.45) ABG pCO2 (35-45) mmHg ABG pO2 (83-108) mmHg ABG HCO3 (21-25) mmol/L ABG Total CO2 (19-24) mmol/L Carbon Dioxide 33 H (22-30) mmol/L BUN 36 H (9-20) mg/dL Creatinine 0.58 L (0.66-1.25) mg/dL Glucose 207 H (74-99) mg/dL POC Glucose (mg/dL) 188 H (70-110) mg/dL Microbiology - Last 24 Hours (Table) 09/07/22 11:00 Blood Culture - Preliminary Blood Assessment and Plan Assessment: Impression: Acute hypoxic respiratory failure secondary to multilobar pneumonia secondary to E. coli. Required intubation on 09/02, extubated on 09/11, so far seems to be tolerating the extubation well. Sepsis and septic shock secondary to E. coli pneumonia and bacteremia. Patient is now on Unasyn. Hypotension, resolved. This was felt to be secondary to septic shock. Acute hypercapnic respiratory failure Acute leukocytosis secondary to pneumonia and sepsis. Acute exacerbation of COPD Acute toxic metabolic encephalopathy/altered mental status , resolved Acute kidney injury secondary to sepsis and septic shock. Resolved. Chronic tobacco dependence syndrome. Recommendation: Continue nasal cannula and titrate accordingly Keep BiPAP at bedside if needed Ambulate patient out of bed today bedside chair or recliner Continue antibiotics/Unasyn may transition to oral Augmentin in the next 24 hours, possibly discontinue antibiotics altogether in the next 24 hours Advanced diet as tolerated Continue GI and DVT prophylaxis including Lovenox and Protonix. Continue Lasix orally Continue bronchodilators and transition Solu-Medrol to oral prednisone. Continue Levemir insulin and NovoLog insulin We'll continue to monitor in the ICU for next 24 hours and possibly transferred to a regular medical floor tomorrow. Discontinue Stapleton catheter and unnecessary catheters or lines. Possibly discontinue central line in the next 24 hours We will continue to follow Time with Patient: Less than 30
[2022-09-12 11:59] LABS: Glucose,Whole Blood 237 mg/dL (70-110)
[2022-09-12] MEDS: SODIUM CHLORIDE 0.9% 1,000 ML IV SCH (12:00)
[2022-09-12] MEDS: Acetaminophen-Codeine 300-30mg TAB PO PRN (12:20)
--- NOTE | 2022-09-12 14:50 | P.PN ---
Subjective Progress Note Date: 09/11/22 Principal diagnosis: Pneumonia and bacteremia Patient is a 61-year-old male with a past medical history of asthma patient is a smoker has been brought into the ER for evaluation of increasing shortness of breath and chills, the patient did have evidence of right-sided p neumonia and worsening respiratory distress requiring intubation blood cultures subsequently came back positive with E. coli. The patient is status post bronchoscopy and was completed on 09/04/2022 On today's evaluation that is 09/11/2022, Pt is afebrile today, the patient is hemodynamically stable not requiring any pressor support with the nursing staff , the patient has been extubated is currently breathing comfortably on oxygen slightly lethargic and very good historian no vomiting or diarrhea has been reported Objective - Vital Signs Vital signs: Vital Signs Temp 98.2 F 09/11/22 12:00 Pulse 75 09/11/22 12:00 Resp 22 09/11/22 12:00 BP 118/62 09/11/22 12:00 Pulse Ox 91 L 09/11/22 12:00 FiO2 50 09/11/22 12:00 Intake & Output 09/11/22 Intake Total 874.616 Output Total 2860 Balance -1985.384 Weight 95.7 kg Intake: IV 323 Ampicillin-Sulbactam 3 gm 200 In Sodium Chloride 0.9% 100 ml @ 200 mls/hr IVPB Q6H [facility] Rx#:[id number] Pressure Bag (0.9 sodium 3 chloride) Sodium Chloride 0.9% 1, 120 000 ml @ 10 mls/hr IV . Q24H [facility] Rx#:[id number] Intake, IV Titration 259.616 Amount Ampicillin-Sulbactam 3 gm 100 In Sodium Chloride 0.9% 100 ml @ 200 mls/hr IVPB Q6H [facility] Rx#:[id number] Dexmedetomidine/0.9% NaCl 22.810 (Pmx) 400 mcg In Empty Bag 1 bag @ 0.2 MCG/KG/HR 4.785 mls/hr IV .[id number] [facility] Rx#:[id number] Insulin Regular 100 unit 73.833 In Sodium Chloride 0.9% 100 ml @ Titrate IV .Q0M [facility] Rx#:[id number] propofoL 1,000 mg In 62.973 Empty Bag 1 bag @ 15 MCG/ KG/MIN 7.348 mls/hr IV . [id number] [facility] Rx#:[id number] Oral 100 Tube Feeding 192 Other 0 Output: Urine 2860 Other: Voiding Method Indwelling Catheter ABP, PAP, CO, CI - Last Documented Arterial Blood Pressure 94/89 Pulmonary Artery Pressure 114/55 - Exam GENERAL DESCRIPTION: Middle-age male lying in bed in no distress RESPIRATORY SYSTEM: Unlabored breathing , diminished breath sounds, no wheeze HEART: S1 S2 regular rate and rhythm , ABDOMEN: Soft , mild distention but no tenderness EXTREMITIES: Diffuse swelling of lower extremity no redness - Labs CBC & Chem 7: 09/12/22 08:08 09/12/22 08:08 Labs: Abnormal Lab Results - Last 24 Hours (Table) 09/11/22 09/11/22 09/11/22 Range/Units 13:58 15:57 21:21 WBC (3.8-10.6) k/uL Plt Count (150-450) k/uL Neutrophils # (1.3-7.7) k/uL Lymphocytes # (1.0-4.8) k/uL Carbon Dioxide (22-30) mmol/L BUN (9-20) mg/dL Creatinine (0.66-1.25) mg/dL Glucose (74-99) mg/dL POC Glucose (mg/dL) 175 H 220 H 200 H (70-110) mg/dL 09/12/22 09/12/22 09/12/22 Range/Units 07:08 08:08 08:08 WBC 14.3 H (3.8-10.6) k/uL Plt Count 147 L (150-450) k/uL Neutrophils # 12.8 H (1.3-7.7) k/uL Lymphocytes # 0.7 L (1.0-4.8) k/uL Carbon Dioxide 33 H (22-30) mmol/L BUN 36 H (9-20) mg/dL Creatinine 0.58 L (0.66-1.25) mg/dL Glucose 207 H (74-99) mg/dL POC Glucose (mg/dL) 188 H (70-110) mg/dL 09/12/22 Range/Units 11:58 WBC (3.8-10.6) k/uL Plt Count (150-450) k/uL Neutrophils # (1.3-7.7) k/uL Lymphocytes # (1.0-4.8) k/uL Carbon Dioxide (22-30) mmol/L BUN (9-20) mg/dL Creatinine (0.66-1.25) mg/dL Glucose (74-99) mg/dL POC Glucose (mg/dL) 237 H (70-110) mg/dL Microbiology - Last 24 Hours (Table) 09/07/22 11:00 Blood Culture - Preliminary Blood Assessment and Plan (1) Bacteremia Current Visit: Yes Status: Acute Code(s): R78.81 - BACTEREMIA SNOMED Code(s): 9849301 (2) Pneumonia Current Visit: Yes Status: Acute Code(s): J18.9 - PNEUMONIA, UNSPECIFIED ORGANISM SNOMED Code(s): 247898733 Plan: 1patient was in the hospital with sepsis in this patient with a fever tachycardia hypoxemia source is likely right-sided pneumonia with blood cultures coming positive for E. coli not a very common pathogen to cause pneumonia we will wait for the final ID and sensitivities patient urine is negative abdominal soft on clinical exam and no clear history of any vomiting abdominal pain however there is a history of constipation did provided by the family member at the bedside 2- CT of abdominal pelvis question of appendicitis for the patient has been evaluated by general surgery and has been ruled out clinically with no need for any intervention 3-patient E. coli sensitive pathogen with concern for possible aspiration pneumonia, patient repeat blood culture has been negative so far 4-the patient to continue with Unasyn Time with Patient: Less than 30
--- NOTE | 2022-09-12 14:53 | P.PN ---
Subjective Progress Note Date: 09/12/22 Principal diagnosis: Pneumonia and bacteremia Patient is a 61-year-old male with a past medical history of asthma patient is a smoker has been brought into the ER for evaluation of increasing shortness of breath and chills, the patient did have evidence of right-sided p neumonia and worsening respiratory distress requiring intubation blood cultures subsequently came back positive with E. coli. The patient is status post bronchoscopy and was completed on 09/04/2022 On today's evaluation that is 09/12/2022, the patient remains to be afebrile, the patient is hemodynamically stable not requiring any pressor support , the patient is breathing comfortably on 4l nasal canula oxygen , the patient denies having any chest pain shortness of breath, no abdominal pain or diarrhea Objective - Vital Signs Vital signs: Vital Signs Temp 98.2 F 09/12/22 12:00 Pulse 75 09/12/22 12:14 Resp 22 09/12/22 12:14 BP 118/62 09/12/22 12:14 Pulse Ox 91 L 09/12/22 12:14 FiO2 50 09/11/22 13:00 Intake & Output 09/11/22 09/12/22 09/12/22 18:59 06:59 18:59 Intake Total 619.206 1887 500 Output Total 2860 3185 1430 Balance -1984.384 -1954 -930 Weight 95.7 kg 93.8 kg Intake: IV 323 420 200 Ampicillin-Sulbactam 3 gm 200 200 100 In Sodium Chloride 0.9% 100 ml @ 200 mls/hr IVPB Q6H JET Rx#:[id number] Pressure Bag (0.9 sodium 3 chloride) Sodium Chloride 0.9% 1, 120 220 100 000 ml @ 10 mls/hr IV . Q24H JET Rx#:[id number] Intake, IV Titration 259.616 Amount Ampicillin-Sulbactam 3 gm 100 In Sodium Chloride 0.9% 100 ml @ 200 mls/hr IVPB Q6H JET Rx#:[id number] Dexmedetomidine/0.9% NaCl 22.810 (Pmx) 400 mcg In Empty Bag 1 bag @ 0.2 MCG/KG/HR 4.785 mls/hr IV .[id number] JET Rx#:[id number] Insulin Regular 100 unit 73.833 In Sodium Chloride 0.9% 100 ml @ Titrate IV .Q0M JET Rx#:[id number] propofoL 1,000 mg In 62.973 Empty Bag 1 bag @ 15 MCG/ KG/MIN 7.348 mls/hr IV . [id number] JET Rx#:[id number] Oral 100 810 300 Tube Feeding 192 Other 0 Output: Urine 2860 3185 1430 Other: Voiding Method Indwelling Catheter Indwelling Catheter Indwelling Catheter ABP, PAP, CO, CI - Last Documented Arterial Blood Pressure 94/89 Pulmonary Artery Pressure 114/55 - Exam GENERAL DESCRIPTION: Middle-age male lying in bed in no distress RESPIRATORY SYSTEM: Unlabored breathing , diminished breath sounds, no wheeze HEART: S1 S2 regular rate and rhythm , ABDOMEN: Soft , mild distention but no tenderness EXTREMITIES: Diffuse swelling of lower extremity no redness - Labs CBC & Chem 7: 09/12/22 08:08 09/12/22 08:08 Labs: Abnormal Lab Results - Last 24 Hours (Table) 09/11/22 09/11/22 09/11/22 Range/Units 13:58 15:57 21:21 WBC (3.8-10.6) k/uL Plt Count (150-450) k/uL Neutrophils # (1.3-7.7) k/uL Lymphocytes # (1.0-4.8) k/uL Carbon Dioxide (22-30) mmol/L BUN (9-20) mg/dL Creatinine (0.66-1.25) mg/dL Glucose (74-99) mg/dL POC Glucose (mg/dL) 175 H 220 H 200 H (70-110) mg/dL 09/12/22 09/12/22 09/12/22 Range/Units 07:08 08:08 08:08 WBC 14.3 H (3.8-10.6) k/uL Plt Count 147 L (150-450) k/uL Neutrophils # 12.8 H (1.3-7.7) k/uL Lymphocytes # 0.7 L (1.0-4.8) k/uL Carbon Dioxide 33 H (22-30) mmol/L BUN 36 H (9-20) mg/dL Creatinine 0.58 L (0.66-1.25) mg/dL Glucose 207 H (74-99) mg/dL POC Glucose (mg/dL) 188 H (70-110) mg/dL 09/12/22 Range/Units 11:58 WBC (3.8-10.6) k/uL Plt Count (150-450) k/uL Neutrophils # (1.3-7.7) k/uL Lymphocytes # (1.0-4.8) k/uL Carbon Dioxide (22-30) mmol/L BUN (9-20) mg/dL Creatinine (0.66-1.25) mg/dL Glucose (74-99) mg/dL POC Glucose (mg/dL) 237 H (70-110) mg/dL Microbiology - Last 24 Hours (Table) 09/07/22 11:00 Blood Culture - Preliminary Blood Assessment and Plan (1) Bacteremia Current Visit: Yes Status: Acute Code(s): R78.81 - BACTEREMIA SNOMED Code(s): 7200314 (2) Pneumonia Current Visit: Yes Status: Acute Code(s): J18.9 - PNEUMONIA, UNSPECIFIED ORGANISM SNOMED Code(s): 763766687 Plan: 1patient was in the hospital with sepsis in this patient with a fever tachycardia hypoxemia source is likely right-sided pneumonia with blood cultures coming positive for E. coli not a very common pathogen to cause pneumonia we will wait for the final ID and sensitivities patient urine is negative abdominal soft on clinical exam and no clear history of any vomiting abdominal pain however there is a history of constipation did provided by the family member at the bedside 2- CT of abdominal pelvis question of appendicitis for the patient has been shahid luated by general surgery and has been ruled out clinically with no need for any intervention 3-patient E. coli sensitive pathogen with concern for possible aspiration pneumonia, patient repeat blood culture has been negative so far , the patient white count is mildly elevated at 14.2 today and monitor closely, chest x-ray from this morning shows improvement 4-the patient to continue with Unasyn and will recheck inflammatory markers with a.m. lab Time with Patient: Less than 30
--- NOTE | 2022-09-12 15:08 | P.PN ---
Subjective Progress Note Date: 09/12/22 Acute hypoxic respiratory failure secondary to acute multilobar pneumonia/E. coli pneumonia, and sepsis and septic shock A 61-year-old mentation, known history of COPD, chronic smoker who continues to smoke approximately a pack of cigarettes a day, presenting with progressively worsening shortness of breath over the past 1 week. The patient was seen in the emergency department. The patient was already on a BiPAP at a pressure of 12/6 with an FiO2 of 60%. He was still having significant labored breathing, and he was tachypneic and his rate was ranging between 30-40 and he had marked diminished breath sounds bilaterally. His mentation was quite diminished and the patient seemed to be altered yet arousable. The was at the bedside. This patient does not seem to have had an evaluation with pulmonary in the past. Based on the reported history by the , he has been maintained on Advair and albuterol rescue inhaler on an outpatient basis. No home O2. He was experiencing pleuritic right-sided chest pain along with cough and congestion. He ended up in the emergency department this afternoon. Based on his labored breathing, immediately was placed on a BiPAP. I discussed the case with the emergency room physician. The patient is a higher risk of going into respiratory failure requiring intubation mechanical ventilation and I made the aware of. Meanwhile, if it was worth was given patient a trial of noninvasive positive pressure ventilation. White cell count was 36.8 with a hemoglobin of 14.4. Acute kidney injury with a BUN of 18 and a creatinine of 1.5 and sodium level of 133. His LFTs were essentially normal. The vital screening including influenza a and influenza B and RSV and Covid 19 testing was negative. Lactic acid level was at 1.8. Troponins were negative. Blood gas was ordered. Reviewed the CAT scan of the chest and there is no evidence of pul monary embolism. The patient had extensive airspace disease more pronounced in the right middle lobe and the right upper lobe and the patient had other peripheral wedge-shaped pulmonary infiltrates. Predominant consolidation within the right upper lobe. There was also background mild centrilobular emphysema. No history of diabetes mellitus. Nosocomial artery disease. No history of any stroke. 09/12. Patient seen and examined. Patient was seen in the ICU, was extubated yesterday. White count this morning is 14.3, hemoglobin is 14.6, sodium 100, potassium 3.8. Heart rate 73, respiratory 22, on 3 L of oxygen REVIEW OF SYSTEMS: CONSTITUTIONAL: No fever, no malaise,. CARDIOVASCULAR: No chest pain, no palpitations, no syncope. PULMONARY: No shortness of breath, no cough, GASTROINTESTINAL: No diarrhea, no nausea, no vomiting, no abdominal pain. NEUROLOGICAL: No headaches, no weakness, PHYSICAL EXAMINATION: GENERAL: The patient is alert and oriented x3, not in any acute distress. Well developed, well nourished. HEENT: Pupils are round and equally reacting to light. EOMI. No scleral icterus. No conjunctival pallor. Normocephalic, atraumatic. No pharyngeal erythema. No thyromegaly. CARDIOVASCULAR: S1 and S2 present. No murmurs, rubs, or gallops. PULMONARY: Coarse breath some bilaterally, no wheeze ABDOMEN: Soft, nontender, nondistended, normoactive bowel sounds. No palpable organomegaly. MUSCULOSKELETAL: No joint swelling or deformity. EXTREMITIES: No cyanosis, clubbing, or pedal edema. NEUROLOGICAL: Gross neurological examination did not reveal any focal deficits. SKIN: No rashes. Assessment and plan Acute hypoxic respiratory failure secondary to multilobar pneumonia secondary to E. coli. Sepsis and septic shock secondary to E. coli pneumonia and bacteremia. Hypotension, resolved. Acute hypercapnic respiratory failure Acute leukocytosis secondary to pneumonia and sepsis. Acute exacerbation of COPD Acute toxic metabolic encephalopathy/altered mental status Acute kidney injury secondary to sepsis and septic shock. Resolved. Chronic tobacco dependence syndrome. Suspect small bilateral pleural effusions , Monitor vital signs Monitor CBC Monitor CMP Continue telemetry monitoring Aggressive bronchopulmonary hygiene Continue oxygen supplementation Continue IV Unasyn Continue Lasix Continue breathing treatments CT of abdominal pelvis question of appendicitis for the patient has been evaluated by general surgery and has been ruled out clinically with no need for any intervention Follow-up in [facility] critical care follow Objective - Vital Signs Vital signs: Vital Signs Temp 98.2 F 09/12/22 08:00 Pulse 79 09/12/22 10:00 Resp 18 09/12/22 10:00 BP 132/85 09/12/22 10:00 Pulse Ox 93 L 09/12/22 10:00 FiO2 50 09/11/22 13:00 Intake & Output 09/11/22 09/12/22 09/12/22 18:59 06:59 18:59 Intake Total 540.195 1013 280 Output Total 2860 3185 880 Balance -1984.384 -1955 -600 Weight 95.7 kg 93.8 kg Intake: IV 323 420 80 Ampicillin-Sulbactam 3 gm 200 200 In Sodium Chloride 0.9% 100 ml @ 200 mls/hr IVPB Q6H JET Rx#:[id number] Pressure Bag (0.9 sodium 3 chloride) Sodium Chloride 0.9% 1, 120 220 80 000 ml @ 10 mls/hr IV . Q24H JET Rx#:[id number] Intake, IV Titration 259.616 Amount Ampicillin-Sulbactam 3 gm 100 In Sodium Chloride 0.9% 100 ml @ 200 mls/hr IVPB Q6H JET Rx#:[id number] Dexmedetomidine/0.9% NaCl 22.810 (Pmx) 400 mcg In Empty Bag 1 bag @ 0.2 MCG/KG/HR 4.785 mls/hr IV .[id number] JET Rx#:[id number] Insulin Regular 100 unit 73.833 In Sodium Chloride 0.9% 100 ml @ Titrate IV .Q0M JET Rx#:[id number] propofoL 1,000 mg In 62.973 Empty Bag 1 bag @ 15 MCG/ KG/MIN 7.348 mls/hr IV . [id number] JET Rx#:[id number] Oral 100 810 200 Tube Feeding 192 Other 0 Output: Urine 2860 3185 880 Other: Voiding Method Indwelling Catheter Indwelling Catheter Indwelling Catheter ABP, PAP, CO, CI - Last Documented Arterial Blood Pressure 94/89 Pulmonary Artery Pressure 114/55 - Labs CBC & Chem 7: 09/12/22 08:08 09/12/22 08:08 Labs: Abnormal Lab Results - Last 24 Hours (Table) 09/11/22 09/11/22 09/11/22 Range/Units 11:56 12:11 13:06 WBC (3.8-10.6) k/uL Plt Count (150-450) k/uL Neutrophils # (1.3-7.7) k/uL Lymphocytes # (1.0-4.8) k/uL ABG pH 7.47 H (7.35-7.45) ABG pCO2 51 H (35-45) mmHg ABG pO2 71 L (83-108) mmHg ABG HCO3 38 H (21-25) mmol/L ABG Total CO2 39 H (19-24) mmol/L Carbon Dioxide (22-30) mmol/L BUN (9-20) mg/dL Creatinine (0.66-1.25) mg/dL Glucose (74-99) mg/dL POC Glucose (mg/dL) 163 H 134 H (70-110) mg/dL 09/11/22 09/11/22 09/11/22 Range/Units 13:58 15:57 21:21 WBC (3.8-10.6) k/uL Plt Count (150-450) k/uL Neutrophils # (1.3-7.7) k/uL Lymphocytes # (1.0-4.8) k/uL ABG pH (7.35-7.45) ABG pCO2 (35-45) mmHg ABG pO2 (83-108) mmHg ABG HCO3 (21-25) mmol/L ABG Total CO2 (19-24) mmol/L Carbon Dioxide (22-30) mmol/L BUN (9-20) mg/dL Creatinine (0.66-1.25) mg/dL Glucose (74-99) mg/dL POC Glucose (mg/dL) 175 H 220 H 200 H (70-110) mg/dL 09/12/22 09/12/22 09/12/22 Range/Units 07:08 08:08 08:08 WBC 14.3 H (3.8-10.6) k/uL Plt Count 147 L (150-450) k/uL Neutrophils # 12.8 H (1.3-7.7) k/uL Lymphocytes # 0.7 L (1.0-4.8) k/uL ABG pH (7.35-7.45) ABG pCO2 (35-45) mmHg ABG pO2 (83-108) mmHg ABG HCO3 (21-25) mmol/L ABG Total CO2 (19-24) mmol/L Carbon Dioxide 33 H (22-30) mmol/L BUN 36 H (9-20) mg/dL Creatinine 0.58 L (0.66-1.25) mg/dL Glucose 207 H (74-99) mg/dL POC Glucose (mg/dL) 188 H (70-110) mg/dL Microbiology - Last 24 Hours (Table) 09/07/22 11:00 Blood Culture - Preliminary Blood
[2022-09-12 16:15] LABS: Glucose,Whole Blood 187 mg/dL (70-110)
[2022-09-12] MEDS: PREGABALIN 75 MG CAP PO SCH (17:48)
[2022-09-12 20:36] LABS: Glucose,Whole Blood 195 mg/dL (70-110)
[2022-09-12] MEDS: MELATONIN 5 MG TABLET PO SCH (20:45)
[2022-09-13] MEDS: AMPICILLIN-SULBACTAM 3 GM in SODIUM CHLORIDE 0.9% 100 ML IVPB SCH ×4 (04:36→23:08)
[2022-09-13 05:46] LABS: Basophils % (A) 0 %; Eosinophils # (A) 0.1 k/uL (0-0.7); Eosinophils % (A) 1 %; HCT 43.3 % (39.0-53.0); HGB 13.9 gm/dL (13.0-17.5); Lymphocytes # (A) 1.7 k/uL (1.0-4.8); Lymphocytes % (A) 13 %; MCH 29.4 pg (25.0-35.0); MCHC 32.1 g/dL (31.0-37.0); MCV 91.7 fL (80.0-100.0); Mean Platelet Volume 8.5; Monocytes # (A) 0.8 k/uL (0-1.0); Monocytes % (A) 6 %; Neutrophils # (A) 10.8 k/uL (1.3-7.7); Neutrophils % (A) 81 %; Platelet Count 149 k/uL (150-450); RBC 4.72 m/uL (4.30-5.90); RDW 12.8 % (11.5-15.5); WBC 13.4 k/uL (3.8-10.6)
[2022-09-13 06:05] LABS: ALT 107 U/L (4-49); AST 42 U/L (17-59); African American GFR (CKD) >90 (>60 ml/min/1.73 sqM); Albumin 2.8 g/dL (3.5-5.0); Alkaline Phosphatase 58 U/L (38-126); Anion Gap 6 mmol/L; Blood Urea Nitrogen 33 mg/dL (9-20); Calcium 8.3 mg/dL (8.4-10.2); Carbon Dioxide 31 mmol/L (22-30); Chloride 102 mmol/L (98-107); Glucose 124 mg/dL (74-99); Non-African American GFR(CKD) >90 (>60 ml/min/1.73 sqM); Potassium 3.2 mmol/L (3.5-5.1); Sodium 139 mmol/L (137-145); Total Bilirubin 1.3 mg/dL (0.2-1.3); Total Protein 5.5 g/dL (6.3-8.2)
--- NOTE | 2022-09-13 06:34 | XR ---
EXAMINATION TYPE: XR chest 1V portable DATE OF EXAM: 09/13/2022 COMPARISON: 09/12/2022 HISTORY: Shortness of breath TECHNIQUE: Single frontal view of the chest is obtained. FINDINGS: There is a partially consolidative right lower lung zone with a small right pleural effusion. Small l eft pleural effusion persists. The heart size is normal and the pulmonary vasculature is not congested. There is no pneumothorax. The osseous structures are intact.. IMPRESSION: Persistent right lower lobe infiltrate and small right pleural effusion. Persistent small left effusi on. Overall no significant interval change.
[2022-09-13 06:37] LABS: Glucose,Whole Blood 141 mg/dL (70-110)
[2022-09-13] MEDS: INSULIN ASPART (NovoLOG) 100 UNIT/ML VIAL SQ SCH ×4 (06:43→20:16)
[2022-09-13] MEDS: PANTOPRAZOLE 40 MG TABLET PO SCH (07:00)
[2022-09-13] MEDS: INSULIN DETEMIR (LEVEMIR) 100 UNIT/ML SYR SQ SCH (07:00)
[2022-09-13] MEDS ORDERED: POTASSIUM CHLORIDE 20 MEQ in WATER FOR INJECTION 1 100ML.BAG IVPB SCH (07:30)
[2022-09-13 07:32] LABS: C Reactive Protein 1.3 mg/dL (<1.0)
[2022-09-13] MEDS: DOCUSATE ORAL SOLN 100 MG/10 ML CUP PO SCH (08:03)
[2022-09-13] MEDS: ENOXAPARIN 40 MG/0.4 ML SYRINGE SQ SCH (08:03)
[2022-09-13] MEDS: PREGABALIN 75 MG CAP PO SCH ×3 (08:04→20:16)
[2022-09-13] MEDS: FUROSEMIDE 40 MG TAB PO SCH ×2 (08:05→09:23)
[2022-09-13] MEDS: predniSONE 10 MG TAB PO SCH (08:05)
[2022-09-13] MEDS: amLODIPine 5 MG TAB PO SCH ×2 (08:05→20:16)
[2022-09-13] MEDS: NYSTATIN 100,000 UNIT/ML SUSP 500,000 UNIT/5 ML CUP PO SCH ×4 (08:05→20:17)
[2022-09-13] MEDS: IPRATROPIUM-ALBUTEROL 3 ML NEB INHALATION SCH ×4 (08:10→19:32)
[2022-09-13] MEDS ORDERED: POTASSIUM CHLORIDE ER 20 MEQ TAB.ER PO STA (08:17)
[2022-09-13] MEDS: TAMSULOSIN 0.4 MG CAP.ER.24H PO SCH (09:28)
--- NOTE | 2022-09-13 09:35 | US ---
EXAMINATION TYPE: US venous doppler duplex LE BI DATE OF EXAM: 09/13/2022 9:17 AM COMPARISON: NONE CLINICAL INDICATION: Male, 61 years old with history of Bilateral leg pain; ICU patient, h/o cellulit is, no h/o DVT, swelling SIDE PERFORMED: Bilateral TECHNIQUE: The lower extremity deep venous system is examined utilizing real time linear array sonog mainor with graded compression, doppler sonography and color-flow sonography. VESSELS IMAGED: Common Femoral Vein Deep Femoral Vein Greater Saphenous Vein * Femoral Vein Popliteal Vein Small Saphenous Vein * Proximal Calf Veins (* superficial vessels) Right Leg: Negative for DVT Left Leg: Negative for DVT unable to access CFV/GSV on left leg due to pitting edema, and position of patient - limited mobili ty IMPRESSION: 1. No evidence of right lower extremity DVT from the common femoral vein to the proximal calf veins. 2. Limited evaluation of the left saphenofemoral junction to edema. Distal to the left SFJ, there is no evidence of left lower extremity DVT to the proximal calf veins.
--- NOTE | 2022-09-13 10:20 | P.PN ---
Subjective Progress Note Date: 09/13/22 Principal diagnosis: Acute hypoxic respiratory failure secondary to acute multilobar pneumonia/E. coli pneumonia, and sepsis and septic shock A 61-year-old mentation, known history of COPD, chronic smoker who continues to smoke approximately a pack of cigarettes a day, presenting with progressively worsening shortness of breath over the past 1 week. The patient was seen in the emergency department. The patient was already on a BiPAP at a pressure of 12/6 with an FiO2 of 60%. He was still having significant labored breathing, and he was tachypneic and his rate was ranging between 30-40 and he had marked diminished breath sounds bilaterally. His mentation was quite diminished and the patient seemed to be altered yet arousable. The was at the bedside. This patient does not seem to have had an evaluation with pulmonary in the past. Based on the reported history by the , he has been maintained on Advair and albuterol rescue inhaler on an outpatient basis. No home O2. He was experiencing pleuritic right-sided chest pain along with cough and congestion. He ended up in the emergency department this afternoon. Based on his labored breathing, immediately was placed on a BiPAP. I discussed the case with the emergency room physician. The patient is a higher risk of going into respiratory failure requiring intubation mechanical ventilation and I made the aware of. Meanwhile, if it was worth was given patient a trial of noninvasive positive pressure ventilation. White cell count was 36.8 with a hemoglobin of 14.4. Acute kidney injury with a BUN of 18 and a creatinine of 1.5 and sodium level of 133. His LFTs were essentially normal. The vital screening including influenza a and influenza B and RSV and Covid 19 testing was negative. Lactic acid level was at 1.8. Troponins were negative. Blood gas was ordered. Reviewed the CAT scan of the chest and there is no evidence of pulmonary embolism. The patient had extensive airspace disease more pronounced in the right middle lobe and the right upper lobe and the patient had other peripheral wedge-shaped pulmonary infiltrates. Predominant consolidation within the right upper lobe. There was also background mild centrilobular emphysema. No history of diabetes mellitus. Nosocomial artery disease. No history of any stroke. 09/06/2022, the patient remains intubated on a mechanical ventilator. The patient extensive pneumonia involving the right lung with some limited inf iltration of the left secondary to E. coli. Sputum is positive for E. coli, blood cultures also positive for E. coli. The patient is currently on IV Unasyn. Chest x-ray from today still showing persistent infiltration/consolidation of the right lung especially the right middle lobe and right base and there is also infiltration of the left lung base. Bronchoscopy in the lavage was done and the results are still pending for now. Meanwhile, he is hemodynamically stable and is on no pressors. He was given a sedation holiday yesterday and he was able to arouse without any major difficulties. He was not ready for weaning and a weaning trial was not done and a sedation holiday was aborted. Currently, he's on propofol running at 50 mcg/kg/m. He is on assist-control mode of mechanical ventilation at the rate of 20, tidal volume of 500, FiO2 40% with a PEEP of 5. The peak airway pressure is currently at 26. The white cell count of 20.5. Hemoglobin is 11.2.. The patient also has an elevated pro-calcitonin level which remains elevated at 34.7. Meanwhile, his electrolytes are stable. Sodium is at 139 with a potassium level of 4.7, BUN is 31 with a creatinine of 0.8. He is receiving enteral feeding for nutritional support and is currently on vital high-protein at the rate of 40 mL an hour. The fluid balance over the past 24 hours has been in the order of +725 mL. No significant peripheral edema at this point in time. Patient was reevaluated today on 09/07/2022, patient remains in the ICU, intubated and mechanically ventilated. Patient is now on assist control rate of 2012 volume 500 FiO2 40% and PEEP of 5. ABG showed a pO2 of 72 pCO2 46 pH of 7.43, no changes were made in the ventilator settings. Patient was initially intubated on 09/02/2022, and he remains intubated. Chest x-ray showed bilateral infiltrates and pleural effusions consistent with pneumonia. WBC count is elevated at 19.0, however seems to be steadily improving considering it was 36.8 on 09/02 initially. Basic metabolic profile is normal renal profile is normal pro-calcitonin level is trending down and it is 10.1. Sputum has been positive for E. coli. Patient continues to have chronic changes in his bilateral lower extremities. Patient remains on Unasyn. He is also on GI and DVT prophylaxis including Lovenox, and he is on pantoprazole 40 mg IV push twice a day. I saw him this morning he was off propofol, he was earlier on 15 mcg/kg/m, however the patient is a bit restless, agitated, tachypneic, and I recommended. He goes back on propofol, he is not quite ready for weaning. Patient remains on bronchodilators in the form of DuoNeb updrafts 4 times a day and when necessary, he is also on methylprednisolone 60 mg IV push every 6 hours. IV fluid is 0.9 normal saline at 40 mL per hour. Patient is having good urine output. Patient remains on enteral feeding Patient was reevaluated today on 09/08/2022, remains in the ICU, intubated, sedated, mechanically ventilated, he is on assist control rate of 20 tidal volume 500 FiO2 50% and PEEP of 5. ABG showed a pO2 of 80 pCO2 46 pH of 7.46. Hence no changes were made in his ventilator settings. Patient is requiring propofol at 60 mcg/kg/m, he is also on 0.9 normal saline at 40 mL per hour. Not requiring presently any pressors, patient is going to be placed on amlodipine 5 mg twice a day for elevated blood pressure. Chest x-ray continues to show bilateral infiltrates., Small bilateral pleural effusions noted. Patient is receiving nutritional support vital HP 64/64. Antibiotics have been changed by infectious disease to Unasyn patient had E. coli pneumonia and E. coli bacteremia. WBC count today is 14.1 hemoglobin is 12.1 electrolytes are normal renal profile is normal, liver profile is normal Patient was reevaluated today on 09/09/2022, remains in the ICU, intubated and mechanically ventilated. Patient remains on assist control rate of 20 tidal volume 500 FiO2 50% and PEEP of 5. ABG showed a pO2 of 75 pCO2 51 pH of 7.42. Chest x-ray today is showing worsening pneumonic process involving the right lower lobe. And his gases are marginal, hence I have no plans to address weaning today on this patient. Patient is hemodynamically stable, not requiring any pressors, sugars are running to be a bit high, hence his Levemir insulin was increased. Patient remains on propofol at 30 mcg/kg/m, IV fluids at 40 mL/h the form of 0.9 normal saline. He is off clevidipine. Remains on Unasyn for his E. coli pneumonia and sepsis/bacteremia.. WBC count is 12 hemoglobin 12.1. Basic metabolic profile is normal, renal profile is normal blood sugars are running in the 300+ range, may consider insulin infusion if sugars remain high after increasing the dose of Levemir insulin. In the meantime continue insulin as per scale/subcu Reevaluated today on 09/10/2022, patient remains in the ICU, intubated and mechanically ventilated. Patient remains on propofol at 65 mcg/kg/m, he was placed last night on fentanyl at 0.5 mcg/kg/h because of intermittent agitation on high dose of propofol, today he seems to be quite sedated and calm with both fentanyl and propofol. His assist-control rate is 20 tidal volume 500 FiO2 50% PEEP of 5. Peak airway pressure is 28 plateau pressures 18. Chest x-ray continues to show bilateral lower opacities and suspect some ongoing pleural effusion for which I recommended diuretics Lasix 40 mg IV push every 12 hours. Cut down his IV fluid to KVO. Patient remains on a vital HP at 64 mL per hour. Patient remains on Unasyn for his E. coli pneumonia and bacteremia. And today I added insulin because his sugars are poorly controlled, will discontinue Levemir insulin and start the patient on IV insulin. We will titrate insulin today blood sugar of 150 up to 200 Reevaluated today on 09/11/2022, patient remains in the ICU, intubated and mechanically ventilated. Patient is on assist control rate of 20 tidal volume 500 FiO2 50% PEEP of 5. Peak airway pressure is 31 plateau pressure is 19. ABG showed a pO2 of 72 he CO2 of 52 pH of 7.45. Hence no changes were made in the vent settings. Chest x-ray is showing some improvement in the right-sided pleural effusion and atelectasis. On physical examination the patient sounded fairly clear. Hence I will give the patient today a trial if weaning if possible. Remains on propofol at 55 mcg/kg/m fentanyl at 0.5 mcg/kg/h patient is receiving insulin at 7.7 units per hour. Receiving vital HP 65 mL per hour. And he continues to diurese and respond well to Lasix twice a day. WBC count today is 12 hemoglobin is 12.3. Basic metabolic profile is normal, renal profile is normal BUN is 38 creatinine 0.54. Pro-calcitonin was last 10.10 and I was on 09/07 Reevaluated today on , patient remains in the ICU, he was extubated yesterday, and so far he seems to be tolerating the extubation quite well. Sb orellana is on 6 L nasal cannula, does not seem to be in any distress, he has BiPAP at bedside, but did not use it. Patient remains on Unasyn. He remains on Lasix at 40 mg twice a day, his Stapleton catheter was discontinued today, and I plan to have the patient sit up in the chair today. Plan to switch some of his medications to oral medications including the prednisone would become 40 mg by mouth daily, and I plan to watch him for another day in the ICU, possibly transfer out of the ICU in the next 24 hours. Chest x-ray is showing right basilar atelectasis, significant improvement in his overall chest x-ray findings compared to the chest x-rays done in the last few days. WBC count is 14.3 he moglobin 14.6 electrodes are normal renal profile is normal bicarb is 33 Patient was reevaluated today on remains in the ICU, patient was extubated on 03/13, tolerated the extubation fairly well. Patient remains in the ICU mostly because he has multiple other issues and he remains marginal. Last night patient developed urinary retention requiring straight catheterization twice, hence I recommended today that he goes on Flomax, and if he would continue to have urinary retention may have to put the Stapleton catheter back and consult urology. The meantime we'll hope Flomax will take care of the issue. Patient continues to have severe pain and lower extremities this is a relatively new hence I'm ordering ultrasound of lower extremity/Doppler. Patient required to go on BiPAP briefly last night because of desaturation, chest x-ray continues to show a right lower lobe infiltrate. Patient remains on Unasyn. His BiPAP settings are set at 14/6/50%. Presently on 6 L nasal cannula labs today showed WBC count of 13.4 hemoglobin 13.9 Normal except for slightly low potassium of 3.2, being corrected as per protocol. Patient is able to feed on his own, and he finished 75% of his meal today. Yesterday he was up in the chair, and we'll plan to put him back up in the chair today. Continues to have a central line in place, and I planning to have the central line removed today. Objective - Vital Signs Vital signs: Vital Signs Temp 98.2 F 09/13/22 08:00 Pulse 95 09/13/22 09:00 Resp 21 09/13/22 09:00 BP 120/68 09/13/22 09:00 Pulse Ox 91 L 09/13/22 09:00 FiO2 50 09/13/22 05:00 Intake & Output 09/12/22 09/13/22 09/13/22 18:59 06:59 18:59 Intake Total 780 320 110 Output Total 1740 1800 0 Balance -960 -1480 110 Weight 92 kg Intake: IV 230 220 110 Ampicillin-Sulbactam 3 gm 100 100 In Sodium Chloride 0.9% 100 ml @ 200 mls/hr IVPB Q6H J[facility] Rx#:[id number] Potassium Chloride 20 meq 100 In Water For Injection 1 100ml.bag @ 50 mls/hr IVPB Q2H JET Rx#: [id number] Sodium Chloride 0.9% 1, 130 120 10 000 ml @ 10 mls/hr IV . Q24H JET Rx#:[id number] Oral 550 100 Output: Urine 1740 1800 0 Other: Voiding Method External Catheter External Catheter ABP, PAP, CO, CI - Last Documented Arterial Blood Pressure 94/89 Pulmonary Artery Pressure 114/55 - Exam Physical Exam: Revealed 61-year-old white male , on 6 L nasal cannula, in no distress Head: Atraumatic, normocephalic. HEENT:[Neck is supple.] [No neck masses.] [No thyromegaly.] [No JVD.] Chest: [Symmetrical chest expansion, slightly diminished breath sounds at the right base, left side is clear. Cardiac Exam: [Normal S1 and S2, no S3 gallop, no murmur.] Abdomen: [Obese, Soft, nontender, no megaly, no rebound, no guarding, normal bowel sounds.] Extremities: Trace of bipedal edema with chronic changes of venous stasis noted bilaterally. Neurological Exam: Alert oriented 3.no Focal neurologic deficit Psychiatric: Normal mood, affect and normal mental status examination. Skin: Chronic venous stasis changes noted in lower extremities. Keratosis is noted in both lower extremities/anterior aspect. Musculoskeletal: Normal range of motion, no deformities - Labs CBC & Chem 7: 09/13/22 05:17 09/13/22 05:17 Labs: Abnormal Lab Results - Last 24 Hours (Table) 09/12/22 09/12/22 09/12/22 Range/Units 11:58 16:13 20:34 WBC (3.8-10.6) k/uL Plt Count (150-450) k/uL Neutrophils # (1.3-7.7) k/uL Potassium (3.5-5.1) mmol/L Carbon Dioxide (22-30) mmol/L BUN (9-20) mg/dL Creatinine (0.66-1.25) mg/dL Glucose (74-99) mg/dL POC Glucose (mg/dL) 237 H 187 H 195 H (70-110) mg/dL Calcium (8.4-10.2) mg/dL ALT (4-49) U/L C-Reactive Protein (<1.0) mg/dL Total Protein (6.3-8.2) g/dL Albumin (3.5-5.0) g/dL Procalcitonin (0.02-0.09) ng/mL 09/13/22 09/13/22 09/13/22 Range/Units 05:17 05:17 05:17 WBC 13.4 H (3.8-10.6) k/uL Plt Count 149 L (150-450) k/uL Neutrophils # 10.8 H (1.3-7.7) k/uL Potassium 3.2 L (3.5-5.1) mmol/L Carbon Dioxide 31 H (22-30) mmol/L BUN 33 H (9-20) mg/dL Creatinine 0.65 L (0.66-1.25) mg/dL Glucose 124 H (74-99) mg/dL POC Glucose (mg/dL) (70-110) mg/dL Calcium 8.3 L (8.4-10.2) mg/dL ALT 107 H (4-49) U/L C-Reactive Protein 1.3 H (<1.0) mg/dL Total Protein 5.5 L (6.3-8.2) g/dL Albumin 2.8 L (3.5-5.0) g/dL Procalcitonin 0.59 H (0.02-0.09) ng/mL 09/13/22 Range/Units 06:35 WBC (3.8-10.6) k/uL Plt Count (150-450) k/uL Neutrophils # (1.3-7.7) k/uL Potassium (3.5-5.1) mmol/L Carbon Dioxide (22-30) mmol/L BUN (9-20) mg/dL Creatinine (0.66-1.25) mg/dL Glucose (74-99) mg/dL POC Glucose (mg/dL) 141 H (70-110) mg/dL Calcium (8.4-10.2) mg/dL ALT (4-49) U/L C-Reactive Protein (<1.0) mg/dL Total Protein (6.3-8.2) g/dL Albumin (3.5-5.0) g/dL Procalcitonin (0.02-0.09) ng/mL Microbiology - Last 24 Hours (Table) 09/07/22 11:00 Blood Culture - Preliminary Blood Assessment and Plan Assessment: Impression: Acute hypoxic respiratory failure secondary to multilobar pneumonia secondary to E. coli. Required intubation on 09/02, extubated on 09/11, so far seems to be mellissa erating the extubation well. Sepsis and septic shock secondary to E. coli pneumonia and bacteremia. Patient is now on Unasyn. Hypotension, resolved. This was felt to be secondary to septic shock. Acute hypercapnic respiratory failure Acute leukocytosis secondary to pneumonia and sepsis. Acute exacerbation of COPD Acute toxic metabolic encephalopathy/altered mental status , resolved Acute kidney injury secondary to sepsis and septic shock. Resolved. Chronic tobacco dependence syndrome. Recommendation: Continue to monitor in the ICU for the next 24 hours. Discontinue central line. Cut down Lasix to 40 mg daily Start patient on Flomax 0.4 mg daily Patient to be given Xanax 0.5 mg at bedtime as he is having symptoms of insomnia, could be related to steroids. Continue nasal cannula and titrate accordingly Keep BiPAP at bedside if needed Continue to advance diet as tolerated Continue GI and DVT prophylaxis including Lovenox and Protonix. Continue bronchodilators Continue Levemir insulin and NovoLog insulin Consider urology consultation and the patient continues to have urinary retentio n Discontinue central line Possibly transferred to regular medical floor the next 24 hours We will continue to follow Time with Patient: Less than 30
[2022-09-13 11:27] LABS: Glucose,Whole Blood 180 mg/dL (70-110)
[2022-09-13 16:12] LABS: Glucose,Whole Blood 174 mg/dL (70-110)
[2022-09-13] MEDS ORDERED: Potassium Replacement Protocol 1 EACH MISC MISCELLANE PRN (16:18)
[2022-09-13] MEDS: POTASSIUM CHLORIDE ER 20 MEQ TAB.ER PO SCH ×2 (16:39→18:00)
--- NOTE | 2022-09-13 16:45 | P.PN ---
Progress Note - Text Progress Note Date: 09/13/22 Hospital course: I'm rounding for Dr. Anurag Benitez. September 13: ICU. Patient up in a chair. Eating fair. No bowel movement. Has a Stapleton catheter. Nasal cannula. Breathing stable. at the bedside Active Medications Acetaminophen/Codeine Phosphate (Acetaminophen-Codeine 300-30mg Tab) 1 each PO Q8HR PRN PRN Reason: Pain Last Admin: 09/12/22 12:20 Dose: 1 each Albuterol/Ipratropium (Ipratropium-Albuterol 3 Ml Neb) 3 ml INHALATION RT-Q2H PRN PRN Reason: Shortness Of Breath Or Wheezing Albuterol/Ipratropium (Ipratropium-Albuterol 3 Ml Neb) 3 ml INHALATION RT-QID [facility] Last Admin: 09/13/22 15:34 Dose: 3 ml Alprazolam (Alprazolam 0.5 Mg Tab) 0.5 mg PO HS [facility] Amlodipine Besylate (Amlodipine 5 Mg Tab) 5 mg PO BID [facility] Last Admin: 09/13/22 08:05 Dose: 5 mg Dextrose/Water (Dextrose 50% Syringe 50 Ml) 25 ml IVP PER PROTOCOL PRN; Protocol PRN Reason: Hypoglycemia Dextrose/Water (Dextrose 50% Syringe 50 Ml) 50 ml IVP PER PROTOCOL PRN; Protocol PRN Reason: Hypoglycemia Dextrose/Water (Dextrose 50% Syringe 50 Ml) 25 ml IVP PER PROTOCOL PRN; Protocol PRN Reason: Hypoglycemia Dextrose/Water (Dextrose 50% Syringe 50 Ml) 50 ml IVP PER PROTOCOL PRN; Protocol PRN Reason: Hypoglycemia Docusate Sodium (Docusate Oral Soln 100 Mg/10 Ml Cup) 100 mg PO DAILY [facility] Last Admin: 09/13/22 08:03 Dose: 100 mg Docusate Sodium (Docusate Oral Soln 100 Mg/10 Ml Cup) 100 mg PO DAILY PRN PRN Reason: Constipation Enoxaparin Sodium (Enoxaparin 40 Mg/0.4 Ml Syringe) 40 mg SQ DAILY [facility] Last Admin: 09/13/22 08:03 Dose: 40 mg Furosemide (Furosemide 40 Mg Tab) 40 mg PO DAILY [facility] Last Admin: 09/13/22 09:23 Dose: Not Given Sodium Chloride (Saline 0.9%) 1,000 mls @ 10 mls/hr IV .Q24H [facility] Last Admin: 09/12/22 12:00 Dose: 10 mls/hr Ampicillin Sodium/Sulbactam (Sodium 3 gm/ Sodium Chloride) 100 mls @ 200 mls/hr IVPB Q6H [facility]; Protocol Last Admin: 09/13/22 11:20 Dose: 200 mls/hr Insulin Aspart (Insulin Aspart (Novolog) 100 Unit/Ml Vial) 0 unit SQ ACHS [facility]; Protocol Last Admin: 09/13/22 12:42 Dose: 2 unit Insulin Detemir (Insulin Detemir (Levemir) 100 Unit/Ml Syr) 20 unit SQ DAILY@0700 [facility] Last Admin: 09/13/22 07:00 Dose: 20 unit Melatonin (Melatonin 5 Mg Tablet) 5 mg PO HS [facility] Last Admin: 09/12/22 20:45 Dose: 5 mg Miscellaneous Information (Potassium Replacement Protocol 1 Each Misc) 1 each MISCELLANE DAILY PRN; Protocol PRN Reason: Per Protocol Miscellaneous Information (Potassium Replacement Protocol 1 Each Misc) 1 each MISCELLANE DAILY PRN; Protocol PRN Reason: Per Protocol Naloxone HCl (Naloxone 0.4 Mg/Ml 1 Ml Vial) 0.2 mg IV Q2M PRN PRN Reason: Opioid Reversal Nystatin (Nystatin 100,000 Unit/Ml Susp 500,000 Unit/5 Ml Cup) 500,000 unit PO QID [facility]; Protocol Last Admin: 09/13/22 12:44 Dose: 500,000 unit Pantoprazole Sodium (Pantoprazole 40 Mg Tablet) 40 mg PO AC-BRKFST [facility] Last Admin: 09/13/22 07:00 Dose: 40 mg Potassium Chloride (Potassium Chloride Er 20 Meq Tab.Er) 20 meq PO Q1HR [facility]; Protocol Stop: 09/13/22 18:01 Last Admin: 09/13/22 16:39 Dose: 20 meq Prednisone (Prednisone 10 Mg Tab) 30 mg PO DAILY [facility] Last Admin: 09/13/22 08:05 Dose: 30 mg Pregabalin (Pregabalin 75 Mg Cap) 75 mg PO BID [facility] Last Admin: 09/13/22 09:23 Dose: Not Given Tamsulosin HCl (Tamsulosin 0.4 Mg Cap.Er.24h) 0.4 mg PO PC-BRKFST [facility] Last Admin: 09/13/22 09:28 Dose: 0.4 mg On examination: VITAL SIGNS: Afebrile, 89, 16, 108/61, 94% on nasal cannula GENERAL APPEARANCE: Average build. Up in a chair, not in distress. HEENT: Normal external appearance of nose and ear. Oral cavity normal EYES: Pupils equal. Conjunctiva normal. NECK: JVD not raised. Mass not palpable. RESPIRATORY: Respiratory effort normal. Lungs decreased breath sounds CARDIOVASCULAR: First and second sounds normal. No edema. ABDOMEN: Soft. Liver and spleen not palpable. No tenderness. No mass palpable. Stapleton catheter PSYCHIATRY: Alert and oriented x3. Mood and affect normal. INVESTIGATIONS, reviewed in the clinical context: White count 13.4 hemoglobin 13.9 platelets 149 potassium 3.2 BUN 33 creatinine 0.65 procalcitonin 0.5 Venous Doppler: Lower extremity-negative for DVT Assessment and plan: -Acute hypoxic respiratory failure secondary to multilobar pneumonia secondary to E. coli -Sepsis and septic shock secondary to above -Hypertension, corrected -Acute exacerbation of COPD -Toxic metabolic encephalopathy, improved -Acute kidney injury secondary to septic septic shock from ATN, resolved -Chronic nicotine dependence -DO NOT RESUSCITATE with instructions Discussed with patient and . DuoNeb. IV Unasyn. By mouth Lasix. Levemir 20 units. Oral prednisone. Flomax added.
[2022-09-13] MEDS: SODIUM CHLORIDE 0.9% 1,000 ML IV SCH (19:40)
[2022-09-13 19:56] LABS: Glucose,Whole Blood 194 mg/dL (70-110)
[2022-09-13] MEDS: ALPRAZolam 0.5 MG TAB PO SCH (20:16)
[2022-09-13] MEDS: MELATONIN 5 MG TABLET PO SCH (20:16)
--- NOTE | 2022-09-13 23:22 | P.PN ---
Subjective Progress Note Date: 09/13/22 Principal diagnosis: Pneumonia and bacteremia Patient is a 61-year-old male with a past medical history of asthma patient is a smoker has been brought into the ER for evaluation of increasing shortness of breath and chills, the patient did have evidence of right-sided p neumonia and worsening respiratory distress requiring intubation blood cultures subsequently came back positive with E. coli. The patient is status post bronchoscopy and was completed on 09/04/2022 On today's evaluation that is 09/13/2022, the patient continues to be afebrile, the patient is hemodynamically stable not requiring any pressor support ,the patient is breathing comfortably on 2l nasal canula oxygen , the patient denies chest pain shortness of breath, , the patient denies abdominal pain or diarrhea, Stapleton catheter has to be reinserted because of retention Objective - Vital Signs Vital signs: Vital Signs Temp 98.2 F 09/13/22 08:00 Pulse 82 09/13/22 08:24 Resp 18 09/13/22 08:00 BP 110/65 09/13/22 08:00 Pulse Ox 89 L 09/13/22 08:00 FiO2 50 09/13/22 05:00 Intake & Output 09/12/22 09/13/22 09/13/22 18:59 06:59 18:59 Intake Total 780 320 110 Output Total 1740 1800 0 Balance -960 -1480 110 Weight 92 kg Intake: IV 230 220 110 Ampicillin-Sulbactam 3 gm 100 100 In Sodium Chloride 0.9% 100 ml @ 200 mls/hr IVPB Q6H JET Rx#:[id number] Potassium Chloride 20 meq 100 In Water For Injection 1 100ml.bag @ 50 mls/hr IVPB Q2H JET Rx#: [id number] Sodium Chloride 0.9% 1, 130 120 10 000 ml @ 10 mls/hr IV . Q24H JET Rx#:[id number] Oral 550 100 Output: Urine 1740 1800 0 Other: Voiding Method External Catheter External Catheter ABP, PAP, CO, CI - Last Documented Arterial Blood Pressure 94/89 Pulmonary Artery Pressure 114/55 - Exam GENERAL DESCRIPTION: Middle-age male lying in bed in no distress RESPIRATORY SYSTEM: Unlabored breathing , diminished breath sounds, no wheeze HEART: S1 S2 regular rate and rhythm , ABDOMEN: Soft , mild distention but no tenderness EXTREMITIES: Diffuse swelling of lower extremity no redness - Labs CBC & Chem 7: 09/13/22 05:17 09/13/22 10:33 Labs: Abnormal Lab Results - Last 24 Hours (Table) 09/12/22 09/12/22 09/12/22 Range/Units 08:08 11:58 16:13 WBC (3.8-10.6) k/uL Plt Count (150-450) k/uL Neutrophils # (1.3-7.7) k/uL Potassium (3.5-5.1) mmol/L Carbon Dioxide 33 H (22-30) mmol/L BUN 36 H (9-20) mg/dL Creatinine 0.58 L (0.66-1.25) mg/dL Glucose 207 H (74-99) mg/dL POC Glucose (mg/dL) 237 H 187 H (70-110) mg/dL Calcium (8.4-10.2) mg/dL ALT (4-49) U/L C-Reactive Protein (<1.0) mg/dL Total Protein (6.3-8.2) g/dL Albumin (3.5-5.0) g/dL 09/12/22 09/13/22 09/13/22 Range/Units 20:34 05:17 05:17 WBC 13.4 H (3.8-10.6) k/uL Plt Count 149 L (150-450) k/uL Neutrophils # 10.8 H (1.3-7.7) k/uL Potassium 3.2 L (3.5-5.1) mmol/L Carbon Dioxide 31 H (22-30) mmol/L BUN 33 H (9-20) mg/dL Creatinine 0.65 L (0.66-1.25) mg/dL Glucose 124 H (74-99) mg/dL POC Glucose (mg/dL) 195 H (70-110) mg/dL Calcium 8.3 L (8.4-10.2) mg/dL ALT 107 H (4-49) U/L C-Reactive Protein 1.3 H (<1.0) mg/dL Total Protein 5.5 L (6.3-8.2) g/dL Albumin 2.8 L (3.5-5.0) g/dL 09/13/22 Range/Units 06:35 WBC (3.8-10.6) k/uL Plt Count (150-450) k/uL Neutrophils # (1.3-7.7) k/uL Potassium (3.5-5.1) mmol/L Carbon Dioxide (22-30) mmol/L BUN (9-20) mg/dL Creatinine (0.66-1.25) mg/dL Glucose (74-99) mg/dL POC Glucose (mg/dL) 141 H (70-110) mg/dL Calcium (8.4-10.2) mg/dL ALT (4-49) U/L C-Reactive Protein (<1.0) mg/dL Total Protein (6.3-8.2) g/dL Albumin (3.5-5.0) g/dL Microbiology - Last 24 Hours (Table) 09/07/22 11:00 Blood Culture - Preliminary Blood Assessment and Plan (1) Bacteremia Current Visit: Yes Status: Acute Code(s): R78.81 - BACTEREMIA SNOMED Code(s): 3817303 (2) Pneumonia Current Visit: Yes Status: Acute Code(s): J18.9 - PNEUMONIA, UNSPECIFIED ORGANISM SNOMED Code(s): 142141177 Plan: 1patient was in the hospital with sepsis in this patient with a fever tachycardia hypoxemia source is likely right-sided pneumonia with blood cultures coming positive for E. coli not a very common pathogen to cause pneumonia we will wait for the final ID and sensitivities patient urine is negative abdominal soft on clinical exam and no clear history of any vomiting abdominal pain however there is a history of constipation did provided by the family member at the bedside 2- CT of abdominal pelvis question of appendicitis for the patient has been evaluated by general surgery and has been ruled out clinically with no need for any intervention 3-patient E. coli sensitive pathogen with concern for possible aspiration pneumonia, patient repeat blood culture has been negative so far , the patient white count is down to 13.4 2 today and monitor closely, chest x-ray from 09/12/2022 did showed improvement 4-the patient to continue with Unasyn and will be able to finish therapy with oral Augmentin
[2022-09-14] MEDS: AMPICILLIN-SULBACTAM 3 GM in SODIUM CHLORIDE 0.9% 100 ML IVPB SCH (05:18)
[2022-09-14 06:42] LABS: Basophils % (A) 0 %; Eosinophils # (A) 0.1 k/uL (0-0.7); Eosinophils % (A) 1 %; HCT 41.6 % (39.0-53.0); HGB 13.8 gm/dL (13.0-17.5); Lymphocytes # (A) 1.5 k/uL (1.0-4.8); Lymphocytes % (A) 13 %; MCH 30.4 pg (25.0-35.0); MCHC 33.2 g/dL (31.0-37.0); MCV 91.8 fL (80.0-100.0); Mean Platelet Volume 9.1; Monocytes # (A) 0.7 k/uL (0-1.0); Monocytes % (A) 6 %; Neutrophils % (A) 78 %; Platelet Count 144 k/uL (150-450); RBC 4.53 m/uL (4.30-5.90); RDW 13.2 % (11.5-15.5); WBC 11.5 k/uL (3.8-10.6)
[2022-09-14 07:04] LABS: Glucose,Whole Blood 126 mg/dL (70-110)
[2022-09-14] MEDS: INSULIN ASPART (NovoLOG) 100 UNIT/ML VIAL SQ SCH ×4 (07:04→20:32)
[2022-09-14] MEDS: INSULIN DETEMIR (LEVEMIR) 100 UNIT/ML SYR SQ SCH (07:06)
[2022-09-14] MEDS: PANTOPRAZOLE 40 MG TABLET PO SCH (07:06)
[2022-09-14 07:11] LABS: African American GFR (CKD) >90 (>60 ml/min/1.73 sqM); Anion Gap 5 mmol/L; Blood Urea Nitrogen 30 mg/dL (9-20); Calcium 8.1 mg/dL (8.4-10.2); Carbon Dioxide 32 mmol/L (22-30); Chloride 103 mmol/L (98-107); Glucose 123 mg/dL (74-99); Non-African American GFR(CKD) >90 (>60 ml/min/1.73 sqM); Potassium 3.7 mmol/L (3.5-5.1); Sodium 140 mmol/L (137-145)
[2022-09-14] MEDS: IPRATROPIUM-ALBUTEROL 3 ML NEB INHALATION SCH ×4 (07:42→19:48)
--- NOTE | 2022-09-14 07:47 | PN ---
PROGRESS NOTE DATE OF SERVICE: 09/11/2022 I am covering for Dr. Benitez. HISTORY OF PRESENT ILLNESS: This is a 61-year-old gentleman who was admitted with acute bilateral pneumonia, E coli pneumonia, and septic shock is on mechanical ventilation. Patient is acute hypoxic respiratory failure. Dr. Brasher is following the patient closely. Vent settings are noted. The patient is slightly more alert at this time. Chest x-ray reviewed personally showed bilateral pneumonia right more than left. The culture of blood and sputum showed E coli. PAST MEDICAL HISTORY: Reviewed. REVIEW OF SYSTEMS: Could not be taken. CURRENT MEDICATION: Reviewed include and rest of medication noted. PHYSICAL EXAM: VITAL SIGNS: Pulse is 68, blood pressure b respiration 27. HEENT: Conjunctivae normal. NECK: No jugular venous distention. CARDIOVASCULAR: S1, S2. RESPIRATION: Bilateral scattered rhonchi. ABDOMEN: Soft. NERVOUS SYSTEM: No focal deficit. LABORATORY DATA: Reviewed. ASSESSMENT: 1. Acute bilateral pneumonia, E coli, gram-negative with possible severe sepsis, hypotension, shock. 2. Acute hypoxic respiratory failure on mechanical ventilation. 3. Chronic obstructive pulmonary disease, acute exacerbation. 4. Toxic metabolic encephalopathy. 5. Multiple medical issues. RECOMMENDATIONS AND DISCUSSION: To continue current medications, continue bronchodilators, continue steroids. Continue with IV antibiotics. Closely follow with Infectious Disease and Pulmonary. Recommend mechanical ventilation. Further weaning per Dr. Brasher. Discussed with the family. Further recommendations to follow. MMODL / IJN: [id number] / MTDD
[2022-09-14] MEDS: TAMSULOSIN 0.4 MG CAP.ER.24H PO SCH (08:03)
[2022-09-14] MEDS: POTASSIUM CHLORIDE 10 MEQ in WATER FOR INJECTION 1 100ML.BAG IVPB SCH ×2 (08:03→10:12)
[2022-09-14] MEDS: DOCUSATE ORAL SOLN 100 MG/10 ML CUP PO SCH (09:53)
[2022-09-14] MEDS: NYSTATIN 100,000 UNIT/ML SUSP 500,000 UNIT/5 ML CUP PO SCH ×5 (09:53→21:36)
[2022-09-14] MEDS: PREGABALIN 75 MG CAP PO SCH ×2 (09:54→21:36)
[2022-09-14] MEDS: predniSONE 10 MG TAB PO SCH (09:54)
[2022-09-14] MEDS: FUROSEMIDE 40 MG TAB PO SCH (09:54)
[2022-09-14] MEDS: amLODIPine 5 MG TAB PO SCH ×2 (09:54→20:32)
[2022-09-14] MEDS: ENOXAPARIN 40 MG/0.4 ML SYRINGE SQ SCH (09:54)
[2022-09-14] MEDS: SODIUM CHLORIDE 0.9% 1,000 ML IV SCH (09:54)
[2022-09-14 11:50] LABS: Glucose,Whole Blood 263 mg/dL (70-110)
[2022-09-14] MEDS ORDERED: LACTULOSE 20 GM/30 ML CUP PO ONE (12:46)
--- NOTE | 2022-09-14 13:11 | P.PN ---
Subjective Progress Note Date: 09/14/22 Patient was reevaluated today on remains in the ICU, patient was extubated on 03/13, tolerated the extubation fairly well. Patient remains in the ICU mostly because he has multiple other issues and he remains marginal. Last night patient developed urinary retention requiring straight catheteriz ation twice, hence I recommended today that he goes on Flomax, and if he would continue to have urinary retention may have to put the Stapleton catheter back and consult urology. The meantime we'll hope Flomax will take care of the issue. Patient continues to have severe pain and lower extremities this is a relatively new hence I'm ordering ultrasound of lower extremity/Doppler. Patient required to go on BiPAP briefly last night because of desaturation, chest x-ray continues to show a right lower lobe infiltrate. Patient remains on Unasyn. His BiPAP settings are set at 14/6/50%. Presently on 6 L nasal cannula labs today showed WBC count of 13.4 hemoglobin 13.9 Normal except for slightly low potassium of 3.2, being corrected as per protocol. Patient is able to feed on his own, and he finished 75% of his meal today. Yesterday he was up in the chair, and we'll plan to put him back up in the chair today. Continues to have a central line in place, and I planning to have the central line removed today. The patient is seen today 09/14/2022 in follow-up in the intensive care unit. He is currently awake and alert sitting up in bed. He was admitted on 09/02/2022 for respiratory failure and E. coli pneumonia and E. coli sepsis. He required intubation on the and was successfully extubated on 09/11/2022. He currently denies any worsening shortness of breath, cough or congestion. He is maintaining good O2 saturations in the 90s on 3 L/m per nasal cannula. He has normal saline at 20 ML's per hour. He has been continued on Unasyn. He is working with PT and OT. Plan is to be up in the chair again today. Follow-up blood culture revealed no growth. Bronchial washings revealed no growth. White count 11.5. Hemoglobin 13.8. Platelets 144. Sodium 140. Potassium 3.7. Bicarb 32. BUN 30. Creatinine 0.67. Glucose 123. He is continued on DuoNeb inhalations, prednisone taper. Objective - Vital Signs Vital signs: Vital Signs Temp 98.4 F 09/14/22 08:00 Pulse 96 09/14/22 12:00 Resp 17 09/14/22 12:00 BP 116/74 09/14/22 12:00 Pulse Ox 97 09/14/22 12:00 FiO2 50 09/13/22 05:00 Intake & Output 09/13/22 09/14/22 09/14/22 18:59 06:59 18:59 Intake Total 360 430 490 Output Total 1385 685 370 Balance -1025 -255 120 Weight 91.8 kg Intake: IV 260 430 240 Ampicillin-Sulbactam 3 gm 200 In Sodium Chloride 0.9% 100 ml @ 200 mls/hr IVPB Q6H JET Rx#:[id number] Potassium Chloride 10 meq 200 In Water For Injection 1 100ml.bag @ 100 mls/hr IVPB Q1H JET Rx#: [id number] Potassium Chloride 20 meq 200 In Water For Injection 1 100ml.bag @ 50 mls/hr IVPB Q2H JET Rx#: [id number] Sodium Chloride 0.9% 1, 60 230 40 000 ml @ 10 mls/hr IV . Q24H JET Rx#:[id number] Intake, IV Titration 100 Amount Ampicillin-Sulbactam 3 gm 100 In Sodium Chloride 0.9% 100 ml @ 200 mls/hr IVPB Q6H JET Rx#:[id number] Oral 250 Output: Urine 1385 685 370 Other: Voiding Method Indwelling Catheter Indwelling Catheter Indwelling Catheter ABP, PAP, CO, CI - Last Documented Arterial Blood Pressure 94/89 Pulmonary Artery Pressure 114/55 - Exam GENERAL EXAM: Alert, oriented 61-year-old male, on 3 L nasal cannula, comfortable in no apparent distress. HEAD: Normocephalic. EYES: Normal reaction of pupils, equal size. NOSE: Clear with pink turbinates. THROAT: No erythema or exudates. NECK: No masses, no JVD. CHEST: No chest wall deformity. LUNGS: Equal air entry with crackles in the right lung base. CVS: S1 and S2 normal with no audible murmur, regular rhythm. ABDOMEN: No hepatosplenomegaly, normal bowel sounds, no guarding or rigidity. SPINE: No scoliosis or deformity SKIN: No rashes CENTRAL NERVOUS SYSTEM: No focal deficits, tone is normal in all 4 extremities. EXTREMITIES: Changes of chronic venous stasis. There is no peripheral edema. No clubbing, no cyanosis. Peripheral pulses are intact. - Labs CBC & Chem 7: 09/14/22 05:36 09/14/22 05:36 Labs: Abnormal Lab Results - Last 24 Hours (Table) 09/13/22 09/13/22 09/14/22 Range/Units 16:09 19:54 05:36 WBC 11.5 H (3.8-10.6) k/uL Plt Count 144 L (150-450) k/uL Neutrophils # 9.0 H (1.3-7.7) k/uL Carbon Dioxide (22-30) mmol/L BUN (9-20) mg/dL Glucose (74-99) mg/dL POC Glucose (mg/dL) 174 H 194 H (70-110) mg/dL Calcium (8.4-10.2) mg/dL 09/14/22 09/14/22 09/14/22 Range/Units 05:36 07:02 11:48 WBC (3.8-10.6) k/uL Plt Count (150-450) k/uL Neutrophils # (1.3-7.7) k/uL Carbon Dioxide 32 H (22-30) mmol/L BUN 30 H (9-20) mg/dL Glucose 123 H (74-99) mg/dL POC Glucose (mg/dL) 126 H 263 H (70-110) mg/dL Calcium 8.1 L (8.4-10.2) mg/dL Microbiology - Last 24 Hours (Table) 09/07/22 11:00 Blood Culture - Final Blood Assessment and Plan Assessment: Acute hypoxic respiratory failure secondary to multilobar pneumonia secondary to E. coli. Required intubation on 09/02, extubated on 09/11, currently on 3 L nasal cannula. Sepsis and septic shock secondary to E. coli pneumonia and bacteremia. Completed Unasyn. Hypotension, resolved. This was felt to be secondary to septic shock. Acute hypercapnic respiratory failure Acute leukocytosis secondary to pneumonia and sepsis. Acute exacerbation of COPD Acute toxic metabolic encephalopathy/altered mental status , resolved Acute kidney injury secondary to sepsis and septic shock. Resolved. Chronic tobacco dependence syndrome. Plan: The patient was seen and evaluated Medications and labs reviewed Unasyn discontinued Initiated on Augmentin per ID services Continue bronchodilators Continues prednisone taper Plan encourage increased use the incentive spirometer Titrate the FiO2 as tolerated Increase his activity as tolerated Could be transferred to the regular medical floor We'll continue to follow I have personally seen and examined the patient, performed the documentation and the assessment and plan as written. Number of minutes spent on the visit: 10.
[2022-09-14] MEDS: SENNOSIDES-DOCUSATE SODIUM 1 EACH TAB PO SCH (14:02)
[2022-09-14] MEDS: PSYLLIUM HUSK 100% 6 GM PACKET PO SCH (14:02)
--- NOTE | 2022-09-14 16:43 | P.PN ---
Progress Note - Text Progress Note Date: 09/14/22 Hospital course: I'm rounding for Dr. Anurag Benitez. September 13: ICU. Patient up in a chair. Eating fair. No bowel movement. Has a Stapleton catheter. Nasal cannula. Breathing stable. at the bedside September 14 : ICU. Sitting up in a chair. Did eat well. Nasal cannula. No bowel movement. Breathing stable. Patient did require BiPAP last night because of desaturation. This morning on nasal cannula 3 L. Patient is IV Unasyn is being changed over to Augmentin by ID. Active Medications Acetaminophen/Codeine Phosphate (Acetaminophen-Codeine 300-30mg Tab) 1 each PO Q8HR PRN PRN Reason: Pain Last Admin: 09/12/22 12:20 Dose: 1 each Albuterol/Ipratropium (Ipratropium-Albuterol 3 Ml Neb) 3 ml INHALATION RT-Q2H PRN PRN Reason: Shortness Of Breath Or Wheezing Albuterol/Ipratropium (Ipratropium-Albuterol 3 Ml Neb) 3 ml INHALATION RT-QID JET Last Admin: 09/14/22 16:14 Dose: 3 ml Alprazolam (Alprazolam 0.5 Mg Tab) 0.5 mg PO HS [facility] Last Admin: 09/13/22 20:16 Dose: 0.5 mg Amlodipine Besylate (Amlodipine 5 Mg Tab) 5 mg PO BID JET Last Admin: 09/14/22 09:54 Dose: 5 mg Amoxicillin/Clavulanate Potassium (Amoxic-Pot Clav 875-125mg 1 Each Tab) 1 each PO Q12HR JET; Protocol Dextrose/Water (Dextrose 50% Syringe 50 Ml) 25 ml IVP PER PROTOCOL PRN; Protocol PRN Reason: Hypoglycemia Dextrose/Water (Dextrose 50% Syringe 50 Ml) 50 ml IVP PER PROTOCOL PRN; Protocol PRN Reason: Hypoglycemia Dextrose/Water (Dextrose 50% Syringe 50 Ml) 25 ml IVP PER PROTOCOL PRN; Protocol PRN Reason: Hypoglycemia Dextrose/Water (Dextrose 50% Syringe 50 Ml) 50 ml IVP PER PROTOCOL PRN; Protocol PRN Reason: Hypoglycemia Docusate Sodium (Docusate Oral Soln 100 Mg/10 Ml Cup) 100 mg PO DAILY [facility] Last Admin: 09/14/22 09:53 Dose: 100 mg Enoxaparin Sodium (Enoxaparin 40 Mg/0.4 Ml Syringe) 40 mg SQ DAILY [facility] Last Admin: 09/14/22 09:54 Dose: 40 mg Furosemide (Furosemide 40 Mg Tab) 40 mg PO DAILY [facility] Last Admin: 09/14/22 09:54 Dose: 40 mg Sodium Chloride (Saline 0.9%) 1,000 mls @ 10 mls/hr IV .Q24H [facility] Last Admin: 09/14/22 09:54 Dose: Not Given Insulin Aspart (Insulin Aspart (Novolog) 100 Unit/Ml Vial) 0 unit SQ ACHS [facility]; Protocol Last Admin: 09/14/22 11:53 Dose: 6 unit Insulin Detemir (Insulin Detemir (Levemir) 100 Unit/Ml Syr) 20 unit SQ DAILY@0700 [facility] Last Admin: 09/14/22 07:06 Dose: 20 unit Melatonin (Melatonin 5 Mg Tablet) 5 mg PO HS [facility] Last Admin: 09/13/22 20:16 Dose: 5 mg Miscellaneous Information (Potassium Replacement Protocol 1 Each Misc) 1 each MISCELLANE DAILY PRN; Protocol PRN Reason: Per Protocol Miscellaneous Information (Potassium Replacement Protocol 1 Each Misc) 1 each MISCELLANE DAILY PRN; Protocol PRN Reason: Per Protocol Naloxone HCl (Naloxone 0.4 Mg/Ml 1 Ml Vial) 0.2 mg IV Q2M PRN PRN Reason: Opioid Reversal Nystatin (Nystatin 100,000 Unit/Ml Susp 500,000 Unit/5 Ml Cup) 500,000 unit PO QID [facility]; Protocol Last Admin: 09/14/22 13:30 Dose: 500,000 unit Pantoprazole Sodium (Pantoprazole 40 Mg Tablet) 40 mg PO AC-BRKFST [facility] Last Admin: 09/14/22 07:06 Dose: 40 mg Prednisone (Prednisone 10 Mg Tab) 30 mg PO DAILY [facility] Last Admin: 09/14/22 09:54 Dose: 30 mg Pregabalin (Pregabalin 75 Mg Cap) 75 mg PO BID [facility] Last Admin: 09/14/22 09:54 Dose: 75 mg Psyllium Hydrophilic Mucilloid (Psyllium Husk 100% 6 Gm Packet) 6 gm PO DAILY [facility] Last Admin: 09/14/22 14:02 Dose: 6 gm Senna/Docusate Sodium (Sennosides-Docusate Sodium 1 Each Tab) 1 each PO DAILY [facility] Last Admin: 09/14/22 14:02 Dose: 1 each Tamsulosin HCl (Tamsulosin 0.4 Mg Cap.Er.24h) 0.4 mg PO PC-BRKFST [facility] Last Admin: 09/14/22 08:03 Dose: 0.4 mg On examination: VITAL SIGNS: 98.2, 87, 20, 101/66, 95% on 2 L GENERAL APPEARANCE: Up in a chair, not in distress. HEENT: Normal external appearance of nose and ear. Oral cavity normal EYES: Pupils equal. Conjunctiva normal. NECK: JVD not raised. Mass not palpable. RESPIRATORY: Respiratory effort normal. Lungs decreased breath sounds CARDIOVASCULAR: First and second sounds normal. No edema. ABDOMEN: Soft. Liver and spleen not palpable. No tenderness. No mass palpable. Stapleton catheter PSYCHIATRY: Alert and oriented x3. Mood and affect normal. INVESTIGATIONS, reviewed in the clinical context: September 14: White count 9.5 hemoglobin 13.8 platelets 144 potassium 3.7 creatinine 0.67 White count 13.4 hemoglobin 13.9 platelets 149 potassium 3.2 BUN 33 creatinine 0.65 procalcitonin 0.5 Venous Doppler: Lower extremity-negative for DVT Assessment and plan: -Acute hypoxic respiratory failure secondary to multilobar pneumonia secondary to E. coli -Sepsis and septic shock secondary to above: Improving -Hypotension, corrected -Acute exacerbation of COPD, better -Toxic metabolic encephalopathy, improved -Acute kidney injury secondary to septic septic shock from ATN, resolved -Chronic nicotine dependence -DO NOT RESUSCITATE with instructions Discussed with patient and . DuoNeb. IV Unasyn changed over to Augmentin.. oral Lasix. Levemir 20 units. Prednisone 30 mg. Requiring BiPAP at night. Currently on 2 L nasal cannula.
[2022-09-14 17:02] LABS: Glucose,Whole Blood 190 mg/dL (70-110)
[2022-09-14 20:05] LABS: Glucose,Whole Blood 251 mg/dL (70-110)
[2022-09-14] MEDS: AMOXIC-POT CLAV 875-125MG 1 EACH TAB PO SCH (20:30)
--- NOTE | 2022-09-14 21:32 | P.PN ---
Subjective Progress Note Date: 09/14/22 Principal diagnosis: Pneumonia and bacteremia Patient is a 61-year-old male with a past medical history of asthma patient is a smoker has been brought into the ER for evaluation of increasing shortness of breath and chills, the patient did have evidence of right-sided p neumonia and worsening respiratory distress requiring intubation blood cultures subsequently came back positive with E. coli. The patient is status post bronchoscopy and was completed on 09/04/2022 On today's evaluation that is 09/14/2022, the patient denies any fever or any chills, the patient is hemodynamically stable not requiring any pressor support ,the patient is breathing comfortably on 2l nasal canula oxygen , the patient denies chest pain shortness of breath, , the patient denies abdominal pain or diarrhea, feeling better Objective - Vital Signs Vital signs: Vital Signs Temp 98.4 F 09/14/22 08:00 Pulse 96 09/14/22 12:00 Resp 17 09/14/22 12:00 BP 116/74 09/14/22 12:00 Pulse Ox 97 09/14/22 12:00 FiO2 50 09/13/22 05:00 Intake & Output 09/13/22 09/14/22 09/14/22 18:59 06:59 18:59 Intake Total 360 430 470 Output Total 1385 685 295 Balance -1025 -255 175 Weight 91.8 kg Intake: IV 260 430 220 Ampicillin-Sulbactam 3 gm 200 In Sodium Chloride 0.9% 100 ml @ 200 mls/hr IVPB Q6H JET Rx#:[id number] Potassium Chloride 10 meq 200 In Water For Injection 1 100ml.bag @ 100 mls/hr IVPB Q1H JET Rx#: [id number] Potassium Chloride 20 meq 200 In Water For Injection 1 100ml.bag @ 50 mls/hr IVPB Q2H JET Rx#: [id number] Sodium Chloride 0.9% 1, 60 230 20 000 ml @ 10 mls/hr IV . Q24H JET Rx#:[id number] Intake, IV Titration 100 Amount Ampicillin-Sulbactam 3 gm 100 In Sodium Chloride 0.9% 100 ml @ 200 mls/hr IVPB Q6H JET Rx#:[id number] Oral 250 Output: Urine 1385 685 295 Other: Voiding Method Indwelling Catheter Indwelling Catheter Indwelling Catheter ABP, PAP, CO, CI - Last Documented Arterial Blood Pressure 94/89 Pulmonary Artery Pressure 114/55 - Exam GENERAL DESCRIPTION: Middle-age male lying in bed in no distress RESPIRATORY SYSTEM: Unlabored breathing , diminished breath sounds, no wheeze HEART: S1 S2 regular rate and rhythm , ABDOMEN: Soft , mild distention but no tenderness EXTREMITIES: Diffuse swelling of lower extremity no redness - Labs CBC & Chem 7: 09/14/22 05:36 09/14/22 05:36 Labs: Abnormal Lab Results - Last 24 Hours (Table) 09/13/22 09/13/22 09/14/22 Range/Units 16:09 19:54 05:36 WBC 11.5 H (3.8-10.6) k/uL Plt Count 144 L (150-450) k/uL Neutrophils # 9.0 H (1.3-7.7) k/uL Carbon Dioxide (22-30) mmol/L BUN (9-20) mg/dL Glucose (74-99) mg/dL POC Glucose (mg/dL) 174 H 194 H (70-110) mg/dL Calcium (8.4-10.2) mg/dL 09/14/22 09/14/22 09/14/22 Range/Units 05:36 07:02 11:48 WBC (3.8-10.6) k/uL Plt Count (150-450) k/uL Neutrophils # (1.3-7.7) k/uL Carbon Dioxide 32 H (22-30) mmol/L BUN 30 H (9-20) mg/dL Glucose 123 H (74-99) mg/dL POC Glucose (mg/dL) 126 H 263 H (70-110) mg/dL Calcium 8.1 L (8.4-10.2) mg/dL Microbiology - Last 24 Hours (Table) 09/07/22 11:00 Blood Culture - Final Blood Assessment and Plan (1) Bacteremia Current Visit: Yes Status: Acute Code(s): R78.81 - BACTEREMIA SNOMED Code(s): 4057172 (2) Pneumonia Current Visit: Yes Status: Acute Code(s): J18.9 - PNEUMONIA, UNSPECIFIED ORGANISM SNOMED Code(s): 119386119 Plan: 1patient was in the hospital with sepsis in this patient with a fever tachycardia hypoxemia source is likely right-sided pneumonia with blood cultures coming positive for E. coli not a very common pathogen to cause pneumonia we will wait for the final ID and sensitivities patient urine is negative abdominal soft on clinical exam and no clear history of any vomiting abdominal pain however there is a history of constipation did provided by the family member at the bedside 2- CT of abdominal pelvis question of appendicitis for the patient has been evaluated by general surgery and has been ruled out clinically with no need for any intervention 3-patient E. coli sensitive pathogen with concern for possible aspiration pneumonia, patient repeat blood culture has been negative so far , the patient white count is down to 13.4 2 today and monitor closely, chest x-ray from 09/12/2022 did showed improvement 4-the patient Unasyn has been discontinued this morning we will start oral Augmentin 2 days to finish a two-week course of therapy Time with Patient: Less than 30
[2022-09-14] MEDS: MELATONIN 5 MG TABLET PO SCH (21:36)
[2022-09-14] MEDS: ALPRAZolam 0.5 MG TAB PO SCH (21:36)
[2022-09-15] MEDS: Acetaminophen-Codeine 300-30mg TAB PO PRN (03:11)
[2022-09-15 06:11] LABS: Glucose,Whole Blood 194 mg/dL (70-110)
[2022-09-15] MEDS: INSULIN ASPART (NovoLOG) 100 UNIT/ML VIAL SQ SCH ×4 (06:42→21:38)
[2022-09-15] MEDS: PANTOPRAZOLE 40 MG TABLET PO SCH (06:42)
[2022-09-15] MEDS: INSULIN DETEMIR (LEVEMIR) 100 UNIT/ML SYR SQ SCH (06:42)
[2022-09-15] MEDS: IPRATROPIUM-ALBUTEROL 3 ML NEB INHALATION SCH ×4 (07:38→21:03)
[2022-09-15 07:58] LABS: African American GFR (CKD) >90 (>60 ml/min/1.73 sqM); Anion Gap 7 mmol/L; Blood Urea Nitrogen 22 mg/dL (9-20); Calcium 8.4 mg/dL (8.4-10.2); Carbon Dioxide 28 mmol/L (22-30); Chloride 104 mmol/L (98-107); Glucose 177 mg/dL (74-99); Non-African American GFR(CKD) >90 (>60 ml/min/1.73 sqM); Sodium 139 mmol/L (137-145)
--- NOTE | 2022-09-15 08:25 | XR ---
EXAMINATION TYPE: XR chest 1V portable DATE OF EXAM: 09/15/2022 COMPARISON: NONE HISTORY: Cough TECHNIQUE: Single frontal view of the chest is obtained. FINDINGS: There are bilateral infiltrates greater on the right. No pneumothorax. Small bilateral ple ural effusions. Heart size normal. Atherosclerotic changes noted. Right-sided central venous catheter seen with tip near the SVC. IMPRESSION: Bilateral infiltrate greater on the right correlate for pneumonia.
[2022-09-15] MEDS: AMOXIC-POT CLAV 875-125MG 1 EACH TAB PO SCH ×2 (08:40→21:38)
[2022-09-15] MEDS: amLODIPine 5 MG TAB PO SCH ×2 (08:40→21:38)
[2022-09-15] MEDS: TAMSULOSIN 0.4 MG CAP.ER.24H PO SCH (08:40)
[2022-09-15] MEDS: PSYLLIUM HUSK 100% 6 GM PACKET PO SCH (08:41)
[2022-09-15] MEDS: FUROSEMIDE 40 MG TAB PO SCH (08:41)
[2022-09-15] MEDS: predniSONE 10 MG TAB PO SCH (08:41)
[2022-09-15] MEDS: ENOXAPARIN 40 MG/0.4 ML SYRINGE SQ SCH (08:41)
[2022-09-15] MEDS: PREGABALIN 75 MG CAP PO SCH ×2 (08:41→21:38)
[2022-09-15] MEDS: SENNOSIDES-DOCUSATE SODIUM 1 EACH TAB PO SCH (08:41)
[2022-09-15] MEDS: NYSTATIN 100,000 UNIT/ML SUSP 500,000 UNIT/5 ML CUP PO SCH ×4 (08:41→21:43)
[2022-09-15] MEDS: DOCUSATE ORAL SOLN 100 MG/10 ML CUP PO SCH (09:08)
[2022-09-15 11:21] LABS: Glucose,Whole Blood 154 mg/dL (70-110)
[2022-09-15] MEDS: SODIUM CHLORIDE 0.9% 1,000 ML IV SCH (11:52)
--- NOTE | 2022-09-15 12:33 | P.PN ---
Subjective Progress Note Date: 09/15/22 Patient was reevaluated today on remains in the ICU, patient was extubated on 03/13, tolerated the extubation fairly well. Patient remains in the ICU mostly because he has multiple other issues and he remains marginal. Last night patient developed urinary retention requiring straight catheteriz ation twice, hence I recommended today that he goes on Flomax, and if he would continue to have urinary retention may have to put the Stapleton catheter back and consult urology. The meantime we'll hope Flomax will take care of the issue. Patient continues to have severe pain and lower extremities this is a relatively new hence I'm ordering ultrasound of lower extremity/Doppler. Patient required to go on BiPAP briefly last night because of desaturation, chest x-ray continues to show a right lower lobe infiltrate. Patient remains on Unasyn. His BiPAP settings are set at 14/6/50%. Presently on 6 L nasal cannula labs today showed WBC count of 13.4 hemoglobin 13.9 Normal except for slightly low potassium of 3.2, being corrected as per protocol. Patient is able to feed on his own, and he finished 75% of his meal today. Yesterday he was up in the chair, and we'll plan to put him back up in the chair today. Continues to have a central line in place, and I planning to have the central line removed today. The patient is seen today 09/14/2022 in follow-up in the intensive care unit. He is currently awake and alert sitting up in bed. He was admitted on 09/02/2022 for respiratory failure and E. coli pneumonia and E. coli sepsis. He required intubation on the and was successfully extubated on 09/11/2022. He currently denies any worsening shortness of breath, cough or congestion. He is maintaining good O2 saturations in the 90s on 3 L/m per nasal cannula. He has normal saline at 20 ML's per hour. He has been continued on Unasyn. He is working with PT and OT. Plan is to be up in the chair again today. Follow-up blood culture revealed no growth. Bronchial washings revealed no growth. White count 11.5. Hemoglobin 13.8. Platelets 144. Sodium 140. Potassium 3.7. Bicarb 32. BUN 30. Creatinine 0.67. Glucose 123. He is continued on DuoNeb inhalations, prednisone taper. Patient is seen today 09/15/2022 in follow-up on the regular medical floor. He is currently sitting up in a chair at the bedside. Awake and alert in no acute distress. Maintaining good O2 saturations in the 90s on 2 L/m per nasal cannula. Chest x-ray reveals bilateral infiltrates greater on the right. Follow-up blood cultures revealing no growth. Bronchial wash cultures revealed no growth. Sodium 139. Potassium 4.0. Bicarb 28. BUN 22. Creatinine 0.62. Glucose 177. He is continued on bronchodilators. Antibiotics in the form of Augmentin. Oral diuretics. Lovenox for DVT prophylaxis. Prednisone taper. Remains in a negative balance. Objective - Vital Signs Vital signs: Vital Signs Temp 98.2 F 09/15/22 07:31 Pulse 86 09/15/22 11:39 Resp 18 09/15/22 07:31 BP 99/67 09/15/22 07:31 Pulse Ox 94 L 09/15/22 07:40 FiO2 50 09/13/22 05:00 Intake & Output 09/14/22 09/15/22 09/15/22 18:59 06:59 18:59 Intake Total 980 80 Output Total 735 1055 125 Balance 245 -975 -125 Weight 91.8 kg Intake: IV 360 80 Potassium Chloride 10 meq 220 In Water For Injection 1 100ml.bag @ 100 mls/hr IVPB Q1H [facility] Rx#: [id number] Sodium Chloride 0.9% 1, 140 80 000 ml @ 10 mls/hr IV . Q24H [facility] Rx#:[id number] Oral 620 Output: Urine 735 1055 125 Other: Voiding Method Indwelling Catheter Indwelling Catheter ABP, PAP, CO, CI - Last Documented Arterial Blood Pressure 94/89 Pulmonary Artery Pressure 114/55 - Exam GENERAL EXAM: Alert, oriented 61-year-old male, in a chair at the bedside, on 2 L nasal cannula, comfortable in no apparent distress. HEAD: Normocephalic. EYES: Normal reaction of pupils, equal size. NOSE: Clear with pink turbinates. THROAT: No erythema or exudates. NECK: No masses, no JVD. CHEST: No chest wall deformity. LUNGS: Equal air entry with crackles in the right lung base. CVS: S1 and S2 normal with no audible murmur, regular rhythm. ABDOMEN: No hepatosplenomegaly, normal bowel sounds, no guarding or rigidity. SPINE: No scoliosis or deformity SKIN: No rashes CENTRAL NERVOUS SYSTEM: No focal deficits, tone is normal in all 4 extremities. EXTREMITIES: Changes of chronic venous stasis. There is no peripheral edema. No clubbing, no cyanosis. Peripheral pulses are intact. - Labs CBC & Chem 7: 09/14/22 05:36 09/15/22 06:59 Labs: Abnormal Lab Results - Last 24 Hours (Table) 09/14/22 09/14/22 09/15/22 Range/Units 17:00 20:03 06:10 BUN (9-20) mg/dL Creatinine (0.66-1.25) mg/dL Glucose (74-99) mg/dL POC Glucose (mg/dL) 190 H 251 H 194 H (70-110) mg/dL 09/15/22 09/15/22 Range/Units 06:59 11:08 BUN 22 H (9-20) mg/dL Creatinine 0.62 L (0.66-1.25) mg/dL Glucose 177 H (74-99) mg/dL POC Glucose (mg/dL) 154 H (70-110) mg/dL Assessment and Plan Assessment: Acute hypoxic respiratory failure secondary to multilobar pneumonia secondary to E. coli. Required intubation on 09/02, extubated on 09/11, currently on 2 L nasal cannula. Sepsis and septic shock secondary to E. coli pneumonia and bacteremia. Completed Unasyn. Hypotension, resolved. This was felt to be secondary to septic shock. Acute hypercapnic respiratory failure Acute leukocytosis secondary to pneumonia and sepsis. Acute exacerbation of COPD Acute toxic metabolic encephalopathy/altered mental status , resolved Acute kidney injury secondary to sepsis and septic shock. Resolved. Chronic tobacco dependence syndrome. Plan: The patient was seen and evaluated Chest x-ray, medications and labs reviewed Continued on Augmentin Continue bronchodilators Continues prednisone taper Plan encourage increased use the incentive spirometer Titrate the FiO2 as tolerated Increase his activity as tolerated We'll continue to follow I have personally seen and examined the patient, performed the documentation and the assessment and plan as written. Number of minutes spent on the visit: 10.
--- NOTE | 2022-09-15 16:22 | P.PN ---
Subjective Progress Note Date: 09/15/22 Principal diagnosis: Pneumonia and bacteremia Patient is a 61-year-old male with a past medical history of asthma patient is a smoker has been brought into the ER for evaluation of increasing shortness of breath and chills, the patient did have evidence of right-sided p neumonia and worsening respiratory distress requiring intubation blood cultures subsequently came back positive with E. coli. The patient is status post bronchoscopy and was completed on 09/04/2022 On today's evaluation that is 09/15/2022, the patient remains to be afebrile ,the patient is breathing comfortably on 2l nasal canula oxygen , the patient denies chest pain shortness of breath, , the patient denies abdominal pain or diarrhea rather complaining of some constipation Objective - Vital Signs Vital signs: Vital Signs Temp 98.2 F 09/15/22 07:31 Pulse 86 09/15/22 11:39 Resp 18 09/15/22 07:31 BP 99/67 09/15/22 07:31 Pulse Ox 94 L 09/15/22 07:40 FiO2 50 09/13/22 05:00 Intake & Output 09/14/22 09/15/22 09/15/22 18:59 06:59 18:59 Intake Total 980 80 Output Total 735 1055 125 Balance 245 -975 -125 Weight 91.8 kg Intake: IV 360 80 Potassium Chloride 10 meq 220 In Water For Injection 1 100ml.bag @ 100 mls/hr IVPB Q1H [facility] Rx#: [id number] Sodium Chloride 0.9% 1, 140 80 000 ml @ 10 mls/hr IV . Q24H [facility] Rx#:[id number] Oral 620 Output: Urine 735 1055 125 Other: Voiding Method Indwelling Catheter Indwelling Catheter ABP, PAP, CO, CI - Last Documented Arterial Blood Pressure 94/89 Pulmonary Artery Pressure 114/55 - Exam GENERAL DESCRIPTION: Middle-age male lying in bed in no distress RESPIRATORY SYSTEM: Unlabored breathing , diminished breath sounds, no wheeze HEART: S1 S2 regular rate and rhythm , ABDOMEN: Soft , mild distention but no tenderness EXTREMITIES: Diffuse swelling of lower extremity no redness - Labs CBC & Chem 7: 09/14/22 05:36 09/15/22 06:59 Labs: Abnormal Lab Results - Last 24 Hours (Table) 09/14/22 09/14/22 09/15/22 Range/Units 17:00 20:03 06:10 BUN (9-20) mg/dL Creatinine (0.66-1.25) mg/dL Glucose (74-99) mg/dL POC Glucose (mg/dL) 190 H 251 H 194 H (70-110) mg/dL 09/15/22 09/15/22 Range/Units 06:59 11:08 BUN 22 H (9-20) mg/dL Creatinine 0.62 L (0.66-1.25) mg/dL Glucose 177 H (74-99) mg/dL POC Glucose (mg/dL) 154 H (70-110) mg/dL Assessment and Plan (1) Bacteremia Current Visit: Yes Status: Acute Code(s): R78.81 - BACTEREMIA SNOMED Code(s): 4498351 (2) Pneumonia Current Visit: Yes Status: Acute Code(s): J18.9 - PNEUMONIA, UNSPECIFIED ORGANISM SNOMED Code(s): 119294929 Plan: 1patient was in the hospital with sepsis in this patient with a fever t achycardia hypoxemia source is likely right-sided pneumonia with blood cultures coming positive for E. coli not a very common pathogen to cause pneumonia we will wait for the final ID and sensitivities patient urine is negative abdominal soft on clinical exam and no clear history of any vomiting abdominal pain however there is a history of constipation did provided by the family member at the bedside 2- CT of abdominal pelvis question of appendicitis for the patient has been evaluated by general surgery and has been ruled out clinically with no need for any intervention 3-patient E. coli sensitive pathogen with concern for possible aspiration pneumonia, patient repeat blood culture has been negative so far , the patient chest x-ray from 09/12/2022 did showed improvement 4-the patient to continue with oral Augmentin to finish a two-week course of therapy Time with Patient: Less than 30
[2022-09-15 16:46] LABS: Glucose,Whole Blood 280 mg/dL (70-110)
[2022-09-15 21:00] LABS: Glucose,Whole Blood 173 mg/dL (70-110)
[2022-09-15] MEDS: MELATONIN 5 MG TABLET PO SCH (21:38)
[2022-09-15] MEDS: ALPRAZolam 0.5 MG TAB PO SCH (21:38)
--- NOTE | 2022-09-16 01:17 | PN ---
PROGRESS NOTE SUBJECTIVE: Remains on DuoNeb, Augmentin, Levemir, NovoLog for diabetes. The patient is breathing better on 2 L oxygen. Possibly aspirated at home. OBJECTIVE: VITAL SIGNS: Temp 98.5, respiratory rate 16 to 18, blood pressure 119/67, 95% oxygen on 2 L. CARDIOVASCULAR: S1, S2. LUNGS: Scattered rhonchi and wheeze. HEMATOLOGY: Negative Homans. PSYCH: Fair mood and affect. ASSESSMENT: Escherichia coli sepsis, aspiration pneumonia, chronic obstructive pulmonary disease. Prognosis guarded. Continue with IV steroids and updrafts, GERD medications. Prognosis guarded. Follow up next 24 to 48 hours. MMODL / IJN: [id number] /
[2022-09-16 06:29] LABS: Glucose,Whole Blood 113 mg/dL (70-110)
[2022-09-16] MEDS: INSULIN ASPART (NovoLOG) 100 UNIT/ML VIAL SQ SCH ×4 (06:46→22:57)
[2022-09-16] MEDS: PANTOPRAZOLE 40 MG TABLET PO SCH (06:47)
[2022-09-16] MEDS: INSULIN DETEMIR (LEVEMIR) 100 UNIT/ML SYR SQ SCH (06:47)
[2022-09-16] MEDS: IPRATROPIUM-ALBUTEROL 3 ML NEB INHALATION SCH ×4 (08:23→22:00)
[2022-09-16] MEDS: ENOXAPARIN 40 MG/0.4 ML SYRINGE SQ SCH (09:13)
[2022-09-16] MEDS: Acetaminophen-Codeine 300-30mg TAB PO PRN ×2 (09:13→22:56)
[2022-09-16] MEDS: PSYLLIUM HUSK 100% 6 GM PACKET PO SCH (09:13)
[2022-09-16] MEDS: FUROSEMIDE 40 MG TAB PO SCH (09:14)
[2022-09-16] MEDS: TAMSULOSIN 0.4 MG CAP.ER.24H PO SCH (09:14)
[2022-09-16] MEDS: PREGABALIN 75 MG CAP PO SCH ×2 (09:14→22:56)
[2022-09-16] MEDS: amLODIPine 5 MG TAB PO SCH ×2 (09:14→22:56)
[2022-09-16] MEDS: predniSONE 10 MG TAB PO SCH (09:14)
[2022-09-16] MEDS: AMOXIC-POT CLAV 875-125MG 1 EACH TAB PO SCH ×2 (09:15→22:56)
[2022-09-16] MEDS: NYSTATIN 100,000 UNIT/ML SUSP 500,000 UNIT/5 ML CUP PO SCH ×4 (09:16→22:56)
[2022-09-16] MEDS: DOCUSATE ORAL SOLN 100 MG/10 ML CUP PO SCH (09:16)
[2022-09-16] MEDS: SENNOSIDES-DOCUSATE SODIUM 1 EACH TAB PO SCH (09:17)
[2022-09-16 11:34] LABS: Glucose,Whole Blood 214 mg/dL (70-110)
--- NOTE | 2022-09-16 14:05 | P.PN ---
Subjective Progress Note Date: 09/16/22 Patient was reevaluated today on remains in the ICU, patient was extubated on 03/13, tolerated the extubation fairly well. Patient remains in the ICU mostly because he has multiple other issues and he remains marginal. Last night patient developed urinary retention requiring straight catheteriz ation twice, hence I recommended today that he goes on Flomax, and if he would continue to have urinary retention may have to put the Stapleton catheter back and consult urology. The meantime we'll hope Flomax will take care of the issue. Patient continues to have severe pain and lower extremities this is a relatively new hence I'm ordering ultrasound of lower extremity/Doppler. Patient required to go on BiPAP briefly last night because of desaturation, chest x-ray continues to show a right lower lobe infiltrate. Patient remains on Unasyn. His BiPAP settings are set at 14/6/50%. Presently on 6 L nasal cannula labs today showed WBC count of 13.4 hemoglobin 13.9 Normal except for slightly low potassium of 3.2, being corrected as per protocol. Patient is able to feed on his own, and he finished 75% of his meal today. Yesterday he was up in the chair, and we'll plan to put him back up in the chair today. Continues to have a central line in place, and I planning to have the central line removed today. The patient is seen today 09/14/2022 in follow-up in the intensive care unit. He is currently awake and alert sitting up in bed. He was admitted on 09/02/2022 for respiratory failure and E. coli pneumonia and E. coli sepsis. He required intubation on the and was successfully extubated on 09/11/2022. He currently denies any worsening shortness of breath, cough or congestion. He is maintaining good O2 saturations in the 90s on 3 L/m per nasal cannula. He has normal saline at 20 ML's per hour. He has been continued on Unasyn. He is working with PT and OT. Plan is to be up in the chair again today. Follow-up blood culture revealed no growth. Bronchial washings revealed no growth. White count 11.5. Hemoglobin 13.8. Platelets 144. Sodium 140. Potassium 3.7. Bicarb 32. BUN 30. Creatinine 0.67. Glucose 123. He is continued on DuoNeb inhalations, prednisone taper. Patient is seen today 09/15/2022 in follow-up on the regular medical floor. He is currently sitting up in a chair at the bedside. Awake and alert in no acute distress. Maintaining good O2 saturations in the 90s on 2 L/m per nasal cannula. Chest x-ray reveals bilateral infiltrates greater on the right. Follow-up blood cultures revealing no growth. Bronchial wash cultures revealed no growth. Sodium 139. Potassium 4.0. Bicarb 28. BUN 22. Creatinine 0.62. Glucose 177. He is continued on bronchodilators. Antibiotics in the form of Augmentin. Oral diuretics. Lovenox for DVT prophylaxis. Prednisone taper. Remains in a negative balance. The patient is seen today 09/16/2022 in follow-up on the regular medical floor. He is currently sitting up in a chair. Awake and alert in no acute distress. Initial blood cultures were positive for E. coli. Sputum culture positive for E. coli. Follow-up bronchial wash cultures revealed no growth. Follow-up blood cultures revealed no growth. Blood glucose 214. He is continued on Augmentin. Remains on bronchodilators. Objective - Vital Signs Vital signs: Vital Signs Temp 97.8 F 09/16/22 07:49 Pulse 91 09/16/22 11:33 Resp 18 09/16/22 11:33 BP 104/63 09/16/22 07:49 Pulse Ox 92 L 09/16/22 08:23 FiO2 50 09/13/22 05:00 Intake & Output 09/15/22 09/16/22 09/16/22 18:59 06:59 18:59 Intake Total 118 Output Total 525 Balance -525 118 Intake: Oral 118 Output: Urine 525 Other: Voiding Method Indwelling Catheter Indwelling Catheter # Bowel Movements 1 ABP, PAP, CO, CI - Last Documented Arterial Blood Pressure 94/89 Pulmonary Artery Pressure 114/55 - Exam GENERAL EXAM: Alert, 61-year-old male, in a chair, on 2 L nasal cannula, comfortable in no apparent distress. HEAD: Normocephalic. EYES: Normal reaction of pupils, equal size. NOSE: Clear with pink turbinates. THROAT: No erythema or exudates. NECK: No masses, no JVD. CHEST: No chest wall deformity. LUNGS: Equal air entry with crackles in the right lung base. CVS: S1 and S2 normal with no audible murmur, regular rhythm. ABDOMEN: No hepatosplenomegaly, normal bowel sounds, no guarding or rigidity. SPINE: No scoliosis or deformity SKIN: No rashes CENTRAL NERVOUS SYSTEM: No focal deficits, tone is normal in all 4 extremities. EXTREMITIES: Changes of chronic venous stasis. There is no peripheral edema. No clubbing, no cyanosis. Peripheral pulses are intact. - Labs CBC & Chem 7: 09/14/22 05:36 09/15/22 06:59 Labs: Abnormal Lab Results - Last 24 Hours (Table) 09/15/22 09/15/22 09/16/22 Range/Units 16:42 20:59 06:28 POC Glucose (mg/dL) 280 H 173 H 113 H (70-110) mg/dL 09/16/22 Range/Units 11:32 POC Glucose (mg/dL) 214 H (70-110) mg/dL Assessment and Plan Assessment: Acute hypoxic respiratory failure secondary to multilobar pneumonia secondary to E. coli. Required intubation on 09/02, extubated on 09/11, currently on 2 L nasal cannula. Sepsis and septic shock secondary to E. coli pneumonia and bacteremia. Completed Unasyn. Early on Augmentin. Follow-up cultures reveal no growth. Hypotension, resolved. This was felt to be secondary to septic shock. Acute hypercapnic respiratory failure Acute leukocytosis secondary to pneumonia and sepsis. Improved. Acute exacerbation of COPD Acute toxic metabolic encephalopathy/altered mental status , resolved Acute kidney injury secondary to sepsis and septic shock. Resolved. Chronic tobacco dependence syndrome. Plan: The patient was seen and evaluated Medications reviewed Continue the current treatment plan Encourage increased use the incentive spirometer Titrate the FiO2 as tolerated Increase his activity as tolerated We'll continue to follow I have personally seen and examined the patient, performed the documentation and the assessment and plan as written. Number of minutes spent on the visit: 10.
[2022-09-16 16:41] LABS: Glucose,Whole Blood 292 mg/dL (70-110)
--- NOTE | 2022-09-16 18:50 | DS ---
DISCHARGE SUMMARY DISCHARGE MEDICINES: 1. DuoNeb q.i.d. 2. Levemir 20 units daily. 3. Lyrica 75 mg b.i.d. 4. Melatonin 5 at bedtime. 5. mg daily. 6. Prednisone 30 mg daily for 5 days, then 20 mg for 5 days, then 10 mg for 5 days, then stop. 7. Augmentin 875 one b.i.d. for 2 weeks. 8. Colace 100 mg daily. 9. Flomax 0.4 mg daily. 10.Lasix 40 mg daily. 11.Nystatin suspension 5 mL q.i.d. for 10 days. 12.Norvasc 5 mg b.i.d. 13.NovoLog before meals and at bedtime. 14.Protonix 40 mg daily. 15.Xanax 0.5 at night. 16.Continue Advair 250/50 Diskus 1 puff b.i.d. CONDITION: Stable. PROGNOSIS: Guarded. Ambulate as tolerated. HOSPITAL COURSE: The patient came to the hospital with acute respiratory failure. The patient is on the ventilator for multiple days. He was near and it took multiple days to wean him off the ventilator. He had E coli sepsis with bacteremia, blood stream with multiple E coli. Blood cultures positive, which cleared up, weaned off the ventilator slowly with broad-spectrum antibiotics. He was switched to Augmentin on discharge for 2 weeks. Diabetes is controlled with Levemir and Accu-Cheks. DuoNeb q.i.d. for his breathing along with Protonix 40 mg a day for GERD precautions, Xanax 0.5 at night, Lyrica 75 b.i.d., prednisone taper as mentioned above. He will need 2 L of oxygen at the retirement 24 hours a day and we can wean off that. Prognosis guarded. Please see further orders. Diet as tolerated. Ambulate with PT, OT. Condition stable. Prognosis guarded. MMODL / IJN: [id number] /
[2022-09-16 21:20] LABS: Glucose,Whole Blood 219 mg/dL (70-110)
[2022-09-16] MEDS: ALPRAZolam 0.5 MG TAB PO SCH (22:56)
[2022-09-16] MEDS: MELATONIN 5 MG TABLET PO SCH (22:56)
[2022-09-16] MEDS: SODIUM CHLORIDE 0.9% 1,000 ML IV SCH (22:57)
--- NOTE | 2022-09-17 01:11 | PN ---
PROGRESS NOTE SUBJECTIVE: A 61-year-old white male, weaned off the ventilator, is doing better. He is on 93% sats on 2 L oxygen. He wants to go to the long-term on 2 L oxygen. OBJECTIVE: VITAL SIGNS: Blood pressure 106/65, temp 97.6, pulse 87, respiratory rate 18 to 20. CARDIOVASCULAR: S1, S2. LUNGS: Transmitted upper sounds. GI: Soft, distended. LUNGS: Wheezes x4. HEMATOLOGY: Negative Homans. ASSESSMENT: Escherichia coli pneumonia, sepsis due to Escherichia coli with bacteremia, acute hypoxemic respiratory failure, weaned off the ventilator. Continue with current treatments and go to the long-term on 2 L oxygen tomorrow. MMODL / IJN: [id number] /
[2022-09-17 04:01] VITALS: TEMP 97.7
[2022-09-17] MEDS: TAMSULOSIN 0.4 MG CAP.ER.24H PO SCH (06:07)
[2022-09-17 06:49] LABS: Glucose,Whole Blood 84 mg/dL (70-110)
[2022-09-17] MEDS: INSULIN ASPART (NovoLOG) 100 UNIT/ML VIAL SQ SCH ×2 (07:35→12:10)
[2022-09-17 07:57] VITALS: BP 98/61; RESP 18
[2022-09-17] MEDS: amLODIPine 5 MG TAB PO SCH (08:12)
[2022-09-17] MEDS: predniSONE 10 MG TAB PO SCH (08:12)
[2022-09-17] MEDS: PANTOPRAZOLE 40 MG TABLET PO SCH (08:12)
[2022-09-17] MEDS: SENNOSIDES-DOCUSATE SODIUM 1 EACH TAB PO SCH (08:12)
[2022-09-17] MEDS: FUROSEMIDE 40 MG TAB PO SCH (08:12)
[2022-09-17] MEDS: INSULIN DETEMIR (LEVEMIR) 100 UNIT/ML SYR SQ SCH (08:12)
[2022-09-17] MEDS: PREGABALIN 75 MG CAP PO SCH (08:12)
[2022-09-17] MEDS: PSYLLIUM HUSK 100% 6 GM PACKET PO SCH (08:13)
[2022-09-17] MEDS: ENOXAPARIN 40 MG/0.4 ML SYRINGE SQ SCH (08:13)
[2022-09-17] MEDS: NYSTATIN 100,000 UNIT/ML SUSP 500,000 UNIT/5 ML CUP PO SCH ×2 (08:13→12:10)
[2022-09-17] MEDS: AMOXIC-POT CLAV 875-125MG 1 EACH TAB PO SCH (08:13)
[2022-09-17] MEDS: Acetaminophen-Codeine 300-30mg TAB PO PRN (08:15)
[2022-09-17] MEDS: DOCUSATE ORAL SOLN 100 MG/10 ML CUP PO SCH (08:18)
[2022-09-17] MEDS: IPRATROPIUM-ALBUTEROL 3 ML NEB INHALATION SCH ×2 (08:54→11:59)
[2022-09-17] MEDS ORDERED: FUROSEMIDE 10 MG/ML 4 ML VIAL IV STA (08:58)
[2022-09-17 10:56] LABS: Basophils # (A) 0.03 X 10*3/uL (0.00-0.10); Basophils % (A) 0.4 %; Eosinophils # (A) 0.28 X 10*3/uL (0.04-0.35); Eosinophils % (A) 3.3 %; HCT 40.8 % (39.6-50.0); HGB 12.6 g/dL (13.0-17.0); Immature Grans, Automated 0.7 %; Lymphocytes # (A) 1.49 X 10*3/uL (0.90-5.00); Lymphocytes % (A) 17.8 %; MCH 29.3 pg (27.0-32.0); MCHC 30.9 g/dL (32.0-37.0); MCV 94.9 fL (80.0-97.0); Mean Platelet Volume 12.1 fL (9.5-12.2); Monocytes % (A) 9.6 %; NRBC Per 100 WBC 0 /100 WBCS (0.0-0.0); Neutrophils # (A) 5.71 X 10*3/uL (1.80-7.70); Neutrophils % (A) 68.2 %; Platelet Count 176 X 10*3/uL (140-440); RDW 13.2 % (11.5-14.5); WBC 8.37 X 10*3/uL (4.50-10.00)
[2022-09-17 11:37] LABS: Glucose,Whole Blood 172 mg/dL (70-110)
[2022-09-17 12:09] LABS: African American GFR (CKD) 119.7 (60.0-200.0); Albumin 3.1 g/dL (3.8-4.9); Albumin/Globulin Ratio 1.41 (1.60-3.17); Anion Gap 6.8 mmol/L (10.00-18.00); BUN/Creat Ratio 27.29 Ratio (12.00-20.00); Blood Urea Nitrogen 19.1 mg/dL (9.0-27.0); Calcium 8.5 mg/dL (8.7-10.3); Carbon Dioxide 31.2 mmol/L (20.0-27.5); Globulin 2.2 g/dL (1.6-3.3); Non-African American GFR(CKD) 103.3 (60.0-200.0); Potassium 3.6 mmol/L (3.5-5.5); Total Bilirubin 0.4 mg/dL (0.30-1.20); Total Protein 5.3 g/dL (6.2-8.2)
[2022-09-17 12:12] VITALS: PULSE 91
--- NOTE | 2022-09-17 12:31 | P.PN ---
Subjective Progress Note Date: 09/17/22 Patient was reevaluated today on remains in the ICU, patient was extubated on 03/13, tolerated the extubation fairly well. Patient remains in the ICU mostly because he has multiple other issues and he remains marginal. Last night patient developed urinary retention requiring straight catheteriz ation twice, hence I recommended today that he goes on Flomax, and if he would continue to have urinary retention may have to put the [place] catheter back and consult urology. The meantime we'll hope Flomax will take care of the issue. Patient continues to have severe pain and lower extremities this is a relatively new hence I'm ordering ultrasound of lower extremity/Doppler. Patient required to go on BiPAP briefly last night because of desaturation, chest x-ray continues to show a right lower lobe infiltrate. Patient remains on Unasyn. His BiPAP settings are set at 14/6/50%. Presently on 6 L nasal cannula labs today showed WBC count of 13.4 hemoglobin 13.9 Normal except for slightly low potassium of 3.2, being corrected as per protocol. Patient is able to feed on his own, and he finished 75% of his meal today. Yesterday he was up in the chair, and we'll plan to put him back up in the chair today. Continues to have a central line in place, and I planning to have the central line removed today. The patient is seen today 09/14/2022 in follow-up in the intensive care unit. He is currently awake and alert sitting up in bed. He was admitted on 09/02/2022 for respiratory failure and E. coli pneumonia and E. coli sepsis. He required intubation on the and was successfully extubated on 09/11/2022. He currently denies any worsening shortness of breath, cough or congestion. He is maintaining good O2 saturations in the 90s on 3 L/m per nasal cannula. He has normal saline at 20 ML's per hour. He has been continued on Unasyn. He is working with PT and OT. Plan is to be up in the chair again today. Follow-up blood culture revealed no growth. Bronchial washings revealed no growth. White count 11.5. Hemoglobin 13.8. Platelets 144. Sodium 140. Potassium 3.7. Bicarb 32. BUN 30. Creatinine 0.67. Glucose 123. He is continued on DuoNeb inhalations, prednisone taper. Patient is seen today 09/15/2022 in follow-up on the regular medical floor. He is currently sitting up in a chair at the bedside. Awake and alert in no acute distress. Maintaining good O2 saturations in the 90s on 2 L/m per nasal cannula. Chest x-ray reveals bilateral infiltrates greater on the right. Follow-up blood cultures revealing no growth. Bronchial wash cultures revealed no growth. Sodium 139. Potassium 4.0. Bicarb 28. BUN 22. Creatinine 0.62. Glucose 177. He is continued on bronchodilators. Antibiotics in the form of Augmentin. Oral diuretics. Lovenox for DVT prophylaxis. Prednisone taper. Remains in a negative balance. The patient is seen today 09/16/2022 in follow-up on the regular medical floor. He is currently sitting up in a chair. Awake and alert in no acute distress. Initial blood cultures were positive for E. coli. Sputum culture positive for E. coli. Follow-up bronchial wash cultures revealed no growth. Follow-up blood cultures revealed no growth. Blood glucose 214. He is continued on Augmentin. Remains on bronchodilators. The patient is seen today 09/17/2022 in follow-up on the regular medical floor. He is awake and alert in no acute distress. Currently resting comfortably in bed. Maintaining good O2 saturations in the mid 90s on 3 L/m per nasal cannula. White count 8.3. Hemoglobin 12.6. Platelets 176. Sodium 142. Potassium 3.6. Bicarb 31. BUN 19. Creatinine 0.7. Glucose 86. Quintero virus by PCR not dete cted. He is continued on DuoNeb inhalations, prednisone taper. Antibiotics in the form of Augmentin. Lovenox for DVT prophylaxis. Objective - Vital Signs Vital signs: Vital Signs Temp 97.7 F 09/17/22 02:00 Pulse 91 09/17/22 12:10 Resp 18 09/17/22 12:10 BP 98/61 09/17/22 07:34 Pulse Ox 96 09/17/22 08:54 FiO2 50 09/13/22 05:00 Intake & Output 09/16/22 09/17/22 09/17/22 18:59 06:59 18:59 Intake Total 354 200 Output Total 1200 500 610 Balance -846 -300 -610 Weight 87.4 kg Intake: Oral 354 200 Output: Urine 1200 500 610 Other: Voiding Method Indwelling Catheter Indwelling Catheter Urinal ABP, PAP, CO, CI - Last Documented Arterial Blood Pressure 94/89 Pulmonary Artery Pressure 114/55 - Exam GENERAL EXAM: Alert, 61-year-old male, in a chair, on 2 L nasal cannula, comfortable in no apparent distress. HEAD: Normocephalic. EYES: Normal reaction of pupils, equal size. NOSE: Clear with pink turbinates. THROAT: No erythema or exudates. NECK: No masses, no JVD. CHEST: No chest wall deformity. LUNGS: Equal air entry with crackles in the right lung base. CVS: S1 and S2 normal with no audible murmur, regular rhythm. ABDOMEN: No hepatosplenomegaly, normal bowel sounds, no guarding or rigidity. SPINE: No scoliosis or deformity SKIN: No rashes CENTRAL NERVOUS SYSTEM: No focal deficits, tone is normal in all 4 extremities. EXTREMITIES: Changes of chronic venous stasis. There is no peripheral edema. No clubbing, no cyanosis. Peripheral pulses are intact. - Labs CBC & Chem 7: 09/17/22 07:12 09/17/22 07:12 Labs: Abnormal Lab Results - Last 24 Hours (Table) 09/16/22 09/16/22 09/17/22 Range/Units 16:39 21:19 07:12 RBC 4.30 L (4.40-5.60) X 10*6/uL Hgb 12.6 L (13.0-17.0) g/dL MCHC 30.9 L (32.0-37.0) g/dL Immature Gran # 0.06 H (0.00-0.04) X 10*3/uL Carbon Dioxide (20.0-27.5) mmol/L Anion Gap (10.00-18.00) mmol/L BUN/Creatinine Ratio (12.00-20.00) Ratio POC Glucose (mg/dL) 292 H 219 H (70-110) mg/dL Calcium (8.7-10.3) mg/dL ALT (10-49) U/L Total Protein (6.2-8.2) g/dL Albumin (3.8-4.9) g/dL Albumin/Globulin Ratio (1.60-3.17) g/dL 09/17/22 09/17/22 Range/Units 07:12 11:36 RBC (4.40-5.60) X 10*6/uL Hgb (13.0-17.0) g/dL MCHC (32.0-37.0) g/dL Immature Gran # (0.00-0.04) X 10*3/uL Carbon Dioxide 31.2 H (20.0-27.5) mmol/L Anion Gap 6.80 L (10.00-18.00) mmol/L BUN/Creatinine Ratio 27.29 H (12.00-20.00) Ratio POC Glucose (mg/dL) 172 H (70-110) mg/dL Calcium 8.5 L (8.7-10.3) mg/dL ALT 107 H (10-49) U/L Total Protein 5.3 L (6.2-8.2) g/dL Albumin 3.1 L (3.8-4.9) g/dL Albumin/Globulin Ratio 1.41 L (1.60-3.17) g/dL Assessment and Plan Assessment: Acute hypoxic respiratory failure secondary to multilobar pneumonia secondary to E. coli. Required intubation on 09/02, extubated on 09/11, currently on 2 L nasal cannula. Sepsis and septic shock secondary to E. coli pneumonia and bacteremia. Completed Unasyn. Early on Augmentin. Follow-up cultures reveal no growth. Hypotension, resolved. This was felt to be secondary to septic shock. Acute hypercapnic respiratory failure Acute leukocytosis secondary to pneumonia and sepsis. Improved. Acute exacerbation of COPD Acute toxic metabolic encephalopathy/altered mental status , resolved Acute kidney injury secondary to sepsis and septic shock. Resolved. Chronic tobacco dependence syndrome. Plan: The patient was seen and evaluated The patient is cleared for discharge from the pulmonary standpoint Please a course of antibiotics Complete a prednisone taper Plan is to discharge to [facility] today I have personally seen and examined the patient, performed the documentation and the assessment and plan as written. Number of minutes spent on the visit: 10.
[2022-09-17 13:46] VITALS: BMI 26.9
--- NOTE | 2022-09-17 14:23 | P.PN ---
Subjective Progress Note Date: 09/16/22 Principal diagnosis: Pneumonia and bacteremia Patient is a 61-year-old male with a past medical history of asthma patient is a smoker has been brought into the ER for evaluation of increasing shortness of breath and chills, the patient did have evidence of right-sided p neumonia and worsening respiratory distress requiring intubation blood cultures subsequently came back positive with E. coli. The patient is status post bronchoscopy and was completed on 09/04/2022 On today's evaluation that is 09/16/2022, the patient remains to be afebrile ,the patient is breathing comfortably on 2l nasal canula oxygen , the patient denies chest pain shortness of breath, did have occasional dry cough the patient denies abdominal pain or diarrhea Objective - Vital Signs Vital signs: Vital Signs Temp 97.8 F 09/16/22 07:49 Pulse 91 09/16/22 11:33 Resp 18 09/16/22 11:33 BP 104/63 09/16/22 07:49 Pulse Ox 92 L 09/16/22 08:23 FiO2 50 09/13/22 05:00 Intake & Output 09/15/22 09/16/22 09/16/22 18:59 06:59 18:59 Intake Total 118 Output Total 525 Balance -525 118 Intake: Oral 118 Output: Urine 525 Other: Voiding Method Indwelling Catheter Indwelling Catheter # Bowel Movements 1 ABP, PAP, CO, CI - Last Documented Arterial Blood Pressure 94/89 Pulmonary Artery Pressure 114/55 - Exam GENERAL DESCRIPTION: Middle-age male lying in bed in no distress RESPIRATORY SYSTEM: Unlabored breathing , diminished breath sounds, no wheeze HEART: S1 S2 regular rate and rhythm , ABDOMEN: Soft , mild distention but no tenderness EXTREMITIES: Diffuse swelling of lower extremity no redness - Labs CBC & Chem 7: 09/17/22 07:12 09/17/22 07:12 Labs: Abnormal Lab Results - Last 24 Hours (Table) 09/15/22 09/15/22 09/16/22 Range/Units 16:42 20:59 06:28 POC Glucose (mg/dL) 280 H 173 H 113 H (70-110) mg/dL 09/16/22 Range/Units 11:32 POC Glucose (mg/dL) 214 H (70-110) mg/dL Assessment and Plan (1) Bacteremia Status: Acute Code(s): R78.81 - BACTEREMIA SNOMED Code(s): 7356948 (2) Pneumonia Status: Acute Code(s): J18.9 - PNEUMONIA, UNSPECIFIED ORGANISM SNOMED Code(s): 090792465 Plan: 1patient was in the hospital with sepsis in this patient with a fever tachycardia hypoxemia source is likely right-sided pneumonia with blood cultures coming positive for E. coli not a very common pathogen to cause pneumonia we will wait for the final ID and sensitivities patient urine is negative abdominal soft on clinical exam and no clear history of any vomiting abdominal pain however there is a history of constipation did provided by the family member at the bedside 2- CT of abdominal pelvis question of appendicitis for the patient has been evaluated by general surgery and has been ruled out clinically with no need for any intervention 3-patient E. coli sensitive pathogen with concern for possible aspiration pneumonia, patient repeat blood culture has been negative so far , the patient chest x-ray from 09/12/2022 did showed improvement 4-the patient has had clinical improvement and continue with oral Augmentin to finish a two-week course of therapy Time with Patient: Less than 30
--- NOTE | 2022-09-17 14:24 | P.PN ---
Subjective Progress Note Date: 09/17/22 Principal diagnosis: Pneumonia and bacteremia Patient is a 61-year-old male with a past medical history of asthma patient is a smoker has been brought into the ER for evaluation of increasing shortness of breath and chills, the patient did have evidence of right-sided p neumonia and worsening respiratory distress requiring intubation blood cultures subsequently came back positive with E. coli. The patient is status post bronchoscopy and was completed on 09/04/2022 On today's evaluation that is 09/17/2022, the patient denies any fever or any chills ,the patient is breathing comfortably on 3l nasal canula oxygen , the patient denies chest pain shortness of breath, the patient did have occasional dry cough the patient denies abdominal pain or diarrhea , feeling better Objective - Vital Signs Vital signs: Vital Signs Temp 97.7 F 09/17/22 02:00 Pulse 84 09/17/22 09:06 Resp 18 09/17/22 09:06 BP 98/61 09/17/22 07:34 Pulse Ox 96 09/17/22 08:54 FiO2 50 09/13/22 05:00 Intake & Output 09/16/22 09/17/22 09/17/22 18:59 06:59 18:59 Intake Total 354 200 Output Total 1200 500 610 Balance -846 -300 -610 Weight 87.4 kg Intake: Oral 354 200 Output: Urine 1200 500 610 Other: Voiding Method Indwelling Catheter Indwelling Catheter Urinal ABP, PAP, CO, CI - Last Documented Arterial Blood Pressure 94/89 Pulmonary Artery Pressure 114/55 - Exam GENERAL DESCRIPTION: Middle-age male lying in bed in no distress RESPIRATORY SYSTEM: Unlabored breathing , diminished breath sounds, no wheeze HEART: S1 S2 regular rate and rhythm , ABDOMEN: Soft , mild distention but no tenderness EXTREMITIES: Diffuse swelling of lower extremity no redness - Labs CBC & Chem 7: 09/17/22 07:12 09/17/22 07:12 Labs: Abnormal Lab Results - Last 24 Hours (Table) 09/16/22 09/16/22 09/17/22 Range/Units 16:39 21:19 07:12 RBC 4.30 L (4.40-5.60) X 10*6/uL Hgb 12.6 L (13.0-17.0) g/dL MCHC 30.9 L (32.0-37.0) g/dL Immature Gran # 0.06 H (0.00-0.04) X 10*3/uL POC Glucose (mg/dL) 292 H 219 H (70-110) mg/dL 09/17/22 Range/Units 11:36 RBC (4.40-5.60) X 10*6/uL Hgb (13.0-17.0) g/dL MCHC (32.0-37.0) g/dL Immature Gran # (0.00-0.04) X 10*3/uL POC Glucose (mg/dL) 172 H (70-110) mg/dL Assessment and Plan (1) Bacteremia Status: Acute Code(s): R78.81 - BACTEREMIA SNOMED Code(s): 4683489 (2) Pneumonia Status: Acute Code(s): J18.9 - PNEUMONIA, UNSPECIFIED ORGANISM SNOMED Code(s): 037171947 Plan: 1patient was in the hospital with sepsis in this patient with a fever tachycardia hypoxemia source is likely right-sided pneumonia with blood cultures coming positive for E. coli not a very common pathogen to cause pneumonia we will wait for the final ID and sensitivities patient urine is negative abdominal soft on clinical exam and no clear history of any vomiting abdominal pain however there is a history of constipation did provided by the family member at the bedside 2- CT of abdominal pelvis question of appendicitis for the patient has been evaluated by general surgery and has been ruled out clinically with no need for any intervention 3-patient E. coli sensitive pathogen with concern for possible aspiration pneumonia, patient repeat blood culture has been negative so far , the patient chest x-ray from 09/12/2022 did showed improvement 4-the patient has had clinical improvement and has completed his two-week course of antibiotics including IV and monitor closely Time with Patient: Less than 30
[2022-09-18] MEDS ORDERED: DOCUSATE 100 MG CAP PO SCH (09:00)
--- NOTE | 2022-09-22 15:56 | CDI ---
Documentation Clarification Form Date: 09/22/2022 3:41:42 PM From: Crystal Ley Phone: Admit Date: 09/02/2022 8:15:00 PM Patient Name: Doni Simons Visit Number: [id number] Discharge Date: 09/17/2022 2:10:00 PM ATTENTION: The Clinical Documentation Specialists (CDI) and [facility] Coding Staff appreciate your assistance in clarifying documentation. Please respond to the clarification below the line at the bottom and electronically sign. The CDI & [facility] Coding staff will review the response and follow-up if needed. Please note: Queries are made part of the Legal Health Record. If you have any questions, please contact the author of this message via ITS. Dr. Anurag eBnitez Your patient has the documented symptom of sugarsare running to be a bit high per Dr Bro Progress Note 09/09/22. Additional clarification regarding the etiology/cause of this symptom is requested. Patient history/risk factors: 61yo M, Sepsiswshockd/t E. coli pneumoniaandbacteremia, AH/HRF, AECOPD, acutetoxic metabolic encephalopathy, HAILEE, smoker Clinical Indicators: Glucose: 09/03 236 09/07 331 09/09 173 09/11 123 09/15 177 Treatment: added insulin because his sugars are poorly controlled, will discontinue Levemir insulin and start the patient on IV insulin Please provide additional clarification regarding the etiology/cause of the elevated glucose levels: [ ] Diabetes Type 2 [ ] Diabetes due to underlying condition, specify (e.g. Cushings syndrome) [ ] Drug/chemical induced Diabetes (document the drug/chemical) [ ] Result clinically insignificant [ ] Other, please specify [ ] Unable to determine (Template Last Revised: June 2020) MTDD
--- NOTE | 2022-09-26 11:52 | PN ---
PROGRESS NOTE Diabetes mellitus type 2. MMODL / IJN: [id number] /
== END 2022-09-17 14:10 | DRG 870 ==
LOC: EC 13:14 → 2SICU 20:15 → 4SSUR 09-15 05:04
PROVIDERS: ADMIT Family Medicine; ATTEND Family Medicine
PROC: 5A1955Z Respiratory Ventilation, Greater than 96 Consecutive Hours (ICD-10-PCS; principal; 2022-09-02)
PROC: 0BH18EZ Insertion of Endotracheal Airway into Trachea, Via Natural or Artificial Opening Endoscopic (ICD-10-PCS; 2022-09-02)
PROC: 5A09357 Assistance with Respiratory Ventilation, Less than 24 Consecutive Hours, Continuous Positive Airway Pressure (ICD-10-PCS; 2022-09-02)
PROC: 3E033XZ Introduction of Vasopressor into Peripheral Vein, Percutaneous Approach (ICD-10-PCS; 2022-09-02)
PROC: 0D9670Z Drainage of Stomach with Drainage Device, Via Natural or Artificial Opening (ICD-10-PCS; 2022-09-02)
PROC: 03HY32Z Insertion of Monitoring Device into Upper Artery, Percutaneous Approach (ICD-10-PCS; 2022-09-03)
PROC: 4A133B1 Monitoring of Arterial Pressure, Peripheral, Percutaneous Approach (ICD-10-PCS; 2022-09-03)
PROC: 4A133J1 Monitoring of Arterial Pulse, Peripheral, Percutaneous Approach (ICD-10-PCS; 2022-09-03)
PROC: 02HV33Z Insertion of Infusion Device into Superior Vena Cava, Percutaneous Approach (ICD-10-PCS; 2022-09-04)
PROC: 0B9D8ZX Drainage of Right Middle Lung Lobe, Via Natural or Artificial Opening Endoscopic, Diagnostic (ICD-10-PCS; 2022-09-04)
PROC: 0B978ZZ Drainage of Left Main Bronchus, Via Natural or Artificial Opening Endoscopic (ICD-10-PCS; 2022-09-04)
PROC: 0B918ZZ Drainage of Trachea, Via Natural or Artificial Opening Endoscopic (ICD-10-PCS; 2022-09-04)
PROC: 0B938ZZ Drainage of Right Main Bronchus, Via Natural or Artificial Opening Endoscopic (ICD-10-PCS; 2022-09-04)
PROC: 03HY32Z Insertion of Monitoring Device into Upper Artery, Percutaneous Approach (ICD-10-PCS; 2022-09-07)
PROC: 4A133B1 Monitoring of Arterial Pressure, Peripheral, Percutaneous Approach (ICD-10-PCS; 2022-09-07)
PROC: 4A133J1 Monitoring of Arterial Pulse, Peripheral, Percutaneous Approach (ICD-10-PCS; 2022-09-07)
DX: A41.51 Sepsis due to Escherichia coli [E. coli] (principal); G92.8 Other toxic encephalopathy; J96.21 Acute and chronic respiratory failure with hypoxia; J96.22 Acute and chronic respiratory failure with hypercapnia; N17.0 Acute kidney failure with tubular necrosis; J69.0 Pneumonitis due to inhalation of food and vomit; R65.21 Severe sepsis with septic shock; J15.5 Pneumonia due to Escherichia coli; J15.6 Pneumonia due to other Gram-negative bacteria; J91.8 Pleural effusion in other conditions classified elsewhere; E87.20 Acidosis, unspecified; Z99.11 Dependence on respirator [ventilator] status; J98.11 Atelectasis; K35.80 Unspecified acute appendicitis; Z66 Do not resuscitate; J43.2 Centrilobular emphysema; E11.65 Type 2 diabetes mellitus with hyperglycemia; I10 Essential (primary) hypertension; K21.9 Gastro-esophageal reflux disease without esophagitis; F17.210 Nicotine dependence, cigarettes, uncomplicated; Z20.822 Contact with and (suspected) exposure to COVID-19; Z87.01 Personal history of pneumonia (recurrent); Z79.899 Other long term (current) drug therapy; Z80.0 Family history of malignant neoplasm of digestive organs; Z28.311 Partially vaccinated for COVID-19
CPT/HCPCS: 31500; 36415; 36600; 71045; 71046; 71275; 74177; 80048; 80053; 81001; 82805; 83036; 83605; 83735; 83880; 84132; 84145; 84484; 85025; 85027; 85379; 85610; 85730; 86140; 87070; 87077; 87186; 87205; 87449; 87635; 87636; 93005; 93970; 94003; 94640; 94660; 94664; 94760; 96361; 96365; 96366; 96368; 96375; 99291